=== PATIENT | male | born 1945 | race Caucasian/White ===

== ENCOUNTER → 2017-07-14 10:21 | Outpatient (CLI) | payer MEDICARE, SELFPAY | PROVIDERS: Family Provider Family Medicine; PCP Family Medicine; Visit Provider Family Medicine | DX: R19.7 Diarrhea, unspecified (principal) | CPT/HCPCS: 87493 ==

== ENCOUNTER → 2017-08-01 07:46 | Outpatient (CLI) | payer MEDICARE, SELFPAY ==
--- NOTE | 2017-08-01 10:17 | NEURO_ITS ---
NCS and/or EMG Patient Report Ordering Doctor: Tone Gonzalez DATE OF SERVICE: 08/01/17 This is a bilateral lower extremity nerve conduction study and a right lower extremity EMG performed on this 72-year-old male with a history of weakness in his legs associated with foot drop for about 9 months. He also experiences abnormal sensations described as patient's similar to his legs wrapped in an Jaya bandage. He has not had any falls. He has had both of his hips replaced and in February 2017 he had a laminectomy of his lumbar spine, he says symptoms have not improved. He does not have diabetes. Does drink alcohol, moderately but says that he has abstained for the past 5 weeks with no change in his symptoms. On examination he has absent reflexes in his bilateral lower extremities. Bilateral lower extremity sensory and motor nerve conduction study is performed , and is diffusely abnormal. The sural sensory responses are absent bilaterally. The motor responses from the bar bilateral common peroneal and tibial motor nerves demonstrate low amplitudes, prolonged latencies and very slow conduction velocities diffusely. Tibial and common peroneal F wave responses are prolonged bilaterally and the bilateral tibial H reflex responses are very low amplitude. Right lower extremity needle electromyography is performed. Muscles evaluated included the abductor hallucis, extensor digitorum brevis, anterior tibialis, medial gastrocnemius, vastus lateralis, and vastus medialis. Abnormal insertional activity and pathologic spontaneous activity was absent however all muscles demonstrated large motor units demonstrating a distal to proximal gradient with large motor units being more pronounced in distal muscles consistent with length dependent polyneuropathy. Impression: This is an abnormal electrophysiologic study of the lower extremities consistent with severe length dependent polyneuropathy. Further evaluation could include B12 testing, hepatic testing, serum protein electrophoresis, and testing of inflammatory markers. The patient should continue to abstain from alcohol.
== END ==
PROVIDERS: Family Provider Family Medicine; PCP Family Medicine; Visit Provider Orthopaedic Surgery Orthopaedic Surgery of the Spine
DX: R29.898 Other symptoms and signs involving the musculoskeletal system (principal); G62.9 Polyneuropathy, unspecified; R20.2 Paresthesia of skin
CPT/HCPCS: 95886; 95910

== ENCOUNTER → 2017-11-13 11:13 | Outpatient (CLI) | payer MEDICARE, SELFPAY ==
[2017-11-13 12:52] LABS: PSA,Total- Diagnostic < 0.01 ng/mL (0.0-4.0)
== END ==
PROVIDERS: PCP Family Medicine; Visit Provider Urology
DX: C61 Malignant neoplasm of prostate (principal)
CPT/HCPCS: 36415; 84153

== ENCOUNTER → 2018-04-16 07:23 | Outpatient (CLI) | payer MEDICARE, SELFPAY ==
[2018-04-16 10:48] LABS: Absolute Lymphocyte Count 0.96 X10^3/ul (0.83-4.51); Absolute Neutrophil Count 2.6 X10^3/uL (2.0-7.7); Basophil# 0.03 X10^3/uL; Basophil% 0.7 % (0-1); Eosinophil# 0.12 X10^3/uL; Eosinophils% 2.8 % (0-5); Hematocrit 42.7 % (40-54); Hemoglobin 14.1 g/dl (13.0-16.5); Lymphocyte # 0.96 X10^3/ul (4.0); Lymphocyte % 22.3 % (19-41); Mean Corpuscular Hgb 32.7 pg (27.0-32.0); Mean Corpuscular Volume 99.1 fL (80-94); Mean Platelet Vol. 9.2 fl (6.2-12.0); Monocyte# 0.56 X10^3/uL; Neutrophil # 2.62 X10^3/uL (2.7-7.7); Neutrophil % 60.7 % (47-70); Platelet Count 192 K/mm3 (150-450); RBC Distribution Width CV 12.8 % (11.6-14.6); RBC Distribution Width SD 46.6 fl (35.1-43.9); Red Blood Count 4.31 M/mm3 (4.6-6.2); White Blood Count 4.3 K/mm3 (4.4-11.0)
[2018-04-16 10:50] LABS: POSITIVE COUNT NO; POSITIVE DIFFERENTIAL NO; POSITIVE MORPHOLOGY NO
[2018-04-16 11:11] LABS: Anion Gap 8 (5-15); BUN 15 mg/dL (7-18); BUN/Creat Ratio 20.3 RATIO (10-20); Calcium,Total 9.1 mg/dL (8.5-10.1); Chloride 104 mmol/L (98-107); Cholesterol 192 mg/dL (200); Creatinine, Serum 0.74 mg/dL (0.70-1.30); EST Glomerular Filtration Rate 111 mL/min (>60); Est Glom Filt Rate - Afr Amer 134 mL/min (>60); Glucose 101 mg/dL (74-106); High Density Lipoprotein 71 mg/dL; Potassium 4.1 mmol/L (3.5-5.1); Sodium Level 141 mmol/L (136-145); Triglycerides 235 mg/dL; Very Low Density Lipoprotein 47 mg/dL (5-40)
== END ==
PROVIDERS: Family Provider Family Medicine; PCP Family Medicine; Referring Provider Family Medicine; Visit Provider Family Medicine
DX: I10 Essential (primary) hypertension (principal); E78.00 Pure hypercholesterolemia, unspecified
CPT/HCPCS: 36415; 80048; 80061; 85025

== ENCOUNTER → 2018-07-03 09:39 | Outpatient (CLI) | payer MEDICARE, SELFPAY ==
[2018-07-03 11:54] LABS: Absolute Lymphocyte Count 1.02 X10^3/ul (0.83-4.51); Absolute Neutrophil Count 6.5 X10^3/uL (2.0-7.7); Basophil# 0.02 X10^3/uL; Basophil% 0.2 % (0-1); Eosinophil# 0.13 X10^3/uL; Eosinophils% 1.5 % (0-5); Hematocrit 42.5 % (40-54); Hemoglobin 13.6 g/dl (13.0-16.5); Lymphocyte # 1.02 X10^3/ul (4.0); Lymphocyte % 11.6 % (19-41); Mean Corpuscular Hgb 31.3 pg (27.0-32.0); Mean Corpuscular Volume 97.7 fL (80-94); Mean Platelet Vol. 9.8 fl (6.2-12.0); Monocyte# 1.12 X10^3/uL; Monocyte% 12.7 % (0-10); Neutrophil # 6.51 X10^3/uL (2.7-7.7); Neutrophil % 73.7 % (47-70); Platelet Count 216 K/mm3 (150-450); RBC Distribution Width CV 12.8 % (11.6-14.6); RBC Distribution Width SD 45.6 fl (35.1-43.9); Red Blood Count 4.35 M/mm3 (4.6-6.2); White Blood Count 8.8 K/mm3 (4.4-11.0)
[2018-07-03 11:55] LABS: POSITIVE COUNT NO; POSITIVE DIFFERENTIAL NO; POSITIVE MORPHOLOGY NO
[2018-07-03 12:06] LABS: ALB/GLOB Ratio 1.2 RATIO (0.9-2.4); AST(SGOT) 40 U/L (15-37); Alanine Aminotransfer ALT/SGPT 88 U/L (16-61); Albumin, Serum 3.9 g/dL (3.2-5.0); Alkaline Phosphatase 111 U/L (45-117); Anion Gap 10 (5-15); BUN 13 mg/dL (7-18); BUN/Creat Ratio 17.6 RATIO (10-20); Calcium,Total 9.2 mg/dL (8.5-10.1); Chloride 105 mmol/L (98-107); Creatinine, Serum 0.74 mg/dL (0.70-1.30); EST Glomerular Filtration Rate 110 mL/min (>60); Est Glom Filt Rate - Afr Amer 134 mL/min (>60); Globulin 3.2 g/dL (2.2-4.2); Glucose 102 mg/dL (74-106); Potassium 4.5 mmol/L (3.5-5.1); Protein, Total 7.1 g/dL (6.4-8.2); Sodium Level 141 mmol/L (136-145)
== END ==
PROVIDERS: Family Provider Family Medicine; PCP Family Medicine; Visit Provider Family Medicine
DX: R19.8 Other specified symptoms and signs involving the digestive system and abdomen (principal)
CPT/HCPCS: 36415; 80053; 85025

== ENCOUNTER → 2018-07-03 10:23 | Outpatient (CLI) | payer MEDICARE, SELFPAY ==
--- NOTE | 2018-07-03 10:29 | CT_ITS ---
STUDY: CT ABDOMEN AND PELVIS WITH CONTRAST REASON FOR EXAM: Male, 73 years old. Right lower quadrant pain. History of prostate carcinoma. RADIATION DOSAGE (If Supplied By Facility): CTDIvol = ( 26.12 ) mGy, DLP = ( 1819.01 ) mGycm TECHNIQUE: Transaxial images were obtained from the dome of the diaphragm to the symphysis pubis with oral contrast. Isovue 300 100ML IV/Oral was administered. Sagittal and coronal images were reconstructed. Individualized dose optimization techniques were used for this CT. COMPARISON: Comparison is made with prior study dated December 19, 2012. FINDINGS: Calcified right hilar lymph node. Coronary artery calcification. There is decreased attenuation of the liver consistent with steatosis. There are multiple small gallstones. There are multiple benign calcified granulomata of the spleen. Normal pancreas. Normal bilateral adrenal glands. Normal right kidney. Normal left kidney. Normal visualized stomach. Normal small intestine. There are multiple colonic diverticula consistent with diverticulosis. There is a tubular, thick-walled appendix (>7mm), consistent with acute appendicitis. Increased markings are seen in the surrounding fat suggestive of inflammatory changes. There is also evidence of a small lymph node in the right lower quadrant mesentery into the mesenteric adenitis. There is scattered atherosclerotic calcification of the abdominal aorta, without a demonstrated aneurysm. Normal inferior vena cava. Normal retroperitoneum. Normal urinary bladder. Normal abdominal wall. There are diffuse degenerative changes of the visualized lumbar spine. 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 Bilateral total hip replacement. This causes beam Almaraz artifact with limitation of the pelvic anatomy. CT/Abdomen/Pelvis WITH Contrast IMPRESSION: Findings in keeping with noncomplicated acute appendicitis. Fatty infiltration of the liver. Sigmoid diverticulosis. Electronically Signed: Paul Chiang MD at 12:50 EST , Service support ,
== END ==
PROVIDERS: Family Provider Family Medicine; PCP Family Medicine; Referring Provider Family Medicine; Visit Provider Family Medicine
DX: R19.8 Other specified symptoms and signs involving the digestive system and abdomen (principal)
CPT/HCPCS: 36415; 71045; 74177; 80053; 85025; 88304; 93005; 99283; J7030; J7120; Q9967; J2405

== ENCOUNTER 2018-07-03 12:40 | Observation (INO) | payer MEDICARE, SELFPAY ==
[2018-07-03] VITALS (9 sets, daily range): BP systolic 142–169; BP diastolic 78–95; PULSE 59–85; RESP 16–18; TEMP 36.2–37.1; O2SAT 94–99; BMI 35.8; BMI 34.8; BMI 34.9
--- NOTE | 2018-07-03 | APP_PTH ---
PATIENT: CLAYTON BURGOS LOC: MS3 U#:[id number] AGE/SX: 73/M ROOM: WA312 RE07/03/[address]: Dr. Dao Sloan MD : 1945 BED: 1 DIS: 07/04/2018 SPEC #: [id number] RECD: 07/04/18 08:36 STATUS: SOFI REQ #: [id number] MILA: 07/03/18 00:[address]: Dao Sloan DEPT: SURGICAL PATHOLOGY RECD BY: Atif Tijerina ENTERED: 07/04/18 08:36 SP TYPE: APPENDIX OTHR DR: Dr. Ahmet Reed MD Tissues: Appendix, NOS Procedures: Surgery Specimen Level III HEADER OPERATION: Laparoscopic appendectomy PRE-OP DIAGNOSIS: Acute appendicitis TISSUE SUBMITTED: Appendix MICROSCOPIC DIAGNOSIS Appendix, appendectomy: Acute necrotizing appendicitis. Acute serositis. Fibrofatty obliteration of distal appendiceal lumen. AM:breann 07/05/18 MICROSCOPIC DESCRIPTION Slides are reviewed. GROSS DESCRIPTION Received is one container labeled with the patient's name and designated appendix. The specimen consists of a vermiform appendix measuring 7.5 cm in length and varying in diameter from 1 to 0.3 cm. No gross perforations are identified. Grave Cleaner sections are submitted in one cassette. / AM:breann 07/04/18 TC:2 CPT: 35774
--- NOTE | 2018-07-03 13:02 | EKG12_ITS ---
Test Reason : ABD PAIN Blood Pressure : / mmHG Vent. Rate : 056 BPM Atrial Rate : 056 BPM P-R Int : 264 ms QRS Dur : 098 ms QT Int : 436 ms P-R-T Axes : 011 -08 061 degrees QTc Int : 420 ms Sinus bradycardia with 1st degree A-V block Otherwise normal ECG Confirmed by RIGO MEI, GERARD ([id number]), city editor BISI ARGUELLO ([id number]) on 07/08/2018 5:04:13 PM Referred By: PK Confirmed By:GERARD SIERRA MD
--- NOTE | 2018-07-03 13:06 | RAD_ITS ---
STUDY: X-RAY CHEST REASON FOR EXAM: Male, 73 years old. Preoperative evaluation. TECHNIQUE: Single AP portable view of the chest. COMPARISON: Comparison is made with prior study dated July 19, 2016. FINDINGS: The lungs are clear and expanded. Scattered calcified granulomas. There is no demonstrated pleural abnormality. Normal size heart. Normal mediastinum and choco. Normal visualized pulmonary arteries. Normal visualized aortic arch and descending thoracic aorta. There are diffuse degenerative changes of the visualized thoracic spine. Normal visualized ribs, clavicles, and shoulders. There is no demonstrated abnormality of the visualized soft tissue structures of the upper abdomen. RAD/Chest 1 View (Portable) IMPRESSION: No acute abnormality is seen. Electronically Signed: Paul Chiang MD at 13:43 EST , Service support ,
--- NOTE | 2018-07-03 13:12 | ED.VISSUMM ---
- ER Visit Summary Date of Service: 07/03/18 Chief Complaint: Abdominal pain History of Present Illness: The patient is a 73 M who presents to the emergency department following an outpatient CT that showed appendicitis. Patient states that last evening around 1700 pain in the right lower quadrant. He states that he had [place] fries around 1800 hrs. and since that time has not had anything to eat due to anorexia. He had coffee at 080 0 hours. He went to see primary care physician this morning who had outpatient labs drawn white blood cell count 8.8 with a hemoglobin of 13.6 and a platelet count of 216. Creatinine 0.74. The patient's CT demonstrated uncomplicated acute appendicitis. Patient's history includes GERD history of prostate cancer the finished treatment last year hypertension high cholesterol and a smoking history having quit 20 years ago. He has had numerous orthopedic surgeries not had problems with anesthesia. Preceding the patient's abdominal pain patient noted diarrhea Sunday but has not had any diarrhea since. Physical Examination: Afebrile vital signs are stable Gen: Well-nourished well-developed Head: Normocephalic atraumatic Eyes: Perrl EOMI ENT: TMs clear no rhinorrhea moist mucous membranes Neck: Supple no lymphadenopathy no JVD nontender CVS: Regular rate rhythm no murmurs normal S1-S2 Respiratory: No distress clear to auscultation bilaterally chest nontender Abdomen: Soft tender to palpation in the right lower quadrant with guarding. There are bowel sounds. No masses. Back: Nontender Extremity: Nontender no edema Skin: Normal color no rash Neuro: alert orientated ?3 CN II-XII intact normal strength sensation reflexes gait cerebellar Psych: Normal affect normal mood Test Results: EKG was obtained. Patient's outpatient CBC CMP and CT were reviewed. Emergency Department Course and Treatment: Patient received IV fluids was started on Zosyn. I spoke with on-call surgery () who will send a physician customer marketing assistant to evaluate the patient will plan on surgical treatment. Impression: 1. Acute appendicitis This note was generated with [employer] dictation software. It may contain incorrect words, spelling, and punctuation that were not noted in review of the chart prior to signing ED Disposition - Plan for ED Patient: Referrals: Ahmet Reed MD [Primary Care Provider] -
--- NOTE | 2018-07-03 13:15 | ED.DCSUM_ITS ---
- ER Visit Summary Date of Service: 07/03/18 Chief Complaint: Abdominal pain History of Present Illness: The patient is a 73 M who presents to the emergency department following an outpatient CT that showed appendicitis. Patient states that last evening around 1700 pain in the right lower quadrant. He states that he had [place] fries around 1800 hrs. and since that time has not had anything to eat due to anorexia. He had coffee at 080 0 hours. He went to see primary care physician this morning who had outpatient labs drawn white blood cell count 8.8 with a hemoglobin of 13.6 and a platelet count of 216. Creatinine 0.74. The patient's CT demonstrated uncomplicated acute appendicitis. Patient's history includes GERD history of prostate cancer the finished treatment last year hypertension high cholesterol and a smoking history having quit 20 years ago. He has had numerous orthopedic surgeries not had problems with anesthesia. Preceding the patient's abdominal pain patient noted diarrhea Sunday but has not had any diarrhea since. Physical Examination: Afebrile vital signs are stable Gen: Well-nourished well-developed Head: Normocephalic atraumatic Eyes: Perrl EOMI ENT: TMs clear no rhinorrhea moist mucous membranes Neck: Supple no lymphadenopathy no JVD nontender CVS: Regular rate rhythm no murmurs normal S1-S2 Respiratory: No distress clear to auscultation bilaterally chest nontender Abdomen: Soft tender to palpation in the right lower quadrant with guarding. There are bowel sounds. No masses. Back: Nontender Extremity: Nontender no edema Skin: Normal color no rash Neuro: alert orientated ?3 CN II-XII intact normal strength sensation reflexes gait cerebellar Psych: Normal affect normal mood Test Results: EKG was obtained. Patient's outpatient CBC CMP and CT were reviewed. Emergency Department Course and Treatment: Patient received IV fluids was started on Zosyn. I spoke with on-call surgery () who will send a physician engineer third assistant to evaluate the patient will plan on surgical treatment. Impression: 1. Acute appendicitis This note was generated with [employer] dictation software. It may contain incorrect words, spelling, and punctuation that were not noted in review of the chart prior to signing ED Disposition - Plan for ED Patient: Referrals: Ahmet Reed MD [Primary Care Provider] -
[2018-07-03] MEDS: 0.9% Normal Saline 1,000 ML 150 ML IV (13:35)
--- NOTE | 2018-07-03 13:58 | HP.PCM_ITS ---
Problem List (1) Right lower quadrant abdominal pain Status: Acute History of Present Illness Date of Admission: 07/03/18 Chief Complaint: Right lower quadrant pain The patient is a 73 year old M who presents with 1 day history of right lower quadrant abdominal pain. Patient noted he had diarrhea on Sunday and Sunday. Patient also noted lack of appetite yesterday into today. He noted the pain did not improve. He went to see his PCP, Dr. Ewing, who ordered lab work and CT scan which demonstrated uncomplicated acute appendicitis. Patient denies nausea, vomiting, fever. He notes history of prostate cancer which he completed treatment for last year. He is maintained on Flomax. He notes multiple orthopedic procedures. He denies previous abdominal surgeries. He denies previous myocardial infarction, stroke, blood clots. He quit smoking 20 years a go. Past Medical History Allergies No Known Allergies Allergy (Verified 07/03/18 12:41) Home Medications: Ambulatory Orders Medication Instructions Recorded Aspirin [Aspirin, Baby] 81 mg PO DAILY@0800 10/13/15 Atenolol [Tenormin (Beta Ronda)] 50 mg PO DAILY 10/13/15 Gabapentin [Neurontin] 300 mg PO TID 10/13/15 Meloxicam [Mobic] 15 mg PO DAILY 10/13/15 Pantoprazole Sodium [Protonix] 40 mg PO DAILY 10/13/15 Simvastatin [Zocor] 40 mg PO QHS 10/13/15 Cholecalciferol (Vitamin D3) 4,000 unit PO DAILY 07/31/16 [Vitamin D3] Multivit-Min/FA/Lycopen/Lutein 1 each PO DAILY 07/31/16 [Centrum Silver Tablet] Pyridoxine HCl [Vitamin B-6] 100 mg PO DAILY 07/31/16 Tamsulosin HCl 0.4 mg PO DAILY 07/03/18 Surgical History: total hip arthroplasty - bilateral, total knee arthroplasty, - - carpal tunnel, spine surgery, left quad tendon repair Psychiatric History: No pertinent psych hx Lives: Spouse/ Significant Other Smoking Status: Former smoker - *Family History Maternal History Items: No pertinent history Paternal History Items: No pertinent history Review of Systems Constitutional: Reports: Anorexia. Denies: Fever, Weight Change HEENT: Denies: Head Aches, Sinus Congestion, Sinus Drainage Cardiovascular: Denies: Chest Pain, Palpitations Respiratory: Denies: Cough, Shortness of breath at rest, Sputum production Gastrointestinal: Reports: Abdominal Pain - RLQ, Diarrhea. Denies: Nausea, Vomiting Genitourinary: Reports: Dysuria Musculoskeletal: Denies: Joint Pain, Joint Tenderness Skin: Denies: Rash, Wounds Neurological: Denies: Numbness, Tingling, Focal weakness Psychiatric: Denies: Anxiety, Depression, Homicidal Ideations, Suicidal Ideations Hematologic/ Lymphatic: Denies: Easy Bruising, Easy Bleeding VTE Information - Inpt Only VTE Present on Admission: Yes VTE Mechan Device Prophylaxis: SCD's Patient Problems: Active and Suspected Problems Right lower quadrant abdominal pain (Acute) - Physical Exam General: Alert, Oriented x3, Cooperative HEENT: Atraumatic, PERRLA, EOMI, Normocephalic Neck: Supple, No JVD, Negative Carotid Bruits Lungs: Clear to auscultation, Normal air movement Cardiovascular: Regular rate, No murmurs Abdomen: Bowel Sounds Present, Soft, Obese, Tender - RLQ Extremities: No edema, Capillary Refill Less than 3 Seconds Skin: No rashes, No breakdown Musculoskeletal: No Tenderness to Palpation of Joints or Extremities Neurological: Cranial nerves II-XII grossly intact, Neuro grossly intact Psych/Mental Status: Normal Affect, Appropriate Vital Signs Temp Pulse Resp BP Pulse Ox 97.1 F L 59 L 17 142/83 H 99 07/03/18 12:41 07/03/18 13:36 07/03/18 13:36 07/03/18 12:41 07/03/18 13:36 Weight: 256 lb 13.416 oz Body Mass Index (BMI) 35.8 Finger Stick Blood Glucose 100 Assessment/Plan All Active Problems Right lower quadrant abdominal pain (Acute) I am evaluating this patient in conjunction with Dr. Sloan. Impression: Right lower quadrant pain. Acute appendicitis Plan: I have discussed this patient with Dr. Sloan. Dr. Sloan will plan to perform a laparoscopic appendectomy. Procedure details, risks and benefits have been explained to the patient and his . Patient has had the opportunity to ask and have questions answered. Patient verbally understands and agrees with the plan. Thank you for allowing us to participate in this patient's care. Code Visit Office Visits / Consults: 35155 IP Consult L3
--- NOTE | 2018-07-03 17:11 | PCM.DC.GS ---
Discharge Diet: Light diet - advance as tolerated - if you have questions about your diet instructions, please talk to you doctor. Discharge Activity: May Not Drive - for 3-5 days or while taking narcotic pain medicine. May shower in (days): 1 Lifting Restrictions: 10 pounds Call your doctor if your incision/area has: Continuous Slow Oozing, Sudden Increased Bleeding, Increased Pain/ Swelling, Increased Redness, Foul Smelling Discharge Call your doctor if you observe: Fever of 101 or Higher Suture Line Care: Avoid Pulling/Pushing, Avoid Pinching/Bending Additional Dressing/Incision Instructions:: Change or remove dressing in 4 days. Leave steri-strips in place for 1 week. Allergies/Adverse Reactions: Allergies No Known Allergies Allergy (Verified 07/03/18 12:41) Medications to take at Discharge Aspirin [Aspirin, Baby] 81 mg PO DAILY@0800 10/13/15 Atenolol [Tenormin (beta andrzej)] 50 mg PO DAILY 10/13/15 Gabapentin [Neurontin] 300 mg PO TID 10/13/15 Meloxicam [Mobic] 15 mg PO DAILY 10/13/15 Pantoprazole Sodium [Protonix] 40 mg PO DAILY 10/13/15 Simvastatin [Zocor] 40 mg PO QHS 10/13/15 Cholecalciferol (Vitamin D3) [Vitamin D3] 4,000 unit PO DAILY 07/31/16 Multivit-Min/FA/Lycopen/Lutein [Centrum Silver Tablet] 1 each PO DAILY 07/31/16 Pyridoxine HCl [Vitamin B6] 100 mg PO DAILY 07/31/16 Hydrocodone Bitart/Apap 5-325 [[place] 5MG-325MG] 1 tablet PO Q6H PRN PRN 2 Days #6 tablet 07/03/18 Tamsulosin HCl 0.4 mg PO DAILY 07/03/18 The following prescriptions were given: Hydrocodone Bitart/Apap 5-325 [[place] 5MG-325MG] 1 tablet PO Q6H PRN PRN 2 Days #6 tablet PRN Reason: Pain Primary Care Physician: Ahmet Reed MD [Primary Care Provider] - Test Results: Test results from this visit will be discussed in further detail at your follow-up appointment, if applicable. Please Follow Up With: Dao Sloan MD - [phone] When: Call to make an appointment to be seen in about 10 days.
[2018-07-03] MEDS: Bupivacaine Mpf 0.5% 30 ML VIAL (18:05)
--- NOTE | 2018-07-03 18:15 | PCM.OPRPT ---
Problem List (1) Acute appendicitis Status: Acute Qualifiers: Acute appendicitis type: with localized peritonitis Appendicitis gangrene presence: without gangrene Appendicitis perforation presence: without perforation Appendicitis abscess presence: without abscess Qualified Code(s): K35.30 - Acute appendicitis with localized peritonitis, without perforation or gangrene Report of Operation Date of Procedure: 07/03/18 Pre-Operative Diagnosis: Acute appendicitis with suspected localized peritonitis Post-Operative Diagnosis: Acute appendicitis with localized peritonitis and ileus Surgery/Procedure Performed:: Laparoscopic appendectomy Description of Surgical Findings:: Timeout and informed consent was obtained. 73-year-old gent was taken the operative placement table general the patient in anesthesia. Zosyn has been given intravenously in the emergency room. The abdomen sterilely prepped draped. 0.5% Marcaine was used as local anesthetic. Throughout the procedure total 30 cc was used. Skin sites were pre-anesthetized. A vertical infraumbilical incision was created. Holding suture of 0 Vicryl placed. This incision was made actually inferior to the umbilicus itself. At the closing there was evidence of likely a very small umbilical hernia but that tissue was not interfered with. A varies needle was inserted. The abdomen was insufflated with CO2 to a pressure of 10 mmHg pressure. To me trocar inserted. 10 lap scope inserted. No evidence of trocar injuries. There was injection of the cecum and significant appendiceal swelling and inflammation with pericecal fat wrapping. Terminal ileum was adherent to the appendix. 5-minute trochars placed suprapubically and one in the right upper quadrant. The appendix was carefully bluntly dissected free. I tediously dissected free peritoneal fat which was apparent to the cecum the appendix. Were needed hemostasis obtained with hemo-lock clips. I then had some hopes of doing a partial cystectomy. I placed a 60 mm [place] stapler but despite multiple positions I could not include the cecum which was distended with ileus and was mildly indurated. I therefore transected the appendix flush with the cecum. I placed the stapler weighted a 4-minute and then fired the device. I then used a similar process to transect the mesoappendix. Final hemostasis of the mesoappendix was achieved with several hemo-lock clips. The appendix was placed in a retrieval bag. The right lower quadrant was irrigated and aspirated free of excess fluid. There had been some light escudero cloudy fluid to a small amount at the initiation of the procedure. At the completion of the procedure all staple lines were inspected all staple lines appeared to be healthy and intact. The appendix was exited through the umbilical incision. The remaining ports were removed under visualization. The abdomen was allowed to deflate of CO2. The fascia at the umbilicus proximal interrupted 0 Vicryl [id number] suture. Skin edges approximated up to 4 Monocryl subdermal stitches. Steri-Strips and Telfa and OpSite dressings were applied. Sponge and instrument and needle counts were reported the surgeon be correct. Blood loss was minimal. He tolerated the procedure well and was taken to the recovery room in satisfactory condition without apparent complication. Specimen appendix. Drains none. Blood loss minimal. Dao Sloan M.D., F.A.C.S. Type of Anesthesia:: General Anesthesiologist: Tha Huffman
--- NOTE | 2018-07-03 18:20 | OP.PCM_ITS ---
Problem List (1) Acute appendicitis Status: Acute Qualifiers: Acute appendicitis type: with localized peritonitis Appendicitis gangrene presence: without gangrene Appendicitis perforation presence: without perforation Appendicitis abscess presence: without abscess Qualified Code(s): K35.30 - Acute appendicitis with localized peritonitis, without perforation or gangrene Report of Operation Date of Procedure: 07/03/18 Pre-Operative Diagnosis: Acute appendicitis with suspected localized peritonitis Post-Operative Diagnosis: Acute appendicitis with localized peritonitis and ileus Surgery/Procedure Performed:: Laparoscopic appendectomy Description of Surgical Findings:: Timeout and informed consent was obtained. 73-year-old gent was taken the operative placement table general the patient in anesthesia. Zosyn has been given intravenously in the emergency room. The abdomen sterilely prepped draped. 0.5% Marcaine was used as local anesthetic. Throughout the procedure total 30 cc was used. Skin sites were pre-anesthetized. A vertical in fraumbilical incision was created. Holding suture of 0 Vicryl placed. This incision was made actually inferior to the umbilicus itself. At the closing there was evidence of likely a very small umbilical hernia but that tissue was not interfered with. A varies needle was inserted. The abdomen was insufflated with CO2 to a pressure of 10 mmHg pressure. To me trocar inserted. 10 lap scope inserted. No evidence of trocar injuries. There was injection of the cecum and significant appendiceal swelling and inflammation with pericecal fat wrapping. Terminal ileum was adherent to the appendix. 5-minute trochars placed suprapubically and one in the right upper quadrant. The appendix was carefully bluntly dissected free. I tediously dissected free peritoneal fat which was apparent to the cecum the appendix. Were needed hemostasis obtained with hemo-lock clips. I then had some hopes of doing a partial cystectomy. I placed a 60 mm [place] stapler but despite multiple positions I could not include the cecum which was distended with ileus and was mildly indurated. I therefore transected the appendix flush with the cecum. I placed the stapler weighted a 4-minute and then fired the device. I then used a similar process to transect the mesoappendix. Final hemostasis of the mesoappendix was achieved with several hemo-lock clips. The appendix was placed in a retrieval bag. The right lower quadrant was irrigated and aspirated free of excess fluid. There had been some light escudero cloudy fluid to a small amount at the initiation of the procedure. At the completion of the procedure all staple lines were inspected all staple lines appeared to be healthy and intact. The appendix was exited through the umbilical incision. The remaining ports were removed under visualization. The abdomen was allowed to deflate of CO2. The fascia at the umbilicus proximal interrupted 0 Vicryl [id number] suture. Skin edges approximated up to 4 Monocryl subdermal stitches. Steri-Strips and Telfa and OpSite dressings were applied. Sponge and instrument and needle counts were reported the surgeon be correct. Blood loss was minimal. He tolerated the procedure well and was taken to the recovery room in satisfactory condition without apparent complication. Specimen appendix. Drains none. Blood loss minimal. Dao Sloan M.D., F.A.C.S. Type of Anesthesia:: General Anesthesiologist: Tha Huffman
[2018-07-03] MEDS: Atorvastatin Calcium 20 MG Tablet PO (22:18)
[2018-07-03] MEDS: Gabapentin 300 MG Capsule PO (22:18)
[2018-07-03] MEDS: Lactated Ringers 1,000 ML 70 ML IV (22:18)
[2018-07-04] VITALS: BP 137/79; PULSE 70; RESP 18; TEMP 36.6; O2SAT 95; BMI 34.9
[2018-07-04] MEDS: Gabapentin 300 MG Capsule PO (05:19)
[2018-07-04 05:25] VITALS: BP 149/79; PULSE 57; RESP 16; TEMP 36.8; O2SAT 94
[2018-07-04 05:45] LABS: Absolute Lymphocyte Count 0.72 X10^3/ul (0.83-4.51); Absolute Neutrophil Count 7.8 X10^3/uL (2.0-7.7); Basophil# 0.01 X10^3/uL; Basophil% 0.1 % (0-1); Hematocrit 40.7 % (40-54); Hemoglobin 13.2 g/dl (13.0-16.5); Lymphocyte # 0.72 X10^3/ul (4.0); Lymphocyte % 7.8 % (19-41); Mean Corp Hgb Conc 32.4 g/gl (32-36); Mean Corpuscular Hgb 31.5 pg (27.0-32.0); Mean Corpuscular Volume 97.1 fL (80-94); Mean Platelet Vol. 9.4 fl (6.2-12.0); Monocyte# 0.68 X10^3/uL; Monocyte% 7.4 % (0-10); Neutrophil # 7.79 X10^3/uL (2.7-7.7); Neutrophil % 84.5 % (47-70); Platelet Count 209 K/mm3 (150-450); RBC Distribution Width CV 12.4 % (11.6-14.6); RBC Distribution Width SD 42.7 fl (35.1-43.9); Red Blood Count 4.19 M/mm3 (4.6-6.2); White Blood Count 9.2 K/mm3 (4.4-11.0)
[2018-07-04 05:50] LABS: POSITIVE COUNT NO; POSITIVE DIFFERENTIAL NO; POSITIVE MORPHOLOGY NO
--- NOTE | 2018-07-04 06:22 | PN.SURG_ITS ---
Patient Problems: Active and Suspected Problems Right lower quadrant abdominal pain (Acute) Acute appendicitis (Acute) Subjective: Pt has minimal pain. No nausea. Feeling better Minimal flatus - Physical Exam Lungs: Clear to auscultation Abdomen: Bowel Sounds Present, Soft, Non Tender Vital Signs Temp Pulse Resp BP Pulse Ox 98.2 F 57 L 16 149/79 H 94 07/04/18 05:25 07/04/18 05:25 07/04/18 05:25 07/04/18 05:25 07/04/18 05:25 Oxygen Flow Rate (L/min) 1 Oxygen Delivery Method Room Air Weight: 250 lb Body Mass Index (BMI) 34.8 Finger Stick Blood Glucose 100 Intake and Output for Last 24 Hours 07/02/18 07/03/18 07/04/18 23:59 23:59 23:59 Intake Total 1500 / 1500 200 / 200 Output Total 650 / 650 Balance 1500 / 1500 -450 / -450 Laboratory Tests Past 24 Hrs 07/04/18 05:20 WBC 9.2 RBC 4.19 L Hgb 13.2 Hct 40.7 MCV 97.1 H MCH 31.5 MCHC 32.4 RDW 12.4 RDW Differential 42.7 Plt Count 209 MPV 9.4 Immature Gran % (Auto) 0.200 Neut % (Auto) 84.5 H Lymph % (Auto) 7.8 L [place] % (Auto) 7.4 Eos % (Auto) 0.0 Baso % (Auto) 0.1 Absolute Neuts (auto) 7.8 H Absolute Lymphs (auto) 0.72 L Total Counted Not Reportable Medical Necessity - Tobacco Use Smoking Status: Former smoker Assessment/Plan All Active Problems Right lower quadrant abdominal pain (Acute) Acute appendicitis (Acute) Will start diet Will stop IV antibiotics Plan discharge later today
[2018-07-04 07:37] VITALS: O2SAT 93
[2018-07-04] MEDS: Aspirin 81 MG TAB.CHEW PO (08:39)
[2018-07-04] MEDS: Tamsulosin HCl 0.4 MG Capsule PO (11:26)
[2018-07-04] MEDS: Pantoprazole Sodium 40 MG Tablet PO (11:26)
[2018-07-04] MEDS: Atenolol 50 MG Tablet PO (11:27)
[2018-07-04 11:31] VITALS: BP 136/75; PULSE 61; RESP 18; TEMP 36.7; O2SAT 95
== END 2018-07-04 11:51 | disposition home or self-care (01) ==
LOC: ED 13:20 → SDC 13:25 → AC 13:27 → MS3 07-04 06:01 → SDC 07-04 08:57
PROVIDERS: Admitting Provider Surgery; Emergency Provider Emergency Medicine; Family Provider Family Medicine; PCP Family Medicine; Visit Provider Surgery
PROC: 0DTJ4ZZ Resection of Appendix, Percutaneous Endoscopic Approach (ICD-10-PCS; CPT 44970; principal; 2018-07-03 15:15)
DX: K35.30 Acute appendicitis with localized peritonitis, without perforation or gangrene (principal); E78.00 Pure hypercholesterolemia, unspecified; K21.9 Gastro-esophageal reflux disease without esophagitis; I10 Essential (primary) hypertension; Z87.891 Personal history of nicotine dependence; Z79.82 Long term (current) use of aspirin; Z79.899 Other long term (current) drug therapy; Z79.1 Long term (current) use of non-steroidal anti-inflammatories (NSAID); Z85.46 Personal history of malignant neoplasm of prostate; R19.8 Other specified symptoms and signs involving the digestive system and abdomen
CPT/HCPCS: 44970; 36415; 71045; 80053; 85025; 88304; 93005; 99283; J7030; J7120; J2405

== ENCOUNTER → 2018-08-27 09:40 | Outpatient (CLI) | payer MEDICARE, SELFPAY ==
[2018-07-03 19:52] VITALS: BMI 34.8
[2018-08-27 13:07] LABS: PSA,Total- Diagnostic < 0.01 ng/mL (0.0-4.0)
== END ==
PROVIDERS: Family Provider Family Medicine; PCP Family Medicine; Referring Provider Family Medicine; Visit Provider Urology
DX: C61 Malignant neoplasm of prostate (principal)
CPT/HCPCS: 36415; 84153

== ENCOUNTER → 2019-02-25 07:16 | Outpatient (CLI) | payer MEDICARE, SELFPAY ==
[2018-07-03 19:52] VITALS: BMI 34.8
[2019-02-25 10:00] LABS: Color, Urine Yellow (Yellow); Glucose, Dipstick Normal (Normal); Ketone-Dipstick Negative (Negative); Leukocyte Esterase-Dipstick Negative /ul (Negative); Nitrite-Dipstick Negative (Negative); Occult Blood-Urine 25 /ul (Negative); Protein-Dipstick 100 mg/dl (Negative); Urine Bilirubin Dipstick Negative (Negative); Urine Clarity Sl. Cloudy (Clear); Urine Urobilinogen Normal (Normal)
[2019-02-25 10:04] LABS: Hematocrit 47.1 % (40-54); Hemoglobin 15.7 g/dL (13.0-16.5); Mean Corp Hgb Conc 33.3 g/dL (32-36); Mean Corpuscular Hgb 31.9 pg (27.0-32.0); Mean Corpuscular Volume 95.7 fL (80-94); Mean Platelet Vol. 9.6 fl (6.2-12.0); Platelet Count 207 K/mm3 (150-450); RBC Distribution Width CV 12.3 % (11.6-14.6); RBC Distribution Width SD 43.3 fl (35.1-43.9); Red Blood Count 4.92 M/mm3 (4.6-6.2); White Blood Count 5.7 K/mm3 (4.4-11.0)
[2019-02-25 10:12] LABS: Bacteria 1+ /hpf (None Seen); Mucous, Urine 1+ /hpf (<or=2+); Red Blood Cells-Urine 0-5 SEEN /hpf (0-5); Squamous Epithelial Cells - UA 0-5 SEEN /hpf (0-5); White Blood Cells 0-5 SEEN /hpf (0-5)
[2019-02-25 10:23] LABS: Vitamin D,25 Hydroxy 26.7 ng/mL (29.95-100.01)
[2019-02-25 10:34] LABS: Anion Gap 10 (5-15); BUN 16 mg/dL (7-18); BUN/Creat Ratio 21.4 RATIO (10-20); Calcium,Total 9.2 mg/dL (8.5-10.1); Chloride 106 mmol/L (98-107); Cholesterol 192 mg/dL (200); Creatinine, Serum 0.75 mg/dL (0.70-1.30); EST Glomerular Filtration Rate 109 mL/min (>60); Est Glom Filt Rate - Afr Amer 132 mL/min (>60); Glucose 116 mg/dL (74-106); High Density Lipoprotein 70 mg/dL; PSA,Total- Diagnostic 0.01 ng/mL (0.0-4.0); Potassium 4.1 mmol/L (3.5-5.1); Sodium Level 142 mmol/L (136-145); Triglycerides 306 mg/dL; Very Low Density Lipoprotein 61 mg/dL (5-40)
[2019-02-26 10:03] LABS: Hemoglobin A1c 5.5 % (4.2-6.3)
== END ==
PROVIDERS: Family Provider Family Medicine; PCP Family Medicine; Referring Provider Urology; Visit Provider Urology
DX: I10 Essential (primary) hypertension (principal); E55.9 Vitamin D deficiency, unspecified; E78.00 Pure hypercholesterolemia, unspecified; C61 Malignant neoplasm of prostate; R73.09 Other abnormal glucose
CPT/HCPCS: 36415; 80048; 80061; 81001; 82306; 83036; 84153; 85027

== ENCOUNTER → 2019-03-04 15:00 | Outpatient (CLI) | payer MEDICARE, SELFPAY ==
[2018-07-03 19:52] VITALS: BMI 34.8
[2019-03-04 15:04] VITALS: BP 146/79; PULSE 60; RESP 17; TEMP 36.2; O2SAT 98; BMI 35.7
--- NOTE | 2019-03-04 15:25 | SDCEKG_ITS ---
Test Reason : Blood Pressure : / mmHG Vent. Rate : 056 BPM Atrial Rate : 056 BPM P-R Int : 316 ms QRS Dur : 098 ms QT Int : 448 ms P-R-T Axes : 051 -07 078 degrees QTc Int : 432 ms Sinus bradycardia with 1st degree A-V block Otherwise normal ECG Confirmed by AAKASH MEI, ALEXANDRE ([id number]), slot editor АНДРЕЙ MURRY ([id number]) on 03/07/2019 1:13:23 PM Referred By: Khoa Gant Confirmed By:ISIAH FINN MD
[2019-03-04 16:17] LABS: Absolute Lymphocyte Count 1.37 X10^3/uL (0.83-4.51); Absolute Neutrophil Count 4.1 X10^3/uL (2.0-7.7); Basophil# 0.04 X10^3/uL; Basophil% 0.6 % (0-1); Eosinophil# 0.18 X10^3/uL; Eosinophils% 2.7 % (0-5); Hemoglobin 14.4 g/dL (13.0-16.5); Lymphocyte # 1.37 X10^3/ul (4.0); Lymphocyte % 20.9 % (19-41); Mean Corp Hgb Conc 32.7 g/dL (32-36); Mean Corpuscular Hgb 32.2 pg (27.0-32.0); Mean Corpuscular Volume 98.4 fL (80-94); Mean Platelet Vol. 9.6 fl (6.2-12.0); Monocyte# 0.88 X10^3/uL; Monocyte% 13.4 % (0-10); NRBC Flagged by Analyzer 0 % (0-5); Neutrophil # 4.05 X10^3/uL (2.7-7.7); Neutrophil % 61.9 % (47-70); Platelet Count 197 K/mm3 (150-450); RBC Distribution Width CV 12.4 % (11.6-14.6); RBC Distribution Width SD 44.8 fl (35.1-43.9); Red Blood Count 4.47 M/mm3 (4.6-6.2); White Blood Count 6.6 K/mm3 (4.4-11.0)
[2019-03-04 16:23] LABS: Prothrombin Time (Protime)PT. 12.7 SECONDS (11.7-14.9)
[2019-03-04 16:24] LABS: Partial Thromboplast Time 27.4 Seconds (24.1-36.2)
[2019-03-04 17:05] LABS: AST(SGOT) 36 U/L (15-37); Alanine Aminotransfer ALT/SGPT 71 U/L (16-61); Albumin, Serum 3.9 g/dL (3.2-5.0); Alkaline Phosphatase 115 U/L (45-117); Globulin 3.2 g/dL (2.2-4.2); Protein, Total 7.1 g/dL (6.4-8.2)
== END ==
PROVIDERS: Anesthesiology; Family Provider Family Medicine; PCP Family Medicine; Referring Provider Orthopaedic Surgery; Visit Provider Orthopaedic Surgery
DX: Z01.810 Encounter for preprocedural cardiovascular examination (principal); Z01.818 Encounter for other preprocedural examination; I10 Essential (primary) hypertension; F17.200 Nicotine dependence, unspecified, uncomplicated; Z79.899 Other long term (current) drug therapy
CPT/HCPCS: 36415; 80076; 85025; 85610; 85730; 87081; 93005

== ENCOUNTER → 2019-03-05 12:21 | Outpatient (CLI) | payer MEDICARE, SELFPAY ==
[2019-03-05 12:18] VITALS: BMI 34.8
[2019-03-05 15:08] LABS: T4 Free Direct 0.84 ng/dL (0.76-1.46); Thyroid Stim Hormone (TSH) 0.77 uIU/mL (0.358-3.74)
[2019-03-05 15:34] LABS: Hepatitis B Surface Antibody Non-Reactive; Hepatitis B Surface Antigen Non-Reactive (Nonreactive); Hepatitis C Antibody Non-Reactive (Nonreactive)
[2019-03-06 17:15] LABS: Anti-Thyroglobulin AB < 1.0 IU/mL (0.0-0.9); Thyroglobulin, Serum Qt. 12.2 ng/mL (1.4-29.2); Thyroid Peroxidase AB 12 IU/mL (0-34)
== END ==
PROVIDERS: Family Provider Family Medicine; PCP Family Medicine; Referring Provider Family Medicine; Visit Provider Family Medicine
DX: E01.0 Iodine-deficiency related diffuse (endemic) goiter (principal); R94.5 Abnormal results of liver function studies
CPT/HCPCS: 36415; 84432; 84439; 84443; 86376; 86706; 86800; 86803; 87340

== ENCOUNTER → 2019-03-07 12:16 | Outpatient (CLI) | payer MEDICARE, SELFPAY ==
[2019-03-05 12:18] VITALS: BMI 34.8
--- NOTE | 2019-03-07 12:17 | US_ITS ---
STUDY: THYROID ULTRASOUND REASON FOR EXAM: Male, 73 years old. Thyromegaly. TECHNIQUE: Ultrasound evaluation of the thyroid was performed with real-time and static ramsey-scale imaging. COMPARISON: None. FINDINGS: RIGHT LOBE: The right lobe of the thyroid gland measures 5.1 x 2.6 x 2.2 cm. There is a homogeneous echotexture. There are no demonstrated solid, cystic or complex lesions. LEFT LOBE: The left lobe of the thyroid gland measures 5.5 x 2.6 x 2.7 cm. There is a homogeneous echotexture. Within the left thyroid lobe, mid lower pole there is a large complex cystic nodule measuring 2.4 x 2.1 x 2.3 cm with partial hypoechoic rim and internal cystic changes. This internal and peripheral color flow. The margins are nodular. A second nodule is seen within the upper pole with diffuse decreased echogenicity a small peripheral rim measuring 0.5 x 0.3 x 0.4 cm. The margins are regular. There is internal color flow. ISTHMUS: The isthmus measures . The regional lymph nodes are normal. US/Thyroid IMPRESSION: Left-sided thyroid lobe nodules as described above, largest seen within the mid lower pole and measuring 2.4 cm in maximum dimension, morphology favoring benign process. Note to be made that benign versus malignant process cannot be adequately determined without microscopic evaluation or documentation of stability. Depending on clinical presentation and history, follow-up ultrasound in 6-12 months recommended the. Electronically Signed: Dee Hoffman MD at 3:34 EDT , Service support ,
== END ==
PROVIDERS: Family Provider Family Medicine; PCP Family Medicine; Referring Provider Family Medicine; Visit Provider Family Medicine
DX: E01.0 Iodine-deficiency related diffuse (endemic) goiter (principal)
CPT/HCPCS: 76536

== ENCOUNTER → 2019-03-14 12:46 | Outpatient (CLI) | payer MEDICARE, SELFPAY ==
[2019-03-05 12:18] VITALS: BMI 34.8
[2019-03-12 08:29] VITALS: BMI 35.9
--- NOTE | 2019-03-14 12:53 | ECHOCS_ITS ---
Reason For Study: Murmur Procedure This was a 2D Doppler, Color Flow transthoracic echocardiogram. The study was technically difficult. Contrast injection was performed. Exam performed in department. Left Ventricle Normal LV size. Moderate concentric left ventricular hypertrophy. Left ventricular systolic function is normal. The estimated ejection fraction is 60 %. Diastolic function is indeterminate. No regional wall motion abnormalities noted. Right Ventricle Normal RV size. Normal systolic function. Atria The left atrium is mildly enlarged. Normal right atrium. No doppler evidence for ASD. Bubble contrast study negative for right to left interatrial shunt. Mitral Valve There is mild mitral annular calcification. Extension of the mitral annular calcification onto the posterior mitral valve leaflet. Trivial mitral valve insufficiency. Tricuspid Valve Normal tricuspid valve. Trivial tricuspid valve insufficiency. Unable to estimate RV systolic pressure/pulmonary artery pressure due to technically difficult study. Aortic Valve Trisinus/trileaflet aortic valve. Moderate focal aortic valve calcification. Aortic sclerosis, no stenosis. Pulmonic Valve The pulmonic valve is not well visualized. Great Vessels Normal sized aortic root. Pericardium/Pleural No pericardial effusion. Medication Performed a rapid injection of agitated mix of 9 cc saline and 1cc air to assess for atrial septal defect. Diluted definity 3ml given slow IV push to enhance endocardial definition. MMode/2D Measurements & Calculations LVIDd: 4.9 cm IVSd: 1.6 cm LVOT diam: 2.2 cm LVIDs: 3.3 cm LVPWd: 1.4 cm RVDd: 4.1 cm FS: 33.0 % LVOT area: 3.8 cm2 Ao root diam: 3.5 cm LAV(MOD-bp): 75.8 ml LVAd ap4: 38.1 cm2 LAV(MOD-bp) Indexed: 33.0 ml/m2 EDV(MOD-sp4): 138.6 ml LAV(MOD-sp2): 73.9 ml EDV(sp4-el): 144.4 ml LAV(MOD-sp4): 76.5 ml LVAs ap4: 20.6 cm2 ESV(MOD-sp4): 54.1 ml ESV(sp4-el): 55.0 ml EF(MOD-sp4): 61.0 % EF(sp4-el): 61.9 % SV(MOD-sp4): 84.5 ml SV(sp4-el): 89.3 ml LA A4 area: 25.2 cm2 LA dimension(2D): 4.9 cm RA A4 area: 16.1 cm2 Doppler Measurements & Calculations MV E max markus: 57.4 cm/sec Lat Peak E' Markus: 5.0 cm/sec Med Peak E' Markus: 3.7 cm/sec MV A max markus: 80.0 cm/sec E/E' lat: 11.5 E/E' med: 15.6 MV E/A: 0.72 Ao V2 max: 180.9 cm/sec LV V1 max: 105.7 cm/sec PA V2 max: 138.0 cm/sec Ao max P.1 mmHg LV V1 max P.5 mmHg Ao V2 mean: 122.4 cm/sec Ao mean P.8 mmHg Ao V2 VTI: 37.8 cm BRAULIO(V,D): 2.2 cm2 Interpretation Summary The study was technically difficult. Contrast injection was performed. Left ventricular systolic function is normal. The estimated ejection fraction is 60 %. Moderate concentric left ventricular hypertrophy. The left atrium is mildly enlarged. There is mild mitral annular calcification. Extension of the mitral annular calcification onto the posterior mitral valve leaflet. Trivial mitral valve insufficiency. Trivial tricuspid valve insufficiency. Aortic sclerosis, no stenosis. Unable to estimate RV systolic pressure/pulmonary artery pressure due to technically difficult study. Diastolic function is indeterminate. Ordering Physician: Ahmet Ewing Referring Physician: Ahmet Ewing Performed By: Elva Krishnan RDCS, RVT
== END ==
PROVIDERS: Family Provider Family Medicine; PCP Family Medicine; Referring Provider Family Medicine; Visit Provider Family Medicine
DX: R01.1 Cardiac murmur, unspecified (principal)
CPT/HCPCS: 93306; Q9957; A4216; C8929

== ENCOUNTER → 2019-03-18 12:43 | Outpatient (CLI) | payer MEDICARE, SELFPAY ==
[2019-03-18 09:34] VITALS: BMI 35.9
--- NOTE | 2019-03-18 09:42 | ASPS_PTH ---
PATIENT: CLAYTON BURGOS LOC: [facility] U#:[id number] AGE/SX: 80/M ROOM: RE03/18/[address]: Dr. Cj Zhang MD : 1945 BED: DIS: SPEC #: [id number] RECD: 03/18/19 11:13 STATUS: SOFI SIL #: [id number] MILA: 03/18/19 09:[address]: Cj Zhang DEPT: CYTOLOGY RECD BY: Eddie David ENTERED: 03/18/19 13:03 SP TYPE: ASPIRATION OTHR DR: Dr. Ahmet Ewing MD Tissues: Thyroid gland, NOS Procedures: Special Stain Group II Cytology Other HEADER OPERATION: Ultrasound-guided fine needle aspiration left thyroid PRE-OP DIAGNOSIS: Uninodular goiter E04.1 TISSUE SUBMITTED: Fine needle aspiration left thyroid (12 slides) DIAGNOSIS CYTOLOGY Left thyroid nodule, ultrasound-guided FNA (smears): Consistent with benign follicular nodule with focal cystic changes. Adequate for evaluation. See comment. LUCERO:breann 03/19/19 COMMENT Correlation with clinical, radiologic findings and appropriate follow up are necessary. CYTOLOGY STUDY Slides are reviewed. CYTOLOGY GROSS Received are 12 smears labeled with the patient's name and designated per the requisition as left thyroid. Submitted for staining. / breann 03/18/19 TC:5 CPT: 05580
--- NOTE | 2019-03-18 09:42 | LES_PTH ---
PATIENT: CLAYTON BURGOS LOC: [facility] U#:[id number] AGE/SX: 80/M ROOM: RE03/18/[address]: Dr. Cj Zhang MD : 1945 BED: DIS: SPEC #: [id number] RECD: 03/18/19 11:13 STATUS: SOFI SIL #: [id number] MILA: 03/18/19 09:[address]: Cj Zhang DEPT: SURGICAL PATHOLOGY RECD BY: Eddie David ENTERED: 03/18/19 13:04 SP TYPE: Lesion OTHR DR: Dr. Ahmet Ewing MD Tissues: Skin of upper extremity and shoulder Procedures: Surgery Specimen Level IV HEADER OPERATION: Removal skin lesion right shoulder blade PRE-OP DIAGNOSIS: Skin lesion right shoulder blade TISSUE SUBMITTED: Skin lesion right shoulder blade MICROSCOPIC DIAGNOSIS Skin lesion right shoulder blade, excisional biopsy: Consistent with inflamed seborrheic keratosis. SJ:breann 03/19/19 MICROSCOPIC DESCRIPTION Slides are reviewed. GROSS DESCRIPTION Received in fixative is one container labeled with the patient's name and designated skin lesion right shoulder. The specimen consists of an irregular piece of escudero-pink skin measuring 1 x 1 x 0.3 cm. The specimen is inked and submitted entirely in one cassette. It will be sectioned at the time of embedding. / LUCERO:breann 03/18/19 TC:1 CPT: 78138
== END ==
PROVIDERS: Family Provider Family Medicine; PCP Family Medicine; Visit Provider Surgery
DX: L98.9 Disorder of the skin and subcutaneous tissue, unspecified (principal); E04.1 Nontoxic single thyroid nodule
CPT/HCPCS: 88161; 88305; 88313

== ENCOUNTER → 2019-04-23 14:17 | Outpatient (CLI) | payer MEDICARE, SELFPAY ==
[2019-04-23 13:10] VITALS: BMI 36.3
== END ==
PROVIDERS: Family Provider Family Medicine; PCP Family Medicine; Referring Provider Internal Medicine Cardiovascular Disease; Visit Provider Internal Medicine Cardiovascular Disease
DX: Z01.810 Encounter for preprocedural cardiovascular examination (principal); R00.2 Palpitations
CPT/HCPCS: 93225; 93226

== ENCOUNTER → 2019-05-30 14:27 | Outpatient (CLI) | payer MEDICARE, SELFPAY ==
[2019-04-23 13:10] VITALS: BMI 36.3
[2019-05-30 16:08] LABS: Erythrocyte Sedimentation Rate 8 mm/hr (0-20)
== END ==
PROVIDERS: PCP Family Medicine; Referring Provider Family Medicine; Visit Provider Family Medicine
DX: K04.7 Periapical abscess without sinus (principal)
CPT/HCPCS: 36415; 85652

== ENCOUNTER → 2019-09-02 08:01 | Outpatient (CLI) | payer MEDICARE, SELFPAY ==
[2019-07-29 14:23] VITALS: BMI 35.4
[2019-09-02 09:43] LABS: Absolute Neutrophil Count 3.2 X10^3/uL (2.0-7.7); Basophil# 0.04 X10^3/uL; Basophil% 0.8 % (0-1); Eosinophils% 3.9 % (0-5); Hematocrit 46.1 % (40-54); Hemoglobin 14.9 g/dL (13.0-16.5); Lymphocyte % 21.3 % (19-41); Mean Corp Hgb Conc 32.3 g/dL (32-36); Mean Corpuscular Hgb 29.9 pg (27.0-32.0); Mean Corpuscular Volume 92.6 fL (80-94); Mean Platelet Vol. 9.7 fl (6.2-12.0); Monocyte# 0.58 X10^3/uL; Monocyte% 11.2 % (0-10); NRBC Flagged by Analyzer 0 % (0-5); Neutrophil # 3.22 X10^3/uL (2.7-7.7); Neutrophil % 62.2 % (47-70); Platelet Count 208 K/mm3 (150-450); RBC Distribution Width CV 13.2 % (11.6-14.6); RBC Distribution Width SD 44.9 fl (35.1-43.9); Red Blood Count 4.98 M/mm3 (4.6-6.2); White Blood Count 5.2 K/mm3 (4.4-11.0)
[2019-09-02 09:59] LABS: Vitamin B12 584 pg/mL (211-911); Vitamin D,25 Hydroxy 31.7 ng/mL
[2019-09-02 10:08] LABS: ALB/GLOB Ratio 1.3 RATIO (0.9-2.4); AST(SGOT) 24 U/L (15-37); Alanine Aminotransfer ALT/SGPT 47 U/L (16-61); Albumin, Serum 4.1 g/dL (3.2-5.0); Alkaline Phosphatase 92 U/L (45-117); Anion Gap 4 (5-15); BUN 18 mg/dL (7-18); BUN/Creat Ratio 23.2 RATIO (10-20); Calcium,Total 9.1 mg/dL (8.5-10.1); Chloride 108 mmol/L (98-107); Cholesterol 189 mg/dL (200); Creatinine, Serum 0.78 mg/dL (0.70-1.30); EST Glomerular Filtration Rate 104 mL/min (>60); Est Glom Filt Rate - Afr Amer 126 mL/min (>60); Globulin 3.2 g/dL (2.2-4.2); Glucose 98 mg/dL (74-106); High Density Lipoprotein 56 mg/dL; Potassium 4.2 mmol/L (3.5-5.1); Protein, Total 7.3 g/dL (6.4-8.2); Sodium Level 141 mmol/L (136-145); Triglycerides 210 mg/dL; Very Low Density Lipoprotein 42 mg/dL (5-40)
[2019-09-02 10:10] LABS: PSA,Total- Diagnostic 0.03 ng/mL (0.0-4.0)
[2019-09-05 01:22] LABS: Vitamin B1, Thiamine 169.9 nmol/L (66.5-200.0)
== END ==
PROVIDERS: Urology; PCP Family Medicine; Referring Provider Family Medicine; Visit Provider Family Medicine
DX: C61 Malignant neoplasm of prostate (principal); G62.9 Polyneuropathy, unspecified; E55.9 Vitamin D deficiency, unspecified; E78.00 Pure hypercholesterolemia, unspecified; I10 Essential (primary) hypertension
CPT/HCPCS: 36415; 80053; 80061; 82306; 82607; 84153; 84425; 85025

== ENCOUNTER → 2019-10-20 | Outpatient (CLI) | payer MEDICARE, SELFPAY ==
[2019-07-29 14:23] VITALS: BMI 35.4
--- NOTE | 2019-10-20 08:57 | NM_ITS ---
CLINICAL: 74-year-old male presenting for evaluation of potential mandibular-maxillary osteomyelitis. LIMITED 99m Tc MDP THREE PHASE BONE SCINTIGRAPHY COMPARISON: None available FINDINGS: Following the intravenous administration of 25.4 mCi of 99m Tc MDP, three-phase bone acquisitions of the head, cervical and upper thoracic spine reveal: 1. The flow and immediate static blood pool acquisitions demonstrate relatively normal arterial and venous phase distribution of the radiopharmaceutical. 2. Delayed images depict increased tracer concentration identified in the bilateral mandible and maxilla. 3. Facilitated radiopharmaceutical distribution is defined in the left temporomandibular joint, mid cervical spine posteriorly on the left and right, the acromioclavicular and sternoclavicular compartments of both shoulders, the glenohumeral compartment of the right shoulder. 4. The remaining limited skeletal structures are scintigraphically unremarkable. NM/Bone Scan Three Phase IMPRESSION: 1. The increase in tracer distribution identified in the bilateral mandible-maxilla is most consistent with the pattern associated with periodontal disease and/or periostitis. If active infection of bone-osteomyelitis is a diagnostic consideration, correlation with labeled leukocyte imaging is recommended. 2. 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 Electronically Signed: Geraldo Barnes DO at 22:46 EDT Tel , Service support ,
== END | disposition home or self-care (01) ==
PROVIDERS: PCP Family Medicine; Visit Provider Dentist Oral and Maxillofacial Surgery
DX: M27.2 Inflammatory conditions of jaws (principal)
CPT/HCPCS: 78315

== ENCOUNTER → 2019-11-18 10:51 | Outpatient (CLI) | payer MEDICARE, SELFPAY ==
[2019-11-07 13:56] VITALS: BMI 34.5
== END ==
PROVIDERS: PCP Family Medicine; Referring Provider Physician Assistant Medical; Visit Provider Physician Assistant Medical
DX: I44.1 Atrioventricular block, second degree (principal)
CPT/HCPCS: 93225; 93226

== ENCOUNTER → 2019-11-26 06:27 | Outpatient (CLI) | payer MEDICARE, SELFPAY ==
[2019-11-07 13:56] VITALS: BMI 34.5
--- NOTE | 2019-11-26 17:37 | STRESSREP ---
Stress Test Report Exercise myocardial perfusion stress test. 74-year-old man with a history of cardiac dysrhythmias. Stress protocol: Resting EKG demonstrates a junctional rhythm with a rate of 80 bpm. Resting blood pressure is 146/98 mmHg. The patient exercised according to the regular Kojo protocol for a total duration of 6 minutes. The maximum heart rate attained was 134 bpm which was 91% of max impacted heart rate the maximum workload was 7 metabolic equivalents. The patient appeared to be in a junctional rhythm and then in a sinus rhythm at the beginning of the test. There were no ST or T wave changes noted to suggest ischemia occasional premature ventricular complexes were noted. During recovery the patient appeared to have resumed his junctional rhythm and then subsequently went into a sinus rhythm with Wenckebach periodicity. There were no ST or T wave changes noted to suggest ischemia. The resting blood pressure 146/98 with a peak blood pressure 160/100 mmHg. No clinical angina was noted the test was terminated due to the target heart rate being achieved no chest pain was noted there was mild shortness of breath present. Myocardial perfusion protocol. 14.4 mCi of technetium 99m sestamibi was injected at rest. The patient exercised according to regular Kojo protocol. At peak exercise 44.5 mCi of technetium 99m sestamibi was injected stress images were obtained stress and rest images were reconstructed and compared in the short axis vertical long horizontal long axis. Gated images were also obtained. Perfusion SPECT images. Review of the stress and resting images demonstrate normal uptake of tracer noted in all areas of the myocardium the resting images similar demonstrate normal uptake of tracer noted in all areas of the myocardium. No obvious areas of reversibility are noted suggest ischemia no previous infarct is noted. Gated SPECT analysis: The gated ejection fraction is 41%. Conclusion: Mild cardiomyopathy present. No evidence of ischemia noted. Junctional rhythm and Wenckebach periodicity noted.
== END ==
PROVIDERS: PCP Family Medicine; Referring Provider Internal Medicine Cardiovascular Disease; Visit Provider Internal Medicine Cardiovascular Disease
DX: I25.10 Atherosclerotic heart disease of native coronary artery without angina pectoris (principal); I44.1 Atrioventricular block, second degree; R53.83 Other fatigue; R00.2 Palpitations; I05.9 Rheumatic mitral valve disease, unspecified; E78.5 Hyperlipidemia, unspecified; I11.0 Hypertensive heart disease with heart failure
CPT/HCPCS: 78452; 93017; A9500; A4216

== ENCOUNTER → 2020-01-23 15:00 | Outpatient (CLI) | payer MEDICARE, SELFPAY ==
[2019-11-07 13:56] VITALS: BMI 34.5
--- NOTE | 2020-01-23 15:01 | ECHOD_ITS ---
Reason For Study: Murmur Procedure This was a 2D Doppler, Color Flow transthoracic echocardiogram. Exam performed in department. Left Ventricle Normal LV size. Mild concentric left ventricular hypertrophy. Left ventricular systolic function is normal. The estimated ejection fraction is 60 %. Stage 1 diastolic dysfunction. No regional wall motion abnormalities noted. Right Ventricle Normal RV size. Normal systolic function. Atria The left atrium is mildly enlarged. Normal right atrium. Mitral Valve Normal mitral valve. Tricuspid Valve Normal tricuspid valve. Aortic Valve Normal aortic valve. Trisinus/trileaflet aortic valve. Great Vessels Normal aortic root. The pulmonary artery is normal size. Pericardium/Pleural No pericardial effusion. MMode/2D Measurements & Calculations LVIDd: 5.0 cm IVSd: 1.5 cm LVOT diam: 2.2 cm LVIDs: 3.0 cm LVPWd: 1.2 cm LVOT area: 4.0 cm2 FS: 41.0 % Ao root diam: 3.8 cm LAV(MOD-bp): 87.2 ml LA A4 area: 24.0 cm2 LA dimension: 4.6 cm LAV(MOD-bp) Indexed: 39.0 ml/m2 LAV(MOD-sp2): 82.8 ml LAV(MOD-sp4): 81.3 ml RA A4 area: 19.1 cm2 Time Measurements MV dec time: 0.23 sec Doppler Measurements & Calculations MV E max markus: 73.4 cm/sec Lat Peak E' Markus: 6.6 cm/sec Med Peak E' Markus: 5.6 cm/sec MV A max markus: 85.7 cm/sec E/E' lat: 11.0 E/E' med: 13.1 MV E/A: 0.86 MV V2 max: 99.8 cm/sec MV P1/2t max markus: 89.5 cm/sec Ao V2 max: 114.5 cm/sec MV max P.0 mmHg MV P1/2t: 79.1 msec Ao max P.2 mmHg MV V2 mean: 56.7 cm/sec MV dec slope: 331.4 cm/sec2 Ao V2 mean: 70.1 cm/sec MV mean P.5 mmHg MVA(P1/2t): 2.8 cm2 Ao mean P.3 mmHg MV V2 VTI: 31.0 cm Ao V2 VTI: 19.9 cm MVA(VTI): 2.3 cm2 BRAULIO(I,D): 3.6 cm2 BRAULIO(V,D): 3.4 cm2 LV V1 max: 99.1 cm/sec SV(LVOT): 71.6 ml PA V2 max: 148.3 cm/sec LV V1 max P.9 mmHg LV V1 mean P.9 mmHg LV V1 mean: 61.8 cm/sec LV V1 VTI: 18.0 cm Interpretation Summary Normal LV size. Left ventricular systolic function is normal. Mild concentric left ventricular hypertrophy. The estimated ejection fraction is 60 %. Stage 1 diastolic dysfunction. Ordering Physician: Gigi Schwab Referring Physician: Ahmet Ewing Performed By: Jimenez Keita RCS
== END ==
PROVIDERS: PCP Family Medicine; Referring Provider Internal Medicine Cardiovascular Disease; Visit Provider Internal Medicine Cardiovascular Disease
DX: R00.2 Palpitations (principal)
CPT/HCPCS: 93306

== ENCOUNTER → 2020-02-05 12:53 | Outpatient (CLI) | payer MEDICARE, SELFPAY ==
[2019-11-07 13:56] VITALS: BMI 34.5
--- NOTE | 2020-02-05 13:10 | CT_ITS ---
STUDY: CT SCAN LOWER EXTREMITY LEFT REASON FOR EXAM: Male, 74 years old. LEFT KNEE ARTHRITIS. [facility] protocol RADIATION DOSAGE (If Supplied By Facility): CTDIvol = ( 18.66 ) mGy, DLP = ( 2811.52 ) mGycm. Individualized dose optimization techniques were used for this CT.? TECHNIQUE: Multiple axial tomographic images of the left hip, left knee and left ankle joints were obtained. Coronal and sagittal reconstructions obtained as well. COMPARISON: None. FINDINGS: The patient is status post left total hip replacement. There is good alignment. Vascular calcification. There is a marked degree of joint space narrowing and osteoarthritis involving the medial compartment of the knee joint. There is evidence of degenerative spur formation along the anterior medial distal femoral condyle as well as the medial tibial plateau. Calcification of the lateral meniscus in keeping with chondrocalcinosis. Moderate degree of the osteoarthritis of the femoral patellar joint with degenerative spur formation. There is a 1 cm x 0.7 cm well-corticated bony fragment along the posterior aspect of the knee joint suggestive of intraarticular loose body. Imaging of the ankle joint was obtained. No significant abnormality is seen. CT/Extremity Lower without Contra IMPRESSION: Marked degree of osteoarthritis involving the medial compartment of the knee joint with the chondrocalcinosis of the lateral compartment and osteoarthritis of the femoral patellar joint. 1 cm loose body in the posterior aspect of the knee joint. Status post left total hip replacement. Electronically Signed: Paul Chiang, at 13:49 EDT , Service support ,
== END ==
PROVIDERS: PCP Family Medicine; Referring Provider Orthopaedic Surgery; Visit Provider Orthopaedic Surgery
DX: M21.162 Varus deformity, not elsewhere classified, left knee (principal)
CPT/HCPCS: 73700

== ENCOUNTER → 2020-02-10 14:25 | Outpatient (CLI) | payer MEDICARE, SELFPAY ==
[2019-11-07 13:56] VITALS: BMI 34.5
[2020-02-10 14:29] LABS: Bacteria 0 SEEN /hpf (None Seen); White Blood Cells 0 SEEN /hpf (0-5)
[2020-02-10 18:16] LABS: Absolute Lymphocyte Count 1.06 X10^3/uL (0.83-4.51); Absolute Neutrophil Count 4.5 X10^3/uL (2.0-7.7); Basophil# 0.04 X10^3/uL; Basophil% 0.6 % (0-1); Eosinophil# 0.08 X10^3/uL; Eosinophils% 1.3 % (0-5); Hematocrit 42.4 % (40-54); Hemoglobin 13.7 g/dL (13.0-16.5); Lymphocyte # 1.06 X10^3/ul (4.0); Lymphocyte % 17.1 % (19-41); Mean Corp Hgb Conc 32.3 g/dL (32-36); Mean Corpuscular Hgb 30.5 pg (27.0-32.0); Mean Corpuscular Volume 94.4 fL (80-94); Mean Platelet Vol. 9.8 fl (6.2-12.0); Monocyte# 0.56 X10^3/uL; NRBC Flagged by Analyzer 0 % (0-5); Neutrophil # 4.46 X10^3/uL (2.7-7.7); Neutrophil % 71.8 % (47-70); Platelet Count 216 K/mm3 (150-450); RBC Distribution Width CV 13.4 % (11.6-14.6); RBC Distribution Width SD 46.7 fl (35.1-43.9); Red Blood Count 4.49 M/mm3 (4.6-6.2); White Blood Count 6.2 K/mm3 (4.4-11.0)
[2020-02-10 18:20] LABS: ALB/GLOB Ratio 1.3 RATIO (0.9-2.4); AST(SGOT) 22 U/L (15-37); Alanine Aminotransfer ALT/SGPT 34 U/L (16-61); Albumin, Serum 3.8 g/dL (3.2-5.0); Alkaline Phosphatase 75 U/L (45-117); Anion Gap 6 (5-15); BUN 20 mg/dL (7-18); BUN/Creat Ratio 22.4 RATIO (10-20); Calcium,Total 8.8 mg/dL (8.5-10.1); Chloride 107 mmol/L (98-107); Cholesterol 160 mg/dL (200); Creatinine, Serum 0.89 mg/dL (0.70-1.30); EST Glomerular Filtration Rate 89 mL/min (>60); Est Glom Filt Rate - Afr Amer 107 mL/min (>60); Glucose 99 mg/dL (74-106); High Density Lipoprotein 57 mg/dL; Potassium 3.9 mmol/L (3.5-5.1); Protein, Total 6.8 g/dL (6.4-8.2); Sodium Level 138 mmol/L (136-145); Triglycerides 301 mg/dL; Very Low Density Lipoprotein 60 mg/dL (5-40)
[2020-02-10 18:23] LABS: Vitamin D,25 Hydroxy 42.4 ng/mL
[2020-02-10 19:04] LABS: Color, Urine Yellow (Yellow); Glucose, Dipstick Normal (Normal); Ketone-Dipstick Negative (Negative); Leukocyte Esterase-Dipstick Negative /ul (Negative); Nitrite-Dipstick Negative (Negative); Occult Blood-Urine 10 /ul (Negative); Protein-Dipstick 100 mg/dl (Negative); Specific Gravity, Urine 1.025 (1.002-1.030); Urine Bilirubin Dipstick Negative (Negative); Urine Clarity Clear (Clear); Urine Urobilinogen Normal (Normal)
[2020-02-10 19:30] LABS: Mucous, Urine 1+ /hpf (<or=2+); Squamous Epithelial Cells - UA 0-5 SEEN /hpf (0-5); Transitional Epithelial - Ur 0 SEEN /hpf (0-5)
[2020-02-10 19:31] LABS: Hyaline Cast 0-5 SEEN /lpf (0-5)
[2020-02-10 19:33] LABS: Red Blood Cells-Urine 0-5 SEEN /hpf (0-5)
== END ==
PROVIDERS: PCP Family Medicine; Referring Provider Family Medicine; Visit Provider Family Medicine
DX: I10 Essential (primary) hypertension (principal); E55.9 Vitamin D deficiency, unspecified; E78.00 Pure hypercholesterolemia, unspecified
CPT/HCPCS: 36415; 80053; 80061; 81001; 82306; 85025

== ENCOUNTER 2020-02-23 12:04 | Observation (INO) | payer MEDICARE, SELFPAY ==
[2019-04-23 13:10] VITALS: BMI 36.3
[2019-11-07 13:56] VITALS: BMI 34.5
--- NOTE | 2020-02-05 13:31 | EKG12_ITS ---
Test Reason : PRE OP Blood Pressure : / mmHG Vent. Rate : 057 BPM Atrial Rate : 094 BPM P-R Int : 000 ms QRS Dur : 100 ms QT Int : 400 ms P-R-T Axes : 055 036 082 degrees QTc Int : 389 ms 2:1 AV Block Abnormal EKG Confirmed by AAKASH MEI, ALEXANDRE ([id number]), slot editor JOSE ALEJANDRO NOBLE ([id number]) on 02/12/2020 8:40:03 AM Referred By: Khoa Gant Confirmed By:ISIAH FINN MD
[2020-02-16 09:08] LABS: Absolute Lymphocyte Count 1.15 X10^3/uL (0.83-4.51); Absolute Neutrophil Count 3.5 X10^3/uL (2.0-7.7); Basophil# 0.05 X10^3/uL; Basophil% 0.9 % (0-1); Eosinophil# 0.15 X10^3/uL; Eosinophils% 2.7 % (0-5); Hematocrit 45.8 % (40-54); Lymphocyte # 1.15 X10^3/ul (4.0); Mean Corp Hgb Conc 32.8 g/dL (32-36); Mean Corpuscular Hgb 30.4 pg (27.0-32.0); Mean Corpuscular Volume 92.9 fL (80-94); Mean Platelet Vol. 9.5 fl (6.2-12.0); Monocyte# 0.59 X10^3/uL; Monocyte% 10.8 % (0-10); NRBC Flagged by Analyzer 0 % (0-5); Neutrophil % 64.1 % (47-70); Platelet Count 223 K/mm3 (150-450); RBC Distribution Width CV 13.2 % (11.6-14.6); RBC Distribution Width SD 45.2 fl (35.1-43.9); Red Blood Count 4.93 M/mm3 (4.6-6.2); White Blood Count 5.5 K/mm3 (4.4-11.0)
[2020-02-16 09:21] LABS: Partial Thromboplast Time 25.9 Seconds (24.1-36.2); Prothrombin Time (Protime)PT. 12.4 SECONDS (11.7-14.9)
[2020-02-16 09:48] LABS: Anion Gap 6 (5-15); BUN 17 mg/dL (7-18); BUN/Creat Ratio 20.1 RATIO (10-20); Chloride 105 mmol/L (98-107); Creatinine, Serum 0.85 mg/dL (0.70-1.30); EST Glomerular Filtration Rate 94 mL/min (>60); Est Glom Filt Rate - Afr Amer 114 mL/min (>60); Glucose 106 mg/dL (74-106); Potassium 4.5 mmol/L (3.5-5.1); Sodium Level 137 mmol/L (136-145)
[2020-02-16 09:54] LABS: AST(SGOT) 28 U/L (15-37); Alanine Aminotransfer ALT/SGPT 38 U/L (16-61); Albumin, Serum 4.1 g/dL (3.2-5.0); Alkaline Phosphatase 89 U/L (45-117); Bilirubin, Direct 0.16 mg/dL (0.00-0.30); Globulin 3.3 g/dL (2.2-4.2); Magnesium 2.1 mg/dL (1.6-2.6); PSA,Total- Diagnostic 0.05 ng/mL (0.0-4.0); Protein, Total 7.4 g/dL (6.4-8.2)
[2020-02-23] VITALS (11 sets, daily range): BP systolic 101–134; BP diastolic 63–89; PULSE 63–85; RESP 16–18; TEMP 36.4–36.7; O2SAT 93–100; BMI 34.6
[2020-02-23] MEDS: Lactated Ringers 1,000 ML 125 ML IV (07:00)
[2020-02-23] MEDS: Acetaminophen 500 MG Tablet 1000 MG PO ×3 (09:03→22:35)
[2020-02-23] MEDS: Gabapentin 600 MG Tablet PO ×2 (09:04→22:35)
[2020-02-23 09:20] LABS: Bedside Glucose 98 mg/dL (70-110)
[2020-02-23] MEDS: Lactated Ringers 1,000 ML 100 ML IV ×2 (09:30→18:11)
--- NOTE | 2020-02-23 10:15 | KNEE_PTH ---
PATIENT: KHOA BURGOS LOC: [facility] U#:[id number] AGE/SX: 74/M ROOM: [facility] [place] RE02/23/[address]: Dr. Khoa Gant DO : 1945 BED: 1 DIS: 02/24/2020 SPEC #: [id number] RECD: 02/23/20 13:51 STATUS: SOFI REQ #: [id number] MILA: 02/23/20 10:[address]: Khoa Gant DEPT: SURGICAL PATHOLOGY RECD BY: Christy Maldonado ENTERED: 02/24/20 08:19 SP TYPE: TOTAL KNEE OTHR DR: MD Dr. Tone Rojas MD Dr. John E Schinner, MD Tissues: Knee, NOS Procedures: Decalcification bone/plaque Surgery Specimen Level IV HEADER OPERATION: ERAS, total knee replacement robotic arm assist PRE-OP DIAGNOSIS: Left knee osteoarthritis, varus deformity TISSUE SUBMITTED: Left knee bone and soft tissue MICROSCOPIC DIAGNOSIS Bone and soft tissue, left knee, total knee replacement/resection: Pieces of bone with degenerative osteoarthritic changes. Fibroadipose tissue, fibroconnective tissue and reactive synovial tissue. LUCERO:breann 02/27/20 MICROSCOPIC DESCRIPTION Slides are reviewed. GROSS DESCRIPTION Received is one container designated bone and soft tissue left knee. The specimen consists of multiple fragments of escudero-yellow bone measuring in aggregate 16 x 12 x 2 cm. Also in the specimen container are multiple fragments of yellow-white soft tissue measuring in aggregate 8 x 5 x 2.5 cm. A number of bony fragments contain articular surfaces consistent with tibial plateau and femoral condyle and displaying prominent osteophyte formation, eburnation, and bone erosion. Solar Installation Manager sections are submitted in two cassettes as follows: 1 - soft tissue, 2 - bone after decalcification. / AM:breann 02/24/20 TC:5 CPT: 56768, 48671
--- NOTE | 2020-02-23 12:03 | RAD_ITS ---
STUDY: X-RAY - LEFT KNEE REASON FOR EXAM: Postop left total knee arthroplasty. TECHNIQUE: 2 view(s) of the knee. COMPARISON: CT images 02/05/2020. FINDINGS: There is a left total knee arthroplasty without evidence of complication. There is postoperative gas in the soft tissues and overlying skin anibal. There is vascular calcification. RAD/Knee 1 or 2 Views IMPRESSION: Uncomplicated left total knee arthroplasty. Electronically Signed: Kole Hay MD at 14:33 EDT Tel , Service support ,
[2020-02-23] MEDS: Lactated Ringers 1,000 ML 999 ML IV (12:52)
--- NOTE | 2020-02-23 13:29 | OP.PCM_ITS ---
Report of Operation Date of Procedure: 02/23/20 Pre-Operative Diagnosis: OA left knee Post-Operative Diagnosis: same Surgery/Procedure Performed:: Left TKR lining machine operator: Teddy Allen Type of Anesthesia:: Spinal Anesthesiologist: Odell Amin - Patito VTE Documentation VTE Present on Admission: No VTE Mechan Device Prophylaxis: Thigh High KEVIN Bertrand VTE Pharm Prophylaxis ordered?: Yes
[2020-02-23 13:30] LABS: Mean Corp Hgb Conc 31.8 g/dL (32-36); Mean Corpuscular Hgb 30.8 pg (27.0-32.0); Mean Corpuscular Volume 96.9 fL (80-94); Mean Platelet Vol. 9.3 fl (6.2-12.0); Platelet Count 193 K/mm3 (150-450); RBC Distribution Width CV 13.3 % (11.6-14.6); RBC Distribution Width SD 47.8 fl (35.1-43.9); Red Blood Count 4.54 M/mm3 (4.6-6.2)
[2020-02-23 13:43] LABS: Anion Gap 6 (5-15); BUN 18 mg/dL (7-18); BUN/Creat Ratio 18.8 RATIO (10-20); Calcium,Total 8.5 mg/dL (8.5-10.1); Chloride 108 mmol/L (98-107); Creatinine, Serum 0.96 mg/dL (0.70-1.30); EST Glomerular Filtration Rate 82 mL/min (>60); Est Glom Filt Rate - Afr Amer 99 mL/min (>60); Estimated Creatinine Clearance 70.76 ml/min; Glucose 116 mg/dL (74-106); Potassium 4.4 mmol/L (3.5-5.1); Sodium Level 139 mmol/L (136-145)
[2020-02-23] MEDS: oxyCODONE 5 MG Tablet PO (14:21)
[2020-02-23] MEDS: Cefazolin 1 GM/50 ML BAG IV (17:42)
[2020-02-23] MEDS: Fluticasone 0.05% 1 SPRAY NASAL.SRY 2 SPRAY NASAL (22:32)
[2020-02-23] MEDS: Senna/Docusate Sodium 1 Tablet 2 TABLET PO (22:35)
[2020-02-23] MEDS: Tamsulosin HCl 0.4 MG Capsule PO (22:35)
[2020-02-23] MEDS: Atorvastatin Calcium 20 MG Tablet PO (22:36)
[2020-02-23] MEDS: Lisinopril 2.5 MG Tablet PO (22:40)
[2020-02-24] MEDS: Cefazolin 1 GM/50 ML BAG IV (01:30)
[2020-02-24 01:32] VITALS: BP 134/82; PULSE 74; RESP 18; TEMP 36.6; O2SAT 97
[2020-02-24 06:05] VITALS: BP 148/94; PULSE 87; RESP 18; TEMP 36.8; O2SAT 100
[2020-02-24] MEDS: Acetaminophen 500 MG Tablet 1000 MG PO ×2 (06:06→13:20)
[2020-02-24] MEDS: oxyCODONE 5 MG Tablet PO (06:13)
[2020-02-24 06:19] LABS: Hematocrit 44.2 % (40-54); Hemoglobin 13.4 g/dL (13.0-16.5); Mean Corp Hgb Conc 30.3 g/dL (32-36); Mean Corpuscular Hgb 30.7 pg (27.0-32.0); Mean Corpuscular Volume 101.1 fL (80-94); Mean Platelet Vol. 9.2 fl (6.2-12.0); Platelet Count 174 K/mm3 (150-450); RBC Distribution Width CV 13.4 % (11.6-14.6); RBC Distribution Width SD 50.3 fl (35.1-43.9); Red Blood Count 4.37 M/mm3 (4.6-6.2); White Blood Count 9.2 K/mm3 (4.4-11.0)
[2020-02-24] MEDS: 0.9% NaCl Peripheral Flush Adult/Peds IV (06:29)
[2020-02-24 06:47] LABS: Anion Gap 4 (5-15); BUN 13 mg/dL (7-18); BUN/Creat Ratio 16.8 RATIO (10-20); Calcium,Total 8.3 mg/dL (8.5-10.1); Chloride 105 mmol/L (98-107); Creatinine, Serum 0.77 mg/dL (0.70-1.30); EST Glomerular Filtration Rate 105 mL/min (>60); Est Glom Filt Rate - Afr Amer 127 mL/min (>60); Estimated Creatinine Clearance 67.93 ml/min; Glucose 101 mg/dL (74-106); Potassium 4.3 mmol/L (3.5-5.1); Sodium Level 139 mmol/L (136-145)
--- NOTE | 2020-02-24 08:12 | PN.ORTHO_ITS ---
Subjective: Patient sitting at bedside eating breakfast. Patient states pain is been very well managed. Patient denies chest pain, shortness of breath, calf pain, nausea vomiting. Patient states he is ready for discharge home today. No complaints. Objective: Dressings clean dry intact. Negative signs or symptoms of DVT. Vital signs and labs were reviewed and noted. Patient is afebrile. Patient's is in no respiratory distress and speaking in full sentences. Is good plantar flexion dorsiflexion of the left foot and ankle. - Physical Exam Vitals/I&O's: Vital Signs Temp Pulse Resp BP Pulse Ox 98.3 F 87 18 148/94 H 100 02/24/20 06:05 02/24/20 06:05 02/24/20 06:05 02/24/20 06:05 02/24/20 06:05 Oxygen Flow Rate (L/min) 6 Oxygen Delivery Method Room Air Weight: 109.5 kg Body Mass Index (BMI) 34.6 Finger Stick Blood Glucose 100 Intake and Output for Last 24 Hours 02/22/20 02/23/20 02/24/20 23:59 23:59 23:59 Intake Total 5051.5 / 5051.5 1656.67 / 1656.67 Output Total 2100 / 2100 1100 / 1100 Balance 2951.5 / 2951.5 556.67 / 556.67 General: Alert, Oriented x3, Cooperative HEENT: PERRLA Oral: Moist Mucosa Neurological: Cranial nerves II-XII grossly intact Psych/Mental Status: Normal Affect, Alert and oriented to time, place, person, mood and affect Laboratory Results 02/23/20 09:01: POC Glucose 98 02/23/20 13:20: WBC 6.0, RBC 4.54 L, Hgb 14.0, Hct 44.0, MCV 96.9 H, MCH 30.8, MCHC 31.8 L, RDW Std Deviation 47.8 H, RDW Coeff of Angela 13.3, Plt Count 193, MPV 9.3 02/23/20 13:20: Sodium 139, Potassium 4.4, Chloride 108 H, Carbon Dioxide 25.0, Anion Gap 6, BUN 18, Creatinine 0.96, Estim Creat Clear Calc 70.76, Est GFR (MDRD) Af Amer 99, Est GFR (MDRD) Non-Af 82, BUN/Creatinine Ratio 18.8, Glucose 116 H, Calcium 8.5 02/24/20 05:50: WBC 9.2, RBC 4.37 L, Hgb 13.4, Hct 44.2, MCV 101.1 H, MCH 30.7, MCHC 30.3 L, RDW Std Deviation 50.3 H, RDW Coeff of Angela 13.4, Plt Count 174, MPV 9.2 02/24/20 05:50: Sodium 139, Potassium 4.3, Chloride 105, Carbon Dioxide 30.0, Anion Gap 4 L, BUN 13, Creatinine 0.77, Estim Creat Clear Calc 67.93, Est GFR (MDRD) Af Amer 127, Est GFR (MDRD) Non-Af 105, BUN/Creatinine Ratio 16.8, Glucose 101, Calcium 8.3 L Current Medications Acetaminophen (Tylenol) 1,000 mg PO Q8 [facility] Last Admin: 02/24/20 06:06 Dose: 1,000 mg Documented by: Aspirin (Aspirin, Baby) 81 mg PO DAILY@0800 [facility] Atorvastatin Calcium (Lipitor) 20 mg PO QHS [facility] Last Admin: 02/23/20 22:36 Dose: 20 mg Documented by: Cholecalciferol (Vitamin D (25mcg)) 4,000 unit PO DAILY [facility] Fluticasone Propionate (Flonase Nasal [place]) 2 spray NASAL QHS [facility] Last Admin: 02/23/20 22:32 Dose: 2 spray Documented by: Gabapentin (Neurontin) 600 mg PO BID [facility] Last Admin: 02/23/20 22:35 Dose: 600 mg Documented by: Sodium Chloride () 500 mls @ 15 mls/hr IV PRN PRN PRN Reason: Blood Transfusion Sodium Chloride () 250 mls @ 15 mls/hr IV .[id number] PRN PRN Reason: Saline Flush Sodium Chloride () 250 mls @ 15 mls/hr IV .[id number] PRN PRN Reason: Additional IVPB Infusion Insulin Human Lispro (Humalog Kwikpen (Bkc)) 1 - 6 unit SC Q4H PRN PRN; Protocol PRN Reason: BG>/= 180, SEE PROTOCOL Lisinopril (Zestril) 2.5 mg PO BID [facility] Last Admin: 02/23/20 22:40 Dose: 2.5 mg Documented by: Loratadine (Claritin) 10 mg PO DAILY [facility] Magnesium Chloride (Mag64) 128 mg PO DAILY [facility] Multivitamins/Minerals (Multivitamin With Minerals (Bkc)) 1 tablet PO DAILY@0800 [facility] Ondansetron HCl (Zofran) 4 mg IV Q8H PRN PRN PRN Reason: NAUSEA Oxycodone HCl (Oxyir) 5 - 10 mg PO Q4H PRN PRN PRN Reason: Pain Score 4-10 Last Admin: 02/24/20 06:13 Dose: 10 mg Documented by: Pantoprazole Sodium (Protonix) 40 mg PO DAILY [facility] Promethazine HCl (Phenergan) 12.5 mg IM Q6H PRN PRN; Protocol PRN Reason: NAUSEA/VOMITING Senna/Docusate Sodium (Senokot-S, Jenny-Colace) 2 tablet PO BID [facility] Last Admin: 02/23/20 22:35 Dose: 2 tablet Documented by: Sodium Chloride () 5 - 15 ml IV UD PRN PRN Reason: SALINE FLUSH Last Admin: 02/24/20 06:29 Dose: 10 ml Documented by: Sodium Chloride () 10 - 40 ml IV UD PRN PRN Reason: SALINE FLUSH Tamsulosin HCl (Flomax) 0.4 mg PO QHS [facility] Last Admin: 02/23/20 22:35 Dose: 0.4 mg Documented by: Medical Necessity - Tobacco Use Smoking Status: Former smoker Assessment/Plan All Active Problems (Last Updated 01/20/20 @ 17:29 by Monica Mejia) Preop cardiovascular exam (Resolved) Status post left total knee arthroplasty Plan 1. Continue all pain medications as prescribed 2. Continue physical therapy, weight-bear as tolerated with walker. 3. Aspirin 81 mg 1 p.o. daily for postop DVT prophylaxis 4. Encourage incentive spirometry 5. Continue outpatient physical therapy at [facility] [place] 6. Discharge home today after p.m. therapy 7. Follow-up as scheduled, see pink sheet
--- NOTE | 2020-02-24 08:24 | DCINST_ITS ---
Discharge Diet: No Restrictions Discharge Activity: May Not Drive, May Shower, Use Walker May shower in (days): 3 Ice area for (Minutes): 20 - each hour while awake. Weight Bearing Status: Weight bearing as tolerated Elevate: Operative Extremity Additional Activity Instructions:: Wear elastic stockings for 2 weeks after your surgery. Call your doctor if your incision/area has: Continuous Slow Oozing, Sudden Increased Bleeding, Increased Pain/ Swelling, Increased Redness, Foul Smelling Discharge Call your doctor if you observe: Fever of 101 or Higher, Coldness, Increased Pain - in extremity, Numbness or Tingling, Change in Color, Calf discomfort, Uncontrolled pain Change Dressing in (Days):: 0 - and daily as needed. Remove Dressing in (days):: 8 Cleanse incision/area with: Soap & Water Allergies/Adverse Reactions: Allergies No Known Allergies Allergy (Verified 02/23/20 08:51) Medications to take at Discharge Meloxicam [Mobic] 15 mg PO DAILY 10/13/15 Pantoprazole Sodium [Protonix] 40 mg PO DAILY 10/13/15 Simvastatin [Zocor] 40 mg PO QHS 10/13/15 Multivit-Min/FA/Lycopen/Lutein [Centrum Silver Tablet] 1 ea PO DAILY 07/31/16 Tamsulosin HCl 0.4 mg PO QHS 07/03/18 Triamcinolone Acetonide [Nasacort] 2 spray NS QHS 03/04/19 cholecalciferol (vitamin D3) 100 mcg (4,000 unit) capsule 4,000 unit PO DAILY 03/12/19 gabapentin 300 mg capsule 600 mg PO BID cap 03/12/19 magnesium oxide 400 mg PO DAILY 04/30/19 lisinopril 5 mg tablet 2.5 mg PO BID #30 tab 01/30/20 Fexofenadine HCl [Cyndi Allergy] 180 mg PO DAILY 02/06/20 Acetaminophen [Tylenol] 1,000 mg PO Q8 #90 tab 02/24/20 Aspirin [Aspirin, Baby] 81 mg PO DAILY@0800 #30 tab.chew 02/24/20 Oxycodone [Oxyir] 5 - 10 mg PO Q4H PRN PRN 7 Days #84 tab 02/24/20 Senna/Docusate Sodium [Senokot-S] 2 tab PO BID tab 02/24/20 The following prescriptions were given: Aspirin [Aspirin, Baby] 81 mg PO DAILY@0800 #30 tab.chew Transmission Status: Pending to [id number] Oxycodone [Oxyir] 5 - 10 mg PO Q4H PRN PRN 7 Days #84 tab PRN Reason: Pain Score 4-10 Transmission Status: Received by [id number] Acetaminophen [Tylenol] 1,000 mg PO Q8 #90 tab Transmission Status: Pending to [id number] Primary Care Physician: Ahmet Ewing MD [Primary Care Provider] - Test Results: Test results from this visit will be discussed in further detail at your follow- up appointment, if applicable. Please Follow Up With: Teddy Allen PARozinaC When: as scheduled/see pink sheet
[2020-02-24] MEDS: Aspirin 81 MG TAB.CHEW PO (09:34)
[2020-02-24] MEDS: Pantoprazole Sodium 40 MG Tablet PO (09:35)
[2020-02-24] MEDS: Gabapentin 600 MG Tablet PO (09:35)
[2020-02-24] MEDS: Loratadine 10 MG Tablet PO (09:35)
[2020-02-24] MEDS: Multivitamins,Ther W-Minerals Tablet 1 TABLET PO (09:35)
[2020-02-24 09:41] VITALS: BP 99/58; PULSE 84; RESP 18; TEMP 36.6; O2SAT 95
--- NOTE | 2020-02-24 15:09 | NURSING ---
Issue: Lt TKR, Patient for DC home today and PT/OT recommending additional therapy. Initial attempt to patient bedside and patient not in room. Upon second attempt, patient had been discharged home. Called patient listed number [phone], patient answered. Introduced self and role and apologized for not s/w him prior to departure. Patient states that he is already established with outpatient PT/OT with [facility]. Denies any other issues, concerns or questions with DC at this time. Saba Long RNCM
[2020-02-24 15:39] VITALS: BP 137/62; PULSE 79; RESP 18; TEMP 36.7; O2SAT 95
== END 2020-02-24 13:40 | disposition home or self-care (01) ==
LOC: SDC 13:21 → MS3 13:21
PROVIDERS: Anesthesiology; Admitting Provider Orthopaedic Surgery; Family Provider Family Medicine; PCP Family Medicine; Referring Provider Orthopaedic Surgery; Visit Provider Orthopaedic Surgery
PROC: 0SRD0JZ Replacement of Left Knee Joint with Synthetic Substitute, Open Approach (ICD-10-PCS; CPT 27447; principal; 2020-02-23 09:45)
DX: M17.12 Unilateral primary osteoarthritis, left knee (principal); Z11.59 Encounter for screening for other viral diseases; Z79.899 Other long term (current) drug therapy; E78.00 Pure hypercholesterolemia, unspecified; K21.9 Gastro-esophageal reflux disease without esophagitis; I10 Essential (primary) hypertension; Z87.891 Personal history of nicotine dependence; I44.1 Atrioventricular block, second degree; Z79.82 Long term (current) use of aspirin; R94.31 Abnormal electrocardiogram [ECG] [EKG]; Z85.46 Personal history of malignant neoplasm of prostate; R42 Dizziness and giddiness; R00.1 Bradycardia, unspecified; Z86.2 Personal history of diseases of the blood and blood-forming organs and certain disorders involving the immune mechanism
CPT/HCPCS: 01400; 27447; 64447; S2900; 36415; 73560; 80048; 80076; 82962; 83735; 84153; 85025; 85027; 85610; 85730; 87081; 87635; 88305; 88311; 93005; 96361; 96365; 96366; 97110; 97116; 97162; 97166; 97530; 97535; 99218; 99251; C1776; C9803; J7120; A4216; G0378; G0379; G0463; U0003

== ENCOUNTER 2020-04-21 09:03 | Observation (INO) | payer MEDICARE, SELFPAY ==
[2020-04-15 08:44] VITALS: BMI 34.7
[2020-04-21] VITALS (13 sets, daily range): BP systolic 133–168; BP diastolic 64–115; PULSE 60–107; RESP 12–20; TEMP 36.2–36.7; O2SAT 94–99; BMI 35.0; BMI 34.4
[2020-04-21 09:15] LABS: Bedside Glucose 111 mg/dL (70-110)
--- NOTE | 2020-04-21 09:18 | EKG12_ITS ---
Test Reason : STROKE TEAM Blood Pressure : / mmHG Vent. Rate : 077 BPM Atrial Rate : 075 BPM P-R Int : 000 ms QRS Dur : 098 ms QT Int : 366 ms P-R-T Axes : 000 -13 095 degrees QTc Int : 414 ms Junctional rhythm Nonspecific T wave abnormality Abnormal ECG Confirmed by RIGO MEI, GERARD ([id number]), state editor TERNA SCHMIDT ([id number]) on 04/23/2020 2:01:00 PM Referred By: NINO Confirmed By:GERARD SIERRA MD
--- NOTE | 2020-04-21 09:18 | CT_ITS ---
STUDY: CT HEAD STROKE PROTOCOL W/O CONTRAST INJECTION REASON FOR EXAM: Male, 75 years old. CVA, LEG WEAKNESS RADIATION DOSAGE (If Supplied By Facility): CTDIvol = ( 44.99 ) mGy, DLP = ( 863.60 ) mGycm TECHNIQUE: Transaxial CT imaging of the brain was performed without administration of intravenous contrast material. Individualized dose optimization techniques were used for this CT. COMPARISON: No relevant priors. FINDINGS: Normal soft tissue structures. Normal calvarium. There is mild cerebral atrophy with widening of the extra-axial spaces and ventricular dilatation. There are areas of decreased attenuation within the white matter tracts of the supratentorial brain, consistent with microvascular disease changes. There are small punctate calcifications of the basal ganglia which are seen in the aging brain as a normal variant. Normal brainstem. Normal cerebellum. There is no intracranial hemorrhage. There are no findings of an acute ischemic infarction. Atherosclerotic calcification of the cavernous portions of the internal carotid arteries bilaterally. Normal visualized paranasal sinuses. CT/STROKE Brain/Head without Cont IMPRESSION: Chronic involutional changes of the brain. N.B. : The above information has been verbally conveyed by Paul Chiang to Ruthie Felix on 04/21/2020 09:51:02 (ET). Electronically Signed: Paul Chiang, at 9:52 EST , Service support ,
--- NOTE | 2020-04-21 09:21 | ED.VISSUMM ---
- ER Visit Summary Date of Service: 04/21/20 Chief Complaint: [Numbness to the left leg] History of Present Illness: The patient is a 75 M [presents to the emergency department with numbness to the left leg that he noticed around 4:30 AM when he used the restroom. Patient went to bed around 10 PM feeling well. Patient does have history of peripheral neuropathy but this was very different. He denies any real weakness to the leg however and so he went back to bed. Patient woke up around 6:00 and once again noted that he still has a numbness to the left leg. Patient at one point noted that he had some numbness to his left face around 7 AM but that resolved pretty quickly. He denies any visual changes. He denies any speech difficulty. He denies any weakness of the upper extremities. Patient denies headache or shortness of breath. He denies any falls or head injuries. Patient has history of hypertension, high cholesterol, and peripheral neuropathy. He is not on any blood thinners.] Physical Examination: [HEENT-PERRLA, EOMI. Cranial nerves II through XII grossly intact. TMs clear. Mucous membranes moist. No adenopathy. Cardiovascular-regular rate and rhythm without murmur or ectopy Lungs-clear to auscultation, chest wall stable without crepitus or subcu emphysema Abdomen-normoactive bowel sounds, soft, nontender, no rebound or rigidity, no peritoneal signs. Neuro ygvo-ofobud-izko and heel aguilar testing within normal limits, negative Romberg, negative for drift, fundi benign. Patient's NIH stroke scale was a 1 for the paresthesias and decreased sensation to the left leg compared to the right. No other focal deficits noted. No facial droop. Extremities-intact ?4, normal range of motion, normal pulses, atraumatic] Test Results: [EKG obtained arrival shows sinus rhythm with a ventricular rate of 77 bpm with some nonspecific ST changes.] CT scan of the brain without contrast showed chronic involutional changes. CTA of the brain as well as neck showed stenosis of greater than 70% at the origin of the left internal carotid and 50 to 69% stenosis at the origin of the right internal carotid. CBC with differential was unremarkable. Chemistries unremarkable. INR was 1.0. Troponin was less than 0.015. EKG obtained arrival showed a sinus rhythm with a ventricular rate of 77 bpm with some nonspecific ST changes. Emergency Department Course and Treatment: [IV line established on arrival. Patient placed on animal care giver. A stroke team was called. Patient was evaluated by stroke neurologist from [facility] who recommended against TPA given time of onset greater than 5 hours and cannot definitively be ascertained when symptoms first started. Patient's deficits also mild with an NIH of 1.] Treatment Plan: [Admit] Disposition: [Admit] Impression: [CVA Paresthesias left leg and left face] This note was generated with [employer] dictation software. It may contain incorrect words, spelling, and punctuation that were not noted in review of the chart prior to signing ED Disposition - Plan for ED Patient: Referrals: Ahmet Ewing MD [Primary Care Provider] -
--- NOTE | 2020-04-21 09:26 | CT_ITS ---
STUDY: CTA HEAD AND NECK WITH CONTRAST REASON FOR EXAM: Male, 75 years old. CVA. LEG WEAKNESS RADIATION DOSAGE (If Supplied By Facility): CTDIvol = ( 24.13 ) mGy, DLP = ( 754.08 ) mGycm TECHNIQUE: CT angiography was performed with a multi-detector CT scanner. Data acquisition was obtained from the skull base through the vertex following intravenous administration of IV 100mL [id number]-370. MIP images were reconstructed from the axial data set. Post-processing of the angiographic images was performed, with multiplanar reformation and 3D reconstruction. Individualized dose optimization techniques were used for this CT. COMPARISON: No relevant priors. FINDINGS: Normal bilateral petrous carotid arteries. There is calcified plaque formation of the right cavernous carotid artery, without a cross-sectional luminal stenosis. There is calcified plaque formation of the left cavernous carotid artery, without a cross-sectional luminal stenosis. Normal right A1 segments of the anterior cerebral artery. Normal left A1 segments of the anterior cerebral artery. Normal intact anterior communicating artery (ACOM). Normal bilateral A2 segments of the anterior cerebral arteries. Normal right M1 and M2 segments of the middle cerebral arteries, with a normal M1 bifurcation. Normal left M1 and M2 segments of the middle cerebral arteries, with a normal M1 bifurcation. Normal right posterior communicating artery (PCOM). Normal left posterior communicating artery (PCOM). Normal bilateral vertebral arteries. Normal basilar artery with a normal basilar bifurcation. The visualized bilateral superior cerebellar (SCA) arteries are normal. Normal bilateral P1, P2 and visualized P3 segments of the posterior cerebral arteries. There is no demonstrated aneurysm of the [place]. There is no demonstrated abnormality of the visualized brain. There is a 1.7 cm x 1.8 cm complex cystic structure in the inferior aspect of the left lobe of the thyroid with focal calcification. There is a substernal extension. AORTIC ARCH: There is atherosclerotic calcific plaque formation of the aortic arch and great vessels arising from the aortic arch, without a hemodynamically significant stenosis. There is a normal origin of the brachiocephalic, left common carotid, and left subclavian arteries. RIGHT CAROTID ARTERIES: Normal right common carotid artery (CCA). Normal right common carotid bulb. There is moderate atherosclerotic plaque formation of the origin of the right internal carotid artery with an estimated stenosis of 50-69% stenosis. Normal visualized cervical portion of the right internal carotid artery. Normal origin of the right external carotid artery (ECA). LEFT CAROTID ARTERIES: Normal left common carotid artery (CCA). Normal left common carotid bulb. There is extensive atherosclerotic plaque formation of the origin of the left internal carotid artery with an estimated stenosis of greater than 70%. Normal visualized cervical portion of the left internal carotid artery. Normal origin of the left external carotid artery (ECA). VERTEBRAL ARTERIES: Normal bilateral vertebral arteries. Multilevel degenerative changes of the cervical spine. CT/CTA Head AND Neck W/ Contrast IMPRESSION: Greater than 70% stenosis at the origin of the left internal carotid artery. 50-69% narrowing at the origin of the left internal carotid artery. 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 N.B. : The above information has been verbally conveyed by Paul Chiang to Ruthie Felix on 04/21/2020 10:03:44 (ET). Electronically Signed: Paul Chiang, at 10:05 EST , Service support ,
[2020-04-21 09:30] LABS: Absolute Lymphocyte Count 0.99 X10^3/uL (0.83-4.51); Absolute Neutrophil Count 3.6 X10^3/uL (2.0-7.7); Basophil# 0.06 X10^3/uL; Basophil% 1.1 % (0-1); Eosinophil# 0.24 X10^3/uL; Eosinophils% 4.3 % (0-5); Hematocrit 43.7 % (40-54); Hemoglobin 14.7 g/dL (13.0-16.5); Lymphocyte # 0.99 X10^3/ul (4.0); Lymphocyte % 17.7 % (19-41); Mean Corp Hgb Conc 33.6 g/dL (32-36); Mean Corpuscular Volume 92.2 fL (80-94); Mean Platelet Vol. 9.2 fl (6.2-12.0); Monocyte# 0.65 X10^3/uL; Monocyte% 11.6 % (0-10); NRBC Flagged by Analyzer 0 % (0-5); Neutrophil # 3.62 X10^3/uL (2.7-7.7); Neutrophil % 64.9 % (47-70); Platelet Count 239 K/mm3 (150-450); RBC Distribution Width CV 13.1 % (11.6-14.6); RBC Distribution Width SD 44.4 fl (35.1-43.9); Red Blood Count 4.74 M/mm3 (4.6-6.2); White Blood Count 5.6 K/mm3 (4.4-11.0)
[2020-04-21 09:36] LABS: Partial Thromboplast Time 26.3 Seconds (24.1-36.2); Prothrombin Time (Protime)PT. 12.6 SECONDS (11.7-14.9)
[2020-04-21 09:43] LABS: Anion Gap 5 (5-15); BUN 17 mg/dL (7-18); BUN/Creat Ratio 21.8 RATIO (10-20); Calcium,Total 9.1 mg/dL (8.5-10.1); Chloride 107 mmol/L (98-107); Creatinine, Serum 0.78 mg/dL (0.70-1.30); EST Glomerular Filtration Rate 103 mL/min (>60); Est Glom Filt Rate - Afr Amer 125 mL/min (>60); Estimated Creatinine Clearance 66.92 ml/min; Glucose 103 mg/dL (74-106); Potassium 4.3 mmol/L (3.5-5.1); Sodium Level 140 mmol/L (136-145)
--- NOTE | 2020-04-21 09:45 | RAD_ITS ---
STUDY: X-RAY CHEST REASON FOR EXAM: Male, 75 years old. Stroke protocol TECHNIQUE: Single AP portable view of the chest. COMPARISON: Comparison is made with prior study dated 07/03/2018. FINDINGS: EKG electrodes are seen. The lungs are clear and expanded. Scattered calcified granulomas. There is no demonstrated pleural abnormality. Normal size heart. Normal mediastinum and choco. Normal visualized pulmonary arteries. Normal visualized aortic arch and descending thoracic aorta. There are degenerative changes of the visualized thoracic spine. Normal visualized ribs, clavicles, and shoulders. There is no demonstrated abnormality of the visualized soft tissue structures of the upper abdomen. RAD/Chest 1 View IMPRESSION: No acute abnormality is seen. Electronically Signed: Paul Chiang, at 10:10 EST , Service support ,
--- NOTE | 2020-04-21 10:56 | HP.PCM_ITS ---
Problem List (1) Numbness Status: Acute (2) Fatigue Status: Chronic (3) Near syncope Status: Chronic (4) AV block, Mobitz 1 Status: Chronic (5) Rapid palpitations Status: Chronic (6) Mitral valve annular calcification Status: Chronic (7) Essential (primary) hypertension Status: Chronic (8) Hyperlipidemia Status: Chronic History of Present Illness Date of Admission: 04/21/20 Chief Complaint: left leg and face numbness The patient is a 75 year old M presents with left leg weakness. Patient was in his normal state of health and woke up this morning and noticed that his left leg was numb. [place] that it got slightly better and then went back to bed. When he woke up again it was still numb. Was noted later that his left face was numb. Of note, no left arm numbness. Left facial numbness did resolve. Patient has been doing therapy for his left lower extremity as he has had a recent left knee replacement and felt that his left leg was overall stronger. Today noted that he was favoring his right leg more. Was concerned and presented to the emergency room. In the emergency room, patient underwent a CT and CTA of the head neck. CTA showed left carotid stenosis. [facility] teleneurology was involved and recommended further stroke evaluation. [] Past Medical History Past Medical History (Chronic Problems): Chronic Problems (Last Reviewed 04/21/20 @ 10:[address] Todd Dunlap DO) Fatigue (Chronic) Near syncope (Chronic 01/13/20) AV block, Mobitz 1 (Chronic) Rapid palpitations (Chronic) Mitral valve annular calcification (Chronic) Essential (primary) hypertension (Chronic) Hyperlipidemia (Chronic) Medical History: Medical History (Last Reviewed 04/21/20 @ 10:[address] Todd Dunlap DO) AV block, Mobitz 1 (Chronic) I44.1 Rapid palpitations (Chronic) R00.2 Mitral valve annular calcification (Chronic) I05.9 Essential (primary) hypertension (Chronic) I10 Hyperlipidemia (Chronic) E78.5 Arthritis M19.90 BPH (benign prostatic hyperplasia) N40.0 Back problem M53.9 GERD (gastroesophageal reflux disease) K21.9 Heart murmur R01.1 Obstructive sleep apnea G47.33 Thyroid nodule E04.1 Left thyroid nodule, ultrasound-guided FNA (smears):Consistent with benign follicular nodule with focal cystic changes. 03/2019 Acute appendicitis K35.80 Right lower quadrant abdominal pain R10.31 LVH (left ventricular hypertrophy) (Inactive) I51.7 Allergies No Known Allergies Allergy (Verified 04/21/20 09:04) Home Medications: Ambulatory Orders Medication Instructions Recorded Pantoprazole Sodium [Protonix] 40 mg PO DAILY 10/13/15 Simvastatin [Zocor] 40 mg PO QHS 10/13/15 Multivit-Min/FA/Lycopen/Lutein 1 ea PO DAILY 07/31/16 [Centrum Silver Tablet] Tamsulosin HCl 0.4 mg PO QHS 07/03/18 Triamcinolone Acetonide [Nasacort] 2 spray NS QHS 03/04/19 cholecalciferol (vitamin D3) 100 4,000 unit PO DAILY 03/12/19 mcg (4,000 unit) capsule magnesium oxide 400 mg PO DAILY 04/30/19 Fexofenadine HCl [Cyndi Allergy] 180 mg PO DAILY 02/06/20 Acetaminophen [Tylenol] 1,000 mg PO Q8 #90 tab 02/24/20 gabapentin 600 mg tablet 600 mg PO BID tab 04/15/20 lisinopril 2.5 mg tablet 2.5 mg PO BID tab 04/15/20 tramadol 50 mg tablet 50 mg PO DAILY PRN tab 04/15/20 Surgical History: Surgical History (Last Reviewed 04/21/20 @ 10:[address] Todd Dunlap, DO) History of bilateral carpal tunnel release Z98.890 2013 History of left heart catheterization Onset Date: 09/01/08 Z98.890 History of left hip replacement Z96.642 2008 History of lumbar laminectomy Z98.890 2017 History of surgical removal of pilonidal cyst Z98.890 History of tonsillectomy and adenoidectomy Z98.890 History of total right hip replacement Z96.641 2011 Hx of appendectomy Z90.49 2019 Status post biopsy of thyroid gland Onset Date: 03/2019 Z98.890 Left thyroid nodule, ultrasound-guided FNA (smears):Consistent with benign follicular nodule with focal cystic changes. 03/2019 History of total left knee replacement Onset Date: 02/23/20 Z96.652 Surgical History: total hip arthroplasty - bilateral, total knee arthroplasty, - - carpal tunnel, spine surgery, left quad tendon repair Psychiatric History: No pertinent psych hx Smoking Status: Former smoker - *Family History Maternal Family History: Family History (Last Reviewed 04/21/20 @ 10:[address] Todd Dunlap DO) Father Arthritis History Items: No pertinent history Paternal Family History: Family History (Last Reviewed 04/21/20 @ 10:[address] Todd Dunlap DO) Father Arthritis History Items: No pertinent history Review of Systems Constitutional: Denies: Anorexia, Fever, Night Sweats Eyes: Denies: Blurred vision, Double vision HEENT: Reports: - - Has a chronic mandibular infection related with a tooth extraction. Patient was to follow-up with someone today in regards to that.. Denies: Head Aches, Sinus Congestion, Sinus Drainage Cardiovascular: Denies: Chest Pain, Palpitations Respiratory: Denies: Cough, Shortness of breath at rest, Sputum production Gastrointestinal: Denies: Abdominal Pain, Nausea, Vomiting Genitourinary: Denies: Dysuria Musculoskeletal: Denies: Joint Pain, Joint Tenderness Neurological: Reports: - - Has chronic neuropathy in his lower extremities. Psychiatric: Denies: Anxiety, Depression Hematologic/ Lymphatic: Denies: Easy Bruising, Easy Bleeding, Hx of blood clot Comment: All review of systems were negative except as mentioned above in the history of present illness and the other review of systems. VTE Information - Inpt Only VTE Present on Admission: No VTE Mechan Device Prophylaxis: SCD's VTE Pharm Prophylaxis ordered?: No Patient Problems: Active and Suspected Problems (Last Reviewed 04/21/20 @ 10:[address] Todd Dunlap DO) Numbness (Acute) - Physical Exam Vitals/I&O's: Vital Signs Temp Pulse Resp BP Pulse Ox 36.2 C L 64 17 137/78 H 99 04/21/20 10:30 04/21/20 10:30 04/21/20 10:30 04/21/20 10:30 04/21/20 10:30 Oxygen Delivery Method Room Air Weight: 110.8 kg Body Mass Index (BMI) 35.0 Finger Stick Blood Glucose 111 General: Alert, Cooperative, No apparent distress HEENT: Atraumatic, PERRLA, EOMI, Normocephalic Oral: Moist Mucosa, No Gingival or Mucosal Lesions/ Ulcerations Neck: No Nodes, Thyroid Normal Size and Texture Lungs: Clear to auscultation, Normal air movement, No rhonchi, No wheeze, No rales Cardiovascular: Regular rate, Regular Rhythm, Normal S1, Normal S2, No murmurs Abdomen: Bowel Sounds Present, Soft, Non Tender, Non-Distended, No Hepato- splenomegaly Extremities: No edema, No Calf Tenderness Skin: No rashes, No breakdown Musculoskeletal: No Tenderness to Palpation of Joints or Extremities, No Muscle Wasting Neurological: Cranial nerves II-XII grossly intact, Deep Tendon Reflexes 2+/4 and Symmetrical, - - Muscle strength slightly diminished in the left lower extremities compared to the right. [id number]-ga-[id number] was limited on the left lower extremity though the patient stated that it is more related with difficulty moving his knee related with his recent left knee replacement. Psych/Mental Status: Normal Affect, Appropriate Laboratory Results 04/21/20 09:10: POC Glucose 111 H 04/21/20 09:14: WBC 5.6, RBC 4.74, Hgb 14.7, Hct 43.7, MCV 92.2, MCH 31.0, MCHC 33.6, RDW Std Deviation 44.4 H, RDW Coeff of Angela 13.1, Plt Count 239, MPV 9.2, Immature Gran % (Auto) 0.400, Neut % (Auto) 64.9, Lymph % (Auto) 17.7 L, [place] % (Auto) 11.6 H, Eos % (Auto) 4.3, Baso % (Auto) 1.1 H, Absolute Neuts (auto) 3.6, Absolute Lymphs (auto) 0.99, Nucleated RBC % 0 04/21/20 09:14: PT 12.6, INR 1.0, APTT 26.3 04/21/20 09:14: Sodium 140, Potassium 4.3, Chloride 107, Carbon Dioxide 28.0, Anion Gap 5, BUN 17, Creatinine 0.78, Estim Creat Clear Calc 66.92, Est GFR (MDRD) Af Amer 125, Est GFR (MDRD) Non-Af 103, BUN/Creatinine Ratio 21.8 H, Glucose 103, Calcium 9.1, Troponin I < 0.015 Clinical Impression(s) from Imaging Studies Brain CT 04/21/20 09:18 IMPRESSION: Chronic involutional changes of the brain. N.B. : The above information has been verbally conveyed by Paul Chiang to Ruthie Felix on 04/21/2020 09:51:02 (ET). Electronically Signed: Paulfranklin De La Rosayaquelin, at 9:52 EST , Service support , ADDENDUM: 04/21/20 0959 IMPRESSION: Chronic involutional changes of the brain. N.B. : The above information has been verbally conveyed by Paul Chiang to Ruthie Felix on 04/21/2020 09:51:02 (ET). Electronically Signed: Paul Chiang, at 9:52 EST , Service support , Head/Neck CTA 04/21/20 09:26 IMPRESSION: Greater than 70% stenosis at the origin of the left internal carotid artery. 50-69% narrowing at the origin of the left internal carotid artery. 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 N.B. : The above information has been verbally conveyed by Paul Chiang to Ruthie Felix on 04/21/2020 10:03:44 (ET). Electronically Signed: Paul Chiang, at 10:05 EST , Service support , ADDENDUM: 04/21/20 1012 IMPRESSION: Greater than 70% stenosis at the origin of the left internal carotid artery. 50-69% narrowing at the origin of the left internal carotid artery. 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 N.B. : The above information has been verbally conveyed by Paul Chiang to Ruthie Felix on 04/21/2020 10:03:44 (ET). Electronically Signed: Paul Chiang, at 10:05 EST , Service support , Chest X-Ray 04/21/20 09:45 IMPRESSION: No acute abnormality is seen. Electronically Signed: Paul Chiang, at 10:10 EST , Service support , Current Medications Labetalol HCl (Labetalol (Prefilled) 20 Mg/4 Ml) 20 mg IV X1 PRN PRN Reason: BLOOD PRESSURE Assessment/Plan All Active Problems (Last Reviewed 04/21/20 @ 10:[address] Todd Dunlap, DO) Numbness (Acute) Preop cardiovascular exam (Resolved) 1. Left leg and face numbness: * Third for this being is stroke. Patient has a history of an irregular heartbeat. No diagnosis of A. fib but patient has a known Mobitz type I heart block. * Plan is to complete stroke work-up with an MRI of the brain as well check 2D echocardiogram and check lipid panel. Based on the above, will consult [facility] teleneurology for further recommendations. * Start aspirin. Patient on simvastatin will start high intensity atorvastatin. * Could be contributed to the leg numbness is the patient's extensive history of back surgery and neuropathy. Patient stated he is unclear as to why he has neuropathy but may be related with his prior back issues. This however would not explain any of his facial numbness. 2. Peripheral arterial disease: * Patient having 50 to 70% carotid stenosis on the left. That would not be contributing to the patient's current symptoms * Increase statin 3. VTE prophylaxis: As recommended by the [facility], SCDs for now. DW patient's at bedside. OBSV E&M: [id number] Initial observation care L3
--- NOTE | 2020-04-21 11:06 | MRI_ITS ---
STUDY: MRI BRAIN WITHOUT CONTRAST REASON FOR EXAM: Male, 75 years old. cva, left leg numbness -- hx prostate ca TECHNIQUE: Standardized multiplanar fat and water weighted pulse sequences were obtained. COMPARISON: CT earlier today MRI 10/13/2015 FINDINGS: There is moderate cerebral atrophy with widening of the extra-axial spaces and ventricular dilatation. There are a limited number of small white matter hyperintensities, distributed throughout the deep white matter tracts of the cerebral hemispheres, consistent with mild chronic white matter ischemic changes. There is no evidence for recent intracranial ischemia or other cause of cytotoxic edema on diffusion weighted imaging (DWI). Normal T2* images of the brain without demonstrated susceptibility artifact. There is no demonstrated hemosiderin stain. Normal bilateral basal ganglia. Normal thalami. There is no extra-axial fluid accumulation. Normal flow voids within the major intracranial circulation suggesting patency by spin echo criteria. Normal sella turcica, pituitary gland, infundibular stalk, optic chiasm and hypothalamus. Normal tectal plate and pineal gland. Normal midbrain, tiburcio and medulla. Normal cerebellum. Normal basal cisterns. Normal bilateral temporal bones. Normal bilateral internal auditory canals. No demonstrated orbital abnormality, within the constraints of a routine brain study. Normal visualized paranasal sinuses. Normal calvarium and skull base. Normal visualized soft tissue structures. Normal visualized upper cervical spine. MRI/Brain without Contrast IMPRESSION: Involutional changes of the brain, as described above. No acute infarct. Electronically Signed: Geraldo Kirk MD at 13:37 EST Tel , Service support ,
--- NOTE | 2020-04-21 11:06 | NURSING ---
while in another pt room, medic took pt to the floor unaware that pt was having NIH's. this RN called and spoke with Omar, explained what happened and that the pt has had a NIH of 1. Omar said thank you for calling.
[2020-04-21] MEDS: Aspirin 325 MG Tablet PO (11:48)
[2020-04-21] MEDS: LORazepam 2 MG/ML Syringe 1 MG IV (11:49)
[2020-04-21] MEDS: Acetaminophen 500 MG Tablet 1000 MG PO ×2 (11:49→21:43)
--- NOTE | 2020-04-21 14:10 | TELEMED_ITS ---
[facility] has confirmed receipt of a request for visit. This document confirms receipt of the order initiating the consult. To find the results of the consultation, please view the patient's reports for the scanned Telemed Consult.
--- NOTE | 2020-04-21 16:34 | VDLE_ITS ---
Reason For Study: LEG SWELLING Procedure LEFT Exam performed portable in patient room. GSV is normal. This is a venous duplex using B-mode, color CFV is compressible, spontaneous, phasic, flow and spectral Doppler. competent, and demonstrates normal A preliminary report was called and/or faxed augmentation. to PCU. FV is compressible, spontaneous, phasic, competent and demonstrates normal augmentation. POP V is compressible, spontaneous, phasic, competent and demonstrates normal augmentation. T/P Trunk is compressible. PTV is compressible. Per V not well visualized apppears compressible. Interpretation Summary There is no evidence of left lower extremity deep vein thrombosis. Left great saphenous vein appears patent and compressible segmentally. Left peroneal vein not well visualized. Ordering Physician: Todd Dunlap Referring Physician: Ahmet Ewing Performed By: Katty Holland RVT, RDCS and Student
[2020-04-21] MEDS: Meloxicam 15 MG Tablet PO (21:42)
[2020-04-21] MEDS: Lisinopril 2.5 MG Tablet PO (21:43)
[2020-04-21] MEDS: Gabapentin 600 MG Tablet PO (21:43)
[2020-04-21] MEDS: Atorvastatin Calcium 80 MG Tablet PO (21:44)
[2020-04-21] MEDS: Tamsulosin HCl 0.4 MG Capsule PO (21:44)
[2020-04-21] MEDS: Fluticasone 0.05% 1 SPRAY NASAL.SRY 2 SPRAY NASAL (21:46)
[2020-04-22 02:25] VITALS: BMI 34.4
[2020-04-22 02:30] VITALS: BP 141/83; PULSE 83; RESP 18; TEMP 36.4; O2SAT 93
[2020-04-22 03:00] VITALS: PULSE 63
[2020-04-22 06:08] LABS: Cholesterol 157 mg/dL (200); High Density Lipoprotein 50 mg/dL; Triglycerides 247 mg/dL; Very Low Density Lipoprotein 49 mg/dL (5-40)
[2020-04-22] MEDS: Acetaminophen 500 MG Tablet 1000 MG PO ×2 (06:28→13:38)
[2020-04-22 07:00] VITALS: PULSE 79
[2020-04-22 09:22] VITALS: BP 121/81; PULSE 96; RESP 18; TEMP 36.8; O2SAT 96
[2020-04-22] MEDS: Pantoprazole Sodium 40 MG Tablet PO (09:27)
[2020-04-22] MEDS: Lisinopril 2.5 MG Tablet PO (09:27)
[2020-04-22] MEDS: Aspirin 81 MG TAB.CHEW PO (09:27)
[2020-04-22] MEDS: Multivitamins,Ther W-Minerals Tablet 1 TABLET PO (09:27)
[2020-04-22] MEDS: Gabapentin 600 MG Tablet PO (09:27)
[2020-04-22] MEDS: Magnesium Chloride 64 MG Delay Rel.Tablet 128 MG PO (09:27)
[2020-04-22] MEDS: Loratadine 10 MG Tablet PO (09:27)
--- NOTE | 2020-04-22 10:12 | CASEMGMT ---
SW completed a PHQ 9 with patient as he had a TIA. He scored a 4 which indicates minimal Depression. He said his lack of sleep and being tired is related to him trying to adjust to wearing a cpap at night. Adrienne BOUDREAUX MSW
[2020-04-22 10:54] VITALS: O2SAT 97
--- NOTE | 2020-04-22 13:44 | DCINST_ITS ---
- Discharge Diagnoses Current Active Problems: Current Active and Chronic Problems (Last Reviewed 04/21/20 @ 10:[address] Todd Dunlap, DO) Numbness (Acute) Fatigue (Chronic) Near syncope (Chronic 01/13/20) AV block, Mobitz 1 (Chronic) Rapid palpitations (Chronic) Mitral valve annular calcification (Chronic) Essential (primary) hypertension (Chronic) Hyperlipidemia (Chronic) You will use the following diet at home:: Cardiac Your food should be the consistency of: Regular Your liquids should be the consistency of: Regular/Thin Discharge Activity: Return to Normal Activity Call your doctor if you observe: Shortness of breath, Swelling in the ankles Allergies/Adverse Reactions: Allergies No Known Allergies Allergy (Verified 04/21/20 09:04) Medications to take at Discharge Pantoprazole Sodium [Protonix] 40 mg PO DAILY 10/13/15 Multivit-Min/FA/Lycopen/Lutein [Centrum Silver Tablet] 1 ea PO DAILY 07/31/16 Tamsulosin HCl 0.4 mg PO QHS 07/03/18 Triamcinolone Acetonide [Nasacort] 2 spray NS QHS 03/04/19 cholecalciferol (vitamin D3) 100 mcg (4,000 unit) capsule 4,000 unit PO DAILY 03/12/19 magnesium oxide 400 mg PO DAILY 04/30/19 Fexofenadine HCl [Cyndi Allergy] 180 mg PO DAILY 02/06/20 Acetaminophen [Tylenol] 1,000 mg PO Q8 #90 tab 02/24/20 gabapentin 600 mg tablet 600 mg PO BID tab 04/15/20 lisinopril 2.5 mg tablet 2.5 mg PO BID tab 04/15/20 tramadol 50 mg tablet 50 mg PO DAILY PRN tab 04/15/20 Meloxicam [Mobic] 15 mg PO QHS 04/21/20 Aspirin [Aspirin, Baby] 81 mg PO DAILY@0800 tab.chew 04/22/20 Atorvastatin Calcium [Lipitor] 80 mg PO QHS #30 tab 04/22/20 The following prescriptions were given: Atorvastatin Calcium [Lipitor] 80 mg PO QHS #30 tab Transmission Status: Pending to [id number] Primary Care Physician: Ahmet Ewing MD [Primary Care Provider] - Within 1 Week Test Results: Test results from this visit will be discussed in further detail at your follow- up appointment, if applicable. Please Follow Up With: Javed Borja MD - neurology When: 1-2 months Please Follow Up With: Dao Sloan MD - vascular surgery When: 1-2 weeks Proposed Discharge Date: 04/22/20
--- NOTE | 2020-04-22 13:46 | PCM.DC.SUM ---
Discharge Date and Diagnosis - Problem List Patient Problems: Active and Suspected Problems (Last Reviewed 04/21/20 @ 10:[address] Todd Dunlap DO) Numbness (Acute) Date of Admission: 04/21/20 Date of Discharge: 04/22/20 - Primary Discharge Diagnosis Acute Problems: Active Problems (Last Reviewed 04/21/20 @ 10:[address] Todd Dunlap DO) Numbness (Acute) CVA - Secondary Discharge Diagnosis Chronic Problems: Chronic Problems (Last Reviewed 04/21/20 @ 10:[address] Todd Dunlap DO) Fatigue (Chronic) Near syncope (Chronic 01/13/20) AV block, Mobitz 1 (Chronic) Rapid palpitations (Chronic) Mitral valve annular calcification (Chronic) Essential (primary) hypertension (Chronic) Hyperlipidemia (Chronic) Hospital Course and Treatment Imaging Results: Clinical Impression(s) from Imaging Studies Brain CT 04/21/20 09:18 IMPRESSION: Chronic involutional changes of the brain. N.B. : The above information has been verbally conveyed by Paul Chiang to Ruthie Felix on 04/21/2020 09:51:02 (ET). Electronically Signed: Paul Chiang, at 9:52 EST , Service support , ADDENDUM: 04/21/2059 IMPRESSION: Chronic involutional changes of the brain. N.B. : The above information has been verbally conveyed by Paul Chiang to Ruthie Felix on 04/21/2020 09:51:02 (ET). Electronically Signed: Paul Chiang, at 9:52 EST , Service support , Head/Neck CTA 04/21/20 09:26 IMPRESSION: Greater than 70% stenosis at the origin of the left internal carotid artery. 50-69% narrowing at the origin of the left internal carotid artery. 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 N.B. : The above information has been verbally conveyed by Paul Davislli to Ruthie Felix on 04/21/2020 10:03:44 (ET). Electronically Signed: Paul Daviskalebaftab, at 10:05 EST , Service support , ADDENDUM: 04/21/20 1012 IMPRESSION: Greater than 70% stenosis at the origin of the left internal carotid artery. 50-69% narrowing at the origin of the left internal carotid artery. 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 N.B. : The above information has been verbally conveyed by Paul De La Rosayaquelin to Ruthie Felix on 04/21/2020 10:03:44 (ET). Electronically Signed: Paul De La Rosayaquelin, at 10:05 EST , Service support , Chest X-Ray 04/21/20 09:45 IMPRESSION: No acute abnormality is seen. Electronically Signed: Paul De La Rosayaquelin, at 10:10 EST , Service support , Brain MRI 04/21/20 11:06 IMPRESSION: Involutional changes of the brain, as described above. No acute infarct. Electronically Signed: Geraldo Kirk MD at 13:37 EST Tel , Service support , Operations: None Procedures: None Summary of Care Provided: The patient is a 75 year old M presents with left leg weakness on the morning of the . Happened after he woke up. Went back to bed and then noted again in his left leg still weak and then was noticing a point later where he was having left facial numbness. Presented to the emergency room and had a work-up. He had a CTA where the impression noted narrowing in the left internal carotid, however in the body it actually stated that there was bilateral stenosis of 70% on the left internal carotid and 50 to 69% at the right internal carotid. Patient had an MRI that was negative. Patient was seen by [facility] teleneurology who felt this may be related with his carotid stenosis on his right hand recommended neurology follow-up as well as vascular surgery follow-up. Patient still does have numbness in his leg but overall is improved. Patient did have increased swelling in his leg as he is at earlier this year had a left knee replacement. A duplex was performed and was negative for DVT. Patient will be discharged with aspirin and increase of his statin to 80 mg atorvastatin [] Patient Problems: Active and Suspected Problems (Last Reviewed 04/21/20 @ 10:[address] Todd Dunlap, DO) Numbness (Acute) - Physical Exam Vitals/I&O's: Vital Signs Temp Pulse Resp BP Pulse Ox 36.8 C 96 18 121/81 H 96 04/22/20 09:22 04/22/20 09:22 04/22/20 09:22 04/22/20 09:22 04/22/20 09:22 Oxygen Delivery Method Room Air Weight: 108.7 kg Body Mass Index (BMI) 34.4 Finger Stick Blood Glucose 111 Intake and Output for Last 24 Hours 04/20/20 04/21/20 04/22/20 23:59 23:59 23:59 Intake Total 600 / 600 980 / 980 Balance 600 / 600 980 / 980 General: Alert, No apparent distress HEENT: Atraumatic, Normocephalic Oral: Moist Mucosa, No Gingival or Mucosal Lesions/ Ulcerations Neurological: - - decreased sensation in LLE. Laboratory Results 04/22/20 05:05: Triglycerides 247 H, Cholesterol 157, LDL Cholesterol 58, VLDL Cholesterol 49 H, HDL Cholesterol 50 Current Medications Acetaminophen (Acetaminophen 500 Mg Tablet) 1,000 mg PO Q8 [facility] Last Admin: 04/22/20 13:38 Dose: 1,000 mg Documented by: Acetaminophen (Acetaminophen 325 Mg Tablet) 650 mg PO Q6H PRN PRN PRN Reason: Pain Score 1-10/Temp > 100.7 F Aspirin (Aspirin 81 Mg Tab.Chew) 81 mg PO DAILY@0800 [facility] Last Admin: 04/22/20 09:27 Dose: 81 mg Documented by: Atorvastatin Calcium (Atorvastatin Calcium 80 Mg Tablet) 80 mg PO QHS [facility] Last Admin: 04/21/20 21:44 Dose: 80 mg Documented by: Cholecalciferol (Cholecalciferol (Vit D3) 1,000 Unit (25mcg)) 4,000 unit PO DAILY [facility] Last Admin: 04/22/20 09:28 Dose: 4,000 unit Documented by: Fluticasone Propionate (Fluticasone 0.05% 1 [place] Nasal.Sry) 2 spray NASAL HS [facility] Last Admin: 04/21/20 21:46 Dose: 2 spray Documented by: Gabapentin (Gabapentin 600 Mg Tablet) 600 mg PO BID [facility] Last Admin: 04/22/20:27 Dose: 600 mg Documented by: Hydralazine HCl (Hydralazine 20 Mg/Ml Vial) 5 mg IV Q30M PRN PRN Reason: to maintain BP goals Sodium Chloride () 250 mls @ 15 mls/hr IV .[id number] PRN PRN Reason: Saline Flush Sodium Chloride () 250 mls @ 15 mls/hr IV .[id number] PRN PRN Reason: Additional IVPB Infusion Labetalol HCl (Labetalol (Prefilled) 20 Mg/4 Ml) 10 - 20 mg IV Q10M PRN PRN PRN Reason: to Maintain BP Goals Lisinopril (Lisinopril 2.5 Mg Tablet) 2.5 mg PO BID [facility] Last Admin: 04/22/20:27 Dose: 2.5 mg Documented by: Loratadine (Loratadine 10 Mg Tablet) 10 mg PO DAILY [facility] Last Admin: 04/22/20:27 Dose: 10 mg Documented by: Magnesium Chloride (Magnesium Chloride 64 Mg Delay Rel.Tablet) 128 mg PO DAILY [facility] Last Admin: 04/22/20:27 Dose: 128 mg Documented by: Meloxicam ([facility]am 15 Mg Tablet) [facility] Last Admin: 04/21/20 21:42 Dose: 15 mg Documented by: Multivitamins/Minerals (Multivitamins,Ther W-Minerals Tablet) [facility] Last Admin: 04/22/20:27 Dose: 1 tablet Documented by: Pantoprazole Sodium (Pantoprazole Sodium 40 Mg Tablet) 40 mg PO DAILY [facility] Last Admin: 04/22/20:27 Dose: 40 mg Documented by: Sodium Chloride (0.9% Saline Lock 10 Ml Syringe) 10 - 40 ml IV UD PRN PRN Reason: SALINE FLUSH Tamsulosin HCl (Tamsulosin Hcl 0.4 Mg Capsule) 0.4 mg PO QHS [facility] Last Admin: 04/21/20 21:44 Dose: 0.4 mg Documented by: Tramadol HCl (Tramadol 50 Mg Tablet) 50 mg PO DAILY PRN PRN Reason: Pain 1-10 or Fever Discharge Diet: No Restrictions Discharge Activity: Return to Normal Activity Call your doctor if you observe: Shortness of breath, Swelling in the ankles Home Medications: Medications to take at Discharge Pantoprazole Sodium [Protonix] 40 mg PO DAILY 10/13/15 Multivit-Min/FA/Lycopen/Lutein [Centrum Silver Tablet] 1 ea PO DAILY 07/31/16 Tamsulosin HCl 0.4 mg PO QHS 07/03/18 Triamcinolone Acetonide [Nasacort] 2 spray NS QHS 03/04/19 cholecalciferol (vitamin D3) 100 mcg (4,000 unit) capsule 4,000 unit PO DAILY 03/12/19 magnesium oxide 400 mg PO DAILY 04/30/19 Fexofenadine HCl [Cyndi Allergy] 180 mg PO DAILY 02/06/20 Acetaminophen [Tylenol] 1,000 mg PO Q8 #90 tab 02/24/20 gabapentin 600 mg tablet 600 mg PO BID tab 04/15/20 lisinopril 2.5 mg tablet 2.5 mg PO BID tab 04/15/20 tramadol 50 mg tablet 50 mg PO DAILY PRN tab 04/15/20 Meloxicam [Mobic] 15 mg PO QHS 04/21/20 Aspirin [Aspirin, Baby] 81 mg PO DAILY@0800 tab.chew 04/22/20 Atorvastatin Calcium [Lipitor] 80 mg PO QHS #30 tab 04/22/20 Following Prescriptions Were Given to Patient: Atorvastatin Calcium [Lipitor] 80 mg PO QHS #30 tab Transmission Status: Pending to [facility]/pharmacy #[id number] Primary Care Physician: Ahmet Ewing MD [Primary Care Provider] - Within 1 Week Please Follow Up With: Javed Borja MD - neurology When: 1-2 months Please Follow Up With: Dao Sloan MD - vascular surgery When: 1-2 weeks Disposition: Home Minutes spent on discharge:: 30 Patient Condition:: Good Medical Necessity - Tobacco Use Smoking Status: Former smoker Tobacco Use: Cigarettes Meaningful Use Info Meaningful Use Diagnoses (Choose all that apply): Ischemic CVA - CVA Therapy Assessed for PT,OT and/or ST?: Yes - Ischemic Stroke Antithrombotic order at d/c?: Yes Dx of Atrial fib/flutter?: Yes Anticoagulant at discharge?: No Reason anticoagulant not ordered: Procedure not Indicated Statins at discharge?: Yes Primary Dx Acute Ischemic CVA?: Yes IV tPA ordered during stay?: No Reason IV t-PA not ordered: Procedure not Indicated OBSV E&M: [id number] Observation care discharge
--- NOTE | 2020-04-22 14:23 | PHA.DC.MR ---
Pharmacy Service has performed discharge medication reconciliation for this patient. The patient's discharge medication list was reviewed for discrepancies and discrepancies were resolved. Home Medications Pantoprazole Sodium [Protonix] 40 mg PO DAILY 10/13/15 Multivit-Min/FA/Lycopen/Lutein [Centrum Silver Tablet] 1 ea PO DAILY 07/31/16 Tamsulosin HCl 0.4 mg PO QHS 07/03/18 Triamcinolone Acetonide [Nasacort] 2 spray NS QHS 03/04/19 cholecalciferol (vitamin D3) 100 mcg (4,000 unit) capsule 4,000 unit PO DAILY 03/12/19 magnesium oxide 400 mg PO DAILY 04/30/19 Fexofenadine HCl [Cyndi Allergy] 180 mg PO DAILY 02/06/20 Acetaminophen [Tylenol] 1,000 mg PO Q8 #90 tab 02/24/20 gabapentin 600 mg tablet 600 mg PO BID tab 04/15/20 lisinopril 2.5 mg tablet 2.5 mg PO BID tab 04/15/20 tramadol 50 mg tablet 50 mg PO DAILY PRN tab 04/15/20 Meloxicam [Mobic] 15 mg PO QHS 04/21/20 Aspirin [Aspirin, Baby] 81 mg PO DAILY@0800 tab.chew 04/22/20 Atorvastatin Calcium [Lipitor] 80 mg PO QHS #30 tab 04/22/20
--- NOTE | 2020-04-22 14:48 | CASEMGMT ---
Addendum entered by Britney Walton 04/26/20 10:33: This RN CM received a call back from pt and he states that he already has PT set up for a knee problem and he will see them today. Pt states no need for any further order at this time. Kristina LEE CM Original Note: Pt was discharged prior to this RN CM checking with pt regarding therapies recommendations. This RN CM left a message with pt's VM to call back regarding same at this time. Kristina LEE CM
== END 2020-04-22 13:46 | disposition home or self-care (01) ==
LOC: ED 09:53 → PCU 04-22 07:50
PROVIDERS: Emergency Provider Emergency Medicine; PCP Family Medicine
DX: I63.9 Cerebral infarction, unspecified (principal); R20.0 Anesthesia of skin; I44.1 Atrioventricular block, second degree; E78.5 Hyperlipidemia, unspecified; I10 Essential (primary) hypertension; G62.9 Polyneuropathy, unspecified; R00.2 Palpitations; I65.23 Occlusion and stenosis of bilateral carotid arteries; R53.1 Weakness; I73.9 Peripheral vascular disease, unspecified; N40.0 Benign prostatic hyperplasia without lower urinary tract symptoms; M19.90 Unspecified osteoarthritis, unspecified site; K21.9 Gastro-esophageal reflux disease without esophagitis; G47.33 Obstructive sleep apnea (adult) (pediatric); Z79.899 Other long term (current) drug therapy; Z87.891 Personal history of nicotine dependence; M79.89 Other specified soft tissue disorders; R29.701 NIHSS score 1; R20.8 Other disturbances of skin sensation; M27.2 Inflammatory conditions of jaws
CPT/HCPCS: 36415; 70450; 70496; 70498; 70551; 71045; 80048; 80061; 82962; 84484; 85025; 85610; 85730; 92523; 92610; 93005; 93971; 96374; 97110; 97161; 97165; 97535; 97802; 99218; 99285; Q9967; A4216; G0378

== ENCOUNTER → 2020-05-05 13:57 | Outpatient (CLI) | payer MEDICARE, SELFPAY ==
[2020-04-22 02:25] VITALS: BMI 34.4
--- NOTE | 2020-05-05 13:59 | ART_ITS ---
Reason For Study: PAD Procedure A bilateral lower extremity continuous wave Doppler with analog waveform analysis,segmental pressures,and ankle brachial indexes without exercise. Left Segmental Pressures Left brachial= 140mmHg. Left dorsalis pedis artery = 181mmHg. Left posterior tibial artery = 182mmHg. Left digit = 134 mmHg. The left dorsalis pedis waveforms are triphasic. The left posterior tibial artery waveforms are triphasic. Right Segmental Pressures Right brachial= 144mmHg. Right posterior tibial artery = 167mmHg. Right dorsalis pedis artery = 168mmHg. Right digit = 133 mmHg. The right dorsalis pedis waveforms are triphasic. The right posterior tibial artery waveforms are triphasic. Indices The right ankle brachial index by the dorsalis pedis is 1.26. The right ankle brachial index by the posterior tibial artery is 1.26. The right digital-brachial index is .93. The left ankle brachial index by the posterior tibial artery is 1.16. The left ankle brachial index by the dorsalis pedis is 1.17. The left digital-brachial index is .92. Interpretation Summary Triphasic Doppler waveforms are noted at ankle level bilaterally. Pulse-volume recordings appear satisfactory at all levels bilaterally, including low-thigh, calf, ankle, and digital levels. Resting ankle-brachial indices are normal bilaterally. Digital-brachial indices are normal bilaterally. There is no evidence of significant arterial occlusive disease in the lower extremities bilaterally. Ordering Physician: Annabella Ewing Referring Physician: ANNABELLA EWING MD Performed By: IDANIA HAZEL RDCS
== END ==
PROVIDERS: PCP Family Medicine; Visit Provider Family Medicine
DX: I73.9 Peripheral vascular disease, unspecified (principal)
CPT/HCPCS: 93923

== ENCOUNTER → 2020-05-28 14:25 | Outpatient (CLI) | payer SELFPAY ==
--- NOTE | 2020-05-28 14:34 | CT_ITS ---
STUDY: CARDIAC CALCIUM SCORING - CT CHEST REASON FOR EXAM: Male, 75 years old. Mitral valve calcification, limited CT chest over-read ONLY. Patient unable to raise arms up. RADIATION DOSAGE (If Supplied By Facility): CTDIvol = ( 17.37 ) mGy, DLP = ( 347.40 ) mGycm TECHNIQUE: Axial non-enhanced images were acquired through the heart for the sole purpose of measuring coronary artery calcium. Individualized dose optimization techniques were used for this CT. COMPARISON: None. FINDINGS: Mild atherosclerotic plaque at the level of the aortic arch. Small mediastinal lymph nodes. Coronary artery calcification. Calcification of the mitral valve annulus. The visualized lungs are unremarkable. CT/Limited Chest CT w/CCTA IMPRESSION: Coronary artery calcification. The lungs are clear. Please go to: [email or web address] , for a description of the calculator. Electronically Signed: Paul Chiang MD at 8:28 EST , Service support ,
[2020-05-28 14:39] VITALS: BP 133/83; PULSE 61; RESP 16; O2SAT 99; BMI 33.5
--- NOTE | 2020-05-28 14:58 | NURSING ---
heart rate increased to [address] scan, unable to proceed, till heart rate decreases, pt was uncomfortable due to the postition of her arms and shoulder. brought out to [place] to medicate and start an iv
--- NOTE | 2020-05-28 15:23 | NURSING ---
heart rate 63 at resting prior to medication adm. talked with ct, if patient would be able to have arms at side due to shoulder testing, testing done
--- NOTE | 2020-05-28 16:28 | CA.SCORE ---
Calcium Scoring Date of Study:: 05/28/20 Coronary Calcium Scoring: High-resolution Computed Tomographic imaging of the chest was performed on [05/28/2020], with particular attention paid to the coronary arteries. Images from the examination were analyzed for the presence and extent of coronary artery calcification , using coronary calcium quantification software. The patient tolerated the procedure well and there were no complications. The results of the coronary calcification analysis are provided below. - Findings Left Main (LM): 1.4 Left Anterior Descending (LAD): 227 Left Circumflex (LCX): 343 Right Coronary Artery (RCA): 778 Total Agatston Score: 1,349.4 Calcium Scoring Interpretation: 0 No identifiable atherosclerotic plaque. Very low cardiovascular disease risk. <5% chance of presence coronary artery disease A Negative Examination 1-10 Minimal Plaque burden. Significant coronary artery disease very unlikely. 11-100 Mild plaque burden. Likely mild or minimal coronary atherosclerosis. 101-400 Moderate plaque burden Moderate non-obstructive coronary artery disease highly likely. Over 400 Extensive plaque burden. High likelihood of at least one significant coronary stenosis (>50% diameter) Calcium Score: >400 High likelihood of at least one significant coronary stenosis - Coronary artery disease with at least 1 coronary artery with significant stenosis more than 50% in diameter. A full evaluation of cardiac risk should include an assessment of all conventional risk factors and the scores and percentiles rankings reported herein should be evaluated within this contex
== END ==
PROVIDERS: PCP Family Medicine; Referring Provider Internal Medicine Cardiovascular Disease; Visit Provider Internal Medicine Cardiovascular Disease
DX: E78.5 Hyperlipidemia, unspecified (principal); I05.9 Rheumatic mitral valve disease, unspecified; I10 Essential (primary) hypertension; I44.1 Atrioventricular block, second degree; I65.23 Occlusion and stenosis of bilateral carotid arteries; Z86.73 Personal history of transient ischemic attack (TIA), and cerebral infarction without residual deficits
CPT/HCPCS: 75571; 76380; A4216

== ENCOUNTER → 2020-05-31 10:00 | Outpatient (CLI) | payer MEDICARE, SELFPAY ==
[2020-05-28 14:39] VITALS: BMI 33.5
--- NOTE | 2020-05-31 10:03 | US_ITS ---
STUDY: THYROID ULTRASOUND REASON FOR EXAM: Male, 75 years old. Nodules TECHNIQUE: Ultrasound evaluation of the thyroid was performed with real-time and static ramsey-scale imaging. COMPARISON: 03/07/2019. FINDINGS: RIGHT LOBE: The right lobe of the thyroid gland measures 5.4 x 3.0 x 1.9 cm. There is a homogeneous echotexture. There are no demonstrated solid, cystic or complex lesions. LEFT LOBE: The left lobe of the thyroid gland measures 5.1 x 2.9 x 2.6 cm. There is a homogeneous echotexture. There is an upper pole stable slightly hypoattenuated 5 x 4 mm nodule. A relatively stable lower heterogeneous left thyroid lesion is noted measuring 2.8 x 2.1 x 2.3 cm. ISTHMUS: The isthmus measures 3 mm . The regional lymph nodes are normal. US/Thyroid IMPRESSION: Relatively stable left thyroid nodules. Electronically Signed: Cachorro Vides DO at 23:26 EST Tel [phone], Service support ,
== END ==
PROVIDERS: PCP Family Medicine; Referring Provider Family Medicine; Visit Provider Family Medicine
DX: E04.2 Nontoxic multinodular goiter (principal)
CPT/HCPCS: 76536

== ENCOUNTER → 2020-06-01 09:38 | Outpatient (CLI) | payer MEDICARE, SELFPAY ==
[2020-05-28 14:39] VITALS: BMI 33.5
[2020-06-01 12:23] LABS: Absolute Lymphocyte Count 1.22 X10^3/uL (0.83-4.51); Absolute Neutrophil Count 3.7 X10^3/uL (2.0-7.7); Basophil# 0.05 X10^3/uL; Basophil% 0.8 % (0-1); Eosinophils% 3.3 % (0-5); Hematocrit 43.5 % (40-54); Hemoglobin 14.4 g/dL (13.0-16.5); Lymphocyte # 1.22 X10^3/ul (4.0); Lymphocyte % 20.4 % (19-41); Mean Corp Hgb Conc 33.1 g/dL (32-36); Mean Corpuscular Hgb 29.9 pg (27.0-32.0); Mean Corpuscular Volume 90.4 fL (80-94); Mean Platelet Vol. 9.5 fl (6.2-12.0); Monocyte# 0.77 X10^3/uL; Monocyte% 12.9 % (0-10); NRBC Flagged by Analyzer 0 % (0-5); Neutrophil # 3.73 X10^3/uL (2.7-7.7); Neutrophil % 62.3 % (47-70); Platelet Count 230 K/mm3 (150-450); RBC Distribution Width CV 13.3 % (11.6-14.6); RBC Distribution Width SD 45.1 fl (35.1-43.9); Red Blood Count 4.81 M/mm3 (4.6-6.2)
[2020-06-01 12:33] LABS: Anion Gap 6 (5-15); BUN 23 mg/dL (7-18); BUN/Creat Ratio 28.6 RATIO (10-20); Calcium,Total 8.7 mg/dL (8.5-10.1); Chloride 106 mmol/L (98-107); EST Glomerular Filtration Rate 100 mL/min (>60); Est Glom Filt Rate - Afr Amer 121 mL/min (>60); Glucose 97 mg/dL (74-106); Potassium 4.2 mmol/L (3.5-5.1); Sodium Level 139 mmol/L (136-145)
== END ==
PROVIDERS: PCP Family Medicine; Referring Provider Internal Medicine Cardiovascular Disease; Visit Provider Internal Medicine Cardiovascular Disease
DX: I10 Essential (primary) hypertension (principal); I25.10 Atherosclerotic heart disease of native coronary artery without angina pectoris; I25.84 Coronary atherosclerosis due to calcified coronary lesion; E78.5 Hyperlipidemia, unspecified; I05.9 Rheumatic mitral valve disease, unspecified; I44.1 Atrioventricular block, second degree; I65.23 Occlusion and stenosis of bilateral carotid arteries; R00.2 Palpitations; R53.83 Other fatigue; R55 Syncope and collapse; Z86.73 Personal history of transient ischemic attack (TIA), and cerebral infarction without residual deficits
CPT/HCPCS: 36415; 80048; 85025

== ENCOUNTER 2020-06-07 07:30 | Day surgery (SDC) | payer MEDICARE, SELFPAY ==
[2020-05-28 14:39] VITALS: BMI 33.5
[2020-06-04 08:54] VITALS: BMI 34.7
--- NOTE | 2020-06-04 16:59 | PCM.HP.BLA ---
History and Physical Date of Admission: 06/07/20 [facility] History of Present Illness Details: This is a 75year old gentleman that presents here today for a cardiovascular visit. He has a history of hypertension, hyperlipidemia, Wenckebach periodicity. He recently had a knee replacement and apparently did quite well. He also has a history of mitral annular calcification. As part of his preoperative work-up he underwent an echocardiogram which demonstrated preserved ejection fraction as well as an exercise myocardial perfusion stress test where he exercised to 7 metabolic equivalents with no evidence of ischemia. There were periods of junctional rhythm noted as well as Wenckebach rhythm. He has had no neck arm or jaw discomfort to suggest angina. He has complained of fatigue however. He is trying a new CPAP mask. His EKG from January demonstrates sinus rhythm with some junctional episodes and what appears to be intermittent 2-1 AV block rate of 57 bpm is noted. He is having his CPAP mask adjusted. His exercise capacity he says has been normal. His physical exam demonstrates clear lung aj regular rate and rhythm and no pedal edema. Patient underwent a calcium scoring test on 05/28/2019 that was noted to have a total Agatston score of 1350. Because of this, it was recommended to proceed with heart catheterization to assess further. Intake Vital Signs: See EMR Intake Visit Reasons: [facility] Allergies No Known Allergies Allergy (Verified 02/23/20 08:51) Medications See EMR Ejection fraction %: 60 to 64 [facility] Medical History AV block, Mobitz 1 (Chronic) Rapid palpitations (Chronic) Mitral valve annular calcification (Chronic) Essential (primary) hypertension (Chronic) Hyperlipidemia (Chronic) Arthritis (Chronic) BPH (benign prostatic hyperplasia) (Chronic) Back problem (Chronic) GERD (gastroesophageal reflux disease) (Chronic) Heart murmur (Chronic) Obstructive sleep apnea (Chronic) Thyroid nodule (Chronic) Acute appendicitis (Resolved) Right lower quadrant abdominal pain (Resolved) LVH (left ventricular hypertrophy) (Inactive) Surgical History History of bilateral carpal tunnel release (Resolved) History of left heart catheterization (Resolved 09/01/08) History of left hip replacement (Resolved) History of lumbar laminectomy (Resolved) History of surgical removal of pilonidal cyst (Resolved) History of tonsillectomy and adenoidectomy (Resolved) History of total right hip replacement (Resolved) Hx of appendectomy (Resolved) Status post biopsy of thyroid gland (Resolved 03/2019) History of total left knee replacement (Ruled-out 02/23/20) Family History Father Arthritis Social History (Updated 04/15/20 @ 11:[address] Gigi Schwab MD) Smoking Status: Former smoker second hand exposure: No alcohol intake: current alcohol intake frequency: a few times a week substance use type: does not use caffeine: Yes what type of physical activity do you participate in: walking, weight training frequency: 5-6 times per week ROS Const Const: Positive for fatigue; negative for weakness, headache(s), frequent falls, difficulty sleeping or excessive sweating Eyes Eyes: Negative for loss of peripheral vision, transient loss of vision, blurry vision, double vision or tunnel vision ENT ENT: Negative for headache(s), dizziness, Nosebleed/epistaxis or balance problems Cardio Chest Pain: No Palpitations: No Edema: None Muscle aches with walking: None Resp Respiratory: Negative for SOB with activity, SOB at rest, SOB orthopnea\SOB lying down, Cough or paroxysmal nocturnal dyspnea Additional Details: Started CPAP w/ mask, unfortunately is having problems with mask and will request a cannula. GI GI: Negative nausea, vomiting, heartburn or black,tarry stools : Negative for hematuria Musc Musc: Negative for muscle aches/ myalgia, muscle weakness, joint pain or balance problems Skin Skin: Negative non-healing lesions, rash or unusual bruising Neuro Neuro: Negative for dizziness, lightheadedness, near syncope, syncope, orthostatic symptoms, frequent falls, headache(s), weakness, blurry vision, double vision or lack of coordination Rafael Hematologic/Lymphatic: Negative for easy bleeding or easy bruising Endo Endo: Positive for fatigue; negative for excessive sweating or increased thirst/drinking Psych Psych: Negative for anxiety or depression Allergy Allergy/Immunology: Negative for hives, Negative for rash Cardiology Exam Const Appearance: cooperative, healthy appearing, no acute distress, well developed and well groomed Nutritional Appearance: average body habitus and well nourished Orientation: alert, awake and oriented x3 Head Head: normal to inspection, normocephalic and atraumatic Ears: hearing grossly normal bilaterally and external ears normal Nose: external nose normal, nares normal, nasal mucous membranes and turbinates normal, septum normal, no nasal discharge Face and Sinus: face symmetric Mouth: oral mucosae normal, tongue normal, oropharynx normal and moist mucous membranes Teeth and gingiva: dentition normal Throat: posterior oropharynx normal, tonsils normal and uvula midline Eyes General: appearance normal, both eyes and all related structures Eyelids: eyelids normal Conjunctivae: conjunctivae normal Pupils: PERRL, normal by confrontation and accommodation normal EOM: EOM intact bilaterally Neck Neck: normal visual inspection, trachea midline and no JVD JVD: +5 Carotids: normal carotid upstroke and bounding pulses Chest Chest inspection: normal inspection of the chest, symmetric chest movement and normal respiratory effort Auscultation: Bilateral: Clear to Auscultation Cardio Palpation: normal PMI Rate: regular rate Rhythm: regular rhythm Heart sounds: S1 normal, S2 normal and normal, physiologic split S2; negative rub, gallop or murmur GI GI: normal to inspection, soft, no hepatosplenomegaly and bowel sounds present Neuro General: alert, awake, oriented x3, gait normal, moves all extremities and no focal sensory deficit Skin Skin: no rashes or lesions noted Extremities Pulses: Normal: Right Femoral Pulse, Left Femoral Pulse, Right Dorsalis Pedis Pulse, Left Dorsalis Pedis Pulse, Right Posterior Tibial Pulse, Left Posterior Tibial Pulse, Right Radial Pulse, Left Radial Pulse Lower Extremity Edema: None: Bilateral Musculoskel Musculoskeletal: No joint tenderness Psych Psychological: normal affect Assessment & Plan 1. AV block, Mobitz 1 I44.1 Plan He appears to have some form of fine AV block. A previous Holter monitor has not definitely defined 2-1 heart block. His most recent Holter monitor demonstrated an average heart rate of 71 bpm and sinus rhythm with periods of Wenckebach periodicity with the longest pause being 2.9 seconds. Occasional ventricular and supraventricular episodes were noted no atrial fibrillation was noted. It is not clear whether some of his fatigue may be related to his sleep apnea. He is having his mask adjusted and I would like to see him again in 4 months with a repeat Holter monitor. If the above is abnormal then we may have to consider permanent pacemaker. 2. Essential (primary) hypertension I10 Plan His blood pressure is under good control at the present time and I will not suggest that we make any changes. Patient's calcium scoring test on 05/28/2019 showed; Left Main (LM): 1.4 Left Anterior Descending (LAD): 227 Left Circumflex (LCX): 343 Right Coronary Artery (RCA): 778 Total Agatston Score: 1,349.4 Due to his elevated calcium score, he will proceed with left heart catheterization. Based on results, further recommendation will be made. Procedure Criteria Procedure Type: Elective COVID Risk Discussion: The surgeon/proceduralist and patient have discussed in detail the risk of exposure to and/or potential harm posed by the COVID-19 virus with having a surgery/procedure at this time versus the risk of delaying the surgery/procedure. It is not possible to know either the risk of delaying the surgery or procedure or chance of getting an infection with perfect accuracy, but a joint decision was made between the patient and the surgeon/proceduralist to proceed at this time with the scheduled surgery/procedure as indicated on the consent form.
--- NOTE | 2020-06-07 09:37 | CL.D_ITS ---
Patient Name: CLAYTON BURGOS Study Date: 06/07/2020 Performing: Gigi Schwab MD Ht: 70.07 inches 178 cm : 1945 Wt: 242.51 lbs 110 kg Age: 75 Gender: male BSA: 2.27 PROCEDURE(S) PERFORMED [id number]-RVQ/COR/LV CLINICAL PROFILE AND INDICATIONS Indications: Suspected CAD Heart Failure: None Stress/Imaging Coronary Calcium Score: Yes Calcium Score: 1000Calcium Score: 1000Stress/Image Casey dy Performed: No CAD Presentations: No Sxs, no angina. CONCLUSIONS Minimal CAD noted. Mild coronary calcium present. Preserved ejection fraction. Intermittent juncti onal rhythm noted. RECOMMENDATIONS Medical therapy DESCRIPTION OF PROCEDURE The patient arrived to the procedure lab. The risks and benefits of the procedure as well as a full d escription of our services here and current unavailability of surgical backup were fully explained to the patient and/or their significant other prior to the catheterization. The Timeout was completed, verifying the correct patient and procedure. The patient's procedural site was prepped and draped in the usual fashion. Local anesthetic was given subcutaneously to right radial region with Lidocaine 2% . Using a modified Seldinger technique, arterial access was obtained via the right radial artery, a 6 Fr sheath was inserted. Left Coronary Artery selective angiography was performed in multiple views u sing a 5 Fr. 4.0 Saco catheter. Right Coronary Artery selective angiography was then performed in mu ltiple views using a 5 Fr. 4.0 Saco catheter. Left Ventriculography was performed in DURHAM projection using a 5 Fr. Pigtail catheter. LV to AO pullback pressures were then recorded.The arterial sheath was pulled and a TR Band was applied for hemostasis CORONARY ANGIOGRAPHY DOMINANCE: Co- Dominant LEFT HEART ASSESSMENT Left Ventricular Ejection Fraction: by LV Gram 55 % Normal LV wall motion Normal Left Ventricular systolic function LEFT MAIN: Angiographically normal LEFT ANTERIOR DESCENDING ARTERY: No significant disease noted CIRCUMFLEX ARTERY: Mild luminal irregularities RAMUS: No significant disease noted RIGHT CORONARY ARTERY: Mild luminal irregularities COMPLICATIONS No Complications PROCEDURE MEDICATIONS Versed 1 mg IV Fentanyl 50 mcg IV Versed 1 mg IV Oxygen: 2 L/min via nasal cannula Heparin diluted in 23cc Heparinized saline. Patient given 10cc IA of this solution. 06/07/2020 09:11: 07 Verapamil 2.5mg, Ntg 100mcgs, 2000 units of Heparin diluted in 23cc Heparinized saline. Patient give n 10cc IA of this solution. 06/07/2020 09:11:07 SUMMARY OF HEMODYNAMIC DATA Time AIR REST ECG 07:53:06 ECG 08:52:44 AO 117/89 (98) SA 09:13:30 AO 125/89 (106) 09:15:14 LV 126/8, 12 09:25:19 LV 119/9, 14 09:25:25 LV 119/8, 13 09:26:09 LVp 116/12, 17 09:26:14 AO 127/78 (102) 09:26:19 AOp 127/78 (102) 09:26:19 RM AIR REST 09:35:30 Signed By Gigi Schwab MD On 06/07/2020 9:36:59 AM Gigi Schwab MD
== END 2020-06-07 11:30 | disposition home or self-care (01) ==
PROVIDERS: PCP Family Medicine; Referring Provider Internal Medicine Cardiovascular Disease; Visit Provider Internal Medicine Cardiovascular Disease
DX: I25.10 Atherosclerotic heart disease of native coronary artery without angina pectoris (principal); I10 Essential (primary) hypertension; I44.1 Atrioventricular block, second degree; E78.5 Hyperlipidemia, unspecified; N40.0 Benign prostatic hyperplasia without lower urinary tract symptoms; M19.90 Unspecified osteoarthritis, unspecified site; K21.9 Gastro-esophageal reflux disease without esophagitis; G47.33 Obstructive sleep apnea (adult) (pediatric); Z87.19 Personal history of other diseases of the digestive system; Z79.82 Long term (current) use of aspirin; Z79.899 Other long term (current) drug therapy; Z87.891 Personal history of nicotine dependence
CPT/HCPCS: 93458; 99152; 99153; J7040; Q9967; C1769; C1894

== ENCOUNTER → 2020-06-15 | Outpatient (CLI) | payer MEDICARE, SELFPAY ==
--- NOTE | 2020-06-15 | ASPS_PTH ---
PATIENT: CLAYTON BURGOS LOC: [facility] U#:[id number] AGE/SX: 75/M ROOM: RE06/15/[address]: Dr. Dao Sloan MD : 1945 BED: DIS: 06/15/2020 SPEC #: [id number] RECD: 06/15/20 16:04 STATUS: SOFI SIL #: [id number] MILA: 06/15/20 00:[address]: Dao Sloan DEPT: CYTOLOGY RECD BY: Atif Tijerina ENTERED: 06/16/20 09:31 SP TYPE: ASPIRATION OTHR DR: Dr. Ahmet Ewing MD Tissues: Thyroid gland, NOS Procedures: Special Stain Group II Cytology Other HEADER OPERATION: Left thyroid fine needle aspiration PRE-OP DIAGNOSIS: Left thyroid nodule TISSUE SUBMITTED: Left thyroid slides x8 DIAGNOSIS CYTOLOGY Fine needle aspiration, left thyroid nodule (smears): Adequate for evaluation. Negative, consistent with benign follicular nodule. AM:breann 06/17/2020 CYTOLOGY STUDY Slides are reviewed. CYTOLOGY GROSS Received are eight smears labeled with the patient's name and designated per the requisition as left thyroid. Submitted for staining. / breann 06/16/2020 TC:5 CPT: 71478
[2020-06-15 14:44] VITALS: BMI 34.4
== END | disposition home or self-care (01) ==
LOC: LABSPEC 16:14
PROVIDERS: PCP Family Medicine; Referring Provider Surgery; Visit Provider Surgery
DX: E04.1 Nontoxic single thyroid nodule (principal)
CPT/HCPCS: 88161; 88313

== ENCOUNTER → 2020-06-17 17:00 | Outpatient (CLI) | payer MEDICARE, SELFPAY ==
[2020-06-15 14:44] VITALS: BMI 34.4
--- NOTE | 2020-06-17 17:02 | RAD_ITS ---
HISTORY: shoulder pain Exam: Right Shoulder 4 images COMPARISON: Once again previous chest x-rays from April 21, 2020, July 03, 2018, and two-view chest from July 19, 2016 demonstrates some of the right shoulder and the right acromioclavicular joint FINDINGS: # of images incl. paperwork: 4 XR Shoulder Min 2 Views: The humeral head is well-positioned within the glenoid fossa. No fracture or subluxation. The acromioclavicular joint is arthritic. Arthritis within the right glenohumeral joint has also progressed with greater joint space loss, increased sclerosis, and larger enthesophytes. Calcific tendinosis at the insertion of the rotator cuff.. The adjacent chest is unremarkable. RAD/Shoulder min 2 Views IMPRESSION: Progressive arthritis to the right shoulder, likely osteoarthritis of the Right shoulder. at 0629 Reported and signed by: Alvaro Mendosa MD Electronically Signed: Alvaro Mendosa MD at 6:28 EST Tel , Service support ,
--- NOTE | 2020-06-17 17:02 | RAD_ITS ---
HISTORY: knee pain Technique: Right Knee; AP, lateral, and oblique radiographs Comparison: Of the patient's 30 previous radiologic exams this institution, no previous imaging of the knee and the left kidney Findings: No acute fracture. There is narrowing greater to the medial weightbearing compartment than the lateral compartment. The lateral weightbearing compartment demonstrates chondrocalcinosis. Enthesophytes are present on the tibia. Osteophytes present about the joint. Calcification is present medial to the medial femoral condyle and the patella, likely relating to the medial patellar retinaculum having been injured with heterotopic ossification in the healing process. Osteoarthritis is also present within the patellofemoral portion of the joint with narrowing and osteophytes. A small joint effusion is present. Atherosclerosis. No focal abnormality or radiopaque foreign body is seen in the surrounding soft tissues. RAD/Knee 4 or More Views IMPRESSION: Tricompartment osteoarthritis of the right knee. Atherosclerosis. 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
--- NOTE | 2020-06-17 17:02 | RAD_ITS ---
HISTORY: shoulder pain Exam: Left Shoulder 4 images of the left shoulder COMPARISON: A chest x-ray from April 21, 2020 demonstrates some of the left shoulder A chest x-ray from July 03, 2018 also demonstrates heart above the left shoulder. 2 view chest x-ray from July 19, 2016 also demonstrates part of the left shoulder. FINDINGS: # of images incl. paperwork: 4 XR Shoulder Min 2 Views: Arthritis of the left shoulder with bony remodeling and osteophytes is greater in the previous chest x-rays. There is an ossicle in the likely inferior recess of the right shoulder joint, on the x-ray directly adjacent to to the proximal diaphysis of the left humerus. The humeral head is well-positioned within the glenoid fossa. No fracture or subluxation. The acromioclavicular joint is normal. The adjacent chest is unremarkable. RAD/Shoulder min 2 Views IMPRESSION: Progressing arthritis with osteophytes sclerosis and joint space loss to the left shoulder since the previous chest x-rays. Likely intra-articular loose ossicle within the inferior axillary recess of the left shoulder capsule. . at 0624 Reported and signed by: Alvaro Mendosa MD Electronically Signed: Alvaro Mendosa MD at 6:23 EST Tel , Service support ,
== END ==
PROVIDERS: PCP Family Medicine; Referring Provider Family Medicine; Visit Provider Family Medicine
DX: M25.511 Pain in right shoulder (principal); M25.512 Pain in left shoulder; M25.561 Pain in right knee
CPT/HCPCS: 73030; 73564

== ENCOUNTER → 2020-08-24 07:35 | Outpatient (CLI) | payer MEDICARE, SELFPAY ==
[2020-06-15 14:44] VITALS: BMI 34.4
[2020-08-24 07:41] LABS: Bacteria 0 SEEN /hpf (None Seen); Mucous, Urine 0 SEEN /hpf (<or=2+); Red Blood Cells-Urine 0 SEEN /hpf (0-5); White Blood Cells 0 SEEN /hpf (0-5)
[2020-08-24 10:02] LABS: Absolute Lymphocyte Count 1.08 X10^3/uL (0.83-4.51); Absolute Neutrophil Count 3.4 X10^3/uL (2.0-7.7); Basophil# 0.04 X10^3/uL; Basophil% 0.7 % (0-1); Eosinophil# 0.25 X10^3/uL; Eosinophils% 4.6 % (0-5); Hematocrit 45.1 % (40-54); Hemoglobin 14.2 g/dL (13.0-16.5); Lymphocyte # 1.08 X10^3/ul (4.0); Mean Corp Hgb Conc 31.5 g/dL (32-36); Mean Corpuscular Hgb 30.3 pg (27.0-32.0); Mean Corpuscular Volume 96.4 fL (80-94); Mean Platelet Vol. 9.7 fl (6.2-12.0); Monocyte# 0.64 X10^3/uL; Monocyte% 11.8 % (0-10); NRBC Flagged by Analyzer 0 % (0-5); Neutrophil # 3.39 X10^3/uL (2.7-7.7); Neutrophil % 62.7 % (47-70); Platelet Count 209 K/mm3 (150-450); RBC Distribution Width CV 15.4 % (11.6-14.6); RBC Distribution Width SD 55.3 fl (35.1-43.9); Red Blood Count 4.68 M/mm3 (4.6-6.2); White Blood Count 5.4 K/mm3 (4.4-11.0)
[2020-08-24 10:07] LABS: Color, Urine Yellow (Yellow); Glucose, Dipstick Normal (Normal); Ketone-Dipstick Negative (Negative); Leukocyte Esterase-Dipstick Negative /ul (Negative); Nitrite-Dipstick Negative (Negative); Occult Blood-Urine Negative /ul (Negative); Protein-Dipstick 100 mg/dl (Negative); Urine Bilirubin Dipstick Negative (Negative); Urine Clarity Clear (Clear); Urine Urobilinogen Normal (Normal)
[2020-08-24 10:12] LABS: Squamous Epithelial Cells - UA 0-5 SEEN /hpf (0-5)
[2020-08-24 10:20] LABS: Vitamin D,25 Hydroxy 43.9 ng/mL
[2020-08-24 10:20] LABS: PSA,Total- Diagnostic 0.07 ng/mL (0.0-4.0)
[2020-08-24 10:36] LABS: ALB/GLOB Ratio 1.3 RATIO (0.9-2.4); AST(SGOT) 47 U/L (15-37); Alanine Aminotransfer ALT/SGPT 89 U/L (16-61); Alkaline Phosphatase 95 U/L (45-117); Anion Gap 4 (5-15); BUN 13 mg/dL (7-18); BUN/Creat Ratio 18.3 RATIO (10-20); Calcium,Total 9.3 mg/dL (8.5-10.1); Chloride 103 mmol/L (98-107); Creatinine, Serum 0.71 mg/dL (0.70-1.30); EST Glomerular Filtration Rate 115 mL/min (>60); Est Glom Filt Rate - Afr Amer 140 mL/min (>60); Glucose 102 mg/dL (74-106); Potassium 4.3 mmol/L (3.5-5.1); Sodium Level 137 mmol/L (136-145); Thyroid Stim Hormone (TSH) 1.45 uIU/mL (0.358-3.74)
[2020-08-25 14:37] LABS: Hemoglobin A1c 5.4 % (3.8-5.6)
== END ==
PROVIDERS: PCP Family Medicine; Referring Provider Urology; Visit Provider Urology
DX: R73.9 Hyperglycemia, unspecified (principal); C61 Malignant neoplasm of prostate; E55.9 Vitamin D deficiency, unspecified; I10 Essential (primary) hypertension
CPT/HCPCS: 36415; 80053; 81001; 82306; 83036; 84153; 84443; 85025

== ENCOUNTER → 2020-09-20 10:05 | Outpatient (CLI) | payer MEDICARE, SELFPAY ==
[2020-06-15 14:44] VITALS: BMI 34.4
== END ==
PROVIDERS: PCP Family Medicine; Referring Provider Internal Medicine Cardiovascular Disease; Visit Provider Internal Medicine Cardiovascular Disease
DX: I44.1 Atrioventricular block, second degree (principal)
CPT/HCPCS: 93225; 93226

== ENCOUNTER → 2020-10-04 06:57 | Outpatient (CLI) | payer MEDICARE, SELFPAY ==
[2020-09-28 12:24] VITALS: BMI 29.0
--- NOTE | 2020-10-04 07:00 | CT_ITS ---
STUDY: CT RIGHT SHOULDER REASON FOR EXAM: Right glenohumeral osteoarthritis. TECHNIQUE: The patient was scanned in a multi detector CT scanner. High resolution transaxial imaging was performed without the administration of intravenous contrast material. Sagittal and coronal images were reconstructed. Individualized dose optimization techniques were used for this CT. COMPARISON: Radiographs 06/17/2020. FINDINGS: There is advanced glenohumeral osteoarthritis with marginal osteophytes of the humeral head, subchondral cystic change of the humeral head and glenoid, and joint space loss (coronal reconstructions 45-54). There is calcific tendinitis (coronal reconstructions 42-49). There is an intra-articular body in the bicipital tendon sheath (coronal reconstructions 36-39) measuring 1 cm in length. There is mild calcification in the anterior glenohumeral joint capsule (axial images 26-31). Normal coracoid process. Normal visualized lateral clavicle. There is acromioclavicular osteoarthritis with an undersurface osteophyte of the distal clavicle and calcification/ossification in the joint capsule (coronal reconstructions 39-42). There is a Type I morphology (flat undersurface), with a neutral orientation. There is scarring in the right lung apex (axial images 60-71). CT/Extremity Upper without Contra IMPRESSION: Advanced glenohumeral osteoarthritis with intra-articular body in the bicipital tendon sheath. Calcific tendinitis. Acromioclavicular osteoarthritis. Electronically Signed: Kole Hay MD at 9:11 EDT Tel , Service support ,
== END ==
PROVIDERS: PCP Family Medicine; Referring Provider Specialist; Visit Provider Specialist
DX: M19.011 Primary osteoarthritis, right shoulder (principal)
CPT/HCPCS: 73200

== ENCOUNTER → 2020-10-12 09:25 | Outpatient (CLI) | payer MEDICARE, SELFPAY ==
[2020-09-28 12:24] VITALS: BMI 29.0
--- NOTE | 2020-10-12 09:26 | NM_ITS ---
CLINICAL: 75-year-old male with suspected cardiac amyloidosis. 99m Tc PYROPHOSPHATE CARDIAC AMYLOID EXAMINATION COMPARISON: None available FINDINGS: Following the intravenous administration of approximately 15.0 mCi of 99m Tc pyrophosphate via the left forearm, anterior acquisitions of the thorax reveal: 1. There is mild radiopharmaceutical concentration identified in the left ventricular myocardium with uptake less than that defined in the sternum, proximal bilateral humerus for a visual score of 1. The left ventricular myocardial (LV) to contralateral chest (CL) ratio is calculated to be 1. 22:1 (Normal < 1.5: 1). NH/[employer] Cardiac Amylio IMPRESSION: 1. NEGATIVE EXAMINATION. There is no current scintigraphic evidence of cardiac amyloidosis (ATTR) on on both qualitative and quantitative analysis. (Adriana et al, J Nucl Cardiol 21: 175, 2014). Electronically Signed: Geraldo Barnes DO at 9:57 EDT Tel , Service support ,
== END ==
PROVIDERS: PCP Family Medicine; Referring Provider Internal Medicine Cardiovascular Disease; Visit Provider Internal Medicine Cardiovascular Disease
DX: I25.10 Atherosclerotic heart disease of native coronary artery without angina pectoris (principal); C61 Malignant neoplasm of prostate; E78.5 Hyperlipidemia, unspecified; I05.9 Rheumatic mitral valve disease, unspecified; I10 Essential (primary) hypertension; I25.84 Coronary atherosclerosis due to calcified coronary lesion; I44.1 Atrioventricular block, second degree; I65.23 Occlusion and stenosis of bilateral carotid arteries; R00.2 Palpitations; R55 Syncope and collapse; Z98.890 Other specified postprocedural states; Z86.73 Personal history of transient ischemic attack (TIA), and cerebral infarction without residual deficits
CPT/HCPCS: 78800; 78803; A9538

== ENCOUNTER → 2020-11-10 16:14 | Outpatient (CLI) | payer MEDICARE, SELFPAY ==
[2020-09-28 12:24] VITALS: BMI 29.0
== END ==
PROVIDERS: PCP Family Medicine; Referring Provider Specialist; Visit Provider Specialist
DX: Z01.812 Encounter for preprocedural laboratory examination (principal)
CPT/HCPCS: 36415; 82040

== ENCOUNTER → 2021-01-18 07:55 | Outpatient (CLI) | payer MEDICARE, SELFPAY ==
--- NOTE | 2021-01-18 07:59 | CT_ITS ---
STUDY: LOW DOSE CT LUNG CANCER SCREENING REASON FOR EXAM: Male, 75 years old. FORMER SMOKER. Patient smoked 1 pack per day for 20 years. RADIATION DOSAGE (If Supplied By Facility): CTDIvol = ( 3.02 ) mGy, DLP = ( 106.84 ) mGycm TECHNIQUE: No contrast was administered. Low dose technique was utilized (average mAS-38 and kVp 120). 1.25 mm axial source images with a slice interval of 1.25-mm were reconstructed in lung windows. 2.5 mm axial source images with a slice interval of 2.5-mm were reconstructed in lung windows. 5.0 mm axial source images with a slice interval of 5.0-mm were reconstructed in soft tissue windows. Nodule measured using lung windows on PACS and/or independent workstation with automated measurement of minimum and maximum diameter. Nodule measurement reported as average diameter rounded to the nearest whole number. Growth is defined as an increase ins size of greater than 1.5 mm. COMPARISON: None. NODULES: There is a 7.3 mm pleural-based nodule in the posterior aspect of the right upper lobe as seen on axial image #51. 2 adjacent nodular densities which are pleural based measuring 4 mm are also seen along the lateral aspect of the right upper lobe. I suspect these to be fibrotic in nature although a six-month follow-up CT scan is recommended. Emphysema: Mild degree of emphysematous changes. Findings suggestive of scarring at both lung apices worse at the right lung apex. Focal area of bronchiectasis is seen in the right apex. Endobronchial lesion: Aorta: Atherosclerotic plaque formation of the aortic arch. Coronary arteries: Coronary artery calcification. Pulmonary artery: Unremarkable Mediastinal nodes: Small lymph nodes. Other chest and abdominal findings: Degenerative changes of the thoracic spine. CT/Low Dose CT Lung Screening IMPRESSION: Lung-RADS category 3 - Continue screening with LDCT in 6 months. IMPORTANT NOTES FOR USE: ACR Lung-RADS Version 1.1 Assessment Categories Release Date: 2018 Category: Coded 0-4 bases on nodule(s) with highest degree of suspicion. Negative screen is defined as categories 1 and 2; a positive screen is defined as categories 3 and 4. Category 3 and 4A nodules that are unchanged on interval CT should be coded as category 2, and individuals returned to screening in 12 months. Category 4X: Category 3 or 4 nodules with additional imaging findings that increase the suspicion of lung cancer, such as spiculation, GGN that doubles in size in 1 year, enlarged lymph notes, etc. Category Modifiers: S (significant finding unrelated to lung cancer) Electronically Signed: Paul Chiang MD at 9:35 EDT , Service support ,
== END ==
PROVIDERS: PCP Family Medicine; Referring Provider Family Medicine; Visit Provider Family Medicine
DX: Z87.891 Personal history of nicotine dependence (principal)
CPT/HCPCS: 71271

== ENCOUNTER → 2021-01-21 07:05 | Outpatient (CLI) | payer MEDICARE, SELFPAY ==
[2021-01-21 07:15] LABS: Bacteria 0 SEEN /hpf (None Seen); Mucous, Urine 0 SEEN /hpf (<or=2+); Red Blood Cells-Urine 0 SEEN /hpf (0-5); Squamous Epithelial Cells - UA 0 SEEN /hpf (0-5); White Blood Cells 0 SEEN /hpf (0-5)
[2021-01-21 10:14] LABS: Color, Urine Yellow (Yellow); Glucose, Dipstick Normal (Normal); Ketone-Dipstick Negative (Negative); Leukocyte Esterase-Dipstick Negative /ul (Negative); Nitrite-Dipstick Negative (Negative); Occult Blood-Urine Negative /ul (Negative); Protein-Dipstick 30 mg/dl (Negative); Urine Bilirubin Dipstick Negative (Negative); Urine Clarity Clear (Clear); Urine Urobilinogen Normal (Normal)
[2021-01-21 10:21] LABS: Absolute Lymphocyte Count 1.07 X10^3/uL (0.83-4.51); Absolute Neutrophil Count 3.1 X10^3/uL (2.0-7.7); Basophil# 0.05 X10^3/uL; Eosinophil# 0.18 X10^3/uL; Eosinophils% 3.6 % (0-5); Hematocrit 46.9 % (40-54); Hemoglobin 15.6 g/dL (13.0-16.5); Lymphocyte # 1.07 X10^3/ul (0.83-4.51); Lymphocyte % 21.5 % (19-41); Mean Corp Hgb Conc 33.3 g/dL (32-36); Mean Corpuscular Hgb 33.3 pg (27.0-32.0); Mean Corpuscular Volume 100.2 fL (80-94); Mean Platelet Vol. 9.7 fl (6.2-12.0); Monocyte# 0.56 X10^3/uL; Monocyte% 11.3 % (0-10); NRBC Flagged by Analyzer 0 % (0-5); Neutrophil % 62.4 % (47-70); Platelet Count 196 K/mm3 (150-450); RBC Distribution Width CV 13.2 % (11.6-14.6); Red Blood Count 4.68 M/mm3 (4.6-6.2)
[2021-01-21 10:31] LABS: Vitamin D,25 Hydroxy 60.7 ng/mL
[2021-01-21 11:07] LABS: ALB/GLOB Ratio 1.2 RATIO (0.9-2.4); AST(SGOT) 28 U/L (15-37); Alanine Aminotransfer ALT/SGPT 40 U/L (16-61); Albumin, Serum 3.9 g/dL (3.2-5.0); Alkaline Phosphatase 86 U/L (45-117); Anion Gap 9 (5-15); BUN 18 mg/dL (7-18); BUN/Creat Ratio 24.6 RATIO (10-20); Calcium,Total 9.3 mg/dL (8.5-10.1); Chloride 102 mmol/L (98-107); Cholesterol 201 mg/dL (200); Creatinine, Serum 0.73 mg/dL (0.70-1.30); EST Glomerular Filtration Rate 111 mL/min (>60); Est Glom Filt Rate - Afr Amer 134 mL/min (>60); Globulin 3.3 g/dL (2.2-4.2); Glucose 89 mg/dL (74-106); High Density Lipoprotein 89 mg/dL; PSA,Total- Diagnostic 0.07 ng/mL (0.0-4.0); Potassium 4.1 mmol/L (3.5-5.1); Protein, Total 7.2 g/dL (6.4-8.2); Sodium Level 138 mmol/L (136-145); Thyroid Stim Hormone (TSH) 1.69 uIU/mL (0.358-3.74); Triglycerides 80 mg/dL; Very Low Density Lipoprotein 16 mg/dL (5-40)
[2021-01-21 11:57] LABS: Hemoglobin A1c 5.1 % (3.8-5.6)
== END ==
PROVIDERS: PCP Family Medicine; Referring Provider Family Medicine; Visit Provider Family Medicine
DX: C61 Malignant neoplasm of prostate (principal); R73.9 Hyperglycemia, unspecified; I10 Essential (primary) hypertension; E55.9 Vitamin D deficiency, unspecified
CPT/HCPCS: 36415; 80053; 80061; 81001; 82306; 83036; 84153; 84443; 85025

== ENCOUNTER → 2021-05-03 07:38 | Outpatient (CLI) | payer MEDICARE, SELFPAY ==
[2021-05-03 07:42] LABS: Bacteria 0 SEEN /hpf (None Seen); Mucous, Urine 0 SEEN /hpf (<or=2+); White Blood Cells 0 SEEN /hpf (0-5)
[2021-05-03 09:55] LABS: Absolute Lymphocyte Count 1.43 X10^3/uL (0.83-4.51); Basophil# 0.04 X10^3/uL; Basophil% 0.8 % (0-1); Color, Urine Yellow (Yellow); Eosinophil# 0.14 X10^3/uL; Eosinophils% 2.7 % (0-5); Glucose, Dipstick Normal (Normal); Hematocrit 44.5 % (40-54); Ketone-Dipstick Negative (Negative); Leukocyte Esterase-Dipstick Negative /ul (Negative); Lymphocyte # 1.43 X10^3/ul (0.83-4.51); Lymphocyte % 27.3 % (19-41); Mean Corp Hgb Conc 33.7 g/dL (32-36); Mean Corpuscular Hgb 32.4 pg (27.0-32.0); Mean Corpuscular Volume 96.1 fL (80-94); Mean Platelet Vol. 9.4 fl (6.2-12.0); Monocyte% 11.5 % (0-10); NRBC Flagged by Analyzer 0 % (0-5); Neutrophil # 3.01 X10^3/uL (2.7-7.7); Neutrophil % 57.3 % (47-70); Nitrite-Dipstick Negative (Negative); Occult Blood-Urine 10 /ul (Negative); Platelet Count 180 K/mm3 (150-450); Protein-Dipstick 30 mg/dl (Negative); RBC Distribution Width CV 13.6 % (11.6-14.6); RBC Distribution Width SD 48.2 fl (35.1-43.9); Red Blood Count 4.63 M/mm3 (4.6-6.2); Urine Bilirubin Dipstick Negative (Negative); Urine Clarity Clear (Clear); Urine Urobilinogen Normal (Normal); Urine pH 6.5 (5.0 - 8.0); White Blood Count 5.2 K/mm3 (4.4-11.0)
[2021-05-03 10:04] LABS: Red Blood Cells-Urine 0-5 SEEN /hpf (0-5); Squamous Epithelial Cells - UA 0-5 SEEN /hpf (0-5)
[2021-05-03 10:29] LABS: ALB/GLOB Ratio 1.2 RATIO (0.9-2.4); AST(SGOT) 29 U/L (15-37); Alanine Aminotransfer ALT/SGPT 44 U/L (16-61); Albumin, Serum 4.1 g/dL (3.2-5.0); Alkaline Phosphatase 85 U/L (45-117); Anion Gap 8 (5-15); BUN 17 mg/dL (7-18); Calcium,Total 9.2 mg/dL (8.5-10.1); Chloride 103 mmol/L (98-107); Cholesterol 152 mg/dL (200); Creatinine, Serum 0.77 mg/dL (0.70-1.30); EST Glomerular Filtration Rate 104 mL/min (>60); Est Glom Filt Rate - Afr Amer 126 mL/min (>60); Globulin 3.5 g/dL (2.2-4.2); Glucose 91 mg/dL (74-106); High Density Lipoprotein 103 mg/dL; Potassium 3.9 mmol/L (3.5-5.1); Protein, Total 7.6 g/dL (6.4-8.2); Sodium Level 138 mmol/L (136-145); Triglycerides 105 mg/dL; Very Low Density Lipoprotein 21 mg/dL (5-40)
== END ==
PROVIDERS: PCP Family Medicine; Referring Provider Family Medicine; Visit Provider Family Medicine
DX: I10 Essential (primary) hypertension (principal); E78.00 Pure hypercholesterolemia, unspecified
CPT/HCPCS: 36415; 80053; 80061; 81001; 85025

== ENCOUNTER 2021-05-18 11:28 | Outpatient (CLI) | payer MEDICARE, SELFPAY ==
--- NOTE | 2021-05-18 11:34 | US_ITS ---
STUDY: THYROID ULTRASOUND REASON FOR EXAM: Male, 76 years old. Thyroid nodule follow up TECHNIQUE: Ultrasound evaluation of the thyroid was performed with real-time and static ramsey-scale imaging. COMPARISON: 05/31/2020 FINDINGS: RIGHT LOBE: The right lobe of the thyroid gland measures 4.7 x 2.7 x 1.8 cm. There is a homogeneous echotexture. 2 new solid nodules compared to the previous study, larger measures 4 mm. LEFT LOBE: The left lobe of the thyroid gland measures 5.2 x 2.6 x 2.5 cm. There is a homogeneous echotexture. Stable solid lower pole nodules of the left lobe largest measures 3.0 x 2.2 x 2.3 cm. ISTHMUS: The isthmus measures 2 mm. The regional lymph nodes are normal. US/Thyroid IMPRESSION: Thyroid gland is again noted to be enlarged, homogeneous and show stable left lobe nodules. 2 new subcentimeter hypoechoic nonvascular nodules in the right lobe, yearly follow-up recommended to assess stability Electronically Signed: Gilbert Sr MD at 16:27 EST , Service support ,
== END 2021-05-18 23:59 | disposition short-term general hospital (02) ==
LOC: US 11:31
PROVIDERS: PCP Family Medicine; Referring Provider Surgery; Visit Provider Surgery
DX: E04.1 Nontoxic single thyroid nodule (principal)
CPT/HCPCS: 76536

== ENCOUNTER 2021-08-12 14:45 | Outpatient (CLI) | payer MEDICARE, SELFPAY ==
--- NOTE | 2021-08-12 14:50 | CT_ITS ---
STUDY: CT CHEST WITHOUT CONTRAST REASON FOR EXAM: Male, 76 years old. Lung nodule. History of prostate cancer. RADIATION DOSAGE (If Supplied By Facility): CTDIvol = ( 15.41 ) mGy, DLP = ( 582.17 ) mGycm TECHNIQUE: Transaxial imaging was performed without the administration of intravenous contrast material. Multiplanar coronal and sagittal images were reformatted. Individualized dose optimization techniques were used for this CT. COMPARISON: Comparison is made with prior study dated 01/18/2021. FINDINGS: There is a 1.8 cm cyst in the left lobe of the thyroid gland. Focal calcification is seen. Calcified granuloma in the posterior medial segment of the right lower lobe. The previously seen 7.3 mm pleural-based nodule in the right lower lobe has decreased in size. It presently measures 4 mm. The previously seen adjacent nodules are unchanged. No new nodules are seen. There is no demonstrated pleural abnormality. There are calcifications of the coronary arteries. There are multiple small lymph nodes within the mediastinum, which are normal in size and morphology most compatible with reactive lymph hyperplasia. Normal hilar regions. Normal unenhanced pulmonary arteries. There is atherosclerotic calcification of the aortic arch with tortuosity and elongation of the aortic arch and descending thoracic aorta. There are multi-level degenerative changes of the thoracic spine. Multiple small gallstones. Large amount of residual fluid particles is seen in the stomach. CT/Chest without Contrast IMPRESSION: Interval decrease in size of the previously seen 7.3 mm pleural-based nodule in the posterior aspect of the right upper lobe. The remainder of the examination is unchanged. Electronically Signed: Paul Chiang MD at 15:18 EDT ,
== END 2021-08-12 23:59 | disposition home or self-care (01) ==
LOC: CT 14:49
PROVIDERS: PCP Family Medicine; Referring Provider Family Medicine; Visit Provider Family Medicine
DX: R91.1 Solitary pulmonary nodule (principal)
CPT/HCPCS: 71250

== ENCOUNTER → 2021-09-28 | Outpatient (CLI) | payer MEDICARE, SELFPAY ==
[2021-09-28 08:42] LABS: Bacteria 0 SEEN /hpf (None Seen); Mucous, Urine 0 SEEN /hpf (<or=2+); Red Blood Cells-Urine 0 SEEN /hpf (0-5); Squamous Epithelial Cells - UA 0 SEEN /hpf (0-5); White Blood Cells 0 SEEN /hpf (0-5)
[2021-09-28 10:09] LABS: Absolute Lymphocyte Count 1.02 X10^3/uL (0.83-4.51); Basophil# 0.05 X10^3/uL; Basophil% 0.7 % (0-1); Eosinophil# 0.11 X10^3/uL; Eosinophils% 1.5 % (0-5); Hematocrit 46.1 % (40-54); Hemoglobin 15.2 g/dL (13.0-16.5); Lymphocyte # 1.02 X10^3/ul (0.83-4.51); Lymphocyte % 14.2 % (19-41); Mean Corpuscular Hgb 32.8 pg (27.0-32.0); Mean Corpuscular Volume 99.4 fL (80-94); Mean Platelet Vol. 8.8 fl (6.2-12.0); Monocyte# 0.88 X10^3/uL; Monocyte% 12.3 % (0-10); NRBC Flagged by Analyzer 0 % (0-5); Neutrophil # 5.01 X10^3/uL (2.7-7.7); Neutrophil % 69.9 % (47-70); Platelet Count 239 K/mm3 (150-450); RBC Distribution Width CV 13.2 % (11.6-14.6); RBC Distribution Width SD 48.5 fl (35.1-43.9); Red Blood Count 4.64 M/mm3 (4.6-6.2); White Blood Count 7.2 K/mm3 (4.4-11.0)
[2021-09-28 10:23] LABS: Vitamin D,25 Hydroxy 47.7 ng/mL
[2021-09-28 10:30] LABS: Color, Urine Yellow (Yellow); Glucose, Dipstick Normal (Normal); Ketone-Dipstick Negative (Negative); Leukocyte Esterase-Dipstick Negative /ul (Negative); Nitrite-Dipstick Negative (Negative); Occult Blood-Urine 25 /ul (Negative); Protein-Dipstick 30 mg/dl (Negative); Specific Gravity, Urine 1.025 (1.002-1.030); Urine Bilirubin Dipstick Negative (Negative); Urine Clarity Clear (Clear); Urine Urobilinogen Normal (Normal)
[2021-09-28 10:35] LABS: AST(SGOT) 112 U/L (15-37); Alanine Aminotransfer ALT/SGPT 173 U/L (16-61); Albumin, Serum 3.7 g/dL (3.2-5.0); Alkaline Phosphatase 84 U/L (45-117); Anion Gap 5 (5-15); BUN 32 mg/dL (7-18); BUN/Creat Ratio 43.4 RATIO (10-20); Calcium,Total 8.9 mg/dL (8.5-10.1); Chloride 102 mmol/L (98-107); Cholesterol 142 mg/dL (200); Creatinine, Serum 0.74 mg/dL (0.70-1.30); EST Glomerular Filtration Rate 110 mL/min (>60); Est Glom Filt Rate - Afr Amer 133 mL/min (>60); Globulin 3.7 g/dL (2.2-4.2); Glucose 91 mg/dL (74-106); High Density Lipoprotein 69 mg/dL; Potassium 4.4 mmol/L (3.5-5.1); Protein, Total 7.4 g/dL (6.4-8.2); Sodium Level 136 mmol/L (136-145); Thyroid Stim Hormone (TSH) 1.63 uIU/mL (0.358-3.74); Triglycerides 109 mg/dL; Very Low Density Lipoprotein 22 mg/dL (5-40)
[2021-09-30 07:54] LABS: Hepatitis B Surface Antibody Non-Reactive
[2021-10-01 10:09] LABS: HEPATITIS B SURFACE AG Negative (Negative); Hep C Antibodies <0.1 s/co ratio (0.0-0.9); Hepatitis A IgM Antibody Negative (Negative); Hepatitis B Core AB IgM Negative (Negative)
[2021-10-01 12:59] LABS: Hepatitis A AB, Total Negative (Negative)
== END | disposition home or self-care (01) ==
LOC: MTLAB 08:45
PROVIDERS: PCP Family Medicine; Referring Provider Family Medicine; Visit Provider Family Medicine
DX: E78.00 Pure hypercholesterolemia, unspecified (principal); E55.9 Vitamin D deficiency, unspecified; I10 Essential (primary) hypertension
CPT/HCPCS: 36415; 80053; 80061; 80074; 81001; 82306; 84443; 85025; 86706; 86708

== ENCOUNTER → 2021-09-30 | Outpatient (CLI) | payer MEDICARE, SELFPAY ==
--- NOTE | 2021-09-30 16:34 | MRI_ITS ---
STUDY: MAGNETIC RESONANCE IMAGING OF THE CERVICAL SPINE WITHOUT CONTRAST OF 1645 HOURS ON 09/30/2021 REASON FOR EXAM: 76-year-old with symptoms suggestive of cervical spinal stenosis. TECHNIQUE: Standardized fat and water weighted pulse sequences were obtained in the sagittal and axial planes. 7 Sequences were obtained. COMPARISON: None FINDINGS: There is vertebral body fractures. Moderate narrowing of the C3-C4, C4-5, C5-6 intervertebral disc spaces and marked narrowing at C6/7. Marked narrowing of the C6-7 intervertebral disc space. -Intervertebral disc space. There is 3 mm forward subluxation of C7 with respect to T1 and 3 mm forward subluxation of T1 with respect to T2. A moderate anterior osteophytic degenerative changes of the cervical spine from C3 through C7. There is straightening of the cervical spine may be indicative of muscle spasm. There is no evidence of cervical osseous spinal stenosis. There is a suggestion of ankylosis of the cervical spine. There is a moderate to the left of midline degenerative disc at the C4-5 level with effacement and indentation of the left anterior spinal cord. There is no evidence of effacement of the nerve roots at this level. There is a mild to moderate central and right sided degenerative disc at the C5-6 level with effacement of the spinal cord. Mild posterior dural hypertrophy is noted at this level. There is no evidence of effacement of the nerve roots. There is a mild central and right side degenerative disc at the C6-7 level without effacement of the spinal cord and with mild posterior dural hypertrophy. No evidence of effacement of the nerve roots. There is no evidence of other extradural and intradural, intramedullary lesions. MRI/Spine Cervical (Routine) IMPRESSION: 1. No evidence of vertebral body fractures. There is 3 mm forward subluxation of C7 with respect to T1 at 3 mm forward subluxation of T1 with respect to T2. 2. Moderate anterior osteophytic degenerative changes of the cervical spine from C3 through C7. 3. Moderate narrowing of the C3-4, C4-5, and C5-6 intervertebral disc spaces. Marked narrowing of the C6-7 intervertebral disc space. 4. Straightening of the cervical spine may be indicative of muscle spasm. 5. No evidence of cervical osseous spinal stenosis. There is a suggestion of ankylosis of the cervical spine. 6. Moderate to the left of midline degenerative disc at the C4-5 level with effacement and indentation of the left anterior spinal cord. There is no effacement of the nerve roots at this level. 7. Mild to moderate central and right sided tinnitus at the C5-6 level with indentation of the spinal cord. There is mild posterior dural hypertrophy at this level. There is no evidence of effacement of the nerve roots. 8. Mild central and right-sided degenerative disc at the C6-7 level without effacement of the spinal cord and with mild posterior dural hypertrophy. There is no effacement of the nerve roots. 9. No other extradural, intradural, or intramedullary lesions. Electronically Signed: Eddie Liu MD at 23:04 EDT ,
== END | disposition home or self-care (01) ==
PROVIDERS: PCP Family Medicine; Visit Provider Orthopaedic Surgery
DX: M48.02 Spinal stenosis, cervical region (principal); M47.22 Other spondylosis with radiculopathy, cervical region
CPT/HCPCS: 72141

== ENCOUNTER → 2021-10-31 | Outpatient (CLI) | payer MEDICARE, SELFPAY ==
[2021-10-31 12:48] LABS: Absolute Lymphocyte Count 0.95 X10^3/uL (0.83-4.51); Absolute Neutrophil Count 3.9 X10^3/uL (2.0-7.7); Basophil# 0.03 X10^3/uL; Basophil% 0.5 % (0-1); Eosinophil# 0.13 X10^3/uL; Eosinophils% 2.3 % (0-5); Hematocrit 44.9 % (40-54); Hemoglobin 14.9 g/dL (13.0-16.5); Lymphocyte # 0.95 X10^3/ul (0.83-4.51); Lymphocyte % 17.1 % (19-41); Mean Corp Hgb Conc 33.2 g/dL (32-36); Mean Corpuscular Hgb 32.3 pg (27.0-32.0); Mean Corpuscular Volume 97.4 fL (80-94); Mean Platelet Vol. 9.7 fl (6.2-12.0); Monocyte# 0.55 X10^3/uL; Monocyte% 9.9 % (0-10); NRBC Flagged by Analyzer 0 % (0-5); Neutrophil # 3.87 X10^3/uL (2.7-7.7); Platelet Count 153 K/mm3 (150-450); RBC Distribution Width CV 12.5 % (11.6-14.6); RBC Distribution Width SD 44.9 fl (35.1-43.9); Red Blood Count 4.61 M/mm3 (4.6-6.2); White Blood Count 5.5 K/mm3 (4.4-11.0)
[2021-10-31 13:00] LABS: ALB/GLOB Ratio 1.2 RATIO (0.9-2.4); AST(SGOT) 38 U/L (15-37); Alanine Aminotransfer ALT/SGPT 98 U/L (16-61); Alkaline Phosphatase 71 U/L (45-117); Anion Gap 6 (5-15); BUN 17 mg/dL (7-18); BUN/Creat Ratio 18.2 RATIO (10-20); Calcium,Total 9.3 mg/dL (8.5-10.1); Chloride 106 mmol/L (98-107); Creatinine, Serum 0.93 mg/dL (0.70-1.30); EST Glomerular Filtration Rate 84 mL/min (>60); Est Glom Filt Rate - Afr Amer 102 mL/min (>60); Globulin 3.2 g/dL (2.2-4.2); Glucose 99 mg/dL (74-106); Potassium 4.4 mmol/L (3.5-5.1); Protein, Total 7.2 g/dL (6.4-8.2); Sodium Level 138 mmol/L (136-145)
== END | disposition home or self-care (01) ==
LOC: MFPLAB 11:15
PROVIDERS: PCP Family Medicine; Visit Provider Family Medicine
DX: K92.1 Melena (principal); R79.89 Other specified abnormal findings of blood chemistry
CPT/HCPCS: 36415; 80053; 85025

== ENCOUNTER → 2021-11-23 | Outpatient (CLI) | payer MEDICARE, SELFPAY ==
--- NOTE | 2021-11-23 12:28 | NEURO ---
NCS and/or EMG Patient Report Ordering Doctor: Tone Gamez DATE OF SERVICE: 11/23/21 Khoa presents for electrodiagnostic testing of the upper limbs. He reports numbness and tingling in both hands. He has intermittent stiffness in the neck. He reports weakness and difficulty holding objects with each hand. Electrodiagnostic findings: Right median motor nerve demonstrates prolonged distal latency with normal amplitude and reduced conduction velocity. Left median motor nerve demonstrates prolonged distal latency with reduced amplitude and reduced conduction velocity. Ulnar motor response is normal bilaterally. Prolonged median F wave bilaterally. Absent median sensory latency at the wrist bilaterally. Absent left median palmar response. Prolonged right median palmar latency. On needle EMG, all muscles tested in the upper limbs showed no evidence of denervation with normal motor unit action potentials. No denervation noted in the cervical paraspinals. Electrodiagnostic impression: This is an abnormal study in the upper limbs 1. Electrodiagnostic findings demonstrate bilateral median mononeuropathy. This is consistent with a moderate to advanced right carpal tunnel syndrome and an advanced left carpal tunnel syndrome 2. No electrodiagnostic evidence is noted for cervical radiculopathy.
== END | disposition home or self-care (01) ==
LOC: PSN 10:21
PROVIDERS: PCP Family Medicine; Visit Provider Orthopaedic Surgery
DX: M48.02 Spinal stenosis, cervical region (principal); M47.22 Other spondylosis with radiculopathy, cervical region; R20.2 Paresthesia of skin
CPT/HCPCS: 95886; 95913

== ENCOUNTER → 2021-11-30 | Outpatient (CLI) | payer MEDICARE, SELFPAY ==
--- NOTE | 2021-11-30 12:49 | CDU_ITS ---
Reason For Study: CVA Rt. Velocities/BP Lt. Velocities/BP Prox CCA 93.0/20.0 cm/sec. Prox CCA 86.0/23.4 cm/sec. Mid CCA 78.6/22.6 cm/sec. Mid CCA 59.7/19.0 cm/sec. Dist CCA 65.6/21.3 cm/sec. Dist CCA 59.7/24.5 cm/sec. Prox ICA 73.4/14.7 cm/sec. Prox ICA 67.3/20.1 cm/sec. Mid ICA 52.6/21.3 cm/sec. Mid ICA 87.1/26.7 cm/sec. Dist ICA 66.9/23.9 cm/sec. Dist ICA 57.5/24.5 cm/sec. Rt. ICA/CCA = .9. Lt. ICA/CCA = 1.5. Prox ECA 91.7/21.3 cm/sec. Prox ECA 81.6/19.0 cm/sec. Rt. Vert. 30.5/9.7 cm/sec. Lt. Vert. 63.0/19.0 cm/sec. Right Extracranial There is intimal thickening but no significant atherosclerotic plaque noted in the right common carotid artery. There is heterogeneous, irregular atherosclerotic plaque noted in the right internal carotid artery. There is intimal thickening but no significant atherosclerotic plaque noted in the right external carotid artery. Antegrade flow is noted in the right vertebral artery. Left Extracranial There is homogeneous, smooth atherosclerotic plaque noted in the left common carotid artery. There is heterogeneous, irregular atherosclerotic plaque noted in the left internal carotid artery. There is heterogeneous, irregular atherosclerotic plaque noted in the left external carotid artery. Antegrade flow is noted in the left vertebral artery. Procedure Carotid Duplex [id number]. This is a Carotid Duplex examination using B-mode, color flow and specral Doppler. The exam was diagnostic. Exam performed in department. VL/Carotid Duplex Ultrasound Interpretation Summary Mild (<50%) stenosis right extracranial internal carotid. Mild (<50%) stenosis left extracranial internal carotid. Flow within the vertebral arteries is antegrade bilaterally. Ordering Physician: Vineet Engle Performed By: Reese Ramirez RVT
== END | disposition home or self-care (01) ==
LOC: CVS 12:48
PROVIDERS: PCP Family Medicine; Referring Provider Surgery Vascular Surgery; Visit Provider Surgery Vascular Surgery
DX: I65.23 Occlusion and stenosis of bilateral carotid arteries (principal); Z86.73 Personal history of transient ischemic attack (TIA), and cerebral infarction without residual deficits
CPT/HCPCS: 93880

== ENCOUNTER → 2022-01-26 | Outpatient (CLI) | payer MEDICARE, SELFPAY ==
[2022-01-26 07:30] LABS: Bacteria 0 SEEN /hpf (None Seen); Mucous, Urine 0 SEEN /hpf (<or=2+); Red Blood Cells-Urine 0 SEEN /hpf (0-5); Squamous Epithelial Cells - UA 0 SEEN /hpf (0-5); White Blood Cells 0 SEEN /hpf (0-5)
[2022-01-26 10:12] LABS: Absolute Lymphocyte Count 1.27 X10^3/uL (0.83-4.51); Absolute Neutrophil Count 2.9 X10^3/uL (2.0-7.7); Basophil# 0.04 X10^3/uL; Basophil% 0.8 % (0-1); Eosinophil# 0.16 X10^3/uL; Eosinophils% 3.3 % (0-5); Hematocrit 44.1 % (40-54); Hemoglobin 14.7 g/dL (13.0-16.5); Lymphocyte # 1.27 X10^3/ul (0.83-4.51); Lymphocyte % 25.8 % (19-41); Mean Corp Hgb Conc 33.3 g/dL (32-36); Mean Corpuscular Hgb 32.5 pg (27.0-32.0); Mean Corpuscular Volume 97.4 fL (80-94); Mean Platelet Vol. 9.5 fl (6.2-12.0); Monocyte# 0.53 X10^3/uL; Monocyte% 10.8 % (0-10); NRBC Flagged by Analyzer 0 % (0-5); Neutrophil % 58.9 % (47-70); Platelet Count 182 K/mm3 (150-450); RBC Distribution Width CV 13.5 % (11.6-14.6); RBC Distribution Width SD 48.4 fl (35.1-43.9); Red Blood Count 4.53 M/mm3 (4.6-6.2); White Blood Count 4.9 K/mm3 (4.4-11.0)
[2022-01-26 10:12] LABS: Color, Urine Yellow (Yellow); Glucose, Dipstick Normal (Normal); Ketone-Dipstick Negative (Negative); Leukocyte Esterase-Dipstick Negative /ul (Negative); Nitrite-Dipstick Negative (Negative); Occult Blood-Urine 10 /ul (Negative); Protein-Dipstick Negative (Negative); Specific Gravity, Urine 1.015 (1.002-1.030); Urine Bilirubin Dipstick Negative (Negative); Urine Clarity Clear (Clear); Urine Urobilinogen Normal (Normal)
[2022-01-26 10:29] LABS: Vitamin D,25 Hydroxy 43.2 ng/mL
[2022-01-26 10:48] LABS: ALB/GLOB Ratio 1.3 RATIO (0.9-2.4); AST(SGOT) 27 U/L (15-37); Alanine Aminotransfer ALT/SGPT 45 U/L (16-61); Albumin, Serum 4.1 g/dL (3.2-5.0); Alkaline Phosphatase 74 U/L (45-117); Anion Gap 7 (5-15); BUN 15 mg/dL (7-18); BUN/Creat Ratio 16.3 RATIO (10-20); Calcium,Total 9.3 mg/dL (8.5-10.1); Chloride 105 mmol/L (98-107); Cholesterol 108 mg/dL (200); Creatinine, Serum 0.92 mg/dL (0.70-1.30); EST Glomerular Filtration Rate 85 mL/min (>60); Est Glom Filt Rate - Afr Amer 103 mL/min (>60); Globulin 3.1 g/dL (2.2-4.2); Glucose 96 mg/dL (74-106); High Density Lipoprotein 68 mg/dL; Potassium 4.5 mmol/L (3.5-5.1); Protein, Total 7.2 g/dL (6.4-8.2); Sodium Level 138 mmol/L (136-145); Triglycerides 110 mg/dL; Very Low Density Lipoprotein 22 mg/dL (5-40)
== END | disposition home or self-care (01) ==
PROVIDERS: PCP Family Medicine; Referring Provider Family Medicine; Visit Provider Family Medicine
DX: I10 Essential (primary) hypertension (principal); E78.00 Pure hypercholesterolemia, unspecified; E55.9 Vitamin D deficiency, unspecified
CPT/HCPCS: 36415; 80053; 80061; 81001; 82306; 85025

== ENCOUNTER → 2022-03-09 | Outpatient (CLI) | payer MEDICARE, SELFPAY ==
[2022-03-09 18:21] LABS: PSA,Total- Diagnostic 0.08 ng/mL (0.0-4.0)
== END | disposition home or self-care (01) ==
PROVIDERS: PCP Family Medicine; Referring Provider Family Medicine; Visit Provider Urology
DX: C61 Malignant neoplasm of prostate (principal)
CPT/HCPCS: 36415; 84153

== ENCOUNTER → 2022-03-20 | Outpatient (CLI) | payer MEDICARE, SELFPAY | END | disposition home or self-care (01) | PROVIDERS: PCP Family Medicine; Referring Provider Internal Medicine Cardiovascular Disease; Visit Provider Internal Medicine Cardiovascular Disease | DX: R00.1 Bradycardia, unspecified (principal); I44.1 Atrioventricular block, second degree | CPT/HCPCS: 93225; 93226 ==

== ENCOUNTER → 2022-05-26 | Outpatient (CLI) | payer MEDICARE, SELFPAY ==
--- NOTE | 2022-05-26 12:03 | US_ITS ---
STUDY: THYROID ULTRASOUND REASON FOR EXAM: Male, 77 years old. Thyroid nodules TECHNIQUE: Ultrasound evaluation of the thyroid was performed with real-time and static ramsey-scale imaging. COMPARISON: Comparison is made with prior study 11/15/2021. FINDINGS: RIGHT LOBE: The right lobe of the thyroid gland is enlarged and measures 5.3 cm x 2.5 cm x 1.7 cm. There is a homogeneous echotexture. There is a 4 mm x 4 mm x 3 mm cyst in the midportion of the right lobe. Stable 5 mm x 4 mm x 3 mm hypoechoic solid nodule in the midpole of the right lobe. LEFT LOBE: The left lobe of the thyroid gland is enlarged and measures 5.1 cm x 2.5 cm x 2.1 cm. There is a homogeneous echotexture. The adjacent solid/cystic nodule in the lower pole of the left lobe of the thyroid measuring 2.8 cm x 2.2 cm x 2.3 cm. This is essentially unchanged. Stable appearance of a 6 mm x 5 mm x 3 mm solid/cystic nodule in the mid to lower pole as well. ISTHMUS: The isthmus measures 1 mm. The regional lymph nodes are normal. US/Thyroid IMPRESSION: Stable examination. Electronically Signed: Paul Chaing MD at 13:52 EST ,
== END | disposition home or self-care (01) ==
PROVIDERS: PCP Family Medicine; Referring Provider Surgery; Visit Provider Surgery
DX: E04.2 Nontoxic multinodular goiter (principal)
CPT/HCPCS: 76536

== ENCOUNTER → 2022-05-31 | Outpatient (CLI) | payer MEDICARE, SELFPAY ==
[2022-05-31 10:41] LABS: ALB/GLOB Ratio 1.6 RATIO (0.9-2.4); AST(SGOT) 30 U/L (15-37); Alanine Aminotransfer ALT/SGPT 35 U/L (16-61); Albumin, Serum 4.2 g/dL (3.2-5.0); Alkaline Phosphatase 60 U/L (45-117); Anion Gap 4 (5-15); BUN 17 mg/dL (7-18); BUN/Creat Ratio 21.5 RATIO (10-20); Calcium,Total 9.3 mg/dL (8.5-10.1); Chloride 105 mmol/L (98-107); Cholesterol 113 mg/dL (200); Creatinine, Serum 0.79 mg/dL (0.70-1.30); EST Glomerular Filtration Rate 101 mL/min (>60); Est Glom Filt Rate - Afr Amer 122 mL/min (>60); Globulin 2.7 g/dL (2.2-4.2); Glucose 88 mg/dL (74-106); High Density Lipoprotein 75 mg/dL; Potassium 4.9 mmol/L (3.5-5.1); Protein, Total 6.9 g/dL (6.4-8.2); Sodium Level 139 mmol/L (136-145); Triglycerides 67 mg/dL; Very Low Density Lipoprotein 13 mg/dL (5-40)
== END | disposition home or self-care (01) ==
PROVIDERS: PCP Family Medicine; Referring Provider Family Medicine; Visit Provider Family Medicine
DX: E78.00 Pure hypercholesterolemia, unspecified (principal)
CPT/HCPCS: 36415; 80053; 80061

== ENCOUNTER → 2022-07-24 | Outpatient (CLI) | payer MEDICARE, SELFPAY ==
--- NOTE | 2022-07-24 13:26 | CT_ITS ---
INDICATION: Known nodule EXAMINATION: CT CHEST WITHOUT CONTRAST - CT Chest W/O Contrast Injection TECHNIQUE: Helically acquired images were obtained of the chest. A radiation dose optimization technique was used for this scan. IV Contrast dosage and agent: None. COMPARISON: 01/18/2021 FINDINGS: LUNGS, PLEURA AND LARGE AIRWAYS: Lung windows show stable nonspecific pleural thickening in both apices. There are stable subpleural nodules measuring up to 5 mm in the right upper lobe on axial images 25, 29, and 32. There is no organized infiltrate or new suspicious noncalcified mass or nodule. No pleural effusion. No pneumothorax. THYROID: There is a stable low-density lesion within the left lobe of the thyroid. HEART AND PERICARDIUM: Heart size is normal. No pericardial effusion. CORONARY ARTERIES: Coronary artery calcification is seen. VESSELS: There is aneurysmal dilatation of the ascending thoracic aorta 4.6 cm. MEDIASTINUM AND SAULO: No suspicious mediastinal or hilar adenopathy. Esophagus is unremarkable. No hiatal hernia. UPPER ABDOMEN: Limited cuts through the upper abdomen show multiple gallstones. BONES: Bony structures show degenerative change CT/Chest without Contrast IMPRESSION: Stable subpleural subcentimeter nodules in the right upper lobe as described above . No interval change since 01/18/2021. Another six-month follow-up is recommended to assure stability No new suspicious noncalcified mass or nodule. No organized infiltrate or effusion Calcified coronary vessels Aneurysmal dilatation of the ascending thoracic aorta at 4.6 cm Cholelithiasis Electronically Signed: Gilbert Sr MD at 13:52 EDT ,
== END | disposition home or self-care (01) ==
LOC: CT 13:24
PROVIDERS: PCP Family Medicine; Visit Provider Family Medicine
DX: R91.1 Solitary pulmonary nodule (principal)
CPT/HCPCS: 71250

== ENCOUNTER → 2022-10-27 | Outpatient (CLI) | payer MEDICARE, SELFPAY ==
[2022-10-27 10:10] LABS: Absolute Lymphocyte Count 1.03 X10^3/uL (0.83-4.51); Absolute Neutrophil Count 3.2 X10^3/uL (2.0-7.7); Basophil# 0.03 X10^3/uL; Basophil% 0.6 % (0-1); Eosinophil# 0.13 X10^3/uL; Eosinophils% 2.6 % (0-5); Hematocrit 45.1 % (40-54); Hemoglobin 14.7 g/dL (13.0-16.5); Lymphocyte # 1.03 X10^3/ul (0.83-4.51); Lymphocyte % 20.5 % (19-41); Mean Corp Hgb Conc 32.6 g/dL (32-36); Mean Corpuscular Hgb 32.5 pg (27.0-32.0); Mean Corpuscular Volume 99.6 fL (80-94); Mean Platelet Vol. 9.6 fl (6.2-12.0); Monocyte# 0.64 X10^3/uL; Monocyte% 12.7 % (0-10); NRBC Flagged by Analyzer 0 % (0-5); Neutrophil # 3.17 X10^3/uL (2.7-7.7); Neutrophil % 63.2 % (47-70); Platelet Count 176 K/mm3 (150-450); RBC Distribution Width CV 13.5 % (11.6-14.6); RBC Distribution Width SD 49.1 fl (35.1-43.9); Red Blood Count 4.53 M/mm3 (4.6-6.2)
[2022-10-27 10:47] LABS: ALB/GLOB Ratio 1.3 RATIO (0.9-2.4); AST(SGOT) 32 U/L (15-37); Alanine Aminotransfer ALT/SGPT 46 U/L (16-61); Albumin, Serum 3.9 g/dL (3.2-5.0); Alkaline Phosphatase 55 U/L (45-117); Anion Gap 8 (5-15); BUN 21 mg/dL (7-18); BUN/Creat Ratio 30.4 RATIO (10-20); Chloride 108 mmol/L (98-107); Cholesterol 123 mg/dL (200); Creatinine, Serum 0.69 mg/dL (0.70-1.30); EST Glomerular Filtration Rate 118 mL/min (>60); Est Glom Filt Rate - Afr Amer 143 mL/min (>60); Globulin 3.1 g/dL (2.2-4.2); Glucose 95 mg/dL (74-106); High Density Lipoprotein 84 mg/dL; Potassium 4.4 mmol/L (3.5-5.1); Sodium Level 142 mmol/L (136-145); Thyroid Stim Hormone (TSH) 1.37 uIU/mL (0.358-3.74); Triglycerides 72 mg/dL; Very Low Density Lipoprotein 14 mg/dL (5-40)
[2022-10-27 10:56] LABS: Vitamin D,25 Hydroxy 52.4 ng/mL
== END | disposition home or self-care (01) ==
LOC: MTLAB 07:06
PROVIDERS: PCP Family Medicine; Referring Provider Family Medicine; Visit Provider Family Medicine
DX: I10 Essential (primary) hypertension (principal); E55.9 Vitamin D deficiency, unspecified
CPT/HCPCS: 36415; 80053; 80061; 82306; 84443; 85025

== ENCOUNTER → 2022-11-15 | Outpatient (CLI) | payer MEDICARE, SELFPAY ==
--- NOTE | 2022-11-15 07:59 | CDU_ITS ---
Reason For Study: Carotid Stenosis Rt. Velocities/BP Lt. Velocities/BP Prox CCA 51/14 cm/sec. Prox CCA 67/20 cm/sec. Mid CCA 51/17 cm/sec. Mid CCA 49/20 cm/sec. Dist CCA 38/13 cm/sec. Dist CCA 52/20 cm/sec. Prox ICA 61/20 cm/sec. Prox ICA 59/19 cm/sec. Mid ICA 49/18 cm/sec. Mid ICA 65/21 cm/sec. Dist ICA 53/23 cm/sec. Dist ICA 45/18 cm/sec. Rt. ICA/CCA = 1.2. Lt. ICA/CCA = 1.3. Prox ECA 82/15 cm/sec. Prox ECA 56/16 cm/sec. Rt. Vert. 36/15 cm/sec. Lt. Vert. 44/13 cm/sec. Right Extracranial There is heterogeneous, irregular atherosclerotic plaque noted in the right common carotid artery. There is heterogeneous, irregular atherosclerotic plaque noted in the right internal carotid artery. There is no significant atherosclerotic plaque noted in the right external carotid artery. Antegrade flow is noted in the right vertebral artery. Left Extracranial There is heterogeneous, irregular atherosclerotic plaque noted in the left common carotid artery. There is heterogeneous, irregular atherosclerotic plaque noted in the left internal carotid artery. There is no significant atherosclerotic plaque noted in the left external carotid artery. Antegrade flow is noted in the left vertebral artery. Procedure Carotid Duplex [id number]. This is a Carotid Duplex examination using B-mode, color flow and specral Doppler. Exam performed in department. VL/Carotid Duplex Ultrasound Interpretation Summary Mild (<50%) stenosis right extracranial internal carotid. Mild (<50%) stenosis left extracranial internal carotid. Patent and antegrade vertebrals bilaterally. Ordering Physician: Ahmet Ewing Referring Physician: Ahmet Ewing Performed By: Elva Krishnan, NILSON, RVT
== END | disposition home or self-care (01) ==
LOC: CVS 07:58
PROVIDERS: PCP Family Medicine; Referring Provider Family Medicine; Visit Provider Family Medicine
DX: I65.23 Occlusion and stenosis of bilateral carotid arteries (principal)
CPT/HCPCS: 93880

== ENCOUNTER → 2023-02-15 | Outpatient (CLI) | payer MEDICARE, SELFPAY ==
[2023-02-15 15:11] LABS: Uric Acid 5.4 mg/dL (3.5-7.2)
== END | disposition home or self-care (01) ==
LOC: MFPLAB 11:57
PROVIDERS: PCP Family Medicine; Visit Provider Family Medicine
DX: M10.9 Gout, unspecified (principal)
CPT/HCPCS: 36415; 84550

== ENCOUNTER → 2023-03-02 | Outpatient (CLI) | payer MEDICARE, SELFPAY ==
[2023-03-02 10:16] LABS: Absolute Lymphocyte Count 0.91 X10^3/uL (0.83-4.51); Absolute Neutrophil Count 3.6 X10^3/uL (2.0-7.7); Basophil# 0.06 X10^3/uL; Basophil% 1.1 % (0-1); Eosinophil# 0.13 X10^3/uL; Eosinophils% 2.4 % (0-5); Hematocrit 46.2 % (40-54); Hemoglobin 14.9 g/dL (13.0-16.5); Lymphocyte # 0.91 X10^3/ul (0.83-4.51); Lymphocyte % 16.9 % (19-41); Mean Corp Hgb Conc 32.3 g/dL (32-36); Mean Corpuscular Hgb 32.5 pg (27.0-32.0); Mean Corpuscular Volume 100.9 fL (80-94); Mean Platelet Vol. 9.8 fl (6.2-12.0); Monocyte# 0.66 X10^3/uL; Monocyte% 12.2 % (0-10); NRBC Flagged by Analyzer 0 % (0-5); Neutrophil # 3.56 X10^3/uL (2.7-7.7); Neutrophil % 66.1 % (47-70); Platelet Count 174 K/mm3 (150-450); RBC Distribution Width CV 13.6 % (11.6-14.6); RBC Distribution Width SD 50.7 fl (35.1-43.9); Red Blood Count 4.58 M/mm3 (4.6-6.2); White Blood Count 5.4 K/mm3 (4.4-11.0)
[2023-03-02 10:55] LABS: ALB/GLOB Ratio 1.2 RATIO (0.9-2.4); AST(SGOT) 21 U/L (15-37); Alanine Aminotransfer ALT/SGPT 47 U/L (16-61); Albumin, Serum 3.7 g/dL (3.2-5.0); Alkaline Phosphatase 58 U/L (45-117); Anion Gap 5 (5-15); BUN 17 mg/dL (7-18); BUN/Creat Ratio 22.1 RATIO (10-20); Calcium,Total 9.1 mg/dL (8.5-10.1); Chloride 105 mmol/L (98-107); Cholesterol 146 mg/dL (200); Creatinine, Serum 0.77 mg/dL (0.70-1.30); EST Glomerular Filtration Rate 104 mL/min (>60); Est Glom Filt Rate - Afr Amer 126 mL/min (>60); Globulin 3.2 g/dL (2.2-4.2); Glucose 107 mg/dL (74-106); High Density Lipoprotein 86 mg/dL; Magnesium 2.2 mg/dL (1.6-2.6); Potassium 4.1 mmol/L (3.5-5.1); Protein, Total 6.9 g/dL (6.4-8.2); Sodium Level 139 mmol/L (136-145); Triglycerides 105 mg/dL; Very Low Density Lipoprotein 21 mg/dL (5-40)
[2023-03-02 17:54] LABS: Hemoglobin A1c 5.4 % (3.8-5.6)
== END | disposition home or self-care (01) ==
LOC: MTLAB 07:12
PROVIDERS: PCP Family Medicine; Referring Provider Family Medicine; Visit Provider Family Medicine
DX: R73.09 Other abnormal glucose (principal); I10 Essential (primary) hypertension; E78.00 Pure hypercholesterolemia, unspecified; E55.9 Vitamin D deficiency, unspecified
CPT/HCPCS: 36415; 80053; 80061; 82306; 83036; 83735; 85025

== ENCOUNTER → 2023-03-05 | Outpatient (CLI) | payer MEDICARE, SELFPAY ==
[2023-03-05 16:12] LABS: PSA,Total- Diagnostic 0.09 ng/mL (0.0-4.0)
== END | disposition home or self-care (01) ==
LOC: MTLAB 13:25
PROVIDERS: PCP Family Medicine; Referring Provider Registered Nurse; Visit Provider Registered Nurse
DX: C61 Malignant neoplasm of prostate (principal)
CPT/HCPCS: 36415; 84153

== ENCOUNTER → 2023-03-29 | Outpatient (CLI) | payer MEDICARE, SELFPAY ==
--- NOTE | 2023-03-29 14:23 | CT_ITS ---
INDICATION: nodule, former smoker EXAMINATION: CT CHEST WITHOUT CONTRAST - CT Chest W/O Contrast Injection TECHNIQUE: Helically acquired images were obtained of the chest. A radiation dose optimization technique was used for this scan. IV Contrast dosage and agent: None. COMPARISON: 07/24/2022 FINDINGS: LUNGS, PLEURA AND LARGE AIRWAYS: Stable multifocal pleural thickening in the apices with stable pleural-based nodular densities measuring up to 5 mm on axial images 23, 29 with mild regression on image 25. No pleural effusions. No consolidations or mass lesions. THYROID: Stable low density nodule left lobe. HEART AND PERICARDIUM: Heart size is normal. No pericardial effusion. Coronary artery calcifications. VESSELS: Stable 4.2 cm aneurysmal dilatation ascending thoracic aorta. MEDIASTINUM AND SAULO: No mediastinal or hilar adenopathy. Esophagus is unremarkable. No hiatal hernia. UPPER ABDOMEN: No acute pathology. Cholelithiasis. BONES: No acute or aggressive osseous abnormality. Right shoulder prosthesis. CT/Chest without Contrast IMPRESSION: Stable areas of focal nodular pleural thickening in the apices with slight progression of the lesion on axial image 29. Recommend further six-month follow-up for stability. No acute pulmonary findings. Electronically Signed: Leandro Del Castillo MD at 19:43 EST ,
== END | disposition home or self-care (01) ==
LOC: CT 14:21
PROVIDERS: PCP Family Medicine; Referring Provider Family Medicine; Visit Provider Family Medicine
DX: R91.1 Solitary pulmonary nodule (principal)
CPT/HCPCS: 71250

== ENCOUNTER → 2023-08-31 | Outpatient (CLI) | payer MEDICARE, SELFPAY ==
[2023-08-31 07:09] LABS: Bacteria 0 SEEN /hpf (None Seen); Mucous, Urine 0 SEEN /hpf (<or=2+); Red Blood Cells-Urine 0 SEEN /hpf (0-5); Squamous Epithelial Cells - UA 0 SEEN /hpf (0-5); White Blood Cells 0 SEEN /hpf (0-5)
[2023-08-31 11:21] LABS: Color, Urine Yellow (Yellow); Glucose, Dipstick Normal (Normal); Ketone-Dipstick Negative (Negative); Leukocyte Esterase-Dipstick Negative /ul (Negative); Nitrite-Dipstick Negative (Negative); Occult Blood-Urine Negative /ul (Negative); Protein-Dipstick 30 mg/dl (Negative); Urine Bilirubin Dipstick Negative (Negative); Urine Clarity Clear (Clear); Urine Urobilinogen Normal (Normal)
[2023-08-31 11:27] LABS: Absolute Lymphocyte Count 1.25 X10^3/uL (0.83-4.51); Absolute Neutrophil Count 3.1 X10^3/uL (2.0-7.7); Basophil# 0.05 X10^3/uL; Eosinophil# 0.18 X10^3/uL; Eosinophils% 3.4 % (0-5); Hematocrit 45.6 % (40-54); Hemoglobin 14.7 g/dL (13.0-16.5); Lymphocyte # 1.25 X10^3/ul (0.83-4.51); Lymphocyte % 23.9 % (19-41); Mean Corp Hgb Conc 32.2 g/dL (32-36); Mean Corpuscular Hgb 31.3 pg (27.0-32.0); Mean Platelet Vol. 10.2 fl (6.2-12.0); Monocyte# 0.65 X10^3/uL; Monocyte% 12.4 % (0-10); NRBC Flagged by Analyzer 0 % (0-5); Neutrophil # 3.09 X10^3/uL (2.7-7.7); Neutrophil % 58.9 % (47-70); Platelet Count 190 K/mm3 (150-450); RBC Distribution Width CV 13.6 % (11.6-14.6); RBC Distribution Width SD 48.7 fl (35.1-43.9); White Blood Count 5.2 K/mm3 (4.4-11.0)
[2023-08-31 11:46] LABS: Vitamin D,25 Hydroxy 54.1 ng/mL
[2023-08-31 11:51] LABS: ALB/GLOB Ratio 1.2 RATIO (0.9-2.4); AST(SGOT) 32 U/L (15-37); Alanine Aminotransfer ALT/SGPT 34 U/L (16-61); Alkaline Phosphatase 54 U/L (45-117); Anion Gap 5 (5-15); BUN 16 mg/dL (7-18); BUN/Creat Ratio 19.1 RATIO (10-20); Calcium,Total 9.5 mg/dL (8.5-10.1); Chloride 105 mmol/L (98-107); Cholesterol 136 mg/dL (200); Creatinine, Serum 0.84 mg/dL (0.70-1.30); EST Glomerular Filtration Rate 94 mL/min (>60); Est Glom Filt Rate - Afr Amer 114 mL/min (>60); Globulin 3.3 g/dL (2.2-4.2); Glucose 101 mg/dL (74-106); High Density Lipoprotein 75 mg/dL; Potassium 4.2 mmol/L (3.5-5.1); Protein, Total 7.3 g/dL (6.4-8.2); Sodium Level 139 mmol/L (136-145); Thyroid Stim Hormone (TSH) 1.43 uIU/mL (0.358-3.74); Triglycerides 96 mg/dL; Very Low Density Lipoprotein 19 mg/dL (5-40)
== END | disposition home or self-care (01) ==
LOC: MTLAB 07:02
PROVIDERS: PCP Family Medicine; Referring Provider Family Medicine; Visit Provider Family Medicine
DX: E55.9 Vitamin D deficiency, unspecified (principal); I10 Essential (primary) hypertension
CPT/HCPCS: 36415; 80053; 80061; 81001; 82306; 83735; 84443; 85025

== ENCOUNTER → 2023-09-26 | Outpatient (CLI) | payer MEDICARE, SELFPAY ==
[2023-09-26 10:33] LABS: Erythrocyte Sedimentation Rate 2 mm/hr (0-20)
[2023-09-26 10:35] LABS: Hematocrit 45.9 % (40-54); Mean Corp Hgb Conc 32.7 g/dL (32-36); Mean Corpuscular Hgb 31.5 pg (27.0-32.0); Mean Corpuscular Volume 96.4 fL (80-94); Mean Platelet Vol. 9.9 fl (6.2-12.0); Platelet Count 189 K/mm3 (150-450); RBC Distribution Width CV 14.1 % (11.6-14.6); Red Blood Count 4.76 M/mm3 (4.6-6.2); White Blood Count 5.2 K/mm3 (4.4-11.0)
[2023-09-26 10:42] LABS: Anion Gap 4 (5-15); BUN 19 mg/dL (7-18); BUN/Creat Ratio 22.1 RATIO (10-20); Calcium,Total 9.3 mg/dL (8.5-10.1); Chloride 104 mmol/L (98-107); Creatinine, Serum 0.86 mg/dL (0.70-1.30); EST Glomerular Filtration Rate 92 mL/min (>60); Est Glom Filt Rate - Afr Amer 111 mL/min (>60); Glucose 134 mg/dL (74-106); Potassium 4.5 mmol/L (3.5-5.1); Sodium Level 137 mmol/L (136-145)
== END | disposition home or self-care (01) ==
PROVIDERS: PCP Family Medicine; Referring Provider Internal Medicine Infectious Disease; Visit Provider Internal Medicine Infectious Disease
DX: A42.9 Actinomycosis, unspecified (principal)
CPT/HCPCS: 36415; 80048; 85027; 85652

== ENCOUNTER → 2023-10-04 | Outpatient (CLI) | payer MEDICARE, SELFPAY ==
--- NOTE | 2023-10-04 13:47 | CT_ITS ---
EXAM: CT ANGIOGRAPHY CHEST, ABDOMEN AND PELVIS WITH INTRAVENOUS CONTRAST CLINICAL INDICATION: aortic root dilation TECHNIQUE: Helically acquired angiography images were obtained of the chest, abdomen and pelvis with intravenous contrast. This CT exam was performed using one or more of the following dose reduction techniques: automated exposure control, adjustment of the mA and/or kV according to patient size, and/or use of iterative reconstruction technique. MIP reconstructed images were created and reviewed. CONTRAST: IV 100mL [id number] COMPARISON: No relevant prior studies available. FINDINGS: VASCULATURE: AORTA: The ascending aorta measures 4 cm in AP diameter. The descending thoracic aorta measures 2.7 cm in AP diameter. Normal in caliber. No dissection. PULMONARY ARTERIES: Unremarkable. Normal in caliber. No obvious central pulmonary embolism although this study was not performed with the pulmonary embolism protocol. GREAT VESSELS OF AORTIC ARCH: Unremarkable. Normal in caliber. No dissection. CELIAC TRUNK AND MESENTERIC ARTERIES: No acute findings. No occlusion or significant stenosis. No dissection. RENAL ARTERIES: No acute findings. No occlusion or significant stenosis. No dissection. ILIAC ARTERIES: No acute findings. No occlusion or significant stenosis. No dissection. CHEST: LUNGS AND PLEURAL SPACES: There is minimal scarring lung apices. No mass. No pleural effusion or thickening. No pneumothorax. HEART: There are [id number] coronary artery calcifications present. Heart size is normal. No pericardial effusion. MEDIASTINUM: Unremarkable. No mediastinal or hilar adenopathy. Esophagus is unremarkable. No hiatal hernia. THYROID: Unremarkable. No thyroid lesions. ABDOMEN: LIVER: Unremarkable. Homogeneous. No focal mass. GALLBLADDER AND BILE DUCTS: There are multiple gallstones present with no evidence of inflammation. No gallbladder distention or wall edema. No intra- or extrahepatic biliary ductal dilation. PANCREAS: Unremarkable. No focal cystic or solid mass. SPLEEN: Unremarkable. Normal size without focal cystic or solid mass. ADRENALS: Unremarkable. No nodules. KIDNEYS AND URETERS: Unremarkable. Normal renal size and position. No hydronephrosis. STOMACH AND BOWEL: Unremarkable. No stomach or bowel distention. No focal inflammatory change. PELVIS: APPENDIX: No evidence of acute appendicitis. BLADDER: Unremarkable. REPRODUCTIVE: Unremarkable as visualized. No mass. CHEST, ABDOMEN and PELVIS: INTRAPERITONEAL SPACE: Unremarkable. No ascites or other fluid collection. No free air. BONES/JOINTS: Important artifact bilateral hip replacements. 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 No suspicious lytic or blastic abnormality. SOFT TISSUES: Unremarkable. No discrete abdominal or pelvic wall hernia. LYMPH NODES: Unremarkable. No enlarged lymph nodes. IMPression: 1. Normal caliber aorta with no evidence of aneurysm, stenosis or dissection. 2. Cholelithiasis with no evidence. Electronically Signed: Osvaldo Canales MD at 16:13 EDT , CT/CTA Chst, Abd, Pel W and/or WO IMPRESSION: undefined
== END | disposition home or self-care (01) ==
LOC: CT 13:45
PROVIDERS: PCP Family Medicine; Referring Provider Family Medicine; Visit Provider Family Medicine
DX: I77.810 Thoracic aortic ectasia (principal)
CPT/HCPCS: 71275; 74174; Q9967

== ENCOUNTER 2023-10-22 14:56 | Emergency (ER) | payer MEDICARE, SELFPAY ==
[2023-10-22 14:56] VITALS: BP 156/101; PULSE 88; RESP 16; TEMP 36.4; O2SAT 97; BMI 31.5
[2023-10-22] MEDS: Diphth,Pertuss(Acell),Tet Vac 0.5 ML Vial IM (15:34)
--- NOTE | 2023-10-22 16:04 | EX.ED.UPPERE ---
HPI History of Present Illness Chief Complaint: Laceration Narrative Narrative: Patient presenting today with a laceration to his right fourth finger [facility] Medical History Acute appendicitis Arthritis AV block, Mobitz 1 Back problem Bilateral carotid artery stenosis BPH (benign prostatic hyperplasia) Coronary artery calcification Essential (primary) hypertension GERD (gastroesophageal reflux disease) Heart murmur Hyperlipidemia LVH (left ventricular hypertrophy) Mitral valve annular calcification Multiple thyroid nodules Near syncope (01/13/20) Obstructive sleep apnea Prostate cancer (2017) Rapid palpitations Right lower quadrant abdominal pain Thyroid nodule Thyroid nodule TIA (transient ischemic attack) (04/21/20) Home Medications ?Medication ?Instructions ?Recorded ?Last Taken ?Type tamsulosin 0.4 mg capsule 0.4 mg PO QHS prostate 07/03/18 Unknown History cholecalciferol (vitamin D3) 100 4,000 unit PO DAILY supplement 03/12/19 Unknown History mcg (4,000 unit) capsule acetaminophen 500 mg tablet 1,000 mg (2 x 500 mg) PO Q8 #90 02/24/20 Unknown Rx tabs aspirin 81 mg chewable tablet 81 mg PO DAILY@0800 04/22/20 06/07/20 Rx magnesium oxide 400 mg PO .QOD supplement 06/15/20 Unknown History lisinopril 5 mg tablet 5 mg PO BID 10/04/21 Unknown History gabapentin 600 mg tablet 600 mg PO BID nerve pain 03/28/22 Unknown History ibuprofen 200 mg tablet 200 mg PO QHS 10/31/22 Unknown History ibuprofen 200 mg tablet 400 mg PO QAM 10/31/22 Unknown History cpttmncu-pds-bgvob acid 0.4 1 tab PO DAILY supplement 10/31/22 Unknown History mg-lycopene 300 mcg-lutein 250 mcg tablet rosuvastatin 20 mg tablet 10 mg PO DAILY 07/03/23 Unknown History Allergy/AdvReac Type Severity Reaction Status Date / Time No Known Allergies Allergy Verified 10/22/23 14:58 Family History Father Arthritis Surgical History History of bilateral carpal tunnel release (02/28/22) History of left heart catheterization (06/07/20) History of left hip replacement History of lumbar laminectomy History of surgical removal of pilonidal cyst History of tonsillectomy and adenoidectomy History of total left knee replacement (02/23/20) History of total right hip replacement Hx of appendectomy Status post biopsy of thyroid gland (03/2019) Social History Smoking Status: Former smoker second hand exposure: No alcohol intake: current alcohol intake frequency: a few times a week substance use type: does not use caffeine: Yes what type of physical activity do you participate in: walking and weight training frequency: 5-6 times per week EXAM Physical Exam Const Vital Signs: 10/22/23 14:56 Temperature 97.6 F L Temperature Source Temporal Pulse Rate 88 Respiratory Rate 16 Blood Pressure 156/101 H Blood Pressure Mean 119 Pulse Ox 97 Oxygen Delivery Method Room Air Discharge Plan Triage Chief Complaint: Laceration ED Midlevel Provider: Maryjane Salgado ED Provider: Cj Irvin Dx/Rx/DC Orders Clinical Impression: Avulsion of finger tip Instructions: ED Skin Tear (Skin Avulsion) Prescriptions: No Action cholecalciferol (vitamin D3) 4,000 unit capsule 4,000 unit PO DAILY gabapentin 600 mg tablet 600 mg PO BID lisinopril 5 mg tablet 5 mg PO BID ibuprofen 200 mg tablet 400 mg PO QAM ibuprofen 200 mg tablet 200 mg PO QHS rosuvastatin 20 mg tablet 10 mg PO DAILY grztekvu-dek-MZ-lycopen-lutein 0.4 mg-300 mcg- 250 mcg tablet 1 tab PO DAILY Patient Comments: supplement tamsulosin 0.4 MG capsule 0.4 mg PO QHS Patient Comments: TAKE ONE CAPSULE AT BEDTIME acetaminophen 500 MG tablet 1,000 mg PO Q8 Qty: 90 0RF aspirin 81 MG tablet,chewable 81 mg PO DAILY@0800 0RF magnesium oxide 400 mg magnesium capsule 400 mg PO .QOD Primary Care Provider: Ahmet Ewing Referrals: Ahmet Ewing MD [Primary Care Provider] - 5-7 Days Activity Restrictions/Additional Instructions: Keep dressing on for the next 72 hours, then clean your finger and apply a new bandage. Follow-up with PCP or return for any signs of infection. Print Language: Urdu Disposition Disposition: Home, Self Care
[2023-10-22 16:13] VITALS: BP 146/99; PULSE 82; RESP 16; TEMP 36.5; O2SAT 98
--- NOTE | 2023-10-22 16:21 | EX.ED.UPPERE ---
HPI <AGNES Richardson - Last Filed: 10/22/23 17:32> History of Present Illness Chief Complaint: Laceration Narrative Narrative: Patient presenting today due to cutting the tip of his right fourth finger while using a slicer to cut cucumbers this afternoon. Tetanus is not up-to-date, he is not on any blood thinners. He is left-handed. PFSH <AGNES Richardson - Last Filed: 10/22/23 17:32> [facility] Medical History Thyroid nodule Prostate cancer (2017) Multiple thyroid nodules Coronary artery calcification Bilateral carotid artery stenosis TIA (transient ischemic attack) (04/21/20) Obstructive sleep apnea Near syncope (01/13/20) AV block, Mobitz 1 GERD (gastroesophageal reflux disease) BPH (benign prostatic hyperplasia) Hyperlipidemia Mitral valve annular calcification LVH (left ventricular hypertrophy) Thyroid nodule Rapid palpitations Essential (primary) hypertension Heart murmur Arthritis Back problem Acute appendicitis Right lower quadrant abdominal pain Home Medications ?Medication ?Instructions ?Recorded ?Last Taken ?Type tamsulosin 0.4 mg capsule 0.4 mg PO QHS prostate 07/03/18 Unknown History cholecalciferol (vitamin D3) 100 4,000 unit PO DAILY supplement 03/12/19 Unknown History mcg (4,000 unit) capsule acetaminophen 500 mg tablet 1,000 mg (2 x 500 mg) PO Q8 #90 02/24/20 Unknown Rx tabs aspirin 81 mg chewable tablet 81 mg PO DAILY@0800 04/22/20 06/07/20 Rx magnesium oxide 400 mg PO .QOD supplement 06/15/20 Unknown History lisinopril 5 mg tablet 5 mg PO BID 10/04/21 Unknown History gabapentin 600 mg tablet 600 mg PO BID nerve pain 03/28/22 Unknown History ibuprofen 200 mg tablet 200 mg PO QHS 10/31/22 Unknown History ibuprofen 200 mg tablet 400 mg PO QAM 10/31/22 Unknown History oepzdtbn-oyn-etdon acid 0.4 1 tab PO DAILY supplement 10/31/22 Unknown History mg-lycopene 300 mcg-lutein 250 mcg tablet rosuvastatin 20 mg tablet 10 mg PO DAILY 07/03/23 Unknown History Allergy/AdvReac Type Severity Reaction Status Date / Time No Known Allergies Allergy Verified 10/22/23 14:58 Family History Father Arthritis Surgical History History of total left knee replacement (02/23/20) History of left heart catheterization (06/07/20) Status post biopsy of thyroid gland (03/2019) History of lumbar laminectomy History of bilateral carpal tunnel release (02/28/22) History of total right hip replacement History of left hip replacement History of surgical removal of pilonidal cyst History of tonsillectomy and adenoidectomy Hx of appendectomy Social History Smoking Status: Former smoker second hand exposure: No alcohol intake: current alcohol intake frequency: a few times a week substance use type: does not use caffeine: Yes what type of physical activity do you participate in: walking and weight training frequency: 5-6 times per week ROS <AGNES Richardson - Last Filed: 10/22/23 17:32> ROS ED Constitutional Constitutional ED: Denies chills or fever(s) Musculoskeletal Musculoskeletal: Denies arthralgias Integumentary Reports laceration Neurologic Neurologic: Denies paresthesias EXAM <AGNES Richardson - Last Filed: 10/22/23 17:32> Physical Exam Const Vital Signs: 10/22/23 14:56 10/22/23 16:13 Temperature 97.6 F L 97.7 F L Temperature Source Temporal Pulse Rate 88 82 Respiratory Rate 16 16 Blood Pressure 156/101 H 146/99 H Blood Pressure Mean 119 114 Pulse Ox 97 98 Oxygen Delivery Method Room Air Positive well nourished, well developed and no apparent distress General Appearance ED: well developed HEENT Reports normocephalic and head/scalp atraumatic Mouth ED: Yes moist mucous membranes normal Eyes PERRL and EOMs intact bilaterally Neck full ROM and supple Chest Wall inspection of chest normal Resp normal respiratory effort and clear to auscultation bilaterally Cardio regular rate and regular rhythm Back/Spine normal ROM and normal to inspection Extremity full ROM Extremity Narrative: 0.5 centimeter avulsion to the distal aspect of the right fourth finger. Minimal active bleeding, right radial pulse 2+, good capillary refill, sensation intact. Neuro oriented x3, CN's II-XII intact bilaterally, moves all extremities, no focal motor deficits and no sensory deficits noted Sensorium / Orientation: awake and alert Psych mental status grossly normal and thought process normal [facility] <AGNES Richardson - Last Filed: 10/22/23 17:32> [facility] Narrative Medical decision making narrative: Patient presenting today with a skin avulsion to the right fourth finger after using a slicer to cut cucumbers this afternoon. Tetanus has been updated. Finger was copiously irrigated with normal saline, Gelfoam and a pressure bandage were applied to the finger. Hemostasis has been achieved, wound care instructions discussed and patient discharged home in stable condition. <Dr. Cj Irvin DO - Last Filed: 10/22/23 16:38> [facility] Narrative Medical decision making narrative: Patient presenting today with a skin avulsion to the right fourth finger after using a slicer to cut cucumbers this afternoon. Tetanus has been updated. Finger was copiously irrigated with normal saline, Gelfoam and a pressure bandage were applied to the finger. Hemostasis has been achieved, wound care instructions discussed and patient discharged home in stable condition. I have personally performed a face to face assessment of the patient and have reviewed the ALL Note. I performed a substantive portion of the visit including all aspects of the following. My gonzalez findings include: History is 78-year-old male presenting to the emergency room after having a skin avulsion of his right ring finger while cutting cucumbers. Is not on blood thinners. Patient needs a tetanus update. Exam is there is complete avulsion of the distal skin of the right ring finger. Does not involve the nail. There is mild venous bleeding. Bone appears covered. Medical Decison Making there is nothing to sew here. This will need to be healed by secondary intention. Gelfoam will be applied and pressure bandage. Patient to change the dressing at home in 1 to 2 days. Monitor for infection return if worsening or concerns Discharge Plan Triage Chief Complaint: Laceration ED Midlevel Provider: Maryjane Salgado ED Provider: Cj Irvin Dx/Rx/DC Orders Clinical Impression: Avulsion of finger tip Instructions: ED Skin Tear (Skin Avulsion) Prescriptions: No Action cholecalciferol (vitamin D3) 4,000 unit capsule 4,000 unit PO DAILY gabapentin 600 mg tablet 600 mg PO BID lisinopril 5 mg tablet 5 mg PO BID ibuprofen 200 mg tablet 400 mg PO QAM ibuprofen 200 mg tablet 200 mg PO QHS rosuvastatin 20 mg tablet 10 mg PO DAILY wafeqglx-vqb-UA-lycopen-lutein 0.4 mg-300 mcg- 250 mcg tablet 1 tab PO DAILY Patient Comments: supplement tamsulosin 0.4 MG capsule 0.4 mg PO QHS Patient Comments: TAKE ONE CAPSULE AT BEDTIME acetaminophen 500 MG tablet 1,000 mg PO Q8 Qty: 90 0RF aspirin 81 MG tablet,chewable 81 mg PO DAILY@0800 0RF magnesium oxide 400 mg magnesium capsule 400 mg PO .QOD Primary Care Provider: Ahmet Ewing Referrals: Ahmet Ewing MD [Primary Care Provider] - 5-7 Days Activity Restrictions/Additional Instructions: Keep dressing on for the next 72 hours, then clean your finger and apply a new bandage. Follow-up with PCP or return for any signs of infection. Print Language: Hungarian Disposition Disposition: Home, Self Care Discharge Date/Time: 10/22/23 16:19
== END 2023-10-22 16:19 | disposition home or self-care (01) ==
PROVIDERS: Emergency Provider Emergency Medicine; PCP Family Medicine; Visit Provider Emergency Medicine
DX: S61.214A Laceration without foreign body of right ring finger without damage to nail, initial encounter (principal); Z87.891 Personal history of nicotine dependence; W27.4XXA Contact with kitchen utensil, initial encounter; Y93.G1 Activity, food preparation and clean up; Z85.46 Personal history of malignant neoplasm of prostate; Z86.73 Personal history of transient ischemic attack (TIA), and cerebral infarction without residual deficits; E78.5 Hyperlipidemia, unspecified; I10 Essential (primary) hypertension; N40.0 Benign prostatic hyperplasia without lower urinary tract symptoms; Z79.899 Other long term (current) drug therapy; Z79.82 Long term (current) use of aspirin; Z96.652 Presence of left artificial knee joint; Z96.643 Presence of artificial hip joint, bilateral; Z90.49 Acquired absence of other specified parts of digestive tract; Z23 Encounter for immunization
CPT/HCPCS: 12001; 90715; 99282

== ENCOUNTER → 2023-12-07 | Outpatient (CLI) | payer MEDICARE, SELFPAY ==
--- NOTE | 2023-12-07 12:54 | CDU_ITS ---
Reason For Study: CAROTID STENOSIS Rt. Velocities/BP Lt. Velocities/BP Prox CCA 61.0/13.8 cm/sec. Prox CCA 80.9/28.1 cm/sec. Mid CCA 74.3/23.2 cm/sec. Mid CCA 68.8/24.8 cm/sec. Dist CCA 51.1/16.2 cm/sec. Dist CCA 54.5/17.1 cm/sec. Prox ICA 46.1/15.3 cm/sec. Prox ICA 77.6/23.7 cm/sec. Mid ICA 85.6/25.2 cm/sec. Mid ICA 86.4/27.0 cm/sec. Dist ICA 46.1/14.2 cm/sec. Dist ICA 71.0/21.5 cm/sec. Rt. ICA/CCA = 85.6/74.3=1.2. Lt. ICA/CCA = 86.4/68.8=1.3. Prox ECA 95.7/25.8 cm/sec. Prox ECA 83.1/22.6 cm/sec. Rt. Vert. 44.1/15.6 cm/sec. Lt. Vert. 42.7/16.5 cm/sec. Right Extracranial There is heterogeneous, irregular atherosclerotic plaque noted in the right common carotid artery. There is heterogeneous, irregular atherosclerotic plaque noted in the right internal carotid artery. There is intimal thickening but no significant atherosclerotic plaque noted in the right external carotid artery. Antegrade flow is noted in the right vertebral artery. Left Extracranial There is heterogeneous, irregular atherosclerotic plaque noted in the left common carotid artery. There is heterogeneous, irregular atherosclerotic plaque noted in the left internal carotid artery. There is intimal thickening but no significant atherosclerotic plaque noted in the left external carotid artery. Antegrade flow is noted in the left vertebral artery. Procedure Carotid Duplex 70495. This is a Carotid Duplex examination using B-mode, color flow and specral Doppler. Exam performed in department. VL/Carotid Duplex Ultrasound Interpretation Summary Mild (<50%) stenosis right extracranial internal carotid. Mild (<50%) stenosis left extracranial internal carotid. Flow within the vertebral arteries is antegrade bilaterally. Ordering Physician: Vineet Engle Referring Physician: Ahmet Ewing Performed By: Katty Holland, NILSON, RVT
== END | disposition home or self-care (01) ==
LOC: CVS 12:50
PROVIDERS: PCP Family Medicine; Referring Provider Surgery Vascular Surgery; Visit Provider Surgery Vascular Surgery
DX: I63.9 Cerebral infarction, unspecified (principal); I65.23 Occlusion and stenosis of bilateral carotid arteries
CPT/HCPCS: 93880

== ENCOUNTER → 2023-12-14 | Outpatient (CLI) | payer MEDICARE, SELFPAY | END | disposition home or self-care (01) | LOC: LABSPEC 08:18 | PROVIDERS: PCP Family Medicine; Visit Provider Family Medicine | DX: R33.9 Retention of urine, unspecified (principal) | CPT/HCPCS: 87086 ==

== ENCOUNTER → 2023-12-19 | Outpatient (CLI) | payer MEDICARE, SELFPAY ==
--- NOTE | 2023-12-19 10:50 | US_ITS ---
HISTORY: incomplete bladder emptying. TECHNIQUE: Almanzar scale and color doppler imaging was performed of the urinary bladder. 23 images. COMPARISON: CT 10/04/2023. FINDINGS: PREVOID BLADDER: 182 cc volume. 6 mm wall thickness. Bilateral ureteral jets visualized. POSTVOID BLADDER: 131 cc volume. US/Post Void Residual Bladder IMPRESSION: Significant post void residual in the urinary bladder. Borderline diffuse bladder wall thickening. Electronically Signed: Helga Wang MD at 8:50 EDT ,
== END | disposition home or self-care (01) ==
LOC: US 10:49
PROVIDERS: PCP Family Medicine; Referring Provider Family Medicine; Visit Provider Family Medicine
DX: R33.9 Retention of urine, unspecified (principal)
CPT/HCPCS: 51798

== ENCOUNTER → 2023-12-26 | Outpatient (CLI) | payer MEDICARE, SELFPAY ==
[2023-12-26 10:04] LABS: Color, Urine Yellow (Yellow); Glucose, Dipstick Normal (Normal); Ketone-Dipstick Negative (Negative); Leukocyte Esterase-Dipstick Negative /ul (Negative); Nitrite-Dipstick Negative (Negative); Occult Blood-Urine Negative /ul (Negative); Protein-Dipstick Negative (Negative); Specific Gravity, Urine 1.015 (1.002-1.030); Urine Bilirubin Dipstick Negative (Negative); Urine Clarity Clear (Clear); Urine Urobilinogen Normal (Normal); Urine pH 6.5 (5.0 - 8.0)
[2023-12-26 10:09] LABS: Absolute Lymphocyte Count 1.33 X10^3/uL (0.83-4.51); Absolute Neutrophil Count 3.2 X10^3/uL (2.0-7.7); Basophil# 0.04 X10^3/uL; Basophil% 0.8 % (0-1); Eosinophil# 0.13 X10^3/uL; Eosinophils% 2.5 % (0-5); Hematocrit 42.2 % (40-54); Hemoglobin 14.1 g/dL (13.0-16.5); Lymphocyte # 1.33 X10^3/ul (0.83-4.51); Lymphocyte % 25.2 % (19-41); Mean Corp Hgb Conc 33.4 g/dL (32-36); Mean Corpuscular Hgb 32.2 pg (27.0-32.0); Mean Corpuscular Volume 96.3 fL (80-94); Mean Platelet Vol. 9.6 fl (6.2-12.0); Monocyte# 0.56 X10^3/uL; Monocyte% 10.6 % (0-10); NRBC Flagged by Analyzer 0 % (0-5); Neutrophil # 3.19 X10^3/uL (2.7-7.7); Neutrophil % 60.5 % (47-70); Platelet Count 208 K/mm3 (150-450); RBC Distribution Width CV 12.8 % (11.6-14.6); Red Blood Count 4.38 M/mm3 (4.6-6.2); White Blood Count 5.3 K/mm3 (4.4-11.0)
[2023-12-26 10:28] LABS: ALB/GLOB Ratio 1.1 RATIO (0.9-2.4); AST(SGOT) 22 U/L (15-37); Alanine Aminotransfer ALT/SGPT 25 U/L (16-61); Albumin, Serum 3.6 g/dL (3.2-5.0); Alkaline Phosphatase 61 U/L (45-117); Anion Gap 5 (5-15); BUN 21 mg/dL (7-18); BUN/Creat Ratio 23.6 RATIO (10-20); Calcium,Total 9.3 mg/dL (8.5-10.1); Chloride 107 mmol/L (98-107); Cholesterol 145 mg/dL (200); Creatinine, Serum 0.89 mg/dL (0.70-1.30); EST Glomerular Filtration Rate 88 mL/min (>60); Est Glom Filt Rate - Afr Amer 107 mL/min (>60); Globulin 3.2 g/dL (2.2-4.2); Glucose 99 mg/dL (74-106); High Density Lipoprotein 62 mg/dL; Magnesium 2.2 mg/dL (1.6-2.6); Potassium 4.4 mmol/L (3.5-5.1); Protein, Total 6.8 g/dL (6.4-8.2); Sodium Level 139 mmol/L (136-145); Triglycerides 156 mg/dL; Very Low Density Lipoprotein 31 mg/dL (5-40)
[2023-12-26 10:29] LABS: Vitamin D,25 Hydroxy 62.4 ng/mL
== END | disposition home or self-care (01) ==
LOC: MTLAB 07:05
PROVIDERS: PCP Family Medicine; Referring Provider Family Medicine; Visit Provider Family Medicine
DX: I10 Essential (primary) hypertension (principal); E55.9 Vitamin D deficiency, unspecified
CPT/HCPCS: 36415; 80053; 80061; 81002; 82306; 83735; 85025

== ENCOUNTER → 2024-02-07 | Outpatient (CLI) | payer MEDICARE, SELFPAY ==
[2024-02-07 10:34] LABS: Absolute Lymphocyte Count 1.92 X10^3/uL (0.83-4.51); Absolute Neutrophil Count 3.1 X10^3/uL (2.0-7.7); Basophil# 0.08 X10^3/uL; Basophil% 1.3 % (0-1); Eosinophil# 0.18 X10^3/uL; Eosinophils% 2.9 % (0-5); Hematocrit 44.5 % (40-54); Hemoglobin 14.2 g/dL (13.0-16.5); Lymphocyte # 1.92 X10^3/ul (0.83-4.51); Lymphocyte % 31.2 % (19-41); Mean Corp Hgb Conc 31.9 g/dL (32-36); Mean Corpuscular Hgb 32.5 pg (27.0-32.0); Mean Corpuscular Volume 101.8 fL (80-94); Mean Platelet Vol. 10.2 fl (6.2-12.0); Monocyte# 0.76 X10^3/uL; Monocyte% 12.3 % (0-10); NRBC Flagged by Analyzer 0 % (0-5); Neutrophil # 3.14 X10^3/uL (2.7-7.7); Platelet Count 177 K/mm3 (150-450); RBC Distribution Width CV 13.4 % (11.6-14.6); Red Blood Count 4.37 M/mm3 (4.6-6.2); White Blood Count 6.2 K/mm3 (4.4-11.0)
[2024-02-07 16:14] LABS: ALB/GLOB Ratio 1.3 RATIO (0.9-2.4); AST(SGOT) 26 U/L (15-37); Alanine Aminotransfer ALT/SGPT 36 U/L (16-61); Albumin, Serum 4.3 g/dL (3.2-5.0); Alkaline Phosphatase 66 U/L (45-117); Anion Gap 4 (5-15); BUN 13 mg/dL (7-18); BUN/Creat Ratio 11.4 RATIO (10-20); Calcium,Total 9.7 mg/dL (8.5-10.1); Chloride 108 mmol/L (98-107); Creatinine, Serum 1.14 mg/dL (0.70-1.30); EST Glomerular Filtration Rate 66 mL/min (>60); Est Glom Filt Rate - Afr Amer 80 mL/min (>60); Globulin 3.3 g/dL (2.2-4.2); Glucose 109 mg/dL (74-106); Magnesium 2.3 mg/dL (1.6-2.6); Potassium 4.3 mmol/L (3.5-5.1); Protein, Total 7.6 g/dL (6.4-8.2); Sodium Level 139 mmol/L (136-145); T4 Free Direct 0.77 ng/dL (0.76-1.46)
[2024-02-08 16:10] LABS: Anti-Thyroglobulin AB < 1.0 IU/mL (0.0-0.9); Thyroglobulin, Serum Qt. 15.9 ng/mL (1.4-29.2); Thyroid Peroxidase AB < 9 IU/mL (0-34)
== END | disposition home or self-care (01) ==
PROVIDERS: PCP Family Medicine; Referring Provider Family Medicine; Visit Provider Family Medicine
DX: R79.89 Other specified abnormal findings of blood chemistry (principal); R53.83 Other fatigue; Z95.0 Presence of cardiac pacemaker
CPT/HCPCS: 36415; 80053; 83735; 84432; 84439; 84443; 85025; 86376; 86800

== ENCOUNTER → 2024-02-29 | Outpatient (CLI) | payer MEDICARE, SELFPAY ==
--- OUTSIDE RECORDS SUMMARY | 2024-02-29 11:11 | XMS RPT_ITS | CCD ---
Author Organization [facility] [employer] [facility] Care Team Providers Care Equity Director Name Role Phone BHARATI TUCKER MD Attending Unavailable ANNABELLA WILLARD MD Primary Care Unavailable BHARATI TUCKER MD Attending Unavailable SUDHEER MEI, ANNABELLA Primary Care Unavailable Encounters Encounter Date Encounter Type Care Provider Facility Start: 02-20-2022 ambulatory BHARATI TUCKER MD Faci lity:B Payers Date Payer Category Payer Private Health Insurance [id number] 1945 Unknown [id number] 1945 Unknown [id number] Summary Purpose Family History No Family History Records Found Advance Directives No Advanced Directives Records Found Additional Source Comments (unrecognized sect ion and content) No Status Records Found INFORMATION SOURCE (unrecogn ized section and content) DATE CREATED AUTHOR 02/20/2022 [facility] ([place]) FOR RECORDS PERTAINING TO PATIENTS WHO ARE OR HAVE BEEN ENROLLED IN A CHEMICAL DEPENDENCY/SUBSTANCEABUSE PROGRAM, SOME INFORMATION MAY BE OMITTED. This clinical summary was aggregated from multiple sources. Caution should be exercised in using it in the provision of clinical care. This summary normalizes information from multiple sources, and as a consequence, information in this document may materially change the coding, format and clinical context of patient data. In addition, data may be omitted in some cases. CLINICAL DECISIONS SHOULD BE BASED ON THE PRIMARY CLINICAL RECORDS. [employer] provides no warranty or guarantee of the accuracy or completeness of information in this document.
[2024-02-29 12:33] LABS: PSA,Total - Annual Screen 0.07 ng/mL (0.00-4.00)
== END | disposition home or self-care (01) ==
LOC: MTLAB 10:55
PROVIDERS: PCP Family Medicine; Referring Provider Urology; Visit Provider Urology
DX: N40.1 Benign prostatic hyperplasia with lower urinary tract symptoms (principal)
CPT/HCPCS: 36415; 84153; G0103

== ENCOUNTER → 2024-05-29 | Outpatient (CLI) | payer MEDICARE, SELFPAY ==
--- NOTE | 2024-05-29 11:54 | RAD_ITS ---
INDICATION: Shortness of breath EXAMINATION/TECHNIQUE: X-RAY - XR Chest 2 Views COMPARISON: FINDINGS: LINES/DEVICES: There is a left-sided pacemaker.. LUNGS: No consolidation, edema or effusion. No pneumothorax. MEDIASTINUM AND CARDIOVASCULAR STRUCTURES: Cardiac silhouette not enlarged. Central airways and mediastinal contour are unremarkable. BONES AND SOFT TISSUES: Degenerative vertebral changes. Right humeral prosthesis. RAD/Chest PA and Lateral IMPRESSION: No radiographic evidence of acute cardiopulmonary disease. Electronically Signed: Cachorro Vides DO at 16:22 EST ,
[2024-05-29 13:04] LABS: Absolute Lymphocyte Count 1.39 X10^3/uL (0.83-4.51); Absolute Neutrophil Count 5.1 X10^3/uL (2.0-7.7); Basophil# 0.06 X10^3/uL; Basophil% 0.8 % (0-1); Eosinophil# 0.13 X10^3/uL; Eosinophils% 1.7 % (0-5); Hematocrit 43.7 % (40-54); Hemoglobin 14.5 g/dL (13.0-16.5); Lymphocyte # 1.39 X10^3/ul (0.83-4.51); Lymphocyte % 18.3 % (19-41); Mean Corp Hgb Conc 33.2 g/dL (32-36); Mean Corpuscular Hgb 32.2 pg (27.0-32.0); Mean Corpuscular Volume 97.1 fL (80-94); Mean Platelet Vol. 9.6 fl (6.2-12.0); Monocyte# 0.87 X10^3/uL; Monocyte% 11.5 % (0-10); NRBC Flagged by Analyzer 0 % (0-5); Neutrophil % 67.3 % (47-70); Platelet Count 213 K/mm3 (150-450); RBC Distribution Width CV 12.4 % (11.6-14.6); White Blood Count 7.6 K/mm3 (4.4-11.0)
[2024-05-29 13:27] LABS: BNP,B-Type NATRIURETIC PEPTIDE 29.8 pg/mL (0-100)
[2024-05-29 13:33] LABS: ALB/GLOB Ratio 1.3 RATIO (0.9-2.4); AST(SGOT) 27 U/L (15-37); Alanine Aminotransfer ALT/SGPT 36 U/L (16-61); Albumin, Serum 4.2 g/dL (3.2-5.0); Alkaline Phosphatase 66 U/L (45-117); Anion Gap 4 (5-15); BUN 19 mg/dL (7-18); Calcium,Total 9.4 mg/dL (8.5-10.1); Chloride 107 mmol/L (98-107); Creatinine, Serum 0.95 mg/dL (0.70-1.30); EST Glomerular Filtration Rate 81 mL/min (>60); Est Glom Filt Rate - Afr Amer 99 mL/min (>60); Globulin 3.3 g/dL (2.2-4.2); Glucose 94 mg/dL (74-106); Potassium 4.8 mmol/L (3.5-5.1); Protein, Total 7.5 g/dL (6.4-8.2); Sodium Level 139 mmol/L (136-145)
== END | disposition home or self-care (01) ==
LOC: RAD 11:53
PROVIDERS: PCP Family Medicine; Referring Provider Nurse Practitioner Family; Visit Provider Nurse Practitioner Family
DX: I10 Essential (primary) hypertension (principal); R06.09 Other forms of dyspnea; E78.2 Mixed hyperlipidemia

== ENCOUNTER → 2024-06-11 | Outpatient (CLI) | payer MEDICARE, SELFPAY ==
[2024-06-11 15:50] LABS: Bacteria 0 SEEN /hpf (None Seen); Mucous, Urine 0 SEEN /hpf (<or=2+); Red Blood Cells-Urine 0 SEEN /hpf (0-5); Squamous Epithelial Cells - UA 0 SEEN /hpf (0-5); White Blood Cells 0 SEEN /hpf (0-5)
[2024-06-11 18:16] LABS: Absolute Lymphocyte Count 1.42 X10^3/uL (0.83-4.51); Absolute Neutrophil Count 4.2 X10^3/uL (2.0-7.7); Basophil# 0.04 X10^3/uL; Basophil% 0.6 % (0-1); Eosinophil# 0.18 X10^3/uL; Eosinophils% 2.7 % (0-5); Hematocrit 43.3 % (40-54); Hemoglobin 14.2 g/dL (13.0-16.5); Lymphocyte # 1.42 X10^3/ul (0.83-4.51); Lymphocyte % 21.2 % (19-41); Mean Corp Hgb Conc 32.8 g/dL (32-36); Mean Corpuscular Hgb 31.8 pg (27.0-32.0); Mean Corpuscular Volume 96.9 fL (80-94); Monocyte# 0.83 X10^3/uL; Monocyte% 12.4 % (0-10); NRBC Flagged by Analyzer 0 % (0-5); Neutrophil # 4.21 X10^3/uL (2.7-7.7); Neutrophil % 62.8 % (47-70); Platelet Count 228 K/mm3 (150-450); RBC Distribution Width CV 12.2 % (11.6-14.6); RBC Distribution Width SD 43.7 fl (35.1-43.9); Red Blood Count 4.47 M/mm3 (4.6-6.2); White Blood Count 6.7 K/mm3 (4.4-11.0)
[2024-06-11 18:49] LABS: Color, Urine Yellow (Yellow); Glucose, Dipstick Normal (Normal); Ketone-Dipstick Negative (Negative); Leukocyte Esterase-Dipstick Negative /ul (Negative); Nitrite-Dipstick Negative (Negative); Occult Blood-Urine Negative /ul (Negative); Protein-Dipstick 15 mg/dl (Negative); Urine Bilirubin Dipstick Negative (Negative); Urine Clarity Clear (Clear); Urine Urobilinogen Normal (Normal)
[2024-06-11 18:56] LABS: Vitamin D,25 Hydroxy 47.2 ng/mL
[2024-06-11 19:05] LABS: ALB/GLOB Ratio 1.3 RATIO (0.9-2.4); AST(SGOT) 31 U/L (15-37); Alanine Aminotransfer ALT/SGPT 46 U/L (16-61); Albumin, Serum 4.2 g/dL (3.2-5.0); Alkaline Phosphatase 69 U/L (45-117); Anion Gap 5 (5-15); BUN 22 mg/dL (7-18); BUN/Creat Ratio 25.5 RATIO (10-20); Calcium,Total 9.4 mg/dL (8.5-10.1); Chloride 106 mmol/L (98-107); Cholesterol 136 mg/dL (200); Creatinine, Serum 0.86 mg/dL (0.70-1.30); EST Glomerular Filtration Rate 91 mL/min (>60); Est Glom Filt Rate - Afr Amer 110 mL/min (>60); Globulin 3.2 g/dL (2.2-4.2); Glucose 93 mg/dL (74-106); High Density Lipoprotein 61 mg/dL; Potassium 4.2 mmol/L (3.5-5.1); Protein, Total 7.4 g/dL (6.4-8.2); Sodium Level 139 mmol/L (136-145); Triglycerides 306 mg/dL; Very Low Density Lipoprotein 61 mg/dL (5-40)
== END | disposition home or self-care (01) ==
LOC: MFPLAB 15:43
PROVIDERS: PCP Family Medicine; Referring Provider Family Medicine; Visit Provider Family Medicine
DX: E78.00 Pure hypercholesterolemia, unspecified (principal); E55.9 Vitamin D deficiency, unspecified
CPT/HCPCS: 36415; 80053; 80061; 81001; 82306; 85025

== ENCOUNTER → 2024-06-16 | Outpatient (CLI) | payer MEDICARE, SELFPAY ==
--- NOTE | 2024-06-16 15:40 | US_ITS ---
PROCEDURE: THYROID REASON FOR EXAM: Nodule. TECHNIQUE: Real-time grayscale and color-flow imaging of the thyroid gland with routine image documentation. COMPARISON: No relevant prior FINDINGS: Right thyroid lobe measures 5.1 x 2.2 x 1.6 cm.. Left thyroid lobe measures 4.8 x 4.5 x 2.4 cm.. Isthmus thickness is 0.2 cm. Thyroid Size: Normal Background Echotexture: Normal. Homogeneous parenchyma. Thyroid Nodules: Left lobe. Superior pole, mixed cystic and solid, 0.5 x 0.4 x 0.4 cm, wider than tall, well-circumscribed, hypoechoic, no calcifications, TR 3. Inferior pole, mixed cystic and solid, 3.2 x 2.1 x 2.3 cm, wider than tall, well-circumscribed, primarily hypoechoic, with echogenic foci, TR 4. US/Thyroid IMPRESSION: 1. A TR 3 micronodule in the left superior pole. No FNA warranted. 2. A TR 4 heterogeneous nodule in the left inferior pole. FNA tissue sampling recommended for further evaluation. Reading Location: [facility]
== END | disposition home or self-care (01) ==
PROVIDERS: PCP Family Medicine; Referring Provider Family Medicine; Visit Provider Family Medicine
DX: E04.2 Nontoxic multinodular goiter (principal); R06.02 Shortness of breath; R91.1 Solitary pulmonary nodule
CPT/HCPCS: 76536

== ENCOUNTER → 2024-06-28 | Outpatient (CLI) | payer MEDICARE, SELFPAY ==
--- NOTE | 2024-06-28 08:42 | CT_ITS ---
PROCEDURE: CHEST WITHOUT CONTRAST REASON FOR EXAM: Lung nodule history of tobacco use TECHNIQUE: Chest CT without contrast. Multiplanar reconstructions were performed. COMPARISON: 03/29/2023 10/04/2023 FINDINGS: Lungs/Pleura:Mild biapical scarring is present. There are very mild areas of multifocal peripheral parenchymal scarring. A calcified pulmonary nodule is present in the left lower lobe, likely due to remote granulomatous disease. No significant pulmonary nodule is identified.No pleural effusion or pneumothorax. Cardiovascular:The heart is normal in size.ICD leads are present in the right atrium and ventricle. Moderate coronary artery calcifications are present.The aorta and pulmonary arteries are unremarkable. Pericardium:No effusion. Mediastinum:Unremarkable. Lymph nodes:No lymph node enlargement identified on this noncontrast CT. Bones:No acute osseous abnormality.A right shoulder arthroplasty is present. Mild multilevel degenerative changes are present in the visualized spine. Soft tissues:Unremarkable. Upper abdomen:Multiple small gallstones are present in the gallbladder lumen. CT/Chest without Contrast IMPRESSION: 1. No acute abnormality of the chest. 2. Mild multifocal areas of pulmonary scarring. 3. No significant pulmonary nodules. Reading Location: [id number]
== END | disposition home or self-care (01) ==
LOC: CT 08:40
PROVIDERS: PCP Family Medicine; Referring Provider Family Medicine; Visit Provider Family Medicine
DX: R91.1 Solitary pulmonary nodule (principal); R06.02 Shortness of breath; E04.2 Nontoxic multinodular goiter
CPT/HCPCS: 71250

== ENCOUNTER → 2024-07-01 | Outpatient (CLI) | payer MEDICARE, SELFPAY | END | disposition home or self-care (01) | LOC: PSN 10:30 | PROVIDERS: PCP Family Medicine; Referring Provider Family Medicine; Visit Provider Family Medicine | DX: R06.02 Shortness of breath (principal); R91.1 Solitary pulmonary nodule; Z87.891 Personal history of nicotine dependence; E04.2 Nontoxic multinodular goiter | CPT/HCPCS: 94060 ==

== ENCOUNTER → 2024-07-23 | Outpatient (CLI) | payer MEDICARE, SELFPAY ==
[2024-07-23 18:41] LABS: ALB/GLOB Ratio 1.8 RATIO (0.9-2.4); AST(SGOT) 36 U/L (<=37); Alanine Aminotransfer ALT/SGPT 30 U/L (<=46); Albumin, Serum 4.5 g/dL (3.4-4.8); Alkaline Phosphatase 71 U/L (40-129); Anion Gap 12 (5-15); BUN 20 mg/dL (4-19); BUN/Creat Ratio 24.7 RATIO (10-20); Calcium,Total 9.5 mg/dL (7.6-11.0); Carbon Dioxide 22.9 mmol/L (21.0-32.0); Chloride 104 mmol/L (98-108); Creatinine, Serum 0.81 mg/dL (0.70-1.20); EST Glomerular Filtration Rate 90 (>60); Globulin 2.6 g/dL (2.2-4.2); Glucose 100 mg/dL (70-99); Potassium 4.5 mmol/L (3.3-5.1); Protein, Total 7.1 g/dL (5.9-8.4); Sodium Level 139 mmol/L (133-145); Total Bilirubin 0.22 mg/dL (0.00-1.30)
== END | disposition home or self-care (01) ==
LOC: MFPLAB 14:35
PROVIDERS: PCP Family Medicine; Referring Provider Family Medicine; Visit Provider Family Medicine
DX: R06.02 Shortness of breath (principal)
CPT/HCPCS: 36415; 80053

== ENCOUNTER → 2024-09-24 | Outpatient (CLI) | payer MEDICARE, SELFPAY | END | disposition home or self-care (01) | LOC: PSN 06:39 | PROVIDERS: PCP Family Medicine; Referring Provider Nurse Practitioner Acute Care; Visit Provider Nurse Practitioner Acute Care | DX: R06.09 Other forms of dyspnea (principal) | CPT/HCPCS: 94010; 94726; 94729 ==

== ENCOUNTER → 2024-09-25 | Outpatient (CLI) | payer MEDICARE, SELFPAY ==
[2024-09-25 12:31] LABS: Absolute Lymphocyte Count 1.16 X10^3/uL (0.83-4.51); Absolute Neutrophil Count 3.8 X10^3/uL (2.0-7.7); Basophil# 0.05 X10^3/uL; Basophil% 0.9 % (0-1); Eosinophil# 0.08 X10^3/uL; Eosinophils% 1.4 % (0-5); Hemoglobin 14.2 g/dL (13.0-16.5); Lymphocyte # 1.16 X10^3/ul (0.83-4.51); Mean Corp Hgb Conc 33.8 g/dL (32-36); Mean Corpuscular Hgb 31.9 pg (27.0-32.0); Mean Corpuscular Volume 94.4 fL (80-94); Mean Platelet Vol. 9.4 fl (6.2-12.0); Monocyte# 0.67 X10^3/uL; Monocyte% 11.6 % (0-10); NRBC Flagged by Analyzer 0 % (0-5); Neutrophil # 3.79 X10^3/uL (2.7-7.7); Neutrophil % 65.4 % (47-70); Platelet Count 212 K/mm3 (150-450); RBC Distribution Width CV 13.6 % (11.6-14.6); RBC Distribution Width SD 47.8 fl (35.1-43.9); Red Blood Count 4.45 M/mm3 (4.6-6.2); White Blood Count 5.8 K/mm3 (4.4-11.0)
[2024-09-25 13:25] LABS: ALB/GLOB Ratio 1.7 RATIO (0.9-2.4); AST(SGOT) 32 U/L (<=37); Alanine Aminotransfer ALT/SGPT 23 U/L (<=46); Albumin, Serum 4.4 g/dL (3.4-4.8); Alkaline Phosphatase 72 U/L (40-129); Anion Gap 12 (5-15); BUN 19 mg/dL (4-19); BUN/Creat Ratio 25.3 RATIO (10-20); Calcium,Total 9.3 mg/dL (7.6-11.0); Carbon Dioxide 21.4 mmol/L (21.0-32.0); Chloride 105 mmol/L (98-108); Cholesterol 150 mg/dL (<=200); Creatinine, Serum 0.73 mg/dL (0.70-1.20); EST Glomerular Filtration Rate 93 (>60); Globulin 2.6 g/dL (2.2-4.2); Glucose 94 mg/dL (70-99); High Density Lipoprotein 75 mg/dL; Low Density Lipoprotein Calc. 52 mg/dL; Magnesium 2.1 mg/dL (1.5-2.2); Potassium 4.4 mmol/L (3.3-5.1); Sodium Level 139 mmol/L (133-145); Total Bilirubin 0.47 mg/dL (0.00-1.30); Triglycerides 117 mg/dL; Very Low Density Lipoprotein 23 mg/dL (5-40); Vitamin D,25 Hydroxy 42.5 ng/mL (30-100); cholesterol:hdl ratio screen 2.01
== END | disposition home or self-care (01) ==
LOC: MFPLAB 11:33
PROVIDERS: PCP Family Medicine; Referring Provider Family Medicine; Visit Provider Family Medicine
DX: I10 Essential (primary) hypertension (principal); E55.9 Vitamin D deficiency, unspecified
CPT/HCPCS: 36415; 80053; 80061; 82306; 83735; 85025

== ENCOUNTER → 2024-10-03 | Outpatient (CLI) | payer MEDICARE, SELFPAY ==
--- NOTE | 2024-10-03 10:47 | ECHOD_ITS ---
Reason For Study Reason For Study: DYSPNEA/SOB Procedure This was a 2D Doppler, Color Flow transthoracic echocardiogram. Exam performed in department. Left Ventricle Normal LV size. The estimated ejection fraction is 55 %. Diastolic function is indeterminate. No regional wall motion abnormalities noted. Right Ventricle Normal RV size. Normal systolic function. Atria The left atrium is mildly enlarged. Normal right atrium. No doppler evidence for ASD. Mitral Valve There is no mitral valve stenosis. No mitral valve insufficiency. Tricuspid Valve There is no tricuspid stenosis. Unable to estimate RV systolic pressure due to inadequate jet, pulmonary artery pressure probably normal. Aortic Valve Trisinus/trileaflet aortic valve. Moderate diffuse aortic valve thickening. Mild aortic stenosis. No aortic valve insufficiency. Pulmonic Valve There is no pulmonic valvular stenosis. No pulmonic valve insufficiency. Great Vessels Normal sized aortic root. Pericardium/Pleural No pericardial effusion. MMode/2D Measurements & Calculations LVIDd: 5.4 cm IVSd: 1.3 cm Ao root diam: 3.8 cm LVIDs: 4.3 cm LVPWd: 1.3 cm RVDd: 3.3 cm FS: 20.7 % LAV(MOD-bp): 102.6 ml LVAd ap4: 39.3 cm2 LVAd ap2: 30.0 cm2 LAV(MOD-bp) Indexed: 46.6 ml/m2 LVLd ap4: 8.3 cm LVLd ap2: 8.5 cm LAV(MOD-sp2): 99.0 ml EDV(MOD-sp4): 157.0 ml EDV(MOD-sp2): 90.6 ml LAV(MOD-sp4): 109.7 ml EDV(sp4-el): 158.2 ml EDV(sp2-el): 89.6 ml LVAs ap4: 23.8 cm2 LVAs ap2: 18.6 cm2 LVLs ap4: 6.7 cm LVLs ap2: 7.3 cm ESV(MOD-sp4): 73.1 ml ESV(MOD-sp2): 41.7 ml ESV(sp4-el): 71.3 ml ESV(sp2-el): 40.4 ml EF(MOD-sp4): 53.4 % EF(MOD-sp2): 53.9 % EF(sp4-el): 54.9 % SV(MOD-sp4): 83.9 ml SV(MOD-sp2): 48.9 ml SV(sp4-el): 86.9 ml SI(MOD-sp4): 38.1 ml/m2 SI(MOD-sp2): 22.2 ml/m2 LA A4 area: 29.2 cm2 LA dimension(2D): 4.7 cm RA A4 area: 19.6 cm2 TAPSE: 2.0 cm Time Measurements MV dec time: 0.19 sec Doppler Measurements & Calculations MV E max markus: 55.9 cm/sec Lat Peak E' Markus: 7.5 cm/sec Med Peak E' Markus: 5.8 cm/sec MV A max markus: 77.8 cm/sec E/E' lat: 7.4 E/E' med: 9.6 MV E/A: 0.72 MV V2 max: 94.1 cm/sec MV P1/2t max markus: 64.1 cm/sec Ao V2 max: 161.6 cm/sec MV max P.5 mmHg MV P1/2t: 42.3 msec Ao max P.5 mmHg MV V2 mean: 50.9 cm/sec Ao V2 mean: 116.3 cm/sec MV mean P.2 mmHg MV dec slope: 443.2 cm/sec2 Ao mean P.2 mmHg MV V2 VTI: 16.4 cm MVA(P1/2t): 5.2 cm2 Ao V2 VTI: 33.7 cm AV (velocity ratio): 0.56 LV V1 max: 100.3 cm/sec PA V2 max: 128.2 cm/sec TR max markus: 211.9 cm/sec LV V1 max P.0 mmHg PA V2 mean: 84.3 cm/sec TR max P.0 mmHg LV V1 mean P.2 mmHg LV V1 mean: 70.3 cm/sec LV V1 VTI: 18.9 cm ECHO/Echo Complete Interpretation Summary The estimated ejection fraction is 55 %. The left atrium is mildly enlarged. Mild aortic stenosis. Ordering Physician: Jenny Clancy Referring Physician: Ahmet Ewing Performed By: Katty Holland RDCS, RVT
== END | disposition home or self-care (01) ==
LOC: CVS 10:46
PROVIDERS: PCP Family Medicine; Referring Provider Nurse Practitioner Acute Care; Visit Provider Nurse Practitioner Acute Care
DX: R06.09 Other forms of dyspnea (principal)
CPT/HCPCS: 93306

== ENCOUNTER → 2025-03-03 | Outpatient (CLI) | payer MEDICARE, SELFPAY ==
--- NOTE | 2025-03-03 07:03 | RAD_ITS ---
PROCEDURE: ACUTE ABDOMEN INC CHEST 03/03/2025 REASON FOR EXAM: EVALUATE COLONIC STOOL BURDEN Abdominal pain and distention TECHNIQUE: Procedure Code: RADABDCA Modality: DX Procedure: ACUTE ABDOMEN INC CHEST COMPARISON: No recent studies FINDINGS: Hardware: Satisfactory appearance of the left subclavian pacemaker. No plain film evidence of complication involving replaced right glenohumeral joint or replaced hip joints Heart: The heart size is normal. Lungs: The lungs are clear. Bowel gas: Bowel-gas pattern is unremarkable, moderate retained stool Free air: No free air Calcifications: No suspicious calcifications Bones: Degenerative bony changes particularly noted in the lumbar spine and pelvis Other: RAD/Acute Abdomen Inc Chest IMPRESSION: Moderate retained stool No acute pulmonary process No free air or acute abdominal process Degenerative bony changes with scoliotic curvature in the lumbar spine Reading Location: [id number]
[2025-03-03 07:07] LABS: Mucous, Urine 0 SEEN /hpf (<or=2+); Squamous Epithelial Cells - UA 0 SEEN /hpf (0-5)
--- OUTSIDE RECORDS SUMMARY | 2025-03-03 07:07 | XMS RPT_ITS | CCD ---
Author Organization [facility] CliniSyfl Care Team Providers Care Belt Glass Sander Name Role Phone Dr. Annabella Willard Primary Care Provider Dr. Dao Sloan Attending Provider Dr. Dao Sloan Referring Provider Dr. Annabella Willard Primary Care Provider [phone] Dr. Annabella Willard Referring Provider Dr. Gigi Schwab Attending Provider [phone] GARRETT MEI, BHARATI Gaviria Attending Unavailable KAYLIN MEI, ANNABELLA Primary Care Unavailable BHARATI TUCKER MD Attending Ruben WILLARD MD, ANNABELLA Primary Care Unavailable Dr. Annabella Willard Primary Care Provider [phone] Dr. Annabella Willard Referring Provider Dr. Gigi Schwab Attending Provider [phone] Annabella Willard Primary Care Provider Dr. Annabella Willard Referring Provider Dr. Gigi Schwab Attending Provider [phone] Todd Wade Attending Provider [phone] Annabella Willard Primary Care Provider Dr. Annabella Willard Referring Provider Dr. Annabella Willard Primary Care Provider Dr. Annabella Willard Referring Provider Dr. Gigi Schwab Attending Provider [phone] Kaylin MEI, Annabella Dash Primary Care Provider ENE BARBER Referring Unavailable ANNABELLA WILLARD Primary Care UnavailENE Almeida Referring Unavailable ANNABELLA WILLARD Primary Care UnavailENE Almeida Referring Unavailable ANNABELLA WILLARD Primary Care Unavailmadeleine Willard MD, Dr. Annabella David Primary Care Provider [phone] Zaheer MEI, Dr. Yu Attending Provider Kaylin MEI, Dr. Annabella David Referring Provider [phone] Roof CONTINUITY WRITER-C, Annabella Lane Attending Provider [facility] CONTINUITY WRITER-C, Annabella H Referring Provider Kaylin MEI, Dr. Annabella David Attending Provider [phone] Kaylin MEI, Dr. Annabella David Primary Care Provider Kaylin MEI, Dr. Annabella David Referring Provider [phone] Zaheer MEI, Dr. Yu Attending Provider [phone] Clancy CONTINUITY WRITER-C, Jenny Attending Provider Aston CONTINUITY WRITER-C, Jenny Referring Provider Aylin MEI, Dr. Talbot Attending Provider Kaylin MEI, Dr. Annabella David Primary Care Provider [phone] Dr. Annabella Willard MD Attending Provider Dr. Annabella Willard MD Referring Provider Dr. Annabella Willard MD Primary Care Provider Dr. Annabella Willard MD Attending Provider Kaylin MEI, Dr. Annabella David Referring Provider [phone] Dr. Daniel Rivero DO Attending Provider Kaylin MEI, Dr. Annabella David Primary Care Provider Dr. Annabella Willard MD Referring Provider Kaylin MEI, Dr. Annabella David Attending Provider [phone] Zaheer MEI, Dr. Yu Attending Provider [phone] Kaylin MEI, Dr. Annabella David Primary Care Provider [phone] Aston CONTINUITY WRITER-C, Jenny Attending Provider Kaylin MEI, Dr. Annabella David Referring Provider Kaylin MEI, Dr. Annabella David Primary Care Physician Aston CONTINUITY WRITER-C, Jenny Attending Physician Aston CONTINUITY WRITER-C, Jenny Referring Provider Aylin MEI, Dr. Talbot Attending Physician Kaylin MEI, Dr. Annabella David Referring Provider [phone] Zaheer MEI, Dr. Yu Attending Physician Annabella Willard E Referring Unavailable Schinner, Annabella E Attending Unavailable Schinner, Annabella E Primary Care Unavailable Schinner, Annabella E Attending Unavailable Schinner, Annabella E Referring Unavailable Schinner, Annabella E Primary Care Unavailable Ariella CONTINUITY WRITER, Annabella Lane Attending Unavailable Annabella Krishnan NP Referring Unavailable Schinner, Annabella E Primary Care Unavailable Schinner, Annabella E Referring Unavailable SchinnerAnnabella E Attending Unavailable Schinner, Annabella E Primary Care Unavailable Aston CONTINUITY WRITER, Jenny Attending Unavailable Aston CONTINUITY WRITER, Jenny Referring Unavailable Schinner, Annabella E Primary Care Unavailable Tone Stout Attending Unavailable GirishTone Referring Unavailable Schinner, Annabella E Primary Care Unavailable Schinner, Annabella E Referring Unavailable Schinner, Annabella E Primary Care Unavailable SchinnerAnnabella E Attending Unavailable SchinnerAnnabella E Attending Unavailable Schinner, Annabella E Referring Unavailable Schinner, Annabella E Primary Care Unavailable Schinner, Annabella E Primary Care Unavailable Zaheer, [place] Attending Unavailable Aston CONTINUITY WRITER, Jenny Attending Unavailable SchinnerAnnabella E Referring Unavailable Schinner, Annabella E Primary Care Unavailable Zaheer, [place] Attending Unavailable Schinner, Annabella E Primary Care Unavailable Schinner, Annabella E Referring Unavailable Zaheer, Gigi Attending Unavailable Schinner, Annabella E Primary Care Unavailable Schinner, Annabella E Referring Unavailable Clancy CONTINUITY WRITER, Jenny Attending Unavailable Schinner, Annabella E Primary Care Unavailable Schinner, Annabella E Primary Care Unavailable Zaheer [place] Attending Unavailable Schinner, Annabella E Primary Care Unavailable Zaheer, [place] Attending Unavailable Schinner, Annabella E Referring Unavailable Zaheer, [place] Attending Unavailable Schinner, Annabella E Primary Care Unavailable Jenny Clancy NP Attending Unavailable eJnny Clancy NP Referring Unavailable Schinner, Annabella E Primary Care Unavailable Dahiana Viera Attending Unavailabl e Schinner, Annabella E Primary Care Unavailable Daniel Rivero Attending Unavailable Jenny Clancy NP Referring Unavailable Schinner, Annabella Frankie Primary Care Unavailable Zaheer, [place] Attending Unavailable Schinner, Annabella E Primary Care Unavailable Schinner, Annabella E Referring Unavailable Schinner, Annabella E Primary Care Unavailable Zaheer, [place] Attending Unavailable Schinner, Annabella E Attending Unavailable Schinner, Annabella E Referring Unavailable Schinner, Annabella E Primary Care Unavailable Annabella Krishnan NP Attending Unavailable Schinner, Annabella E Referring Unavailable Schinner, Annabella E Primary Care Unavailable Schinner, Annabella E Attending Unavailable Schinner, Annabella E Referring Unavailable Schinner, Annabella E Primary Care Unavailable Melissa Mirza Attending Unavailable Schinner, Annabella E Referring Unavailable Schinner, Annabella E Primary Care Unavailable Melissa Mirza Attending Unavailable Schinner, Annabella E Referring Unavailable Schinner, Annabella E Primary Care Unavailable Schinner, Annabella E Referring Unavailable Ciara Cook Attending Unavail able Schinner, Annabella E Primary Care Unavailable Schinner, Annabella E Referring Unavailable Zaheer, [place] Attending Unavailable Schinner, Annabella E Primary Care Unavailable Zaheer, Gigi Attending Unavailable Schinner, Annabella E Primary Care Unavailable Zaheer, Gigi Attending Unavailable Schinner, Annabella E Primary Care Unavailable Jenny Clancy NP Attending Unavailable Schinner, Annabella E Referring Unavailable Schinner, Annabella E Primary Care Unavailable Daniel Rivero Attending Unavailable Allergies Allergy Classification Reported Allergen(s) Allergy Type Date of Onset Reaction(s) Facility (1 source) ALLERGIES NOT ON FILE; Translations: [ALLERGIES NOT ON FILE] Propensity to adverse reactions (disorder) [facility] 2 Repository Medications Current Medications Medication Drug Class(es) Dates Sig (Normalized) Sig (Original) acetaminophen 500 mg oral tablet (20 sources) Start: 02-24-2020 End: 05-29-2024 take 2 tablets by mouth at bedtime Start: 02-24-2020 take 1000 mg by mout h every eight hours Acetaminophen Active 1000 MG PO EVERY 8 HOURS 90 February 24, 2020 12:00am [id number] 200 actuat albuterol 0.09 mg/actuat metered dose inhaler (5 sources) beta2-Adrenergic Agonist Start: 10-10-2024 aspirin 81 mg chewable tablet (20 sources) Platelet Aggregation Inhibitor, Nonsteroidal Anti-inflammatory Drug Start: 04-22-2020 take 1 tablet by mouth once daily Start: 02-24-2020 End: 04-15-2020 take 1 tablet by mouth once daily Aspirin 81 MG tablet,chewable Discontinued 81 mg PO DAILY@0800 30 0 February 24, 2020 12:00am April 15, 2020 12:01pm CBD Gummy (9 sources) Start: 03-11-2024 Start: 03-11-2024 CBD Gummy Acti ve PO EVERY MORNING March 11, 2024 12:00am cholecalciferol 0.05 mg oral tablet (18 sources) Vitamin D Start: 05-29-2024 take 1 tablet by [facility] once daily Start: 03-12-2019 take 1 capsule by [facility] once daily cholecalciferol (vitamin D3) 4,000 unit capsule Active 4000 UNIT PO DAILY March 11, 2019 11:00pm cholecalciferol (vitamin D3) 4,000 unit capsule (6 sources) Start: 03-12-2019 take 1 capsule by mouth once daily cholecalciferol (vitamin D3) 4,000 unit capsule Active 4000 UNIT PO DAILY March 11, 2019 11:00pm Start: 03-12-2019 take 1 capsule by [facility] once daily cholecalciferol (vitamin D3) 4,000 unit capsule Active 4000 UNIT PO DAILY March 12, 2019 12:00am 24 hr dilTIAZem hydrochloride 120 mg extended release oral capsule (12 sources) Calcium Channel Ronda Start: 07-29-2024 End: 11-10-2024 take 1 capsule by mouth once daily in the morning gabapentin 600 mg oral tablet (20 sources) Anti-epileptic Agent Start: 03-28-2022 take 1 tablet by mouth twice daily Start: 10-04-2021 End: 03-28-2022 take 1 tablet by mouth three times daily Gabapentin 600 mg tablet Discontinued 600 mg PO THREE TIMES A DAY October 04, 2021 1:06pm March 28, 2022 3:56pm nerve pain Start: 04-15-2020 End: 10-04-2021 take 1 tablet by mouth twice daily Gabapentin 600 mg tablet Discontinued 600 mg PO TWICE A DAY April 15, 2020 1:00am October 04, 2021 1:07pm nerve pain Start: 03-12-2019 End: 04-15-2020 take 2 capsules by mouth twice daily Gabapentin 300 mg capsule Discontinued 600 mg PO TWICE A DAY March 12, 2019 8:30am April 15, 2020 12:01pm neuropathy Start: 03-12-2019 End: 04-15-2020 take 600 mg by mouth twice daily Gabapentin Discontinu ed 600 MG PO TWICE A DAY March 12, 2019 8:30am April 15, 2020 12:01pm Start: 10-13-2015 End: 03-12-2019 take 2 capsules by mouth three times daily Gabapentin 300 MG capsule Discontinued 600 mg PO THREE TIMES A DAY October 13, 2015 12:00am March 12, 2019 8:31am neuropathy Start: 10-13-2015 End: 03-12-2019 take 600 mg by mouth three times daily Gabapentin Discontinued 600 MG PO THREE TIMES A DAY October 13, 2015 12:00am March 12, 2019 8:31am ibuprofen 200 mg oral tablet (20 sources) Nonsteroidal Anti-inflammatory Drug Start: 10-31-2022 take 2 tablets by mouth once daily in the morning Start: 10-31-2022 End: 03-11-2024 take 1 tablet by mouth at bedtime Ibuprofen 200 mg tablet Discontinued 200 mg PO AT BEDTIME October 31, 2022 12:00am March 11, 2024 3:24pm Start: 10-31-2022 take 400 mg by mouth once daily in the morning Ibuprofen Active 400 MG PO EVERY MORNING October 31, 2022 12:00am lisinopril 5 mg oral tablet (20 sources) Angiotensin Converting Enzyme Inhibitor Start: 12-02-2024 take 1 tablet by mouth once daily Start: 09-10-2024 End: 12-02-2024 take 1 tablet by mouth twice daily Lisinopril 5 mg tablet Discontinued 5 mg PO TWICE A DAY September 10, 2024 9:49am December 02, 2024 10:25am Start: 05-29-2024 End: 09-10-2024 take 1 tablet by mouth once daily Lisinopril 5 mg tablet Discontinued 5 mg PO daily May 29, 2024 12:37pm September 10, 2024 9:50am Start: 10-04-2021 End: 05-29-2024 take 1 tablet by mouth twice daily Lisinopril 5 mg tablet Discontinued 5 mg PO TWICE A DAY October 04, 2021 12:00am May 29, 2024 12:37pm Start: 05-26-2021 End: 10-04-2021 take 2 tablets by mouth twice daily Lisinopril 2.5 mg tablet Discontinued 5 mg PO TWICE A DAY May 26, 2021 4:12pm October 04, 2021 1:06pm blood pressure Start: 05-26-2021 End: 10-04-2021 take 5 mg by mouth twice daily Lisinopril Discontinued 5 MG PO TWICE A DAY May 26, 2021 4:12pm October 04, 2021 1:06pm Start: 04-15-2020 End: 05-26-2021 take 1 tablet by mouth twice daily Lisinopril 2.5 mg tablet Discontinued 2.5 mg PO TWICE A DAY April 15, 2020 1:00am May 26, 2021 4:13pm blood pressure Start: 01-30-2020 End: 04-15-2020 take 2.5 mg by mouth twice daily Lisinopril 5 mg tablet Discontinued 2.5 mg PO TWICE A DAY 30 January 30, 2020 11:29am April 15, 2020 11:52am htn Start: 01-30-2020 End: 04-15-2020 take 2.5 mg by mouth twice daily Lisinopril Discontinued 2.5 MG PO TWICE A DAY January 30, 2020 11:29am April 15, 2020 11:52am Start: 01-21-2020 End: 01-30-2020 take 2.5 mg by mouth once daily Lisinopril 5 mg tablet Discontinued 2.5 mg PO DAILY 30 January 21, 2020 5:10pm January 30, 2020 11:29am Start: 01-21-2020 End: 01-30-2020 take 2.5 mg by mouth once daily Lisinopril Discontinue d 2.5 MG PO DAILY January 21, 2020 5:10pm January 30, 2020 11:29am Start: 04-23-2019 End: 01-21-2020 take 1 tablet by mouth once daily Lisinopril 5 mg tablet Discontinued 5 mg PO DAILY 30 April 23, 2019 1:00am January 21, 2020 5:10pm magnesium oxide 400 mg oral capsule (20 sources) Start: 06-15-2020 End: 05-29-2024 take 1 capsule by mouth every other day Start: 04-30-2019 End: 06-15-2020 take 1 capsule by mouth once daily Magnesium Oxide 400 mg magnesium capsule Discontinued 400 mg PO DAILY April 30, 2019 1:00am June 15, 2020 3:47pm supplement Nzkoijvr-Zed-Hd-Lycopen-Lute in (20 sources) Start: 10-31-2022 take 1 tablet by mouth once daily Safmnzwk-Exu-Xs-Lycopen-Lutein Active 1 TABLET PO DAILY October 31, 2022 12:10pm Start: 10-31-2022 take 1 tablet by eh th once daily Irkallhg-Kle-Tr-Lycopen-Lutein Active 1 TABLET PO DAILY October 31, 2022 1:10pm Start: 07-31-2016 Oehsttgv-Age-F p-Lrqsvcm-Ljyeam Active 1 EACH PO DAILY July 31, 2016 3:21pm Start: 07-31-2016 End: 10-31-2022 Decwqijl-Wfq-Kh-Lycopen-Lute in Discontinued 1 EACH PO DAILY July 30, 2016 11:00pm October 31, 2022 12:12pm Start: 07-31-2016 End: 10-31-2022 Mkhzquku-Gwf-Az-Lycopen-Lute in Discontinued 1 EACH PO DAILY July 31, 2016 12:00am October 31, 2022 1:12pm Start: 07-31-2016 Mdbbowgw-Pbv-D r-Liafayu-Ahuqcn Active 1 EACH PO DAILY July 30, 2016 11:00pm Start: 07-31-2016 Ndwhdshi-Xct-A m-Ooykkfa-Zoreqg Active 1 EACH PO DAILY July 31, 2016 12:00am Rulyqgch-Csl-Gd-Lycopen-Lute in 0.4 mg-300 mcg- 250 mcg tablet (9 sources) Start: 10-31-2022 Start: 10-31-2022 Feigfcqz-Uqt-E m-Odrxkwa-Fgzaaa 0.4 mg-300 mcg- 250 mcg tablet Active 1 {tbl} PO DAILY October 31, 2022 1:10pm supplement Start: 10-31-2022 Kzbpyfzv-Znl-A a-Vkfcfbj-Dimxzf 0.4 mg-300 mcg- 250 mcg tablet Active 1 {tbl} PO DAILY October 31, 2022 1:10pm rosuvastatin calcium 20 mg oral tablet (20 sources) HMG-CoA Reductase Inhibitor Start: 02-08-2024 take 1 tablet by mouth once daily Start: 07-03-2023 End: 02-08-2024 take 10 mg by mouth once daily Rosuvastatin 20 mg tabl et Discontinued 10 mg PO DAILY July 03, 2023 3:23pm February 08, 2024 1:30pm Start: 07-03-2023 take 10 mg by mouth once daily Rosuvastatin Active 10 MG PO DAILY July 03, 2023 3:23pm Start: 10-31-2022 End: 07-03-2023 take 1 tablet by mouth once daily Rosuvastatin 20 mg tablet Discontinued 20 mg PO DAILY October 31, 2022 12:00am July 03, 2023 3:23pm Start: 03-28-2022 End: 10-31-2022 Rosuvastatin 40 mg tablet Discontinued 20 mg PO DAILY March 28, 2022 3:54pm October 31, 2022 1:10pm Start: 03-28-2022 End: 10-31-2022 take 20 mg by mouth once daily Rosuvastatin Discontinu ed 20 MG PO DAILY March 28, 2022 3:54pm October 31, 2022 1:10pm Start: 05-26-2021 End: 03-28-2022 take 1 tablet by mouth once daily Rosuvastatin 40 mg tablet Discontinued 40 mg PO DAILY May 26, 2021 1:00am March 28, 2022 3:56pm tamsulosin hydrochloride 0.4 mg oral capsule (20 sources) alpha-Adrenergic Ronda Start: 02-08-2024 End: 03-11-2024 take 2 tablets by mouth once daily at bedtime Start: 07-03-2018 End: 02-08-2024 take 1 capsule by mouth at bedtime Tamsulosin 0.4 MG capsule Discontinued 0.4 mg PO AT BEDTIME July 03, 2018 1:00am February 08, 2024 1:30pm prostate Completed/Discontinued Medications Medication Drug Class(es) Dates Sig (Normalized) Sig (Original) acetaminophen 325 mg / HYDROcodone bitartrate 5 mg oral tablet (20 sources) Opioid Agonist Start: 07-03-2018 End: 07-05-2018 Hydrocodone-Acetamino phen 1 TABLET tablet Discontinued 1 {tbl} PO EVERY 6 HOURS NEEDED as needed for Pain 6 2 0 July 03, 2018 1:00am July 04, 2018 1:00am July 05, 2018 1:10am Postoperative pain Other acute postprocedural pain Start: 07-03-2018 End: 07-05-2018 take 1 tablet by mouth every six hours as needed Hydrocodone-Acetaminophen Discontinued 1 TABLET PO EVERY 6 HOURS NEEDED 6 2 July 03, 2018 1:00am July 05, 2018 1:10am amoxicillin 500 mg oral capsule (9 sources) Penicillin-class Antibacterial Start: 05-29-2024 End: 09-10-2024 take 4 capsules by mouth every hour as needed Amoxicillin 500 mg capsule Discontinued 2000 mg PO ONCE as needed May 29, 2024 1:00am September 10, 2024 9:50am Take 2000 mg 1 hour prior to dental visits amoxicillin 875 mg / clavulanate 125 mg oral tablet (9 sources) Penicillin-class Antibacterial Start: 05-29-2024 End: 07-29-2024 Amoxicillin-Pot Clavulanate 875-125 mg tablet Discontinued 1 {tbl} PO TWICE A DAY May 29, 2024 1:00am July 29, 2024 9:50am atenolol 50 mg oral tablet (20 sources) beta-Adrenergic Ronda Start: 10-13-2015 End: 04-23-2019 take 1 tablet by mouth once daily Atenolol 50 MG tablet Discontinued 50 mg PO DAILY October 13, 2015 12:00am April 23, 2019 2:28pm htn atorvastatin 80 mg oral tablet (20 sources) HMG-CoA Reductase Inhibitor Start: 04-22-2020 End: 05-26-2021 take 1 tablet by mouth at bedtime Atorvastatin 80 MG tablet Discontinued 80 mg PO AT BEDTIME 30 0 April 22, 2020 1:00am May 26, 2021 4:12pm Cholecalciferol (Vitamin D3) 4,000 unit capsule (9 sources) Start: 03-12-2019 End: 05-29-2024 take 1 capsule by mouth once daily Cholecalciferol (Vitamin D3) 4,000 unit capsule Discontinued 4000 U PO DAILY March 12, 2019 12:00am May 29, 2024 12:07pm supplement Start: 03-12-2019 End: 05-29-2024 take 1 capsule by mouth once daily Cholecalciferol (Vitamin D3) 4,000 unit capsule Discontinued 4000 U PO DAILY March 12, 2019 12:00am May 29, 2024 12:07pm clopidogrel 75 mg oral tablet (20 sources) [id number] Platelet Inhibitor Start: 05-31-2020 End: 06-07-2020 take 1 tablet by mouth once daily Clopidogrel (Plavix) 75 mg tablet Discontinued 75 mg PO DAILY 12 06May 31, 2020 2:55pm June 07, 2020 7:51pm cyclobenzaprine hydrochloride 5 mg oral tablet (16 sources) Muscle Relaxant Start: 03-28-2022 End: 07-03-2023 take 1 mg by mouth once daily as needed Cyclobenzaprine 5 mg tablet Discontinued mg PO DAILY as needed March 28, 2022 1:00am July 03, 2023 3:22pm Start: 03-28-2022 End: 07-03-2023 take 1 mg by mouth once daily Cyclobenzaprine Disconti nued MG PO DAILY March 28, 2022 1:00am July 03, 2023 3:22pm docusate sodium 50 mg / sennosides, longterm 8.6 mg oral tablet (20 sources) Start: 02-24-2020 End: 04-15-2020 Sennosides-Docusate Sodium 1 TABLET tablet Discontinued 2 {tbl} PO TWICE A DAY 0 February 24, 2020 12:00am April 15, 2020 12:03pm Start: 02-24-2020 End: 04-15-2020 take 2 tablets by mouth twice daily Sennosides-Docusate Sodium Discontinued 2 TABLET PO TWICE A DAY February 24, 2020 12:00am April 15, 2020 12:03pm fexofenadine hydrochloride 180 mg oral tablet (20 sources) Histamine-1 Receptor Antagonist Start: 02-06-2020 End: 09-28-2020 take 1 tablet by mouth once daily Fexofenadine 180 MG tablet Discontinued 180 mg PO DAILY February 06, 2020 12:00am September 28, 2020 1:37pm allergies loratadine 10 mg oral tablet (20 sources) Start: 09-28-2020 End: 07-03-2023 take 1 tablet by mouth once daily as needed Loratadine (Claritin) 10 mg tablet Discontinued 10 mg PO DAILY as needed March 28, 2022 3:55pm July 03, 2023 3:22pm meloxicam 15 mg oral tablet (20 sources) Nonsteroidal Anti-inflammatory Drug Start: 04-21-2020 End: 09-28-2020 take 1 tablet by mouth once at bedtime Meloxicam 15 MG tablet Discontinued 15 mg PO AT BEDTIME April 21, 2020 1:00am September 28, 2020 1:36pm pain On Hold: has h/o heart disease 24 hr metoprolol succinate 25 mg extended release oral tablet (18 sources) beta-Adrenergic Ronda Start: 02-20-2024 End: 07-29-2024 take 1 tablet by mouth every twenty-four hours at bedtime Metoprolol Succinate 25 mg tablet extended release 24 hr Discontinued 25 mg PO AT BEDTIME June 16, 2024 12:26pm July 29, 2024 10:05am Qcnveilo-Ios-Kp-Lyco pen-Lutein 1 EACH tablet (9 sources) Start: 07-31-2016 End: 10-31-2022 Qrtsyaak-Llm-Pw-Ly copen-Lutein 1 EACH tablet Discontinued 1 NMA PO DAILY July 31, 2016 12:00am October 31, 2022 1:12pm supplement Start: 07-31-2016 End: 10-31-2022 Jbrtzsvl-Cif-Rq-Lycopen-Lute in 1 EACH tablet Discontinued 1 NMA PO DAILY July 31, 2016 12:00am October 31, 2022 1:12pm nystatin 100 unt/mg topical powder (20 sources) Polyene Antifungal Start: 03-12-2019 End: 04-23-2019 Nystatin 100,000 unit/gram powder Discontinued TOPICAL 15 0 March 12, 2019 12:00am April 23, 2019 2:32pm Start: 03-12-2019 End: 04-23-2019 Nystatin Discontinued TOPICA L 15 March 12, 2019 12:00am April 23, 2019 2:32pm oxyCODONE hydrochloride 5 mg oral tablet (20 sources) Opioid Agonist Start: 02-24-2020 End: 03-02-2020 take 5-10 mg by mouth every four hours as needed for pain Oxycodone 5 MG tablet Discontinued 5 - 10 mg PO EVERY 4 HOURS NEEDED as needed for Pain Score 4-10 [phone] 0 February 24, 2020 March 01, 2020 12:00am March 02, 2020 12:03am Acute postoperative pain of left knee Other acute postprocedural pain pantoprazole 40 mg delayed release oral tablet (20 sources) Proton Pump Inhibitor Start: 10-13-2015 End: 10-04-2021 take 1 tablet by mouth once daily Pantoprazole 40 MG tablet Discontinued 40 mg PO DAILY October 13, 2015 12:00am October 04, 2021 1:06pm reflux simvastatin 40 mg oral tablet (20 sources) HMG-CoA Reductase Inhibitor Start: 10-13-2015 End: 04-22-2020 take 1 tablet by mouth at bedtime Simvastatin 40 MG tablet Discontinued 40 mg PO AT BEDTIME October 13, 2015 12:00am April 22, 2020 2:43pm cholesterol [id number] sodium (Draximage) injection 24 millicurie (1 source) Start: 07-31-2024 End: 07-31-2024 24 millicurie, intravenous, Once in imaging, Starting on Shirin 07/31/24 at 1145, For 1 dose, Administer 2 to 4 hours prior to imaging unless otherwise indicated. traMADol hydrochloride 50 mg oral tablet (20 sources) Opioid Agonist Start: 04-15-2020 End: 06-15-2020 take 1-10 tablets by mouth once daily as needed for pain Tramadol 50 mg tablet Discontinued 50 mg PO DAILY as needed for Pain 1-10 Or Fever April 15, 2020 1:00am June 15, 2020 3:48pm triamcinolone acetonide 0.055 mg/actuat metered dose nasal spray (20 sources) Corticosteroid Start: 03-04-2019 End: 05-26-2021 Triamcinolone Acetonide 1 SPRAY aerosol,spray Discontinued 2 NMA NS AT BEDTIME March 04, 2019 12:00am May 26, 2021 4:13pm allergies Start: 03-04-2019 End: 05-26-2021 Triamcinolone Acetonide Disc ontinued 2 SPRAY NS AT BEDTIME March 04, 2019 12:00am May 26, 2021 4:13pm Problems Active Problems Problem Classification Problem Date Documented Date Episodic/Chronic Cancer of prostate (20 sources) Malignant tumor of prostate; Translations: [Malignant neoplasm of prostate] Onset: 05-14-2016 09-28-2020 Chronic Comment on above: radiation and hormon e therapy 2017 Conduction disorders (20 sources) Mobitz type I incomplete atrioventricular block; Translations: [Atrioventricular block, second degree] Onset: 01-27-2024 Chronic Coronary atherosclerosis and other heart disease (20 sources) Calcification of coronary artery; Translations: [Atherosclerotic heart disease of [place] coronary artery without angina pectoris] 10-03-2021 Chronic Disorders of lipid metabolism (20 sources) Hyperlipidemia; Translations: [Hyperlipidemia, unspecified] Onset: 05-29-2024 Chronic Essential hypertension (20 sources) Essential hypertension; Translations: [Essential (primary) hypertension] Onset: 10-01-2024 Chronic Heart valve disorders (20 sources) Mitral valve annular calcification; Translations: [Rheumatic mitral valve disease, unspecified] 10-03-2021 Chronic Hyperplasia of prostate (1 source) Benign prostatic hyperplasia with lower urinary tract symptoms; Translations: [Benign prostatic hyperplasia with lower urinary tract symptoms] Onset: 03-26-2024 Chronic Occlusion or stenosis of precerebral arteries (20 sources) Bilateral stenosis of carotid arteries; Translations: [Occlusion and stenosis of bilateral carotid arteries] Chronic Open wounds of extremities (9 sources) Open wound of finger; Translations: [Unspecified open wound of unspecified finger without damage to nail, initial encounter] 10-30-2023 Episodic Other and ill-defined heart disease (20 sources) Left ventricular hypertrophy; Translations: [Cardiomegaly] 04-14-2020 Chronic Other lower respiratory disease (18 sources) Dyspnea on exertion; Translations: [Other forms of dyspnea] 05-29-2024 Episodic Other lower respiratory disease (15 sources) Dyspnea; Translations: [Shortness of breath] 09-10-2024 Episodic Other nervous system disorders (20 sources) Numbness; Translations: [Anesthesia of skin] 06-04-2020 Episodic Other nutritional; endocrine; and metabolic disorders (19 sources) Obesity; Translations: [Obesity, unspecified] 09-10-2024 Chronic Residual codes; unclassified (20 sources) Obstructive sleep apnea syndrome; Translations: [Obstructive sleep apnea (adult) (pediatric)] 09-10-2024 Chronic Comment on above: CPAP 7 cmH2O Skin and subcutaneous tissue infections (6 sources) Infected face; Translations: [Local infection of the skin and subcutaneous tissue, unspecified] Onset: 07-25-2024 07-25-2024 Episodic Thyroid disorders (20 sources) Thyroid nodule; Translations: [Nontoxic single thyroid nodule] Onset: 07-01-2024 Chronic Transient cerebral ischemia (20 sources) Transient cerebral ischemia; Translations: [Transient cerebral ischemic attack, unspecified] Onset: 04-21-2020 04-24-2020 Chronic Past or Other Problems Problem Classification Problem Date Documented Da te Episodic/Chronic Cardiac dysrhythmias (20 sources) Palpitations - rapid; Translations: [Palpitations] Onset: 03-12-2024 03-17-2022 Episodic Other lower respiratory disease (1 source) Other forms of dyspnea; Translations: [Other forms of dyspnea] Onset: 10-30-2024 Episodic Other lower respiratory disease (1 source) Shortness of breath; Translations: [Shortness of breath] Onset: 07-30-2024 Episodic Other lower respiratory disease (1 source) Solitary pulmonary nodule; Translations: [Solitary pulmonary nodule] Onset: 07-10-2024 Episodic Other screening for suspected conditions (not mental disorders or infectious disease) (1 source) Other specified abnormal findings of blood chemistry; Translations: [Other specified abnormal findings of blood chemistry] Onset: 03-07-2024 Episodic Syncope (20 sources) Near syncope; Translations: [Syncope and collapse] Onset: 01-13-2020 10-03-2021 Episodic Results Test Name Value Interpretation Reference Range Facility Pulmonary Visit Reporton Pulmonary Visit Report [facility] Pulmonary Medicine of [address] [place] [address] OFFICE VISIT Date of Service: 01/22/25 MR#: [id number] Acct: [id number] Name: CLAYTON BURGOS Rep #: [id number] : 1945 Provider: JESSICA Clancy Age/Sex: 79/M Location: [facility] [place] Status: Signed Assessment and Plan Assessment and Plan (1) Shortness of breath: Status: Chronic Plan: Stable. This has not progressed. The patient has decided not to pursue any additional testing. He reports that it is really not bothersome and does not affect his activities of daily living. It does not impact his ability to exercise. He is willing to contact the office if symptoms progress. (2) Obstructive sleep apnea on CPAP: Status: Chronic Comment: CPAP 7 cmH2O Plan: Stable, he is using and benefiting from Pap therapy. No indication for titration study at this time. Contact the office for any new or worsening symptoms in the meantime. Follow-up in 1 year. (3) Obesity: Status: Chronic Qualifiers: Obesity type: due to excess calories Obesity classification: adult class 1 (BMI 30 - 34.9) Serious obesity comorbidity presence: with serious comorbidity Body mass index: BMI 32.0-32.9 Qualified Code(s): E66.811 - Obesity, class 1; E66.09 - Other obesity due to excess calories; Z68.32 - Body mass index [BMI] 32.0-32.9, adult Plan: Complicates exam, plan, care and prognosis. Continue to encourage healthy weight loss. Plan Details Additional Comments: This note was generated with Odojo dictation software. It may contain incorrect words, spelling, and punctuation that were not noted in checking the note before signing. Follow Up: 1 Year HPI 3 M FU Chief Complaint: Shortness of breath HPI Comments Details: This patient presents to the office today for initial consultation regarding concern for shortness of breath. He is ambulatory with a cane, and on room air. He has not recently been seen in the ED or urgent care for any respiratory illness. He has not required any antibiotics or prednisone for any breathing problems. He now reports mild shortness of breath on exertion. He denies any difficulty with cough, sputum production or hemoptysis. He denies any wheezing, chest tightness, chest pain or palpitations. He denies any fever, chills or body aches. He states that even on ambulation saturation is never less than 94% on room air. If you recall, he is a very active person and exercises 40 minutes daily. He wakes feeling rested and refreshed. He is not having difficulty with dry mouth or mask leaks. He is not requiring naps. He is not nodding off to sleep unintentionally. Compliance report for the past 30 days shows 100% compliance with an average use of 7 hours and 9 minutes per night. Current setting is CPAP 7 cmH2O with residual AHI 2.1 events per hour. Leaks do not appear to be problematic. Intake Vital Signs 10/10/24 08:30 12/02/24 10:21 01/22/25 07:48 Height 5 ft 10 in 5 ft 10 in 5 ft 10 in Weight: 226 lb BMI 32.4 BP 145/91 H Blood Pressure Location Lt brachial Position Sitting Respiration 18 Pulse 78 Pulse Source Monitor Temp 97.4 F L Temperature Source Temporal Artery Pulse Oximetry (%) 98 Oxygen Delivery Method room air Intake Visit Reasons: 3 M FU Chief Complaint: Thyroid Nodule Traffic Court Referee Required: No DME Vendor: [employer] Accompanied by: Self Allergies No Known Allergies Allergy (Verified 01/22/25 09:46) Medications ???Medication ???Instructions ???Recorded ???Confirmed ???Type aspirin 81 mg chewable tablet 81 mg PO DAILY@0800 04/22/2001/22 Rx gabapentin 600 mg tablet 600 mg PO BID nerve pain 03/28/22 01/22/25 History ibuprofen 200 mg tablet 400 mg PO QAM 10/31/22 01/22/25 Hi story fjdvxpxh-bqi-cttbh acid 0.4 1 tab PO DAILY supplement 10/31/22 01/22/25 History mg-lycopene 300 mcg-lutein 250 mcg tablet rosuvastatin 20 mg tablet 20 mg PO DAILY 02/08/24 01/22/25 H istory CBD Gummy PO QAM 03/11/24 01/22/25 History tamsulosin 0.4 mg capsule 0.8 mg PO QHS prostate 03/11/24 History acetaminophen 500 mg tablet 1,000 mg PO QHS 05/29/24 01/22/25 History cholecalciferol (vitamin D3) 50 50 mcg PO QDAY 05/29/24 01/22/25 H istory mcg (2,000 unit) tablet magnesium oxide 400 mg PO Q OTHER DAY supplement 0 05/29/24 01/22/25 History albuterol sulfate 90 mcg/actuation 2 inh inhalation Q4H PRN shortne ss 10/10/24 01/22/25 Rx aerosol inhaler (Ventolin HFA) of breath or wheezing #18 grams diltiazem HCl 120 mg 120 mg PO QAM #60 caps 11/10/24 Rx capsule,extended release 24 hr lisinopril 5 mg tablet 5 mg PO QDAY 12/02/24 01/22/25 His tory Have you fallen in the past year?: Yes PFSH Medical History (Reviewed 01/22/25 @ 09:4 (more content not included)... Normal [facility] Cardiology Visit Reporton Cardiology Visit Report [facility] [address] [place] [address] OFFICE VISIT Date of Service: 12/02/24 MR#: [id number] Acct: [id number] Name: CLAYTON BURGOS Rep #: [id number] : 1945 Provider: Dr. Gigi Schwab MD Age/Sex: 79/M Location: [facility] [place] Status: Signed HPI HPI History of Present Illness Details: Clayton Burgos is a 79 year old gentleman that presents here today for a cardiovascular visit. He has a history of hypertension, hyperlipidemia, Wenckebach periodicity.??? 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 He also has a history of mitral annular calcification.??? As part of his preoperative work-up he underwent an echocardiogram which demonstrated preserved ejection fraction as well as an exercise myocardial perfusion stress test where he exercised to 7 metabolic equivalents with no evidence of ischemia.??? There were periods of junctional rhythm noted as well as Wenckebach rhythm.???Able to get his heart rate up appropriately. He has had no neck arm or jaw discomfort to suggest angina.??? As part of his work-up he underwent a calcium score which demonstrated a total score of 1349 and subsequently underwent a left heart catheterization in May 2020 which demonstrated luminal irregularities only. He tells me that he was noted to have an irregular heartbeat and underwent a 24-hour Holter monitor and a total of 96,970 beats were noted over the 24 hours was predominantly in sinus rhythm with a first-degree AV block and some periods of Mobitz type I Wenckebach rhythm were noted. There were occasional junctional rhythm also noted. I discussed this with the oil distributor and it was felt that it was benign. No pacemaker indication was noted. He had also had carpal tunnel surgery as well as history of cervical spondylosis and so he underwent a technetium PYP scan for amyloid which was negative. Patient was out of town up in [place]. He presented to a hospital with being unresponsive for several minute that were witnessed. EMS noted the patient to be hypotensive. He was playing golf, went to a restaurant afterwards, was sitting at a barstool and suddenly lost consciousness. He was admitted for further evaluation. He was noted to have concern over high-grade AV block. 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 Patient contacted our office expressing concerns regarding shortness of breath with exertion. He has had this evaluated with a natruretic peptide level which has been normal, an echocardiogram [facility] was normal, pulmonary function test which have been normal, and pacemaker checks which have demonstrated no significant arrhythmias. He also had a chest x-ray which was normal and a CT scan in June which demonstrated only mild scarring. He denies chest, arm, jaw, or neck discomfort. He denies palpitations. He denies bilateral lower extremity edema. He denies claudication. He states shortness of breath with activity within a short distance. This has been ongoing since January 2024 when his device was placed, but more noticeable over the last 2 weeks. He denies shortness of breath at rest, orthopnea, or PND. He denies chronic cough. He denies significant, sudden weight gain. He denies lightheadedness, dizziness, near-syncope, or syncope. He denies blood in urine, blood in stool, or epistaxis. He denies fever with chills. He denies myalgia. He denies fatigue. His exercise level has remained stable. Intake Vital Signs 07/29/24 09:48 10/10/24 08:30 12/02/24 10:21 Height 5 ft 10 in 5 ft 10 in 5 ft 10 in Weight: 230 lb BMI 33.0 BP 134/84 H Blood Pressure Location Lt brachial Position Sitting Respiration 16 Pulse 90 Pulse Source Monitor Intake Visit Reasons: [address] Referee Required: No Accompanied by: Self Is patient in pain?: No Allergies No Known Allergies Allergy (Verified 12/02/24 10:24) Medications ???Medication ???Instructions ???Recorded ???Confirmed ???Type aspirin 81 mg chewable tablet 81 mg PO DAILY@0800 04/22/2012/02 Rx gabapentin 600 mg tablet 600 mg PO BID nerve pain 03/28/22 12/02/24 History ibuprofen 200 mg tablet 400 mg PO QAM 10/31/22 12/02/24 Hi story uvdouirb-qlo-cgxcb acid 0.4 1 tab PO DAILY supplement 10/31/22 12/02/24 History mg-lycopene 300 mcg-lutein 250 mcg tablet rosuvastatin 20 mg tablet 20 mg PO DAILY 02/08/24 12/02/24 H istory CBD Gummy PO QAM 03/11/24 12/02/24 History tamsulosin 0.4 mg capsule 0.8 mg PO QHS prostate 03/11/24 History acetaminophen 500 mg tablet 1,000 mg PO QHS 05/29/24 12/02/24 History cholecalciferol (vitamin D3) 50 50 mcg PO QDAY 05/29/24 12/02/24 H istory mcg (2,000 unit) tablet magnesium oxide 400 mg PO Q OTHER (more content not included)... Normal [facility] Pulmonary Visit Reporton Pulmonary Visit Report [facility] Pulmonary Medicine of [place] [address] [place] [address] OFFICE VISIT Date of Service: 10/10/24 MR#: [id number] Acct: [id number] Name: CLAYTON BURGOS Rep #: [id number] : 1945 Provider: JESSICA Clancy Age/Sex: 79/M Location: [facility] [place] Status: Signed Assessment and Plan Assessment and Plan (1) Shortness of breath: Status: Acute Plan: Still of unclear etiology. I did discuss with the patient that we could proceed with a bronchoprovocation given his normal pulmonary function studies. I also explained to them that CTA of the chest or additional imaging for pulmonary embolism is not indicated given his normal pulmonary function test, no reduction in diffusing capacity. The patient also has been performing walking oximetry at home and states that his saturation is never less than 94% on room air. Therefore, embolism is not likely. The patient opted to try an albuterol rescue inhaler. Return to the office in 3 months. He was encouraged to try the albuterol rescue inhaler for these episodes of shortness of breath to evaluate for improvement. Ultimately, if the albuterol does not seem to be helpful he can stop using it. No additional testing at this time. (2) Obstructive sleep apnea on CPAP: Status: Chronic Comment: CPAP 7 cmH2O Plan: Stable, he is using and benefiting from Pap therapy. No indication for titration study at this time. Contact the office for any new or worsening symptoms in the meantime. Follow-up in 3 months. (3) Obesity: Status: Chronic Qualifiers: Obesity type: due to excess calories Obesity classification: adult class 1 (BMI 30 - 34.9) Serious obesity comorbidity presence: with serious comorbidity Body mass index: BMI 32.0-32.9 Qualified Code(s): E66.811 - Obesity, class 1; E66.09 - Other obesity due to excess calories; Z68.32 - Body mass index [BMI] 32.0-32.9, adult Plan: Complicates exam, plan, care and prognosis. Continue to encourage healthy weight loss. Medications: New albuterol sulfate 90 mcg/actuation (Ventolin HFA) 2 inhalations inhalation Q4H PRN 18 grams 11RF shortness of breath or wheezing Plan Details Additional Comments: This note was generated with Odojo dictation software. It may contain incorrect words, spelling, and punctuation that were not noted in checking the note before signing. Follow Up: 3 Months HPI 1 m fu Chief Complaint: Test results HPI Comments Details: This patient presents to the office today for initial consultation regarding concern for shortness of breath. He is ambulatory, currently on room air and accompanied today by his . He has not recently been seen in the ED or urgent care for any respiratory illness. He has not required any antibiotics or prednisone for any breathing problems. The shortness of breath is not related to exercise. If you recall, this shortness of breath is random. It can occur when sitting completely still. There is nothing that aggravates it or alleviates it. He denies any difficulty with cough, sputum production or hemoptysis. He denies any wheezing, chest tightness, chest pain or palpitations. He states that the heart rate is just fast, he is not noting any palpitations specifically. He denies any fever, chills or body aches. He did purchase a pulse oximeter and has been checking his saturation at home. He states that even on ambulation saturation is never less than 94%. This occurs on room air. If you recall, he is a very active person and exercises daily. He wakes feeling rested and refreshed. He is not having difficulty with dry mouth or mask leaks. He is not requiring naps. He is not nodding off to sleep unintentionally. Test results personally reviewed with the patient: Pulmonary function test completed on September 24, 2024. Impression is grossly normal. Echocardiogram completed on October 03, 2024. EF of 55%. Diastolic function is indeterminate. Unable to estimate RVSP due to inadequate jet. Compliance report for the past 30 days shows 100% compliance with an average use of 8 hours and 5 minutes per night. Current setting is CPAP 7 cmH2O with residual AHI 2.0 events per hour. Leaks do not appear to be problematic. Intake Vital Signs 09/10/24 07:54 10/10/24 08:30 Height 5 ft 10 in 5 ft 10 in Weight: 227 lb BMI 32.5 BP 122/75 H Blood Pressure Location Lt brachial Position Sitting Respiration 18 Pulse 67 Pulse Source NIBP Temp 97.4 F L Temperature Source Temporal Artery Pulse Oximetry (%) 96 Oxygen Delivery Method room air Intake Visit Reasons: 1 m fu Chief Complaint: Thyroid Nodule Traffic Court Referee Required: No DME Vendor: [employer] Accompanied by: Is patient in pain?: No Allergies No Known Allergies Allergy (Verified 10/10/24 11:10) Medications (more content not included)... Normal [facility] Echo Completeon 10-03-2024 Echo Complete [facility] Services [address] [place] [address] Echo Complete 10/03/24 1101 MR#: [id number] Acct: [id number] Name: CLAYTON BURGOS Rep #: [id number] : 1945 79 From: Dahiana Viera MD Attending Dr: Jenny Clancy NP-C Status: RE G CLI Ordering Dr: Jenny Clancy NP CONTINUITY WRITER-C Date: Location: [facility] Sex: M C Admitted: Reason For Study Reason For Study: DYSPNEA/SOB Procedure This was a 2D Doppler, Color Flow transthoracic echocardiogram. Exam performed in department. Left Ventricle Normal LV size. The estimated ejection fraction is 55 %. Diastolic function is indeterminate. No regional wall motion abnormalities noted. Right Ventricle Normal RV size. Normal systolic function. Atria The left atrium is mildly enlarged. Normal right atrium. No doppler evidence for ASD. Mitral Valve There is no mitral valve stenosis. No mitral valve insufficiency. Tricuspid Valve There is no tricuspid stenosis. Unable to estimate RV systolic pressure due to inadequate jet, pulmonary artery pressure probably normal. Aortic Valve Trisinus/trileaflet aortic valve. Moderate diffuse aortic valve thickening. Mild aortic stenosis. No aortic valve insufficiency. Pulmonic Valve There is no pulmonic valvular stenosis. No pulmonic valve insufficiency. Great Vessels Normal sized aortic root. Pericardium/Pleural No pericardial effusion. MMode/2D Measurements Calculations LVIDd: 5.4 cm IVSd: 1.3 cm Ao root diam: 3.8 cm LVIDs: 4.3 cm LVPWd: 1.3 cm RVDd: 3.3 cm FS: 20.7 % LAV(MOD-bp): 102.6 ml LVAd ap4: 39.3 cm2 LVAd ap2: 30.0 cm2 LAV(MOD-bp) Indexed: 46.6 ml/m2 LVLd ap4: 8.3 cm LVLd ap2: 8.5 cm LAV(MOD-sp2): 99.0 ml EDV(MOD-sp4): 157.0 ml EDV(MOD-sp2): 90.6 ml LAV(MOD-sp4): 109.7 ml EDV(sp4-el): 158.2 ml EDV(sp2-el): 89.6 ml LVAs ap4: 23.8 cm2 LVAs ap2: 18.6 cm2 LVLs ap4: 6.7 cm LVLs ap2: 7.3 cm ESV(MOD-sp4): 73.1 ml ESV(MOD-sp2): 41.7 ml ESV(sp4-el): 71.3 ml ESV(sp2-el): 40.4 ml EF(MOD-sp4): 53.4 % EF(MOD-sp2): 53.9 % EF(sp4-el): 54.9 % SV(MOD-sp4): 83.9 ml SV(MOD-sp2): 48.9 ml SV(sp4-el): 86.9 ml SI(MOD-sp4): 38.1 ml/m2 SI(MOD-sp2): 22.2 ml/m2 LA A4 area: 29.2 cm2 LA dimension(2D): 4.7 cm RA A4 area: 19.6 cm2 TAPSE: 2.0 cm Time Measurements MV dec time: 0.19 sec Doppler Measurements Calculations MV E max mague: 55.9 cm/sec Lat Peak E' Mague: 7.5 cm/sec Med Peak E' Mague: 5.8 cm/sec MV A max mague: 77.8 cm/sec E/E' lat: 7.4 E/E' med: 9.6 MV E/A: 0.72 MV V2 max: 94.1 cm/sec MV P1/2t max mague: 64.1 cm/sec Ao V2 max: 161.6 cm/sec MV max P.5 mmHg MV P1/2t: 42.3 msec Ao max P.5 mmHg MV V2 mean: 50.9 cm/sec Ao V2 mean: 116.3 cm/sec MV mean P.2 mmHg MV dec slope: 443.2 cm/sec2 Ao mean P.2 mmHg MV V2 VTI: 16.4 cm MVA(P1/2t): 5.2 cm2 Ao V2 VTI: 33.7 cm AV (velocity ratio): 0.56 LV V1 max: 100.3 cm/sec PA V2 max: 128.2 cm/sec TR max mague: 211.9 cm/sec LV V1 max P.0 mmHg PA V2 mean: 84.3 cm/sec TR max P.0 mmHg LV V1 mean P.2 mmHg LV V1 mean: 70.3 cm/sec LV V1 VTI: 18.9 cm ECHO/Echo Complete Interpretation Summary The estimated ejection fraction is 55 %. The left atrium is mildly enlarged. Mild aortic stenosis. Ordering Physician: Jenny Clancy Referring Physician: Annabella Willard Performed By: Katty Holland, NILSON, RVT 10/03/24 1540 Date Dahiana Viera MD CC: CONTINUITY WRITER-C Jenny Clancy; Dr. Annabella Willard MD Date Dictated: 10/03/24 1101 Date Transcribed: 10/03/24 154 Machine Puller: Signed Normal [facility] Echocardiogram study reportO rdered By: Dahiana Viera on 10-03-2024 Study report [facility] [address] [place] [address] Echo Complete 10/03/24 1101 MR#: [id number] Acct: [id number] Name: CLAYTON BURGOS Rep #:[id number] : 1945 79 From: Dahiana robb MD Attending Dr: Jenny Clancy NP-C Status: REG CLI Ordering Dr: Jenny Clancy NP CONTINUITY WRITER-C Date: 10/03/24 Location: [facility] Sex: M C Admitted: Reason For Study Reason For Study: DYSPNEA/SOB Procedure This was a 2D Doppler, Color Flow transthoracic echocardiogram. Exam performed in department. Left Ventricle Normal LV size. The estimated ejection fraction is 55 %. Diastolic function is indeterminate. No regional wall motion abnormalities noted. Right Ventricle Normal RV size. Normal systolic function. Atria The left atrium is mildly enlarged. Normal right atrium. No doppler evidence forASD. Mitral Valve There is no mitral valve stenosis. No mitral valve insufficiency. Tricuspid Valve There is no tricuspid stenosis. Unable to estimate RV systolic pressure due to inadequate jet, pulmonary artery pressure probably normal. Aortic Valve Trisinus/trileaflet aortic valve. Moderate diffuse aortic valve thickening. Mildaortic stenosis. No aortic valve insufficiency. Pulmonic Valve There is no pulmonic valvular stenosis. No pulmonic valve insufficiency. Great Vessels Normal sized aortic root. Pericardium/Pleural No pericardial effusion. MMode/2D Measurements & Calculations LVIDd: 5.4 cm IVSd: 1.3 cm Ao root diam: 3.8 cm LVIDs: 4.3 cm LVPWd: 1.3 cm RVDd: 3.3 cm FS: 20.7 % LAV(MOD-bp): 102.6 ml LVAd ap4: 39.3 cm2 LVAd ap2: 30.0 cm2 LAV(MOD-bp) Indexed: 46.6 ml/m2 LVLd ap4: 8.3 cm LVLd ap2: 8.5 cm LAV(MOD-sp2): 99.0 ml EDV(MOD-sp4): 157.0 ml EDV(MOD-sp2): 90.6 ml LAV(MOD-sp4): 109.7 ml EDV(sp4-el): 158.2 ml EDV(sp2-el): 89.6 ml LVAs ap4: 23.8 cm2 LVAs ap2: 18.6 cm2 LVLs ap4: 6.7 cm LVLs ap2: 7.3 cm ESV(MOD-sp4): 73.1 ml ESV(MOD-sp2): 41.7 ml ESV(sp4-el): 71.3 ml ESV(sp2-el): 40.4 ml EF(MOD-sp4): 53.4 % EF(MOD-sp2): 53.9 % EF(sp4-el): 54.9 % SV(MOD-sp4): 83.9 ml SV(MOD-sp2): 48.9 ml SV(sp4-el): 86.9 ml SI(MOD-sp4): 38.1 ml/m2 SI(MOD-sp2): 22.2 ml/m2 LA A4 area: 29.2 cm2 LA dimension(2D): 4.7 cm RA A4 area: 19.6 cm2 TAPSE: 2.0 cm Time Measurements MV dec time: 0.19 sec Doppler Measurements & Calculations MV E max mague: 55.9 cm/sec Lat Peak E' Mague: 7.5 cm/sec Med Peak E' Mague: 5.8 cm/sec MV A max mague: 77.8 cm/sec E/E' lat: 7.4 E/E' med: 9.6 MV E/A: 0.72 MV V2 max: 94.1 cm/sec MV P1/2t max mague: 64.1 cm/sec Ao V2 max: 161.6 cm/sec MV max P.5 mmHg MV P1/2t: 42.3 msec Ao max P.5 mmHg MV V2 mean: 50.9 cm/sec Ao V2 mean: 116.3 cm/sec MV mean P.2 mmHg MV dec slope: 443.2 cm/sec2 Ao mean P.2 mmHg MV V2 VTI: 16.4 cm MVA(P1/2t): 5.2 cm2 Ao V2 VTI: 33.7 cm AV (velocity ratio): 0.56 LV V1 max: 100.3 cm/sec PA V2 max: 128.2 cm/sec TR max mague: 211.9 cm/sec LV V1 max P.0 mmHg PA V2 mean: 84.3 cm/sec TR max P.0 mmHg LV V1 mean P.2 mmHg LV V1 mean: 70.3 cm/sec LV V1 VTI: 18.9 cm ECHO/Echo Complete Interpretation Summary The estimated ejection fraction is 55 %. The left atrium is mildly enlarged. Mild aortic stenosis. Ordering Physician: Jenny Clancy Referring Physician: Annabella Willard Performed By: Katty Holland, NILSON, RVT 10/03/24 1540 Date _ Dahiana Viera MD CC: JESSICA Clancy; Dr. Annabella Willard MD ~ Date Dictated: 10/03/24 1101 Date Transcribed: 10/03/241539 Machine Puller: Signed [facility] Work Phone: Absolute lymphocyte countOrd ered By: Annabella Willard on 09-25-2024 Lymphocytes Auto (Unsp spec) [#/Vol] 1.16 10*3/uL 0.83-4.51 [facility] Absolute neutrophil countOrd ered By: Annabella Willard on 09-25-2024 Neutrophils (Bld) [#/Vol] 3.8 10*3/uL 2.0-7.7 [facility] Anion gap in Serum or Plasma Ordered By: Annabella Willard on 09-25-2024 Anion gap [Moles/Vol] 12 mmol/L 09-25 [facility] Automated lymphocyte count a s percentage of total leukocytesOrdered By: Annabella Willard on 09-25-2024 Lymphocytes/100 WBC Auto (Unsp spec) 20.0 % - [facility] BUN/creatinine ratioOrdered By: Annabella Willard on 09-25-2024 Urea nitrogen/Creatinine [Mass ratio] 25.3 mg/mg High - [facility] Basophil percentageOrdered B y: Annabella Willard on 09-25-2024 Basophils/100 WBC (Bld) 0.9 % 0-1 [facility] Bilirubin, totalOrdered By: Annabella Willard on 09-25-2024 Bilirubin [Mass/Vol] 0.47 mg/dL 0.00-1.30 [facility] CBC W/Diff, Automatedon 09-11 Absolute Lymph 1.16 X10 3/uL Normal 0.83-4.51 [facility] Comment on above: Performed By: #### L 100.0100, L506.1001, L501.5200, L500.4100, L500.4050 ####[facility] [address] [place], [address] Absolute Neut 3.8 X10 3/uL Normal 2.0-7.7 [facility] Comment on above: Performed By: #### L 100.0100, L506.1001, L501.5200, L500.4100, L500.4050 ####[facility] [address] [place], [address] Basophils/100 WBC (Bld) 0.9 % Normal 0-1 [facility] Comment on above: Performed By: #### L 100.0100, L506.1001, L501.5200, L500.4100, L500.4050 ####[facility] [address] [place], [address] Eosinophils/100 WBC (Bld) 1.4 % Normal 0-5 [facility] Comment on above: Performed By: #### L 100.0100, L506.1001, L501.5200, L500.4100, L500.4050 ####[facility] [address] [place], [address] Erythrocyte distribution width (RBC) [Ratio] 13.6 % Normal 11.6-14.6 [facility] Comment on above: Performed By: #### L 100.0100, L506.1001, L501.5200, L500.4100, L500.4050 ####[facility] [address] [place], [address] Hematocrit (Bld) [Volume fraction] 42.0 % Normal 40-54 [facility] Comment on above: Performed By: #### L 100.0100, L506.1001, L501.5200, L500.4100, L500.4050 ####[facility] [address] [place], [address] Hemoglobin (Bld) [Mass/Vol] 14.2 g/dL Normal 13.0-16.5 [facility] Comment on above: Performed By: #### L 100.0100, L506.1001, L501.5200, L500.4100, L500.4050 ####[facility] [address] [place], [address] IG% 0.700 Normal 0.0-0.9 [facility] Comment on above: Result Comment: IG% - Immature Granulocytes (promyelocytes, myelocytes and metamyelocytes) > 1% indicates that a LEFT SHIFT is Present. Performed By: #### L 100.0100, L506.1001, L501.5200, L500.4100, L500.4050 ####[facility] [address] [place], [address] Lymphocytes/100 WBC (Bld) 20.0 % Normal 19-41 [facility] Comment on above: Performed By: #### L 100.0100, L506.1001, L501.5200, L500.4100, L500.4050 ####[facility] [address] [place], [address] MCH (RBC) [Entitic mass] 31.9 pg Normal 27.0-32.0 [facility] Comment on above: Performed By: #### L 100.0100, L506.1001, L501.5200, L500.4100, L500.4050 ####[facility] [address] [place], [address] MCHC (RBC) [Mass/Vol] 33.8 g/dL Normal 32-36 [facility] Comment on above: Performed By: #### L 100.0100, L506.1001, L501.5200, L500.4100, L500.4050 ####[facility] [address] [place], [address] MCV (RBC) [Entitic vol] 94.4 fL High 80-94 [facility] Comment on above: Performed By: #### L 100.0100, L506.1001, L501.5200, L500.4100, L500.4050 ####[facility] [address] [place], [address] Monocytes/100 WBC (Bld) 11.6 % High 0-10 [facility] Comment on above: Performed By: #### L 100.0100, L506.1001, L501.5200, L500.4100, L500.4050 ####[facility] [address] [place], [address] Neutrophils/100 WBC (Bld) 65.4 % Normal 47-70 [facility] Comment on above: Performed By: #### L 100.0100, L506.1001, L501.5200, L500.4100, L500.4050 ####[facility] [address] [place], [address] Nucleated RBC (Bld) [#/Vol] 0 10*3/uL Normal 0-5 [facility] Comment on above: Performed By: #### L 100.0100, L506.1001, L501.5200, L500.4100, L500.4050 ####[facility] [address] [place], [address] Platelet mean volume (Bld) [Entitic vol] 9.4 fL Normal 6.2-12.0 [facility] Comment on above: Performed By: #### L 100.0100, L506.1001, L501.5200, L500.4100, L500.4050 ####[facility] [address] [place], [address] Platelets (Bld) [#/Vol] 212 10*3/uL Normal 150-450 [facility] Comment on above: Performed By: #### L 100.0100, L506.1001, L501.5200, L500.4100, L500.4050 ####[facility] [address] [place], [address] RBC (Bld) [#/Vol] 4.45 10*6/uL Low 4.6-6.2 [facility] Comment on above: Performed By: #### L 100.0100, L506.1001, L501.5200, L500.4100, L500.4050 ####[facility] [address] [place], [address] RDW SD 47.8 fl High 35.1-43.9 [facility] Comment on above: Performed By: #### L 100.0100, L506.1001, L501.5200, L500.4100, L500.4050 ####[facility] [address] [place], [address] WBC (Bld) [#/Vol] 5.8 10*3/uL Normal 4.4-11.0 [facility] Comment on above: Performed By: #### L 100.0100, L506.1001, L501.5200, L500.4100, L500.4050 ####[facility] [address] [place], [address] Calculated very low density lipoprotein (VLDL) cholesterol measurementOrdered By: Annabella Willard on 09-25-2024 Calculated very low density lipoprotein (VLDL) cholesterol measurement 23 mg/dL 5-40 [facility] Carbon dioxide, total [Moles /volume] in Central venous bloodOrdered By: Annabella Willard on 09-25-2024 CO2 [Moles/Vol] 21.4 mmol/L 21.0-32.0 [facility] Chloride assayOrdered By: Mayra Willard on 09-25-2024 Chloride [Moles/Vol] 105 mmol/L 98-108 [facility] Comprehensive Metabolic Prof ilon 09-25-2024 Albumin [Mass/Vol] 4.4 g/dL Normal 3.4-4.8 [facility] Comment on above: Performed By: #### L 100.0100, L506.1001, L501.5200, L500.4100, L500.4050 ####[facility] [address] [place], [address] Albumin/Globulin [Mass ratio] 1.7 {ratio} Normal 0.9-2.4 [facility] Comment on above: Performed By: #### L 100.0100, L506.1001, L501.5200, L500.4100, L500.4050 ####[facility] [address] [place], [address] ALK PHOS 72 U/L Normal 40-129 [facility] Comment on above: Performed By: #### L 100.0100, L506.1001, L501.5200, L500.4100, L500.4050 ####[facility] [address] [place], [address] ALT [Catalytic activity/Vol] 23 U/L Normal <=46 [facility] Comment on above: Performed By: #### L 100.0100, L506.1001, L501.5200, L500.4100, L500.4050 ####[facility] [address] [place], [address] AST [Catalytic activity/Vol] 32 U/L Normal <=37 [facility] Comment on above: Performed By: #### L 100.0100, L506.1001, L501.5200, L500.4100, L500.4050 ####[facility] [address] [place], [address] Bilirubin [Mass/Vol] 0.47 mg/dL Normal 0.00-1.30 [facility] Comment on above: Performed By: #### L 100.0100, L506.1001, L501.5200, L500.4100, L500.4050 ####[facility] [address] [place], [address] BUN/CRE 25.3 RATIO High 10-20 [facility] Comment on above: Performed By: #### L 100.0100, L506.1001, L501.5200, L500.4100, L500.4050 ####[facility] [address] [place], [address] Calcium [Mass/Vol] 9.3 mg/dL Normal 7.6-11.0 [facility] Comment on above: Performed By: #### L 100.0100, L506.1001, L501.5200, L500.4100, L500.4050 ####[facility] [address] [place], [address] Chloride [Moles/Vol] 105 mmol/L Normal 98-108 [facility] Comment on above: Performed By: #### L 100.0100, L506.1001, L501.5200, L500.4100, L500.4050 ####[facility] [address] [place], [address] CO2 [Moles/Vol] 21.4 mmol/L Normal 21.0-32.0 [facility] Comment on above: Performed By: #### L 100.0100, L506.1001, L501.5200, L500.4100, L500.4050 ####[facility] [address] [place], [address] Creatinine [Mass/Vol] 0.73 mg/dL Normal 0.70-1.20 [facility] Comment on above: Performed By: #### L 100.0100, L506.1001, L501.5200, L500.4100, L500.4050 ####[facility] [address] [place], [address] GAP 12 Normal 5-15 [facility] Comment on above: Performed By: #### L 100.0100, L506.1001, L501.5200, L500.4100, L500.4050 ####[facility] [address] [place], [address] GFR/1.73 sq M.predicted among non-blacks MDRD (S/P/Bld) [Vol rate/Area] 93 mL/min/{1.73_m2} Normal >60 [facility] Comment on above: Result Comment: mL/m in/1.73m2 CKD-EPI Creatinine Equation (2020) Performed By: #### L 100.0100, L506.1001, L501.5200, L500.4100, L500.4050 ####[facility] [address] [place], [address] Globulin (S) [Mass/Vol] 2.6 g/dL Normal 2.2-4.2 [facility] Comment on above: Performed By: #### L 100.0100, L506.1001, L501.5200, L500.4100, L500.4050 ####[facility] [address] [place], [address] Glucose [Mass/Vol] 94 mg/dL Normal 70-99 [facility] Comment on above: Performed By: #### L 100.0100, L506.1001, L501.5200, L500.4100, L500.4050 ####[facility] [address] [place], [address] Potassium [Moles/Vol] 4.4 mmol/L Normal 3.3-5.1 [facility] Comment on above: Performed By: #### L 100.0100, L506.1001, L501.5200, L500.4100, L500.4050 ####[facility] [address] [place], [address] Sodium [Moles/Vol] 139 mmol/L Normal 133-145 [facility] Comment on above: Performed By: #### L 100.0100, L506.1001, L501.5200, L500.4100, L500.4050 ####[facility] [address] [place], [address] T PROT 7.0 g/dL Normal 5.9-8.4 [facility] Comment on above: Performed By: #### L 100.0100, L506.1001, L501.5200, L500.4100, L500.4050 ####[facility] [address] [place], [address] Urea nitrogen [Mass/Vol] 19 mg/dL Normal 4-19 [facility] Comment on above: Performed By: #### L 100.0100, L506.1001, L501.5200, L500.4100, L500.4050 ####[facility] [address] [place], [address] Eosinophil percentageOrdered By: Annabella Willard on 09-25-2024 Eosinophils/100 WBC (Bld) 1.4 % 0-5 [facility] Erythrocyte distribution wid th ratioOrdered By: Annabella Willard on 09-25-2024 Erythrocyte distribution width (RBC) [Ratio] 13.6 % 11.6-14.6 [facility] Erythrocyte distribution wid th standard deviationOrdered By: Annabella Willard on 09-25-2024 Erythrocyte distribution width (RBC) [Ratio] 47.8 fl High 35.1-43.9 [facility] Glomerular filtration rate ( GFR) estimation/1.73 sq m using serum, plasma, or whole bOrdered By: Annabella Willard on 09-25-2024 GFR/1.73 sq M.predicted among non-blacks MDRD (S/P/Bld) [Vol rate/Area] 93 mL/min/{1.73_m2} >60 [facility] Comment on above: mL/min/1.73m2 CKD-EP I Creatinine Equation (2020) Hematocrit Auto (Bld) [Volum e fraction]Ordered By: Annabella Willard on 09-25-2024 Hematocrit (Bld) [Volume fraction] 42.0 % 40-54 [facility] Hemoglobin measurementOrdere d By: Annabella Willard on 09-25-2024 Hemoglobin (Bld) [Mass/Vol] 14.2 g/dL 13.0-16.5 [facility] Immature granulocytes/100 WB C Auto (Bld)Ordered By: Annabella Willard on 09-25-2024 Immature granulocytes/100 WBC (Bld) 0.700 % 0.0-0.9 [facility] Comment on above: IG% - Immature Granu locytes (promyelocytes, myelocytes and metamyelocytes) > 1% indicates that a LEFT SHIFT is Present. LDL calc ser/plasOrdered By: Annabella Willard on 09-25-2024 Cholesterol in LDL [Mass/Vol] 52 mg/dL [facility] Comment on above: Casrropvnl=421-989 m g/dL & Higher Jdug=565 mg/dL or greater Laboratory - Chemistry and C hemistry - challengeOrdered By: Annabella Willard on 09-25-2024 AST [Catalytic activity/Vol] 32 U/L <38 [facility] Lipid Profileon 09-25-2024 CHOL:HDL 2.01 Normal [facility] Comment on above: Performed By: #### L 100.0100, L506.1001, L501.5200, L500.4100, L500.4050 ####[facility] [address] [place], [place], [id number] Cholesterol [Mass/Vol] 150 mg/dL Normal <=200 [facility] Comment on above: Result Comment: Chol esterol level, Desirable <200 mg/dL Borderline high cholesterol 200-239 mg/dL High cholesterol >=240 mg/dL Recommendations of the NCEP Adult Treatment Panel for the following risk-cutoff thresholds for the [place] population. Performed By: #### L 100.0100, L506.1001, L501.5200, L500.4100, L500.4050 ####[facility] [address] [place], [address] Cholesterol in HDL [Mass/Vol] 75 mg/dL Normal [facility] Comment on above: Result Comment: Ashlee onal Cholesterol Education Program (NCEP) guidelines: <40 mg/dL: Low HDL-cholesterol (major risk factor for CHD) >= 60 mg/dL: High HDL-cholesterol (negative risk factor for CHD) HDL-cholesterol is affected by a number of factors, e.g. smoking, exercise, hormones, sex and age. Performed By: #### L 100.0100, L506.1001, L501.5200, L500.4100, L500.4050 ####[facility] [address] [place], [address] Cholesterol in LDL [Mass/Vol] 52 mg/dL Normal [facility] Comment on above: Result Comment: Bord vbvvez=172-473 mg/dL Higher Pskf=400 mg/dL or greater Performed By: #### L 100.0100, L506.1001, L501.5200, L500.4100, L500.4050 ####[facility] [address] [place], [address] Cholesterol in VLDL [Mass/Vol] 23 mg/dL Normal 5-40 [facility] Comment on above: Performed By: #### L 100.0100, L506.1001, L501.5200, L500.4100, L500.4050 ####[facility] [address] [place], [address] Triglyceride [Mass/Vol] 117 mg/dL Normal [facility] Comment on above: Result Comment: The drugs N-Acetylcysteine and Metamizole may falsely depress this assay. Normal range: <150 mg/dL Borderline High: 150-199 mg/dL High: 200-499 mg/dL Very High: >500 mg/dL Performed By: #### L 100.0100, L506.1001, L501.5200, L500.4100, L500.4050 ####[facility] [address] [place], [place], [address] MCV (mean corpuscular volume ) determinationOrdered By: Annabella Willard on 09-25-2024 MCV (RBC) [Entitic vol] 94.4 fL High 80-94 [facility] Magnesiumon 09-25-2024 Magnesium [Mass/Vol] 2.1 mg/dL Normal 1.5-2.2 [facility] Comment on above: Performed By: #### L 100.0100, L506.1001, L501.5200, L500.4100, L500.4050 ####[facility] [address] [facility] [place], [place], [id number] Magnesium measurement (mass/ volume)Ordered By: Annabella Willard on 09-25-2024 Magnesium (Unsp spec) [Mass/Vol] 2.1 mg/dL 1.5-2.2 [facility] Mean corpuscular hemoglobin (MCH) determinationOrdered By: Annabella Willard on 09-25-2024 MCH (RBC) [Entitic mass] 31.9 pg 27.0-32.0 [facility] Mean corpuscular hemoglobin concentration (MCHC) determinationOrdered By: Annabella Willard on 09-25-2024 MCHC (RBC) [Mass/Vol] 33.8 g/dL 32-36 [facility] Mean platelet volume determi nationOrdered By: Annabella Willard on 09-25-2024 Platelet mean volume (Bld) [Entitic vol] 9.4 fL 6.2-12.0 [facility] Monocyte percentageOrdered B y: Annabella Willard on 09-25-2024 Monocytes/100 WBC (Bld) 11.6 % High 0-10 [facility] Neutrophil percentageOrdered By: Annabella Willard on 09-25-2024 Neutrophils/100 WBC (Bld) 65.4 % 47-70 [facility] Nucleated red blood cell per centageOrdered By: Annabella Willard on 09-25-2024 Nucleated RBC/100 WBC (Bld) [Ratio] 0 % 0-5 [facility] Platelet countOrdered By: Mayra Willard on 09-25-2024 Platelets (Bld) [#/Vol] 212 10*3/uL 150-450 [facility] Potassium measurement (mass/ volume)Ordered By: Annabella Willard on 09-25-2024 Potassium (Unsp spec) [Mass/Vol] 4.4 mmol/L 3.3-5.1 [facility] RBC Auto (Bld) [#/Vol]Ordere d By: Annabella Willard on 09-25-2024 RBC (Bld) [#/Vol] 4.45 10*6/uL Low 4.6-6.2 [facility] Screening total cholesterol/ high density lipoprotein (HDL) cholesterol ratioOrdered By: Annabella Willard on 09-25-2024 Cholesterol.total/Nirmala sterol in HDL [Mass ratio] 2.01 {ratio} [facility] Serum creatinine measurement (mass/volume)Ordered By: Annabella Willard on 09-25-2024 Creatinine [Mass/Vol] 0.73 mg/dL 0.70-1.20 [facility] Serum globulin measurementOr dered By: Annabella Willard on 09-25-2024 Globulin (S) [Mass/Vol] 2.6 g/dL 2.2-4.2 [facility] Serum glucose measurement (m ass/volume)Ordered By: Annabella Willard on 09-25-2024 Glucose [Mass/Vol] 94 mg/dL 70-99 [facility] Serum or plasma alanine sun otransferase (ALT) measurementOrdered By: Annabella Willard on 09-25-2024 ALT [Catalytic activity/Vol] 23 U/L <47 [facility] Serum or plasma albumin amberly urement (mass/volume)Ordered By: Annabella Willard on 09-25-2024 Albumin [Mass/Vol] 4.4 g/dL 3.4-4.8 [facility] Serum or plasma albumin/glob ulin mass ratioOrdered By: Annabella Willard on 09-25-2024 Albumin/Globulin [Mass ratio] 1.7 {ratio} 0.9-2.4 [facility] Serum or plasma alkaline awilda sphatase measurementOrdered By: Annabella Willard on 09-25-2024 ALP [Catalytic activity/Vol] 72 U/L 40-129 [facility] Serum or plasma calcium amberly urement (mass/volume)Ordered By: Annabella Willard on 09-25-2024 Calcium [Mass/Vol] 9.3 mg/dL 7.6-11.0 [facility] Serum or plasma cholesterol in HDL measurement (mass/volume)Ordered By: Annabella Willard on 09-25-2024 Cholesterol in HDL [Mass/Vol] 75 mg/dL >40 [facility] Comment on above: National Cholesterol Education Program (NCEP) guidelines:<40 mg/dL: Low HDL-cholesterol (major risk factor for CHD)>= 60 mg/dL: High HDL-cholesterol (negative risk factor for CHD)HDL-cholesterol is affected by a number of factors, e.g. smoking, exercise, hormones, sex and age. Serum or plasma cholesterol measurement (mass/volume)Ordered By: Annabella Willard on 09-25-2024 Cholesterol [Mass/Vol] 150 mg/dL <201 [facility] Comment on above: Cholesterol level, D esirable <200 mg/dLBorderline high cholesterol 200-239 mg/dLHigh cholesterol >=240 mg/dLRecommendations of the NCEP Adult Treatment Panel for the following risk-cutoff thresholds for the [place] population. Serum or plasma urea nitroge n measurement (mass/volume)Ordered By: Annabella Willard on 09-25-2024 Urea nitrogen [Mass/Vol] 19 mg/dL 4-19 [facility] Sodium levelOrdered By: Annabella Willard on 09-25-2024 Sodium [Moles/Vol] 139 mmol/L 133-145 [facility] Total proteinOrdered By: Vadim Willard on 09-25-2024 Protein [Mass/Vol] 7.0 g/dL 5.9-8.4 [facility] Triglycerides measurementOrd ered By: Annabella Willard on 09-25-2024 Triglyceride [Mass/Vol] 117 mg/dL <199 [facility] Comment on above: The drugs N-Acetylcy steine and Metamizole may falsely depress this assay. Normal range: <150 mg/dLBorderline High: 150-199 mg/dLHigh: 200-499 mg/dLVery High: >500 mg/dL Vitamin D,25 Hydroxyon 09-25 Vitamin D 25-OH 42.5 ng/mL Normal 30-100 [facility] Comment on above: Result Comment: Negar min D Status Deficiency: <20 ng/mL (50nmol/L) Insufficiency: 20-30 ng/mL (50-75 nmol/L) Sufficiency: 30-100 ng/mL (75-250 nmol/L) Toxicity: >100 ng/mL (>250 nmol/L) Performed By: #### L 100.0100, L506.1001, L501.5200, L500.4100, L500.4050 ####[facility] [address] [place], [address] White blood cell (WBC) count Ordered By: Annabella Willard on 09-25-2024 WBC (Bld) [#/Vol] 5.8 10*3/uL 4.4-11.0 [facility] Pulmonary Visit Reporton Pulmonary Visit Report [facility] [place] [address] [place] [address] OFFICE VISIT Date of Service: 09/10/24 MR#: [id number] Acct: [id number] Name: CLAYTON BURGOS Rep #: [id number] : 1945 Provider: JESSICA Clancy Age/Sex: 79/M Location: [facility] Status: Signed Assessment and Plan Assessment and Plan (1) Shortness of breath: Plan: Of unclear etiology. The patient is very adamant that he is shortness of breath occurred acutely coinciding with the implantation of the pacemaker. That occurred over 6 months ago. The patient is not currently on anticoagulation, I think we should consider that this could be a pulmonary embolism which would be chronic at this point. D-dimer is not likely reliable given the patient's advanced age. I will consider obtaining a CTA of the chest, however I am going to look at some cardiac workup first. The patient's most recent echocardiogram occurred before the implantation of the pacemaker. Therefore, it may not be an accurate representation of cardiac function status post implanted defibrillator. Therefore, repeating echocardiogram. The patient recently had spirometry with before and after bronchodilator measurements, but he did not have lung volumes or diffusing capacity. I am going to order a complete PFT, which may or may not include the spirometry since his spirometry was recently noted to be normal. Return to the office in 1 month to discuss the echo and PFT results. If these results indicate any cardiovascular or cardiopulmonary disorder, we will proceed with additional testing, such as CTA of the chest. Would also consider VQ scan. The patient is going to pick pack worker a pulse oximeter today and monitor his saturations. He states he had a walking oximetry in his PCPs office, I do not have those results but he was not placed on supplemental oxygen. Therefore I must assume that he did not desaturate. However I did explain that if he normally has a saturation of 97 to 99% on room air and desaturations to 90% on ambulation, this could indicate a pulmonary vascular disorder. He is to notify the office if he notices any saturation of 80% or less. He is aware that he will then be ordered a formal 6-minute walk test to be performed in the pulmonary department of the hospital. He also reports recently having an overnight oximetry with the use of his CPAP. I do not have these results either. However, since his supplemental oxygen was not ordered, nor a titration study, I must assume that this also did not show hypoxemia. I did discuss with the patient that ultimately if these test results come back normal it is quite possible that this is an expected outcome following correction of a significant chronic cardiac arrhythmia, as it was previously documented that the patient had been longstanding in [place] [address]. This case was discussed with Dr. Daniel Rivero. (2) Rapid palpitations: Status: Chronic Plan: Complicates exam, plan, care and prognosis. It seems as though every time the patient is experiencing this shortness of breath, it coincides with the rapid heart rate. It is possible that he is experiencing the shortness of breath secondary to cardiac etiology. Workup is pending. (3) Obesity: Status: Chronic Qualifiers: Obesity type: due to excess calories Obesity classification: adult class 1 (BMI 30 - 34.9) Serious obesity comorbidity presence: with serious comorbidity Body mass index: BMI 32.0-32.9 Qualified Code(s): E66.811 - Obesity, class 1; E66.09 - Other obesity due to excess calories; Z68.32 - Body mass index [BMI] 32.0-32.9, adult Plan: Complicates exam, plan, care and prognosis. Continue to encourage weight loss. (4) Obstructive sleep apnea on CPAP: Status: Chronic Comment: CPAP 7 cmH2O Plan: He is using and benefiting from Pap therapy. No indication for titration study at this time. His sleep apnea control is optimized. Contact the office for any new or worsening symptoms in the meantime. Orders: Orders Echo Complete W/ Contrast Today R06.09 - Other forms of dyspnea PFT Complete - DLCO, Spirometry b/a bronchodilators, lung volumes 09/24/24 R06.09 - Other forms of dyspnea Plan Details Additional Comments: This note was generated with [employer]dojo dictation software. It may contain incorrect words, spelling, and punctuation that were not noted in checking the note before signing. Follow Up: 3 Weeks (CSM) HPI Shortness of breath Chief Complaint: Shortness of breath HPI Comments Details: This patient presents to the office today for initial consultation regarding concern for shortness of breath. He is ambulatory, currently on room air and accompanied today by his . The patient reports that in January 2024 he was on vacation and experienced a syncopal episode. He was then taken to a local hospital where it was identi (more content not included)... Normal [facility] NM BONE 3 PHASEon 07-31-2024 NM BONE 3 PHASE Interpreted By: Jani Flores, STUDY: NM BONE 3 PHASE; 07/31/2024 3:24 pm INDICATION: Signs/Symptoms:Chronic maxillofacial infection. COMPARISON: None. ACCESSION NUMBER(S): [id number] ORDERING CLINICIAN: ENE BARBER TECHNIQUE: DIVISION OF NUCLEAR MEDICINE BONE SCAN, TRIPHASIC with WHOLE BODY The patient received an intravenous dose of 24 millicuries of Tc-99m MDP. Perfusion, early blood pool, and multiple delayed images of the head were then acquired. Anterior and posterior images of the skeleton from skull vertex to feet were also obtained. FINDINGS: Blood flow phase demonstrates normal perfusion in the head. Blood pool phase demonstrates intense radiotracer activity in the midface Delayed phase demonstrates grossly normal profusion in the head. Whole-body bone scan demonstrates multiple foci of increased radiotracer uptake commonly seen in degenerative joint disease including shoulder, sternoclavicular joints, SI joints, right knee and feet. 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 Physiologic radiotracer activity excretion from kidneys into bladder. IMPRESSION: 1. The blood pool phase demonstrates intense radiotracer activity in the midface on the three-phase bone scan, likely correlating with the patient's running nose. 2. Otherwise, no scintigraphic evidence of maxillofacial infection I personally reviewed the images/study.. This study was interpreted at [facility], [place], [place]. MACRO: None Signed by: Jani Flores 08/01/2024 7:49 AM Dictation workstation: [id number] [facility] Cardiology Visit Reporton Cardiology Visit Report [facility] [address] [place] [address] OFFICE VISIT Date of Service: 07/29/24 MR#: [id number] Acct: [id number] Name: CLAYTON BURGOS Rep #: [id number] : 1945 Provider: Dr. Gigi Schwab MD Age/Sex: 79/M Location: [facility] [place] Status: Signed HPI HPI History of Present Illness Details: Clayton Burgos is a 79 year old gentleman that presents here today for a cardiovascular visit with recent pacemaker placement. He has a history of hypertension, hyperlipidemia, Wenckebach periodicity.??? 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 He also has a history of mitral annular calcification.??? As part of his preoperative work-up he underwent an echocardiogram which demonstrated preserved ejection fraction as well as an exercise myocardial perfusion stress test where he exercised to 7 metabolic equivalents with no evidence of ischemia.??? There were periods of junctional rhythm noted as well as Wenckebach rhythm.???Able to get his heart rate up appropriately. He has had no neck arm or jaw discomfort to suggest angina.??? As part of his work-up he underwent a calcium score which demonstrated a total score of 1349 and subsequently underwent a left heart catheterization in May 2020 which demonstrated luminal irregularities only. He tells me that he was noted to have an irregular heartbeat and underwent a 24-hour Holter monitor and a total of 96,970 beats were noted over the 24 hours was predominantly in sinus rhythm with a first-degree AV block and some periods of Mobitz type I Wenckebach rhythm were noted. There were occasional junctional rhythm also noted. I discussed this with the oil distributor and it was felt that it was benign at this time. No pacemaker indication was noted. He had also had carpal tunnel surgery as well as history of cervical spondylosis and so he underwent a technetium PYP scan for amyloid which was negative. Patient was out of town up in [place]. He presented to a hospital with being unresponsive for several minute that were witnessed. EMS noted the patient to be hypotensive. He was playing golf, went to a restaurant afterwards, was sitting at a barstool and suddenly lost consciousness. He was admitted for further evaluation. He was noted to have concern over high-grade AV block. 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 Patient contacted our office expressing concerns regarding shortness of breath with exertion. He has had this evaluated with a natruretic peptide level which has been normal, an echocardiogram which was normal, pulmonary function test which have been normal, and pacemaker checks which have demonstrated no significant arrhythmias. He denies chest, arm, jaw, or neck discomfort. He denies palpitations. He denies bilateral lower extremity edema. He denies claudication. He states shortness of breath with activity within a short distance. This has been ongoing since January 2024 when his device was placed, but more noticeable over the last 2 weeks. He denies shortness of breath at rest, orthopnea, or PND. He denies chronic cough. He denies significant, sudden weight gain. He denies lightheadedness, dizziness, near-syncope, or syncope. He denies blood in urine, blood in stool, or epistaxis. He denies fever with chills. He denies myalgia. He denies fatigue. His exercise level has remained stable. Intake Vital Signs 07/03/23 14:20 05/29/24 10:58 07/29/24 09:48 Height 5 ft 10 in 5 ft 10 in 5 ft 10 in Weight: 227 lb BMI 32.5 BP 117/74 Blood Pressure Location Lt brachial Position Sitting Respiration 16 Pulse 73 Pulse Source Monitor Intake Visit Reasons: 1 y fu w [employer] per [employer] Referee Required: No Accompanied by: Self Is patient in pain?: No Allergies No Known Allergies Allergy (Verified 07/29/24 09:50) Medications ???Medication ???Instructions ???Recorded ???Confirmed ???Type aspirin 81 mg chewable tablet 81 mg PO DAILY@0800 04/22/2007/29 Rx gabapentin 600 mg tablet 600 mg PO BID nerve pain 03/28/22 07/29/24 History ibuprofen 200 mg tablet 400 mg PO QAM 10/31/22 07/29/24 Hi story tfosjdlt-dpp-mkdlw acid 0.4 1 tab PO DAILY supplement 10/31/22 07/29/24 History mg-lycopene 300 mcg-lutein 250 mcg tablet rosuvastatin 20 mg tablet 20 mg PO DAILY 02/08/24 07/29/24 H istory CBD Gummy PO QAM 03/11/24 07/29/24 History tamsulosin 0.4 mg capsule 0.8 mg PO QHS prostate 03/11/24 History acetaminophen 500 mg tablet 1,000 mg PO QHS 05/29/24 07/29/24 History amoxicillin 500 mg capsule 2,000 mg PO ONCE PRN 05/29/2407/12 History cholecalciferol (vitamin D3) 50 50 mcg PO QDAY 05/29/24 07/29/24 H istory mcg (2,000 unit) tablet melissa (more content not included)... Normal [facility] C-REACTIVE PROTEINon 025 CRP [Mass/Vol] mg/L Normal <8.0 [facility] Comment on above: Performed By: #### 4 290, 100, 1035 #### [facility] [address] [address] Yard Load[employer] Operator: Kian Jim MD CBC (H/H, RBC, INDICES, WBC, PLT)on 07-28-2024 Erythrocyte distribution width (RBC) [Ratio] 12.5 % Normal 11.0-15.0 [facility] Comment on above: Performed By: #### 4 420, 475, 5395 #### [facility] [address] [place] [address] Yard Loader Operator: Kian Jim MD Hematocrit (Bld) [Volume fraction] 45.6 % Normal 38.5-50.0 [facility] Comment on above: Performed By: #### 4 420, 809, 1759 #### [facility] [address], [address] [place] [address] Yard Loader Operator: Kian Jim MD Hemoglobin (Bld) [Mass/Vol] 15.4 g/dL Normal 13.2-17.1 [facility] Comment on above: Performed By: #### 4 420, 809, 1759 #### [facility] [place] [address] Yard Load[employer] Operator: Kian Jim MD MCH (RBC) [Entitic mass] 32.6 pg Normal 27.0-33.0 [facility] Comment on above: Performed By: #### 4 420, 809, 1759 #### [facility] [place] [address] Yard Loader Operator: Kian Jim MD MCHC (RBC) [Mass/Vol] 33.8 g/dL Normal 32.0-36.[address] [facility] Comment on above: Result Comment: For adults, a slight decrease in the calculated MCHC value (in the range of 30 to 32 g/dL) is most likely not clinically significant; however, it should be interpreted with caution in correlation with other red cell parameters and the patient's clinical condition. Performed By: #### 4 420, 809, 1759 #### [facility] [place] [address] Yard Load[employer] Operator: Kian Jim MD MCV (RBC) [Entitic vol] 96.6 fL Normal 80.0-100.0 [facility] Comment on above: Performed By: #### 4 420, 809, 1759 #### [facility] [place] [address] Yard Loader Operator: Kian Jim MD Platelet mean volume (Bld) [Entitic vol] 9.9 fL Normal 7.5-12.5 [facility] Comment on above: Performed By: #### 4 420, 809, 1759 #### [facility] [place] [address] Yard Loader Operator: Kian Jim MD Platelets (Bld) [#/Vol] 186 10*3/uL Normal 140-400 [facility] Comment on above: Performed By: #### 4 420, 809, 1759 #### [facility] [place] [address] Yard Loader Operator: Kian Jim MD RBC (Bld) [#/Vol] 4.72 10*6/uL Normal 4.20-5.80 [facility] Comment on above: Performed By: #### 4 420, 809, 1759 #### [facility] [place] [address] Yard Loader Operator: Kian Jim MD WBC (Bld) [#/Vol] 5.8 10*3/uL Normal 3.8-10.8 [facility] Comment on above: Performed By: #### 4 420, 809, 1759 #### [facility] [place] [address] Yard Loader Operator: Kian Jim MD SED RATE BY MODIFIED WESTERG RENon 07-28-2024 SED RATE BY MODIFIED WESTERGREN 2 mm/h Normal < OR = 20 [facility] Comment on above: Order Comment: FASTI NG:NO FASTING: NO Performed By: #### 4 420, 809, 1759 #### [facility] [place] [address] Yard Load[employer] Operator: Kian Jim MD CT FACIAL BONES WO IV CONTRA STon 07-25-2024 CT FACIAL BONES WO IV CONTRAST Interpreted By: Jayshree Young, and Lily Taylor STUDY: CT FACIAL BONES WO IV CONTRAST 07/25/2024 8:00 am INDICATION: Signs/Symptoms:maxillo facial infection ,L08.9 Local infection of the skin and subcutaneous tissue, unspecified COMPARISON: None. ACCESSION NUMBER(S): [id number] ORDERING CLINICIAN: ENE BARBER TECHNIQUE: Thin cut axial CT images through the facial bones were obtained and reconstructed in the coronal and sagittal plane. FINDINGS: Facial Bones: Significant streak artifact from dental amalgam limits evaluation of the oral cavity. No large periapical lucency. There is no displaced facial bone fracture. Mandible/Temporomandib ular Joints: Visualized portions of mandible and bilateral temporomandibular joints are intact. Advanced degenerative changes of the left temporomandibular joint. Orbits: The bony orbits are intact. The orbital contents are unremarkable. Paranasal Sinuses/Mastoids: Mild mucosal thickening of the right maxillary sinus and the anterior ethmoid air cells. Mastoid air cells are clear. Soft tissues: No focal fluid collection. No significant inflammatory changes in the subcutaneous tissues. Spine: Severe degenerative changes of the cervical spine with posterior disc osteophyte complex and ligament calcification resulting in lnngalgx-cs-qokzmy spinal canal stenosis at C4-5. Multilevel hngrbmnh-ge-rrisfy neural foraminal narrowing. IMPRESSION: 1. No focal fluid collection or inflammatory findings to suggest active infectious process, within limitations of this noncontrast exam. 2. Mild mucosal thickening of the right maxillary sinus and anterior ethmoid air cells. No air-fluid levels. 3. Advanced degenerative changes of the left temporomandibular joint. 4. Severe degenerative changes of the cervical spine resulting in ayzqnden-wn-svhpec spinal canal narrowing at C4-5 and multilevel neural foraminal narrowing. I personally reviewed the image(s)/study and resident interpretation. I agree with the findings as stated by resident Brandon Bautista. Data analyzed and images interpreted at [facility], [place], [place]. MACRO: None Signed by: Jayshree Young 07/25/2024 1:48 PM Dictation workstation: [id number] [facility] CT Maxillofacial region WO c [facility] 07-25-2024 1. No focal fluid collection or inflammatory findings to suggest active infectious process, within limitations of this noncontrast exam. 2. Mild mucosal thickening of the right maxillary sinus and anterior ethmoid air cells. No air-fluid levels. 3. Advanced degenerative changes of the left temporomandibular joint. 4. Severe degenerative changes of the cervical spine resulting in fmnnqagf-ks-bvdsic spinal canal narrowing at C4-5 and multilevel neural foraminal narrowing. I personally reviewed the image(s)/study and resident interpretation. I agree with the findings as stated by resident Brandon Bautista. Data analyzed and images interpreted at [place], [place]. MACRO: None Signed by: Jayshree Young 07/25/2024 1:48 PM Dictation workstation: [id number] Interpreted By: Jayshree Terry and Beyersdorf Conner STUDY: CT FACIAL BONES WO IV CONTRAST 07/25/2024 8:00 am INDICATION: Signs/Symptoms:maxillo facial infection ,L08.9 Local infection of the skin and subcutaneous tissue, unspecified COMPARISON: None. ACCESSION NUMBER(S): [id number] ORDERING CLINICIAN: ENE BARBER TECHNIQUE: Thin cut axial CT images through the facial bones were obtained and reconstructed in the coronal and sagittal plane. FINDINGS: Facial Bones: Significant streak artifact from dental amalgam limits evaluation of the oral cavity. No large periapical lucency. There is no displaced facial bone fracture. Mandible/Temporomandib ular Joints: Visualized portions of mandible and bilateral temporomandibular joints are intact. Advanced degenerative changes of the left temporomandibular joint. Orbits: The bony orbits are intact. The orbital contents are unremarkable. Paranasal Sinuses/Mastoids: Mild mucosal thickening of the right maxillary sinus and the anterior ethmoid air cells. Mastoid air cells are clear. Soft tissues: No focal fluid collection. No significant inflammatory changes in the subcutaneous tissues. Spine: Severe degenerative changes of the cervical spine with posterior disc osteophyte complex and ligament calcification resulting in nlwygdfk-qg-tmijzu spinal canal stenosis at C4-5. Multilevel izrrrhdu-wu-ucbiqs neural foraminal narrowing. MMODAL Jayshree Young MD - 07/25/2024 Interpreted By: Jayshree Young and Beyersdorf Conner STUDY: CT FACIAL BONES WO IV CONTRAST 07/25/2024 8:00 am INDICATION: Signs/Symptoms:maxillo facial infection ,L08.9 Local infection of the skin and subcutaneous tissue, unspecified COMPARISON: None. ACCESSION NUMBER(S): [id number] ORDERING CLINICIAN: ENE BARBER TECHNIQUE: Thin cut axial CT images through the facial bones were obtained and reconstructed in the coronal and sagittal plane. FINDINGS: Facial Bones: Significant streak artifact from dental amalgam limits evaluation of the oral cavity. No large periapical lucency. There is no displaced facial bone fracture. Mandible/Temporomandib ular Joints: Visualized portions of mandible and bilateral temporomandibular joints are intact. Advanced degenerative changes of the left temporomandibular joint. Orbits: The bony orbits are intact. The orbital contents are unremarkable. Paranasal Sinuses/Mastoids: Mild mucosal thickening of the right maxillary sinus and the anterior ethmoid air cells. Mastoid air cells are clear. Soft tissues: No focal fluid collection. No significant inflammatory changes in the subcutaneous tissues. Spine: Severe degenerative changes of the cervical spine with posterior disc osteophyte complex and ligament calcification resulting in nhmeezlg-sd-firebw spinal canal stenosis at C4-5. Multilevel tysuxbjs-sk-icnuqn neural foraminal narrowing. IMPRESSION: 1. No focal fluid collection or inflammatory findings to suggest active infectious process, within limitations of this noncontrast exam. 2. Mild mucosal thickening of the right maxillary sinus and anterior ethmoid air cells. No air-fluid levels. 3. Advanced degenerative changes of the left temporomandibular joint. 4. Severe degenerative changes of the cervical spine resulting in eoprspww-am-cciigo spinal canal narrowing at C4-5 and multilevel neural foraminal narrowing. I personally reviewed the image(s)/study and resident interpretation. I agree with the findings as stated by resident Brandon Bautista. Data analyzed and images interpreted at [facility], [place], [place]. MACRO: None Signed by: Jayshree Young 07/25/2024 1:48 PM Dictation workstation: [id number] [facility] Work Phone: Radiology Study observation (narrative) [facility] Work Phone: CT Maxillofacial region WO c ontrastOrdered By: Jayshree Young on 07-25-2024 [facility] Work Phone: Anion gap in Serum or Plasma Ordered By: Annabella Willard on 07-23-2024 Anion gap [Moles/Vol] 12 mmol/L 5-15 [facility] BUN/creatinine ratioOrdered By: Annabella Willard on 07-23-2024 Urea nitrogen/Creatinine [Mass ratio] 24.7 mg/mg High 10-20 [facility] Bilirubin, totalOrdered By: Annabella Willard on 07-23-2024 Bilirubin [Mass/Vol] 0.22 mg/dL 0.00-1.30 [facility] Carbon dioxide, total [Moles /volume] in Central venous bloodOrdered By: Annabella Willard on 07-23-2024 CO2 [Moles/Vol] 22.9 mmol/L 21.0-32.0 [facility] Chloride assayOrdered By: Mayra Willard on 07-23-2024 Chloride [Moles/Vol] 104 mmol/L 98-108 [facility] Comprehensive Metabolic Prof ilon 07-23-2024 Albumin [Mass/Vol] 4.5 g/dL Normal 3.4-4.8 [facility] Comment on above: Performed By: #### L 500.4050 ####[facility] [address] [place], [address] Albumin/Globulin [Mass ratio] 1.8 {ratio} Normal 0.9-2.4 [facility] Comment on above: Performed By: #### L 500.4050 ####[facility] [address] [place], [address] ALK PHOS 71 U/L Normal 40-129 [facility] Comment on above: Performed By: #### L 500.4050 ####[facility] [address] [place], [address] ALT [Catalytic activity/Vol] 30 U/L Normal <=46 [facility] Comment on above: Performed By: #### L 500.4050 ####[facility] [address] [place], [address] AST [Catalytic activity/Vol] 36 U/L Normal <=37 [facility] Comment on above: Performed By: #### L 500.4050 ####[facility] [address] [place], [address] Bilirubin [Mass/Vol] 0.22 mg/dL Normal 0.00-1.30 [facility] Comment on above: Performed By: #### L 500.4050 ####[facility] [address] [place], [address] BUN/CRE 24.7 RATIO High 10-20 [facility] Comment on above: Performed By: #### L 500.4050 ####[facility] [address] [place], [address] Calcium [Mass/Vol] 9.5 mg/dL Normal 7.6-11.0 [facility] Comment on above: Performed By: #### L 500.4050 ####[facility] [address] [place], [address] Chloride [Moles/Vol] 104 mmol/L Normal 98-108 [facility] Comment on above: Performed By: #### L 500.4050 ####[facility] [address] [place], [address] CO2 [Moles/Vol] 22.9 mmol/L Normal 21.0-32.0 [facility] Comment on above: Performed By: #### L 500.4050 ####[facility] [address] [place], [address] Creatinine [Mass/Vol] 0.81 mg/dL Normal 0.70-1.20 [facility] Comment on above: Performed By: #### L 500.4050 ####[facility] [address] [place], [address] GAP 12 Normal 5-15 [facility] Comment on above: Performed By: #### L 500.4050 ####[facility] [address] [place], [address] GFR/1.73 sq M.predicted among non-blacks MDRD (S/P/Bld) [Vol rate/Area] 90 mL/min/{1.73_m2} Normal >60 [facility] Comment on above: Result Comment: mL/m in/1.73m2 CKD-EPI Creatinine Equation (2020) Performed By: #### L 500.4050 ####[facility] [address] [place], [address] Globulin (S) [Mass/Vol] 2.6 g/dL Normal 2.2-4.2 [facility] Comment on above: Performed By: #### L 500.4050 ####[facility] [address] [place], [address] Glucose [Mass/Vol] 100 mg/dL High 70-99 [facility] Comment on above: Performed By: #### L 500.4050 ####[facility] [address] [place], [address] Potassium [Moles/Vol] 4.5 mmol/L Normal 3.3-5.1 [facility] Comment on above: Performed By: #### L 500.4050 ####[facility] [address] [place], [address] Sodium [Moles/Vol] 139 mmol/L Normal 133-145 [facility] Comment on above: Performed By: #### L 500.4050 ####[facility] [address] [place], [address] T PROT 7.1 g/dL Normal 5.9-8.4 [facility] Comment on above: Performed By: #### L 500.4050 ####[facility] [address] [place], [address] Urea nitrogen [Mass/Vol] 20 mg/dL High 4-19 [facility] Comment on above: Performed By: #### L 500.4050 ####[facility] [address] [place], [address] GFR/1.73 sq M.predicted juanjose g non-blacks MDRD (S/P/Bld) [Vol rate/Area]Ordered By: Annabella Willard on 07-23-2024 Estimated GFR (MDRD) Non-Af Amer 90 >60 [facility] Comment on above: mL/min/1.73m2 CKD-EP I Creatinine Equation (2020) Glomerular filtration rate ( GFR) estimation/1.73 sq m using serum, plasma, or whole bOrdered By: Annabella Willard on 07-23-2024 GFR/1.73 sq M.predicted among non-blacks MDRD (S/P/Bld) [Vol rate/Area] 90 mL/min/{1.73_m2} >60 [facility] Comment on above: mL/min/1.73m2 CKD-EP I Creatinine Equation (2020) Laboratory - Chemistry and C hemistry - challengeOrdered By: Annabella Willard on 07-23-2024 AST [Catalytic activity/Vol] 36 U/L <38 [facility] Potassium (Unsp spec) [Mass/ Vol]Ordered By: Annabella Willard on 07-23-2024 Potassium [Moles/Vol] 4.5 mmol/L 3.3-5.1 [facility] Potassium measurement (mass/ volume)Ordered By: Annabella Willard on 07-23-2024 Potassium (Unsp spec) [Mass/Vol] 4.5 mmol/L 3.3-5.1 [facility] Serum creatinine measurement (mass/volume)Ordered By: Annabella Willard on 07-23-2024 Creatinine [Mass/Vol] 0.81 mg/dL 0.70-1.20 [facility] Serum globulin measurementOr dered By: Annabella Willard on 07-23-2024 Globulin (S) [Mass/Vol] 2.6 g/dL 2.2-4.2 [facility] Serum glucose measurement (m ass/volume)Ordered By: Annabella Willard on 03-12-2025 Glucose [Mass/Vol] 100 mg/dL High 70-99 [facility] Serum or plasma alanine sun otransferase (ALT) measurementOrdered By: Annabella Willard on 07-23-2024 ALT [Catalytic activity/Vol] 30 U/L <47 [facility] Serum or plasma albumin amberly urement (mass/volume)Ordered By: Annabella Willard on 07-23-2024 Albumin [Mass/Vol] 4.5 g/dL 3.4-4.8 [facility] Serum or plasma albumin/glob ulin mass ratioOrdered By: Annabella Willard on 07-23-2024 Albumin/Globulin [Mass ratio] 1.8 {ratio} 0.9-2.4 [facility] Serum or plasma alkaline awilda sphatase measurementOrdered By: Annabella Willard on 07-23-2024 ALP [Catalytic activity/Vol] 71 U/L 40-129 [facility] Serum or plasma calcium amberly urement (mass/volume)Ordered By: Annabella Willard on 07-23-2024 Calcium [Mass/Vol] 9.5 mg/dL 7.6-11.0 [facility] Serum or plasma urea nitroge n measurement (mass/volume)Ordered By: Annabella Willard on 07-23-2024 Urea nitrogen [Mass/Vol] 20 mg/dL High 4-19 [facility] Sodium levelOrdered By: Annabella Willard on 07-23-2024 Sodium [Moles/Vol] 139 mmol/L 133-145 [facility] Total proteinOrdered By: Vadim Willard on 07-23-2024 Protein [Mass/Vol] 7.1 g/dL 5.9-8.4 [facility] Chest without Contraston Chest without Contrast [facility] Imaging Services [address] [place] [address] Chest without Contrast MR#: [id number] Acct: [id number] Name: CLAYTON BURGOS Rep #: [id number] : 1945 M [id number] From: Ninfa Hoover MD PCP: Dr. Annabella Willard MD Status: DEP CLI Study: Chest without Contrast Date of Exam: 06/28/24 Exam# [id number] Ordering Dr: Annabella Willard MD ADDENDUM by Dr. Ninfa Hoover MD on 07/31/24 at 1106 The ascending thoracic aorta is dilated measuring 4.3 cm and previously measured 4.2 cm. Reading Location: [facility] 07/31/24 1106 Date cc: Dr. Annabella Willard MD * Signed PROCEDURE: CHEST WITHOUT CONTRAST REASON FOR EXAM: Lung nodule history of tobacco use TECHNIQUE: Chest CT without contrast. Multiplanar reconstructions were performed. COMPARISON: 03/29/2023 10/04/2023 FINDINGS: Lungs/Pleura:Mild biapical scarring is present. There are very mild areas of multifocal peripheral parenchymal scarring. A calcified pulmonary nodule is present in the left lower lobe, likely due to remote granulomatous disease. No significant pulmonary nodule is identified.No pleural effusion or pneumothorax. Cardiovascular:The heart is normal in size.ICD leads are present in the right atrium and ventricle. Moderate coronary artery calcifications are present.The aorta and pulmonary arteries are unremarkable. Pericardium:No effusion. Mediastinum:Unremarkab le. Lymph nodes:No lymph node enlargement identified on this noncontrast CT. Bones:No acute osseous abnormality.A right shoulder arthroplasty is present. Mild multilevel degenerative changes are present in the visualized spine. Soft tissues:Unremarkable. Upper abdomen:Multiple small gallstones are present in the gallbladder lumen. CT/Chest without Contrast IMPRESSION: 1. No acute abnormality of the chest. 2. Mild multifocal areas of pulmonary scarring. 3. No significant pulmonary nodules. Reading Location: [facility] CC: Dr. Annabella Willard MD Machine Puller: Signed Normal [facility] Thyroidon 06-16-2024 Thyroid [facility] Imaging Services [address] [place] [address] Thyroid MR#: [id number] Acct: [id number] Name: CLAYTON BURGOS Rep #: [id number] : 1945 M [id number] From: Todd Booth MD PCP: Dr. Annabella Willard MD Status: REG CLI Study: Thyroid Date of Exam: 06/16/24 Exam# [id number] Ordering Dr: Annabella Willard MD PROCEDURE: THYROID REASON FOR EXAM: Nodule. TECHNIQUE: Real-time grayscale and color-flow imaging of the thyroid gland with routine image documentation. COMPARISON: No relevant prior FINDINGS: Right thyroid lobe measures 5.1 x 2.2 x 1.6 cm.. Left thyroid lobe measures 4.8 x 4.5 x 2.4 cm.. Isthmus thickness is 0.2 cm. Thyroid Size: Normal Background Echotexture: Normal. Homogeneous parenchyma. Thyroid Nodules: Left lobe. Superior pole, mixed cystic and solid, 0.5 x 0.4 x 0.4 cm, wider than tall, well-circumscribed, hypoechoic, no calcifications, TR 3. Inferior pole, mixed cystic and solid, 3.2 x 2.1 x 2.3 cm, wider than tall, well-circumscribed, primarily hypoechoic, with echogenic foci, TR 4. US/Thyroid IMPRESSION: 1. A TR 3 micronodule in the left superior pole. No FNA warranted. 2. A TR 4 heterogeneous nodule in the left inferior pole. FNA tissue sampling recommended for further evaluation. Reading Location: [facility] CC: Dr. Annabella Willard MD Machine Puller: Signed Normal [facility] 27-CS-Ymbvtiy DOrdered By: Keysha Willard on 06-11-2024 Vitamin D 25-Hydroxy 47.2 ng/mL [facility] Comment on above: Vitamin D 25(OH) Sta tus Range Deficiency <20 ng/mL (50nmol/L) Insufficiency 20 - 30 ng/mL (50 - 75 nmol/L) Sufficiency 30 - 100 ng/mL (75 - 250 nmol/L) Toxicity >100 ng/mL (>250 nmol/L) Absolute lymphocyte countOrd ered By: Annabella Willard on 06-11-2024 Lymphocytes Auto (Unsp spec) [#/Vol] 1.42 10*3/uL 0.83-4.51 [facility] Absolute neutrophil countOrd ered By: Annabella Willard on 06-11-2024 Neutrophils (Bld) [#/Vol] 4.2 10*3/uL 2.0-7.7 [facility] Albumin to globulin ratioOrd ered By: Annabella Willard on 06-11-2024 Albumin/Globulin [Mass ratio] 1.3 {ratio} 0.9-2.4 [facility] Automated lymphocyte count a s percentage of total leukocytesOrdered By: Annabella Willard on 06-11-2024 Lymphocytes/100 WBC Auto (Unsp spec) 21.2 % 19-41 [facility] Basophil percentageOrdered B y: Annabella Willard on 06-11-2024 Basophils/100 WBC (Bld) 0.6 % 0-1 [facility] Bilirubin Test strip Ql (U)O rdered By: Annabella Willard on 06-11-2024 Bilirubin Ql (U) Negative Negative [facility] Bilirubin, totalOrdered By: Annabella Willard on 06-11-2024 Bilirubin [Mass/Vol] 0.40 mg/dL 0.20-1.00 [facility] Comment on above: For patients on eltr ombopag therapy, use of Dimension [place] TBIL is not recommended. Blood urea nitrogen (BUN)/cr eatinine ratioOrdered By: Annabella Willard on 06-11-2024 Urea nitrogen/Creatinine [Mass ratio] 25.5 mg/mg High 10-20 [facility] CBC W/Diff, Automatedon 05-15 Absolute Lymph 1.42 X10 3/uL Normal 0.83-4.51 [facility] Comment on above: Order Comment: Order Date: 06/11/24 Order Info: 0184-1 - CBCD Performed By: #### L 500.4050, L506.1000, L100.0100, L500.4100 #### [facility] [address] [place], [place], [id number] Absolute Neut 4.2 X10 3/uL Normal 2.0-7.7 [facility] Comment on above: Order Comment: Order Date: 06/11/24 Order Info: 0184-1 - CBCD Performed By: #### L 500.4050, L506.1000, L100.0100, L500.4100 #### [facility] [address] [place], [address] Basophils/100 WBC (Bld) 0.6 % Normal 0-1 [facility] Comment on above: Order Comment: Order Date: 06/11/24 Order Info: 0184-1 - CBCD Performed By: #### L 500.4050, L506.1000, L100.0100, L500.4100 #### [facility] [address] [place], [address] Eosinophils/100 WBC (Bld) 2.7 % Normal 0-5 [facility] Comment on above: Order Comment: Order Date: 06/11/24 Order Info: 0184-1 - CBCD Performed By: #### L 500.4050, L506.1000, L100.0100, L500.4100 #### [facility] [address] [place], [address] Erythrocyte distribution width (RBC) [Ratio] 12.2 % Normal 11.6-14.6 [facility] Comment on above: Order Comment: Order Date: 06/11/24 Order Info: 0184-1 - CBCD Performed By: #### L 500.4050, L506.1000, L100.0100, L500.4100 #### [facility] [address] [place], [address] Hematocrit (Bld) [Volume fraction] 43.3 % Normal 40-54 [facility] Comment on above: Order Comment: Order Date: 06/11/24 Order Info: 0184-1 - CBCD Performed By: #### L 500.4050, L506.1000, L100.0100, L500.4100 #### [facility] [address] [place], [address] Hemoglobin (Bld) [Mass/Vol] 14.2 g/dL Normal 13.0-16.5 [facility] Comment on above: Order Comment: Order Date: 06/11/24 Order Info: 0184-1 - CBCD Performed By: #### L 500.4050, L506.1000, L100.0100, L500.4100 #### [facility] [address] [place], [address] IG% 0.300 Normal 0.0-0.9 [facility] Comment on above: Order Comment: Order Date: 06/11/24 Order Info: [id number]- - CBCD Result Comment: IG% - Immature Granulocytes (promyelocytes, myelocytes and metamyelocytes) > 1% indicates that a LEFT SHIFT is Present. Performed By: #### L 500.4050, L506.1000, L100.0100, L500.4100 #### [facility] [address] [place], [address] Lymphocytes/100 WBC (Bld) 21.2 % Normal 19-41 [facility] Comment on above: Order Comment: Order Date: 06/11/24 Order Info: 0184- - CBCD Performed By: #### L 500.4050, L506.1000, L100.0100, L500.4100 #### [facility] [address] [place], [address] MCH (RBC) [Entitic mass] 31.8 pg Normal 27.0-32.0 [facility] Comment on above: Order Comment: Order Date: 06/11/24 Order Info: 0184-1 - CBCD Performed By: #### L 500.4050, L506.1000, L100.0100, L500.4100 #### [facility] [address] [place], [address] MCHC (RBC) [Mass/Vol] 32.8 g/dL Normal 32-36 [facility] Comment on above: Order Comment: Order Date: 06/11/24 Order Info: 0184-1 - CBCD Performed By: #### L 500.4050, L506.1000, L100.0100, L500.4100 #### [facility] [address] [place], [address] MCV (RBC) [Entitic vol] 96.9 fL High 80-94 [facility] Comment on above: Order Comment: Order Date: 06/11/24 Order Info: 0184-1 - CBCD Performed By: #### L 500.4050, L506.1000, L100.0100, L500.4100 #### [facility] [address] [place], [address] Monocytes/100 WBC (Bld) 12.4 % High 0-10 [facility] Comment on above: Order Comment: Order Date: 06/11/24 Order Info: 0184-1 - CBCD Performed By: #### L 500.4050, L506.1000, L100.0100, L500.4100 #### [facility] [address] [place], [address] Neutrophils/100 WBC (Bld) 62.8 % Normal 47-70 [facility] Comment on above: Order Comment: Order Date: 06/11/24 Order Info: 0184-1 - CBCD Performed By: #### L 500.4050, L506.1000, L100.0100, L500.4100 #### [facility] [address] [place], [address] Nucleated RBC (Bld) [#/Vol] 0 10*3/uL Normal 0-5 [facility] Comment on above: Order Comment: Order Date: 06/11/24 Order Info: 0184-1 - CBCD Performed By: #### L 500.4050, L506.1000, L100.0100, L500.4100 #### [facility] [address] [place], [address] Platelet mean volume (Bld) [Entitic vol] 10.0 fL Normal 6.2-12.0 [facility] Comment on above: Order Comment: Order Date: 06/11/24 Order Info: 0184-1 - CBCD Performed By: #### L 500.4050, L506.1000, L100.0100, L500.4100 #### [facility] [address] [place], [address] Platelets (Bld) [#/Vol] 228 10*3/uL Normal 150-450 [facility] Comment on above: Order Comment: Order Date: 06/11/24 Order Info: 0184-1 - CBCD Performed By: #### L 500.4050, L506.1000, L100.0100, L500.4100 #### [facility] [address] [place], [address] RBC (Bld) [#/Vol] 4.47 10*6/uL Low 4.6-6.2 [facility] Comment on above: Order Comment: Order Date: 06/11/24 Order Info: 0184- - CBCD Performed By: #### L 500.4050, L506.1000, L100.0100, L500.4100 #### [facility] [address] [place], [address] RDW SD 43.7 fl Normal 35.1-43.9 [facility] Comment on above: Order Comment: Order Date: 06/11/24 Order Info: 0184-1 - CBCD Performed By: #### L 500.4050, L506.1000, L100.0100, L500.4100 #### [facility] [address] [place], [address] WBC (Bld) [#/Vol] 6.7 10*3/uL Normal 4.4-11.0 [facility] Comment on above: Order Comment: Order Date: 06/11/24 Order Info: 0184-1 - CBCD Performed By: #### L 500.4050, L506.1000, L100.0100, L500.4100 #### [facility] [address] [place], [address] Carbon dioxide measurementOr dered By: Annabella Willard on 06-11-2024 CO2 [Moles/Vol] 28.0 mmol/L 21.0-32.0 [facility] Chloride measurementOrdered By: Annabella Willard on 06-11-2024 Chloride [Moles/Vol] 106 mmol/L 98-107 [facility] Comprehensive Metabolic Prof ilon 06-11-2024 Albumin [Mass/Vol] 4.2 g/dL Normal 3.2-5.0 [facility] Comment on above: Order Comment: Order Date: 06/11/24Order Info: [id number] - CMPOrder Info: [id number] - LIPID Performed By: #### L 500.4050, L506.1000, L100.0100, L500.4100 ####[facility] [address] [place], [address] Albumin/Globulin [Mass ratio] 1.3 {ratio} Normal 0.9-2.4 [facility] Comment on above: Order Comment: Order Date: 06/11/24Order Info: [id number] - CMPOrder Info: [id number] - LIPID Performed By: #### L 500.4050, L506.1000, L100.0100, L500.4100 ####[facility] [address] [place], [address] ALK P 69 U/L Normal 45-117 [facility] Comment on above: Order Comment: Order Date: 06/11/24Order Info: [id number] - CMPOrder Info: [id number] - LIPID Performed By: #### L 500.4050, L506.1000, L100.0100, L500.4100 ####[facility] [address] [place], [address] ALT [Catalytic activity/Vol] 46 U/L Normal 16-61 [facility] Comment on above: Order Comment: Order Date: 06/11/24Order Info: [id number] - CMPOrder Info: [id number] - LIPID Performed By: #### L 500.4050, L506.1000, L100.0100, L500.4100 ####[facility] [address] [place], [address] AST [Catalytic activity/Vol] 31 U/L Normal 15-37 [facility] Comment on above: Order Comment: Order Date: 06/11/24Order Info: [id number] - CMPOrder Info: [id number] - LIPID Performed By: #### L 500.4050, L506.1000, L100.0100, L500.4100 ####[facility] [address] [place], [address] Bilirubin [Mass/Vol] 0.40 mg/dL Normal 0.20-1.00 [facility] Comment on above: Order Comment: Order Date: 06/11/24Order Info: [id number] - CMPOrder Info: [id number] - LIPID Result Comment: For patients on eltrombopag therapy, use of Dimension [place] TBIL is not recommended. Performed By: #### L 500.4050, L506.1000, L100.0100, L500.4100 ####[facility] [address] [place], [address] BUN/CRE 25.5 RATIO High 10-20 [facility] Comment on above: Order Comment: Order Date: 06/11/24Order Info: [id number] - CMPOrder Info: [id number] - LIPID Performed By: #### L 500.4050, L506.1000, L100.0100, L500.4100 ####[facility] [address] [place], [address] CA,Total 9.4 mg/dL Normal 8.5-10.1 [facility] Comment on above: Order Comment: Order Date: 06/11/24Order Info: [id number] - CMPOrder Info: [id number] - LIPID Performed By: #### L 500.4050, L506.1000, L100.0100, L500.4100 ####[facility] [address] [place], [address] Chloride [Moles/Vol] 106 mmol/L Normal 98-107 [facility] Comment on above: Order Comment: Order Date: 06/11/24Order Info: [id number] - CMPOrder Info: [id number] - LIPID Performed By: #### L 500.4050, L506.1000, L100.0100, L500.4100 ####[facility] [address] [place], [address] CO2 [Moles/Vol] 28.0 mmol/L Normal 21.0-32.0 [facility] Comment on above: Order Comment: Order Date: 06/11/24Order Info: [id number] - CMPOrder Info: [id number] - LIPID Performed By: #### L 500.4050, L506.1000, L100.0100, L500.4100 ####[facility] [address] [place], [address] Creatinine [Mass/Vol] 0.86 mg/dL Normal 0.70-1.30 [facility] Comment on above: Order Comment: Order Date: 06/11/24Order Info: [id number] - CMPOrder Info: [id number] - LIPID Result Comment: The validity of the calculated GFR GFRAA in patients over 70 years has not been determined. Clinical correlation is essential. Performed By: #### L 500.4050, L506.1000, L100.0100, L500.4100 ####[facility] [address] [place], [address] EST GFR - AA 110 mL/min Normal >60 [facility] Comment on above: Order Comment: Order Date: 06/11/24Order Info: [id number] - CMPOrder Info: [id number] - LIPID Result Comment: Afri can Cam[place]onian GFR Calc Performed By: #### L 500.4050, L506.1000, L100.0100, L500.4100 ####[facility] [address] [place], [address] GAP 5 Normal 5-15 [facility] Comment on above: Order Comment: Order Date: 06/11/24Order Info: [id number] - CMPOrder Info: [id number] - LIPID Performed By: #### L 500.4050, L506.1000, L100.0100, L500.4100 ####[facility] [address] [place], [address] GFR/1.73 sq M.predicted among non-blacks MDRD (S/P/Bld) [Vol rate/Area] 91 mL/min/{1.73_m2} Normal >60 [facility] Comment on above: Order Comment: Order Date: 06/11/24Order Info: [id number]- - CMPOrder Info: [id number] - LIPID Result Comment: Non- GFR Calc Performed By: #### L 500.4050, L506.1000, L100.0100, L500.4100 ####[facility] [address] [place], [address] Globulin (S) [Mass/Vol] 3.2 g/dL Normal 2.2-4.2 [facility] Comment on above: Order Comment: Order Date: 06/11/24Order Info: [id number] - CMPOrder Info: [id number] - LIPID Performed By: #### L 500.4050, L506.1000, L100.0100, L500.4100 ####[facility] [address] [place], [address] Glucose [Mass/Vol] 93 mg/dL Normal 74-106 [facility] Comment on above: Order Comment: Order Date: 06/11/24Order Info: [id number] - CMPOrder Info: [id number] - LIPID Performed By: #### L 500.4050, L506.1000, L100.0100, L500.4100 ####[facility] [address] [place], [address] Potassium [Moles/Vol] 4.2 mmol/L Normal 3.5-5.1 [facility] Comment on above: Order Comment: Order Date: 06/11/24Order Info: [id number] - CMPOrder Info: [id number] - LIPID Performed By: #### L 500.4050, L506.1000, L100.0100, L500.4100 ####[facility] [address] [place], [address] Sodium [Moles/Vol] 139 mmol/L Normal 136-145 [facility] Comment on above: Order Comment: Order Date: 06/11/24Order Info: 0786- - CMPOrder Info: [id number] - LIPID Performed By: #### L 500.4050, L506.1000, L100.0100, L500.4100 ####[facility] [address] [place], [address] T PROT 7.4 g/dL Normal 6.4-8.2 [facility] Comment on above: Order Comment: Order Date: 06/11/24Order Info: [id number]- - CMPOrder Info: [id number] - LIPID Performed By: #### L 500.4050, L506.1000, L100.0100, L500.4100 ####[facility] [address] [place], [address] Urea nitrogen [Mass/Vol] 22 mg/dL High 7-18 [facility] Comment on above: Order Comment: Order Date: 06/11/24Order Info: [id number] - CMPOrder Info: [id number] - LIPID Performed By: #### L 500.4050, L506.1000, L100.0100, L500.4100 ####[facility] [address] [place], [address] Eosinophil percentageOrdered By: Annabella Willard on 06-11-2024 Eosinophils/100 WBC (Bld) 2.7 % 0-5 [facility] Epithelial cells.squamous LM Ql (Urine sed)Ordered By: Annabella Willard on 06-11-2024 Epithelial cells.squamous LM.HPF (Urine sed) [#/Area] 0 /[HPF] 0-5 [facility] Erythrocyte distribution wid th ratioOrdered By: Annabella Willard on 06-11-2024 Erythrocyte distribution width (RBC) [Ratio] 12.2 % 11.6-14.6 [facility] Erythrocyte distribution wid th standard deviationOrdered By: Annabella Willard on 06-11-2024 Erythrocyte distribution width (RBC) [Entitic vol] 43.7 fL 35.1-43.9 [facility] Erythrocyte distribution width (RBC) [Ratio] 43.7 fl 35.1-43.9 [facility] Estimated glomerular filtrat ion rate (GFR) AmericanOrdered By: Annabella Willard on 06-11-2024 Estimated GFR (MDRD) Amer 110 mL/min >60 [facility] Comment on above: GFR Calc Glomerular filtration rate ( GFR) estimationOrdered By: Annabella Willard on 06-11-2024 Estimated GFR (MDRD) Non-Af Amer 91 mL/min >60 [facility] Comment on above: Non- GFR Calc GFR/1.73 sq M.predicted among non-blacks MDRD (S/P/Bld) [Vol rate/Area] 91 mL/min/{1.73_m2} >60 [facility] Comment on above: Non- GFR Calc Glucose Ql (U)Ordered By: Mayra Willard on 06-11-2024 Urine Glucose (UA) Normal mg/dl Normal [facility] Glucose measurementOrdered B y: Annabella Willard on 06-11-2024 Glucose [Mass/Vol] 93 mg/dL 74-106 [facility] Hematocrit Auto (Bld) [Volum e fraction]Ordered By: Annabella Willard on 06-11-2024 Hematocrit (Bld) [Volume fraction] 43.3 % 40-54 [facility] Hemoglobin measurementOrdere d By: Annabella Willard on 06-11-2024 Hemoglobin (Bld) [Mass/Vol] 14.2 g/dL 13.0-16.5 [facility] High density lipoprotein (HD L) measurementOrdered By: Annabella Willard on 06-11-2024 Cholesterol in HDL [Mass/Vol] 61 mg/dL >40 [facility] Comment on above: The drugs N-Acetylcy steine and Metamizole may falsely depress this assay. Reference Range HDL <40 mg/dL Low HDL Cholesterol HDL >or= 60 mg/dL High HDL Cholesterol Immature granulocytes/100 WB C Auto (Bld)Ordered By: Annabella Willard on 06-11-2024 Immature granulocytes/100 WBC (Bld) 0.300 % 0.0-0.9 [facility] Comment on above: IG% - Immature Granu locytes (promyelocytes, myelocytes and metamyelocytes) > 1% indicates that a LEFT SHIFT is Present. Ketones Test strip Ql (U)Ord ered By: Annabella Willard on 06-11-2024 Ketones Ql (U) Negative Negative [facility] - Chemistry and C hemistry - challengeOrdered By: Annabella Willard on 06-11-2024 AST [Catalytic activity/Vol] 31 U/L 15-37 [facility] Lipid Profileon 06-11-2024 Cholesterol [Mass/Vol] 136 mg/dL Normal 200 [facility] Comment on above: Order Comment: Order Date: 06/11/24Order Info: [id number] - CMPOrder Info: [id number] - LIPID Result Comment: <200 mg/dL Desirable 200-240 mg/dL Borderline >240 mg/dL High Risk Performed By: #### L 500.4050, L506.1000, L100.0100, L500.4100 ####[facility] [address] [place], [address] Cholesterol in HDL [Mass/Vol] 61 mg/dL Normal [facility] Comment on above: Order Comment: Order Date: 06/11/24Order Info: [id number] - CMPOrder Info: [id number] - LIPID Result Comment: The drugs N-Acetylcysteine and Metamizole may falsely depress this assay. Reference Range HDL <40 mg/dL Low HDL Cholesterol HDL >or= 60 mg/dL High HDL Cholesterol Performed By: #### L 500.4050, L506.1000, L100.0100, L500.4100 ####[facility] [address] [place], [address] Cholesterol in LDL [Mass/Vol] 14 mg/dL Normal 0-130 [facility] Comment on above: Order Comment: Order Date: 06/11/24Order Info: [id number] - CMPOrder Info: [id number] - LIPID Performed By: #### L 500.4050, L506.1000, L100.0100, L500.4100 ####[facility] [address] [place], [address] Cholesterol in VLDL [Mass/Vol] 61 mg/dL High 5-40 [facility] Comment on above: Order Comment: Order Date: 06/11/24Order Info: [id number] - CMPOrder Info: [id number] - LIPID Performed By: #### L 500.4050, L506.1000, L100.0100, L500.4100 ####[facility] [address] [place], [address] Triglyceride [Mass/Vol] 306 mg/dL High [facility] Comment on above: Order Comment: Order Date: 06/11/24Order Info: [id number] - CMPOrder Info: [id number] - LIPID Result Comment: The drugs N-Acetylcysteine and Metamizole may falsely depress this assay. Serum Triglycerides Reference Interval Normal <150 mg/dL Borderline high 150 - 199 mg/dL High 200 - 499 mg/dL Very High > or = 500 mg/dL Performed By: #### L 500.4050, L506.1000, L100.0100, L500.4100 ####[facility] [address] [place], [address] Low density lipoprotein (LDL ) cholesterol measurementOrdered By: Annabella Willard on 06-11-2024 Cholesterol in LDL [Mass/Vol] 14 mg/dL 0-130 [facility] Lymphocytes Auto (Unsp spec) [#/Vol]Ordered By: Annabella Willard on 06-11-2024 Lymphocytes (Bld) [#/Vol] 1.42 10*3/uL 0.83-4.51 [facility] Lymphocytes/100 WBC Auto (Un sp spec)Ordered By: Annabella Willard on 06-11-2024 Lymphocytes/100 WBC (Bld) 21.2 % 19-41 [facility] MCV (mean corpuscular volume ) determinationOrdered By: Annabella Willard on 06-11-2024 MCV (RBC) [Entitic vol] 96.9 fL High 80-94 [facility] Mean corpuscular hemoglobin (MCH) determinationOrdered By: Annabella Willard on 06-11-2024 MCH (RBC) [Entitic mass] 31.8 pg 27.0-32.0 [facility] Mean corpuscular hemoglobin concentration (MCHC) determinationOrdered By: Annabella Willard on 06-11-2024 MCHC (RBC) [Mass/Vol] 32.8 g/dL 32-36 [facility] Mean platelet volume determi nationOrdered By: Annabella Willard on 06-11-2024 Platelet mean volume (Bld) [Entitic vol] 10.0 fL 6.2-12.0 [facility] Microscopic analysis of urin e for red blood cells (RBC)Ordered By: Annabella Willard on 06-11-2024 Microscopic analysis of urine for red blood cells (RBC) 0 SEEN /hpf 0-5 [facility] Urine RBC 0 SEEN /hpf 0-5 [facility] Monocyte percentageOrdered B y: Annabella Willard on 06-11-2024 Monocytes/100 WBC (Bld) 12.4 % High 0-10 [facility] Mucus LM Ql (Urine sed)Order ed By: Annabella Willard on 06-11-2024 Mucus Ql (Urine sed) 0 SEEN /hpf [facility] Neutrophil percentageOrdered By: Annabella Willard on 06-11-2024 Neutrophils/100 WBC (Bld) 62.8 % 47-70 [facility] Nitrite Test strip Ql (U)Ord ered By: Annabella Willard on 06-11-2024 Nitrite Ql (U) Negative Negative [facility] Nucleated red blood cell per centageOrdered By: Annabella Willard on 06-11-2024 Nucleated RBC/100 WBC (Bld) [Ratio] 0 % 0-5 [facility] Platelet countOrdered By: Mayra Willard on 06-11-2024 Platelets (Bld) [#/Vol] 228 10*3/uL 150-450 [facility] Potassium measurementOrdered By: Annabella Willard on 06-11-2024 Potassium [Moles/Vol] 4.2 mmol/L 3.5-5.1 [facility] Protein Test strip Ql (U)Ord ered By: Annabelal Willard on 06-11-2024 Protein Ql (U) 15 mg/dl High Negative [facility] RBC Auto (Bld) [#/Vol]Ordere d By: Annabella Willard on 06-11-2024 RBC (Bld) [#/Vol] 4.47 10*6/uL Low 4.6-6.2 [facility] Serum anion gap measurementO rdered By: Annabella Willard on 06-11-2024 Anion gap [Moles/Vol] 5 mmol/L 5-15 [facility] Serum globulin measurementOr dered By: Annabella Willard on 06-11-2024 Globulin (S) [Mass/Vol] 3.2 g/dL 2.2-4.2 [facility] Serum or plasma alanine sun otransferase (ALT) measurementOrdered By: Annabella Willard on 06-11-2024 ALT [Catalytic activity/Vol] 46 U/L 16-61 [facility] Serum or plasma albumin amberly urement (mass/volume)Ordered By: Annabella Willard on 06-11-2024 Albumin [Mass/Vol] 4.2 g/dL 3.2-5.0 [facility] Serum or plasma alkaline awilda sphatase measurementOrdered By: Annabella Willard on 06-11-2024 ALP [Catalytic activity/Vol] 69 U/L 45-117 [facility] Serum or plasma calcium amberly urement (mass/volume)Ordered By: Annabella Willard on 06-11-2024 Calcium [Mass/Vol] 9.4 mg/dL 8.5-10.1 [facility] Serum or plasma cholesterol measurement (mass/volume)Ordered By: Annabella Willard on 06-11-2024 Cholesterol [Mass/Vol] 136 mg/dL <200 [facility] Comment on above: <200 mg/dL Desirable 200-240 mg/dL Borderline >240 mg/dL High Risk Serum or plasma creatinine m easurement (mass/volume)Ordered By: Annabella Willard on 06-11-2024 Creatinine [Mass/Vol] 0.86 mg/dL 0.70-1.30 [facility] Comment on above: The validity of the calculated GFR & GFRAA in patients over 70 years has not been determined. Clinical correlation is essential. Serum or plasma urea nitroge n measurement (mass/volume)Ordered By: Annabella Willard on 06-11-2024 Urea nitrogen [Mass/Vol] 22 mg/dL High 7-18 [facility] Sodium levelOrdered By: Annabella Willard on 06-11-2024 Sodium [Moles/Vol] 139 mmol/L 136-145 [facility] Squamous epithelial cells de tection in urine sediment by light microscopyOrdered By: Annabella Willard on 06-11-2024 Epithelial cells.squamous LM Ql (Urine sed) 0 SEEN /hpf 0-5 [facility] Total proteinOrdered By: Vadim Willard on 06-11-2024 Protein [Mass/Vol] 7.4 g/dL 6.4-8.2 [facility] Triglycerides measurementOrd ered By: Annabella Willard on 06-11-2024 Triglyceride [Mass/Vol] 306 mg/dL High <199 [facility] Comment on above: The drugs N-Acetylcy steine and Metamizole may falsely depress this assay.Serum Triglycerides Reference Interval Normal <150 mg/dL Borderline high 150 - 199 mg/dL High 200 - 499 mg/dL Very High > or = 500 mg/dL Urinalysis, Completeon 06-11 BACTERIA 0 SEEN Normal None Seen [facility] Comment on above: Order Comment: CLEAN CATCH Performed By: #### L 400.0001 ####[facility] [address] [place], [address] EPI,SQUAMOUS 0 SEEN Normal 0-5 [facility] Comment on above: Order Comment: CLEAN CATCH Performed By: #### L 400.0001 ####[facility] [address] [place], [address] Mucus Ql (Urine sed) 0 SEEN Normal [facility] Comment on above: Order Comment: CLEAN CATCH Performed By: #### L 400.0001 ####[facility] [address] [place], [address] RBC 0 SEEN Normal 0-5 [facility] Comment on above: Order Comment: CLEAN CATCH Performed By: #### L 400.0001 ####[facility] [address] [place], [address] WBC 0 SEEN Normal 0-5 [facility] Comment on above: Order Comment: CLEAN CATCH Performed By: #### L 400.0001 ####[facility] [address] [place], [place], [id number] Urine blood detectionOrdered By: Annabella Willard on 06-11-2024 Urine Occult Blood Negative Negative [facility] Urine clarityOrdered By: Vadim Willard on 06-11-2024 Clarity (U) Clear Clear [facility] Urine color determinationOrd ered By: Annabella Willard on 06-11-2024 Color (U) Yellow Yellow [facility] Urine glucose detectionOrder ed By: Annabella Willard on 06-11-2024 Glucose Ql (U) Normal mg/dl Normal [facility] Urine leukocyte esterase det ection by dipstickOrdered By: Annabella Willard on 06-11-2024 Leukocyte esterase Test strip Ql (U) Negative Negative [facility] Urine pHOrdered By: Annabella house on 06-11-2024 pH (U) 7.0 [pH] 5.0 - 8.0 [facility] Urine sediment bacteria coun t by microscopy (number/high power field)Ordered By: Annabella Willard on 06-11-2024 Bacteria LM.HPF (Urine sed) [#/Area] 0 /[HPF] None Seen [facility] Urine specific gravity measu rementOrdered By: Annabella Willard on 06-11-2024 Specific gravity (U) [Rel density] 1.010 1.002-1.030 [facility] Urine urobilinogen measureme ntOrdered By: Annabella Willard on 06-11-2024 Urobilinogen Ql (U) Normal mg/dl Normal [facility] Urobilinogen Ql (U)Ordered B y: Annabella Willard on 06-11-2024 Urine Urobilinogen Normal mg/dl Normal [facility] Very low density lipoprotein (VLDL) cholesterol measurementOrdered By: Annabella Willard on 06-11-2024 Very low density lipoprotein (VLDL) cholesterol measurement 61 mg/dL High 5-40 [facility] VLDL Cholesterol 61 mg/dL High 5-40 [facility] Vitamin D,25 Hydroxyon 06-11 Vitamin D 25-OH 47.2 ng/mL Normal [facility] Comment on above: Order Comment: Order Date: 06/11/24Order Info: [id number] - [id number] Result Comment: Negar min D 25(OH) Status Range Deficiency <20 ng/mL (50nmol/L) Insufficiency 20 - 30 ng/mL (50 - 75 nmol/L) Sufficiency 30 - 100 ng/mL (75 - 250 nmol/L) Toxicity >100 ng/mL (>250 nmol/L) Performed By: #### L 500.4050, L506.1000, L100.0100, L500.4100 ####[facility] [address] [place], [address] White blood cell (WBC) count Ordered By: Annabella Willard on 06-11-2024 WBC (Bld) [#/Vol] 6.7 10*3/uL 4.4-11.0 [facility] White blood cell countOrdere d By: Annabella Willard on 06-11-2024 Urine WBC 0 SEEN /hpf 0-5 [facility] White blood cell count 0 SEEN /hpf 0-5 [facility] Absolute neutrophil countOrd ered By: Annabella Krishnan on 05-29-2024 Neutrophils (Bld) [#/Vol] 5.1 10*3/uL 2.0-7.7 [facility] Albumin to globulin ratioOrd ered By: Annabella Krishnan on 05-29-2024 Albumin/Globulin [Mass ratio] 1.3 {ratio} 0.9-2.4 [facility] BNP (brain natriuretic pepti de measurement)Ordered By: Annabella Krishnan on 05-29-2024 Natriuretic peptide B (Bld) [Mass/Vol] 29.8 pg/mL 0-100 [facility] BNP,B-Type NATRIURETIC PEPTI Juan 05-29-2024 Natriuretic peptide B (Bld) [Mass/Vol] 29.8 pg/mL Normal 0-100 [facility] Comment on above: Performed By: #### L 100.0100, L503.6620, L500.4050 ####[facility] [address] [place], [address] Basophil percentageOrdered B y: Annabella Krishnan on 05-29-2024 Basophils/100 WBC (Bld) 0.8 % 0-1 [facility] Bilirubin, totalOrdered By: Annabella Krishnan on 05-29-2024 Bilirubin [Mass/Vol] 0.50 mg/dL 0.20-1.00 [facility] Comment on above: For patients on eltr ombopag therapy, use of Dimension [place] TBIL is not recommended. Blood urea nitrogen (BUN)/cr eatinine ratioOrdered By: Annabella Krishnan on 05-29-2024 Urea nitrogen/Creatinine [Mass ratio] 20.0 mg/mg 10-20 [facility] CBC W/Diff, Automatedon 05-14 Absolute Lymph 1.39 X10 3/uL Normal 0.83-4.51 [facility] Comment on above: Performed By: #### L 100.0100, L503.6620, L500.4050 ####[facility] [address] [place], [address] Absolute Neut 5.1 X10 3/uL Normal 2.0-7.7 [facility] Comment on above: Performed By: #### L 100.0100, L503.6620, L500.4050 ####[facility] [address] [place], [address] Basophils/100 WBC (Bld) 0.8 % Normal 0-1 [facility] Comment on above: Performed By: #### L 100.0100, L503.6620, L500.4050 ####[facility] [address] [place], [address] Eosinophils/100 WBC (Bld) 1.7 % Normal 0-5 [facility] Comment on above: Performed By: #### L 100.0100, L503.6620, L500.4050 ####[facility] [address] [place], [address] Erythrocyte distribution width (RBC) [Ratio] 12.4 % Normal 11.6-14.6 [facility] Comment on above: Performed By: #### L 100.0100, L503.6620, L500.4050 ####[facility] [address] [place], [address] Hematocrit (Bld) [Volume fraction] 43.7 % Normal 40-54 [facility] Comment on above: Performed By: #### L 100.0100, L503.6620, L500.4050 ####[facility] [address] [place], [address] Hemoglobin (Bld) [Mass/Vol] 14.5 g/dL Normal 13.0-16.5 [facility] Comment on above: Performed By: #### L 100.0100, L503.6620, L500.4050 ####[facility] [address] [place], [address] IG% 0.400 Normal 0.0-0.9 [facility] Comment on above: Result Comment: IG% - Immature Granulocytes (promyelocytes, myelocytes and metamyelocytes) > 1% indicates that a LEFT SHIFT is Present. Performed By: #### L 100.0100, L503.6620, L500.4050 ####[facility] [address] [place], [address] Lymphocytes/100 WBC (Bld) 18.3 % Low 19-41 [facility] Comment on above: Performed By: #### L 100.0100, L503.6620, L500.4050 ####[facility] [address] [place], [address] MCH (RBC) [Entitic mass] 32.2 pg High 27.0-32.0 [facility] Comment on above: Performed By: #### L 100.0100, L503.6620, L500.4050 ####[facility] [address] [place], [address] MCHC (RBC) [Mass/Vol] 33.2 g/dL Normal 32-36 [facility] Comment on above: Performed By: #### L 100.0100, L503.6620, L500.4050 ####[facility] [address] [place], [address] MCV (RBC) [Entitic vol] 97.1 fL High 80-94 [facility] Comment on above: Performed By: #### L 100.0100, L503.6620, L500.4050 ####[facility] [address] [place], [address] Monocytes/100 WBC (Bld) 11.5 % High 0-10 [facility] Comment on above: Performed By: #### L 100.0100, L503.6620, L500.4050 ####[facility] [address] [place], [address] Neutrophils/100 WBC (Bld) 67.3 % Normal 47-70 [facility] Comment on above: Performed By: #### L 100.0100, L503.6620, L500.4050 ####[facility] [address] [place], [address] Nucleated RBC (Bld) [#/Vol] 0 10*3/uL Normal 0-5 [facility] Comment on above: Performed By: #### L 100.0100, L503.6620, L500.4050 ####[facility] [address] [place], [address] Platelet mean volume (Bld) [Entitic vol] 9.6 fL Normal 6.2-12.0 [facility] Comment on above: Performed By: #### L 100.0100, L503.6620, L500.4050 ####[facility] [address] [place], [address] Platelets (Bld) [#/Vol] 213 10*3/uL Normal 150-450 [facility] Comment on above: Performed By: #### L 100.0100, L503.6620, L500.4050 ####[facility] [address] [place], [address] RBC (Bld) [#/Vol] 4.50 10*6/uL Low 4.6-6.2 [facility] Comment on above: Performed By: #### L 100.0100, L503.6620, L500.4050 ####[facility] [address] [place], [address] RDW SD 45.0 fl High 35.1-43.9 [facility] Comment on above: Performed By: #### L 100.0100, L503.6620, L500.4050 ####[facility] [address] [place], [address] WBC (Bld) [#/Vol] 7.6 10*3/uL Normal 4.4-11.0 [facility] Comment on above: Performed By: #### L 100.0100, L503.6620, L500.4050 ####[facility] [address] [place], [address] Carbon dioxide measurementOr dered By: Annabella Krishnan on 05-29-2024 CO2 [Moles/Vol] 28.0 mmol/L 21.0-32.0 [facility] Cardiology Visit Reporton Cardiology Visit Report [facility] [address] [place] [address] OFFICE VISIT Date of Service: 05/29/24 MR#: [id number] Acct: [id number] Name: CLAYTON BURGOS Rep #: [id number] : 1945 Provider: JESSICA de oliveira Age/Sex: 79/M Location: [facility] Status: Signed HPI HPI History of Present Illness Details: Clayton Burgos is a 79 year old gentleman that presents here today for a cardiovascular visit with recent pacemaker placement. He has a history of hypertension, hyperlipidemia, Wenckebach periodicity.??? 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 He also has a history of mitral annular calcification.??? As part of his preoperative work-up he underwent an echocardiogram which demonstrated preserved ejection fraction as well as an exercise myocardial perfusion stress test where he exercised to 7 metabolic equivalents with no evidence of ischemia.??? There were periods of junctional rhythm noted as well as Wenckebach rhythm.???Able to get his heart rate up appropriately. He has had no neck arm or jaw discomfort to suggest angina.??? As part of his work-up he underwent a calcium score which demonstrated a total score of 1349 and subsequently underwent a left heart catheterization in May 2020 which demonstrated luminal irregularities only. He tells me that he was noted to have an irregular heartbeat and underwent a 24-hour Holter monitor and a total of 96,970 beats were noted over the 24 hours was predominantly in sinus rhythm with a first-degree AV block and some periods of Mobitz type I Wenckebach rhythm were noted. There were occasional junctional rhythm also noted. I discussed this with the oil distributor and it was felt that it was benign at this time. No pacemaker indication was noted. He had also had carpal tunnel surgery as well as history of cervical spondylosis and so he underwent a technetium PYP scan for amyloid which was negative. Patient was out of town up in [place]. He presented to a hospital with being unresponsive for several minute notes that were witnessed. EMS noted the patient to be hypotensive. He was playing golf, went to a restaurant afterwards, was sitting at a barstool and suddenly lost consciousness. He was admitted for further evaluation. He was noted to have concern over high-grade AV block. 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 Patient contacted our office 2 days ago expressing concerns regarding shortness of breath with exertion. He also noted intermittent low blood pressure. He denies chest, arm, jaw, or neck discomfort. He denies palpitations. He denies bilateral lower extremity edema. He denies claudication. He states shortness of breath with activity within a short distance. This has been ongoing since January 2024 when his device was placed, but more noticeable over the last 2 weeks. He denies shortness of breath at rest, orthopnea, or PND. He denies chronic cough. He denies significant, sudden weight gain. He denies lightheadedness, dizziness, near-syncope, or syncope. He denies blood in urine, blood in stool, or epistaxis. He denies fever with chills. He denies myalgia. He denies fatigue. His exercise level has remained stable. Intake Vital Signs 03/11/24 15:08 05/29/24 10:58 05/29/24 11:23 Height 5 ft 10 in 5 ft 10 in Weight: 229 lb BMI 32.8 BP 107/69 125/75 H Blood Pressure Location Lt brachial Lt brachial Position Sitting Standing Respiration 16 Pulse 65 86 Pulse Source NIBP NIBP Intake Visit Reasons: ANTONIO, low bp, dizziness, Pacer L.L. Traffic Court Referee Required: No Accompanied by: Is patient in pain?: No Allergies No Known Allergies Allergy (Verified 05/29/24 11:05) Medications ???Medication ???Instructions ???Recorded ???Confirmed ???Type aspirin 81 mg chewable tablet 81 mg PO DAILY@0800 04/22/20 05/29/24 Rx gabapentin 600 mg tablet 600 mg PO BID nerve pain 03/28/22 05/29/24 History ibuprofen 200 mg tablet 400 mg PO QAM 10/31/22 05/29/24 History ncbblitq-bnl-cggqu acid 0.4 1 tab PO DAILY supplement 10/31/22 05/29/24 History mg-lycopene 300 mcg-lutein 250 mcg tablet rosuvastatin 20 mg tablet 20 mg PO DAILY 02/08/24 05/29/24 History metoprolol succinate 25 mg 25 mg PO QHS #30 tabs 02/20/24 05/29/24 Rx tablet,extended release 24 hr CBD Gummy PO QAM 03/11/24 05/29/24 History tamsulosin 0.4 mg capsule 0.8 mg PO QHS prostate 03/11/24 05/29/24 History acetaminophen 500 mg tablet 1,000 mg PO QHS 05/29/24 History amoxicillin 500 mg capsule 2,000 mg PO ONCE PRN 05/29/24 05/29/24 History amoxicillin 875 mg-potassium 1 tab PO BID 05/29/24 05/29/24 History clavulanate 125 mg tablet cholecalciferol (vitamin D3) 50 50 mcg PO QDAY 05/29/24 05/29/24 History (more content not included)... Normal [facility] Chest PA and Lateralon 05-29 Chest PA and Lateral [facility] Imaging Services [address] [place], [place] [id number] Chest PA and Lateral MR#: [id number] Acct: [id number] Name: CLAYTON BURGOS Rep #: [id number] : 1945 M 79 From: Cachorro Vides DO PCP: Dr. Annabella Willard MD Status: [facility] Study: Chest PA and Lateral Date of Exam: 05/29/24 Exam# [id number] Ordering Dr: Annabella Krishnan CONTINUITY WRITER CONTINUITY WRITER-C [id number] INDICATION: Shortness of breath EXAMINATION/TECHNIQUE: X-RAY - XR Chest 2 Views COMPARISON: FINDINGS: LINES/DEVICES: There is a left-sided pacemaker.. LUNGS: No consolidation, edema or effusion. No pneumothorax. MEDIASTINUM AND CARDIOVASCULAR STRUCTURES: Cardiac silhouette not enlarged. Central airways and mediastinal contour are unremarkable. BONES AND SOFT TISSUES: Degenerative vertebral changes. Right humeral prosthesis. RAD/Chest PA and Lateral IMPRESSION: No radiographic evidence of acute cardiopulmonary disease. Electronically Signed: Cachorro DO Peewee at 16:22 EST , CC: JESSICA Krishnan; Dr. Annabella Willard MD Machine Puller: Signed Normal [facility] Chloride measurementOrdered By: Annabella Krishnan on 05-29-2024 Chloride [Moles/Vol] 107 mmol/L 98-107 [facility] Comprehensive Metabolic Prof ilon 05-29-2024 Albumin [Mass/Vol] 4.2 g/dL Normal 3.2-5.0 [facility] Comment on above: Performed By: #### L 100.0100, L503.6620, L500.4050 ####[facility] [address] [place], [address] Albumin/Globulin [Mass ratio] 1.3 {ratio} Normal 0.9-2.4 [facility] Comment on above: Performed By: #### L 100.0100, L503.6620, L500.4050 ####[facility] [address] [place], [address] ALK P 66 U/L Normal 45-117 [facility] Comment on above: Performed By: #### L 100.0100, L503.6620, L500.4050 ####[facility] [address] [place], [address] ALT [Catalytic activity/Vol] 36 U/L Normal 16-61 [facility] Comment on above: Performed By: #### L 100.0100, L503.6620, L500.4050 ####[facility] [address] [place], [address] AST [Catalytic activity/Vol] 27 U/L Normal 15-37 [facility] Comment on above: Performed By: #### L 100.0100, L503.6620, L500.4050 ####[facility] [address] [place], [address] Bilirubin [Mass/Vol] 0.50 mg/dL Normal 0.20-1.00 [facility] Comment on above: Result Comment: For patients on eltrombopag therapy, use of Dimension [place] TBIL is not recommended. Performed By: #### L 100.0100, L503.6620, L500.4050 ####[facility] [address] [place], [address] BUN/CRE 20.0 RATIO Normal 10-20 [facility] Comment on above: Performed By: #### L 100.0100, L503.6620, L500.4050 ####[facility] [address] [place], [address] CA,Total 9.4 mg/dL Normal 8.5-10.1 [facility] Comment on above: Performed By: #### L 100.0100, L503.6620, L500.4050 ####[facility] [address] [place], [address] Chloride [Moles/Vol] 107 mmol/L Normal 98-107 [facility] Comment on above: Performed By: #### L 100.0100, L503.6620, L500.4050 ####[facility] [address] [place], [address] CO2 [Moles/Vol] 28.0 mmol/L Normal 21.0-32.0 [facility] Comment on above: Performed By: #### L 100.0100, L503.6620, L500.4050 ####[facility] [address] [place], [address] Creatinine [Mass/Vol] 0.95 mg/dL Normal 0.70-1.30 [facility] Comment on above: Result Comment: The validity of the calculated GFR GFRAA in patients over 70 years has not been determined. Clinical correlation is essential. Performed By: #### L 100.0100, L503.6620, L500.4050 ####[facility] [address] [place], [address] EST GFR - AA 99 mL/min Normal >60 [facility] Comment on above: Result Comment: Afri can Cameroonian GFR Calc Performed By: #### L 100.0100, L503.6620, L500.4050 ####[facility] [address] [place], [address] GAP 4 Low 5-15 [facility] Comment on above: Performed By: #### L 100.0100, L503.6620, L500.4050 ####[facility] [address] [place], [address] GFR/1.73 sq M.predicted among non-blacks MDRD (S/P/Bld) [Vol rate/Area] 81 mL/min/{1.73_m2} Normal >60 [facility] Comment on above: Result Comment: Non- GFR Calc Performed By: #### L 100.0100, L503.6620, L500.4050 ####[facility] [address] [place], [address] Globulin (S) [Mass/Vol] 3.3 g/dL Normal 2.2-4.2 [facility] Comment on above: Performed By: #### L 100.0100, L503.6620, L500.4050 ####[facility] [address] [place], [address] Glucose [Mass/Vol] 94 mg/dL Normal 74-106 [facility] Comment on above: Performed By: #### L 100.0100, L503.6620, L500.4050 ####[facility] [address] [place], [address] Potassium [Moles/Vol] 4.8 mmol/L Normal 3.5-5.1 [facility] Comment on above: Performed By: #### L 100.0100, L503.6620, L500.4050 ####[facility] [address] [place], [address] Sodium [Moles/Vol] 139 mmol/L Normal 136-145 [facility] Comment on above: Performed By: #### L 100.0100, L503.6620, L500.4050 ####[facility] [address] [place], [address] T PROT 7.5 g/dL Normal 6.4-8.2 [facility] Comment on above: Performed By: #### L 100.0100, L503.6620, L500.4050 ####[facility] [address] [place], [address] Urea nitrogen [Mass/Vol] 19 mg/dL High 7-18 [facility] Comment on above: Performed By: #### L 100.0100, L503.6620, L500.4050 ####[facility] [address] [place], [address] Eosinophil percentageOrdered By: Annabella Krishnan on 05-29-2024 Eosinophils/100 WBC (Bld) 1.7 % 0-5 [facility] Erythrocyte distribution wid th ratioOrdered By: Annabella Krishnan on 05-29-2024 Erythrocyte distribution width (RBC) [Ratio] 12.4 % 11.6-14.6 [facility] Erythrocyte distribution wid th standard deviationOrdered By: Annabella Krishnan on 05-29-2024 Erythrocyte distribution width (RBC) [Entitic vol] 45.0 fL High 35.1-43.9 [facility] Estimated glomerular filtrat ion rate (GFR) AmericanOrdered By: Annabella Krishnan on 05-29-2024 Estimated GFR (MDRD) Amer 99 mL/min >60 [facility] Comment on above: GFR Calc Glomerular filtration rate ( GFR) estimationOrdered By: Annabella Krishnan on 05-29-2024 Estimated GFR (MDRD) Non-Af Amer 81 mL/min >60 [facility] Comment on above: Non- GFR Calc Glucose measurementOrdered B y: Annabella Krishnan on 05-29-2024 Glucose [Mass/Vol] 94 mg/dL 74-106 [facility] Hematocrit Auto (Bld) [Volum e fraction]Ordered By: Annabella Krishnan on 05-29-2024 Hematocrit (Bld) [Volume fraction] 43.7 % 40-54 [facility] Hemoglobin measurementOrdere d By: Annabella Krishnan on 05-29-2024 Hemoglobin (Bld) [Mass/Vol] 14.5 g/dL 13.0-16.5 [facility] Immature granulocytes/100 WB C Auto (Bld)Ordered By: Annabella Krishnan on 05-29-2024 Immature granulocytes/100 WBC (Bld) 0.400 % 0.0-0.9 [facility] Comment on above: IG% - Immature Granu locytes (promyelocytes, myelocytes and metamyelocytes) > 1% indicates that a LEFT SHIFT is Present. Laboratory - Chemistry and C hemistry - challengeOrdered By: Annabella Krishnan on 05-29-2024 AST [Catalytic activity/Vol] 27 U/L 15-37 [facility] Lymphocytes Auto (Unsp spec) [#/Vol]Ordered By: Annabella Krishnan on 05-29-2024 Lymphocytes (Bld) [#/Vol] 1.39 10*3/uL 0.83-4.51 [facility] Lymphocytes/100 WBC Auto (Un sp spec)Ordered By: Annabella Krishnan on 05-29-2024 Lymphocytes/100 WBC (Bld) 18.3 % Low 19-41 [facility] MCV (mean corpuscular volume ) determinationOrdered By: Annabella Krishnan on 05-29-2024 MCV (RBC) [Entitic vol] 97.1 fL High 80-94 [facility] Mean corpuscular hemoglobin (MCH) determinationOrdered By: Annabella Krishnan on 05-29-2024 MCH (RBC) [Entitic mass] 32.2 pg High 27.0-32.0 [facility] Mean corpuscular hemoglobin concentration (MCHC) determinationOrdered By: Annabella Krishnan on 05-29-2024 MCHC (RBC) [Mass/Vol] 33.2 g/dL 32-36 [facility] Mean platelet volume determi nationOrdered By: Annabella Krishnan on 05-29-2024 Platelet mean volume (Bld) [Entitic vol] 9.6 fL 6.2-12.0 [facility] Monocyte percentageOrdered B y: Annabella Krishnan on 05-29-2024 Monocytes/100 WBC (Bld) 11.5 % High 0-10 [facility] Neutrophil percentageOrdered By: Annabella Krishnan on 05-29-2024 Neutrophils/100 WBC (Bld) 67.3 % 47-70 [facility] Nucleated red blood cell per centageOrdered By: Annabella Krishnan on 05-29-2024 Nucleated RBC/100 WBC (Bld) [Ratio] 0 % 0-5 [facility] Platelet countOrdered By: Mayra Krishnan on 05-29-2024 Platelets (Bld) [#/Vol] 213 10*3/uL 150-450 [facility] Potassium measurementOrdered By: Annabella Krishnan on 05-29-2024 Potassium [Moles/Vol] 4.8 mmol/L 3.5-5.1 [facility] RBC Auto (Bld) [#/Vol]Ordere d By: Annabella Krishnan on 05-29-2024 RBC (Bld) [#/Vol] 4.50 10*6/uL Low 4.6-6.2 [facility] Serum anion gap measurementO rdered By: Annabella Krishnan on 05-29-2024 Anion gap [Moles/Vol] 4 mmol/L Low 5-15 [facility] Serum globulin measurementOr dered By: Annabella Krishnan on 05-29-2024 Globulin (S) [Mass/Vol] 3.3 g/dL 2.2-4.2 [facility] Serum or plasma alanine sun otransferase (ALT) measurementOrdered By: Annabella Krishnan on 05-29-2024 ALT [Catalytic activity/Vol] 36 U/L 16-61 [facility] Serum or plasma albumin amberly urement (mass/volume)Ordered By: Annabella Krishnan on 05-29-2024 Albumin [Mass/Vol] 4.2 g/dL 3.2-5.0 [facility] Serum or plasma alkaline awilda sphatase measurementOrdered By: Annabella Krishnan on 05-29-2024 ALP [Catalytic activity/Vol] 66 U/L 45-117 [facility] Serum or plasma calcium amberly urement (mass/volume)Ordered By: Annabella Krishnan on 05-29-2024 Calcium [Mass/Vol] 9.4 mg/dL 8.5-10.1 [facility] Serum or plasma creatinine m easurement (mass/volume)Ordered By: Annabella Krishnan on 05-29-2024 Creatinine [Mass/Vol] 0.95 mg/dL 0.70-1.30 [facility] Comment on above: The validity of the calculated GFR & GFRAA in patients over 70 years has not been determined. Clinical correlation is essential. Serum or plasma urea nitroge n measurement (mass/volume)Ordered By: Annabella Krishnan on 05-29-2024 Urea nitrogen [Mass/Vol] 19 mg/dL High 7-18 [facility] Sodium levelOrdered By: Annabella Krishnan on 05-29-2024 Sodium [Moles/Vol] 139 mmol/L 136-145 [facility] Total proteinOrdered By: Vadim Krishnan on 05-29-2024 Protein [Mass/Vol] 7.5 g/dL 6.4-8.2 [facility] White blood cell (WBC) count Ordered By: Annabella Krishnan on 05-29-2024 WBC (Bld) [#/Vol] 7.6 10*3/uL 4.4-11.0 [facility] Cardiology Visit Reporton Cardiology Visit Report [facility] [address] [place], [place] [address] OFFICE VISIT Date of Service: 03/11/24 MR#: [id number] Acct: [id number] Name: CLAYTON BURGOS Rep #: [id number] : 1945 Provider: Dr. Gigi Schwab MD Age/Sex: 78/M Location: [facility] [place] Status: Signed [facility] History of Present Illness Details: Clayton Burgos is a 78 year old gentleman that presents here today for a cardiovascular visit with recent pacemaker placement. He has a history of hypertension, hyperlipidemia, Wenckebach periodicity.??? 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 ??? He also has a history of mitral annular calcification.??? As part of his preoperative work-up he underwent an echocardiogram which demonstrated preserved ejection fraction as well as an exercise myocardial perfusion stress test where he exercised to 7 metabolic equivalents with no evidence of ischemia.??? There were periods of junctional rhythm noted as well as Wenckebach rhythm.??? Able to get his heart rate up appropriately. He has had no neck arm or jaw discomfort to suggest angina.??? As part of his work-up he underwent a calcium score which demonstrated a total score of 1349 and subsequently underwent a left heart catheterization in May 2020 which demonstrated luminal irregularities only. He tells me that he was noted to have an irregular heartbeat and underwent a 24-hour Holter monitor and a total of 96,970 beats were noted over the 24 hours was predominantly in sinus rhythm with a first-degree AV block and some periods of Mobitz type I Wenckebach rhythm were noted. There were occasional junctional rhythm also noted. I discussed this with the oil distributor and it was felt that it was benign at this time. No pacemaker indication was noted. He had also had carpal tunnel surgery as well as history of cervical spondylosis and so he underwent a technetium PYP scan for amyloid which was negative. Patient was out of town up in [place]. He presented to a hospital with being unresponsive for several minute notes that were witnessed. EMS noted the patient to be hypotensive. He was playing golf, went to a restaurant afterwards, was sitting at a barstool and suddenly lost consciousness. He was admitted for further evaluation. He was noted to have concern over high-grade AV block. He had a dual-chamber pacemaker placed on 01/27/2024 Patient has continued to sometimes feel that his heart is racing. Since he has had his pacemaker placed he does have a mild headache it daily. He does feel his activity level has been altered and he does feel short of breath. He is also fatigued. Intake Vital Signs 10/22/23 14:56 02/08/24 13:31 03/11/24 15:08 Height 5 ft 10 in 5 ft 10 in 5 ft 10 in Weight: 231 lb BMI 33.1 BP 137/85 H Blood Pressure Location Lt brachial Position Sitting Respiration 16 Pulse 76 Pulse Source Monitor Intake Visit Reasons: S/P NEW PPM 01/26 6 WK FU / RASHAD @ [address] Referee Required: No Accompanied by: Self Is patient in pain?: No Allergies No Known Allergies Allergy (Verified 03/11/24 15:23) Medications ???Medication ???Instructions ???Recorded ???Confirmed ???Type cholecalciferol (vitamin D3) 100 4,000 unit PO DAILY supplement 03/12/19 03/11/24 History mcg (4,000 unit) capsule acetaminophen 500 mg tablet 1,000 mg (2 x 500 mg) PO Q8 #90 02/24/20 03/11/24 Rx tabs aspirin 81 mg chewable tablet 81 mg PO DAILY@0800 04/22/20 03/11/24 Rx magnesium oxide 400 mg PO .QOD supplement 06/15/20 03/11/24 History lisinopril 5 mg tablet 5 mg PO BID 10/04/21 03/11/24 History gabapentin 600 mg tablet 600 mg PO BID nerve pain 03/28/22 03/11/24 History ibuprofen 200 mg tablet 400 mg PO QAM 10/31/22 03/11/24 History dnpjbkeu-sbo-mixaz acid 0.4 1 tab PO DAILY supplement 10/31/22 03/11/24 History mg-lycopene 300 mcg-lutein 250 mcg tablet rosuvastatin 20 mg tablet 20 mg PO DAILY 02/08/24 03/11/24 History metoprolol succinate 25 mg 25 mg PO QHS #30 tabs 02/20/24 03/11/24 Rx tablet,extended release 24 hr CBD Gummy PO QAM 03/11/24 03/11/24 History tamsulosin 0.4 mg capsule 0.8 mg PO QHS prostate 03/11/24 03/11/24 History Have you fallen in the past year?: No PFSH Medical History Presence of permanent cardiac pacemaker (01/27/24) Thyroid nodule Prostate cancer (2017) Multiple thyroid nodules Coronary artery calcification Bilateral carotid artery stenosis TIA (transient ischemic attack) (04/21/20) Obstructive sleep apnea Near syncope (01/13/20) AV block, Mobitz 1 GERD (gastroesophageal reflux disease) BPH (benign prostatic hyperplasia) Hyperlipidemia Mitral valve annular calcification LVH (left ve (more content not included)... Normal [facility] Pacemaker Checkon 03-11-2024 Pacemaker Check [facility] [address] [place] [address] Pacemaker Check Date of Service: 03/11/24 1542 MR#: [id number] Acct: [id number] Name: CLAYTON BURGOS Rep #: [id number] : 1945 From: Melissa Mirza Age/Sex: 78/M Location: [facility] [place] Status: Signed Billing Codes PM Device Codes: 87791 PM Dev Prog Eval, Dual Assessment and Plan Assessment and Plan (1) Presence of permanent cardiac pacemaker: Status: Acute (2) AV block, Mobitz 1: Status: Chronic (3) Bradycardia: Status: Acute (4) Rapid palpitations: Status: Chronic 03/11/24 1542 Date Melissa Guerraigner Signature: Date (if applicable) CC: Normal [facility] PSA,Total - Annual Screenon 02-29-2024 PSA,TOT SCREEN 0.07 ng/mL Normal 0.00-4.00 [facility] Comment on above: Result Comment: This test was performed using the TPSA assay method for the [employer] chemistry system. Values obtained with different assay methods cannot be used interchangably. When changing PSA assays in the course of monitoring a patient, additional sequential testing should be carried out to confirm baseline values. Performed By: #### L 501.9910 ####[facility] [address], [address] Pacemaker Checkon 02-28-2024 Pacemaker Check [facility] [address] [place] [address] Pacemaker Check Date of Service: 02/28/24 1606 MR#: [id number] Acct: [id number] Name: CLAYTON BURGOS Rep #: [id number] : 1945 From: Melissa Mirza Age/Sex: 78/M Location: [facility] Status: Signed Billing Codes PM Device Codes: 78956 PM Dev Interrogate (Remote) Assessment and Plan Assessment and Plan (1) Presence of permanent cardiac pacemaker: Status: Acute (2) AV block, Mobitz 1: Status: Chronic 02/28/246 Date Melissa Hermesstephan Fuentes Signature: Date (if applicable) CC: Normal [facility] Cardiology Visit Reporton Cardiology Visit Report [facility] [address] [place] [address] OFFICE VISIT Date of Service: 02/08/24 MR#: [id number] Acct: [id number] Name: CLAYTON BURGOS Rep #: [id number] : 1945 Provider: AGNES Ahn Age/Sex: 78/M Location: [facility] [place] Status: Signed HPI HPI History of Present Illness Details: Clayton Burgos is a 78 year old gentleman that presents here today for a cardiovascular visit with recent pacemaker placement. he has a history of hypertension, hyperlipidemia, Wenckebach periodicity.??? 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 ??? He also has a history of mitral annular calcification.??? As part of his preoperative work-up he underwent an echocardiogram which demonstrated preserved ejection fraction as well as an exercise myocardial perfusion stress test where he exercised to 7 metabolic equivalents with no evidence of ischemia.??? There were periods of junctional rhythm noted as well as Wenckebach rhythm.??? Able to get his heart rate up appropriately. He has had no neck arm or jaw discomfort to suggest angina.??? As part of his work-up he underwent a calcium score which demonstrated a total score of 1349 and subsequently underwent a left heart catheterization in May 2020 which demonstrated luminal irregularities only. He tells me that he was noted to have an irregular heartbeat and underwent a 24-hour Holter monitor and a total of 96,970 beats were noted over the 24 hours was predominantly in sinus rhythm with a first-degree AV block and some periods of Mobitz type I Wenckebach rhythm were noted. There were occasional junctional rhythm also noted. I discussed this with the oil distributor and it was felt that it was benign at this time. No pacemaker indication was noted. He had also had carpal tunnel surgery as well as history of cervical spondylosis and so he underwent a technetium PYP scan for amyloid which was negative. Patient was out of town up in [place]. He presented to a hospital with being unresponsive for several minute notes that were witnessed. EMS noted the patient to be hypotensive. He was playing golf, went to a restaurant afterwards, was sitting at a barstool and suddenly lost consciousness. He was admitted for further evaluation. He was noted to have concern over high-grade AV block. He had a dual-chamber pacemaker placed on 01/27/2024 Patient has continued to sometimes feel that his heart is racing. Since he has had his pacemaker placed he does have a mild headache it daily. He does feel his activity level has been altered and he does feel short of breath. He is also fatigued. Intake Vital Signs 10/22/23 14:56 02/08/24 13:26 02/08/24 13:31 Height 5 ft 10 in 5 ft 10 in 5 ft 10 in Weight: 230 lb BMI 33.0 BP 136/72 H Blood Pressure Location Lt brachial Position Sitting Respiration 18 Pulse 94 Pulse Source Monitor Intake Visit Reasons: See Clinical Note Traffic Court Referee Required: No Is patient in pain?: No Allergies No Known Allergies Allergy (Verified 02/08/24 13:26) Medications ???Medication ???Instructions ???Recorded ???Confirmed ???Type cholecalciferol (vitamin D3) 100 4,000 unit PO DAILY supplement 03/12/19 02/08/24 History mcg (4,000 unit) capsule acetaminophen 500 mg tablet 1,000 mg (2 x 500 mg) PO Q8 #90 02/24/20 02/08/24 Rx tabs aspirin 81 mg chewable tablet 81 mg PO DAILY@0800 04/22/20 02/08/24 Rx magnesium oxide 400 mg PO .QOD supplement 06/15/20 02/08/24 History lisinopril 5 mg tablet 5 mg PO BID 10/04/21 02/08/24 History gabapentin 600 mg tablet 600 mg PO BID nerve pain 03/28/22 02/08/24 History ibuprofen 200 mg tablet 200 mg PO QHS 10/31/22 02/08/24 History ibuprofen 200 mg tablet 400 mg PO QAM 10/31/22 02/08/24 History ktafcpzr-php-bbmfb acid 0.4 1 tab PO DAILY supplement 10/31/22 02/08/24 History mg-lycopene 300 mcg-lutein 250 mcg tablet rosuvastatin 20 mg tablet 20 mg PO DAILY 02/08/24 02/08/24 History tamsulosin 0.4 mg capsule 0.4 mg PO QHS prostate 02/08/24 02/08/24 History Have you fallen in the past year?: No PFSH Medical History Presence of permanent cardiac pacemaker Thyroid nodule Prostate cancer (2017) Multiple thyroid nodules Coronary artery calcification Bilateral carotid artery stenosis TIA (transient ischemic attack) (04/21/20) Obstructive sleep apnea Near syncope (01/13/20) AV block, Mobitz 1 GERD (gastroesophageal reflux disease) BPH (benign prostatic hyperplasia) Hyperlipidemia Mitral valve annular calcification LVH (left ventricular hypertrophy) Thyroid nodule Rapid palpitations Essential (primary) hypertension Heart murmur Arthritis (more content not included)... Normal [facility] Thyroglobulin w/Anti-TG ABon 02-08-2024 Anti-TG AB < 1.0 Normal 0.0-0.9 [facility] Comment on above: Order Comment: BRONSON David ADD TPO ATAB TO BLOOD DRAWN THIS AM PER Result Comment: Thyr oglobulin Antibody measured by [facility] [employer] It should be noted that the presence of thyroglobulin antibodies may not be pathogenic nor diagnostic, especially at very low levels. The assay implementation specialist payroll has found that four percent of individuals without evidence of thyroid disease or autoimmunity will have positive TgAb levels up to 4 IU/mL. Performed By: #### L 1670.6329, L3300.3950 ####[facility] [id number] [place], [place], [id number] THYROGLOB QUANT 15.9 ng/mL Normal 1.4-29.2 [facility] Comment on above: Order Comment: BRONSON David ADD TPO ATAB TO BLOOD DRAWN THIS AM PER Result Comment: Acco rding to the National Academy of Clinical Biochemistry, the reference interval for Thyroglobulin (TG) should be related to euthyroid patients and not for patients who underwent thyroidectomy. TG reference intervals for these patients depend on the residual mass of the thyroid tissue left after surgery. Establishing a post-operative baseline is recommended. The assay limit of quantitation is 0.1 ng/mL Thyroglobulin measured by [facility] [employer] Performed By: #### L 0397.5575, L3571.9597 ####[facility] [id number] [facility] [place], [place], [id number] Thyroid Peroxidase ABon 01-13 THYR PEROX AB < 9 Normal 0-34 [facility] Comment on above: Order Comment: BRONSON David ADD TPO ATAB TO BLOOD DRAWN THIS AM PER Result Comment: Perf ormed at: - [facility] [address] [id number] Assistant Professor Of German: Beny Ny PhD, Phone: [phone] Performed By: #### L 3307.3409, L3704.5516 ####[facility] [address] [facility] [place], [address] CBC W/Diff, Automatedon - Absolute Lymph 1.92 X10 3/uL Normal 0.83-4.51 [facility] Comment on above: Order Comment: Order Date: 02/06/24 Order Info: 0184-1 - CBCD Performed By: #### L 501.9520, L506.0400, L501.5200, L100.0100, L500.4050 #### [facility] [address] [place], [address] Absolute Neut 3.1 X10 3/uL Normal 2.0-7.7 [facility] Comment on above: Order Comment: Order Date: 02/06/24 Order Info: 0184-1 - CBCD Performed By: #### L 501.9520, L506.0400, L501.5200, L100.0100, L500.4050 #### [facility] [address] [place], [address] Basophils/100 WBC (Bld) 1.3 % High 0-1 [facility] Comment on above: Order Comment: Order Date: 02/06/24 Order Info: 0184-1 - CBCD Performed By: #### L 501.9520, L506.0400, L501.5200, L100.0100, L500.4050 #### [facility] [address] [place], [address] Eosinophils/100 WBC (Bld) 2.9 % Normal 0-5 [facility] Comment on above: Order Comment: Order Date: 02/06/24 Order Info: 0184-1 - CBCD Performed By: #### L 501.9520, L506.0400, L501.5200, L100.0100, L500.4050 #### [facility] [address] [place], [address] Erythrocyte distribution width (RBC) [Ratio] 13.4 % Normal 11.6-14.6 [facility] Comment on above: Order Comment: Order Date: 02/06/24 Order Info: 0184-1 - CBCD Performed By: #### L 501.9520, L506.0400, L501.5200, L100.0100, L500.4050 #### [facility] [address] [place], [address] Hematocrit (Bld) [Volume fraction] 44.5 % Normal 40-54 [facility] Comment on above: Order Comment: Order Date: 02/06/24 Order Info: 0184-1 - CBCD Performed By: #### L 501.9520, L506.0400, L501.5200, L100.0100, L500.4050 #### [facility] [address] [place], [address] Hemoglobin (Bld) [Mass/Vol] 14.2 g/dL Normal 13.0-16.5 [facility] Comment on above: Order Comment: Order Date: 02/06/24 Order Info: 0184-1 - CBCD Performed By: #### L 501.9520, L506.0400, L501.5200, L100.0100, L500.4050 #### [facility] [address] [place], [address] IG% 1.300 High 0.0-0.9 [facility] Comment on above: Order Comment: Order Date: 02/06/24 Order Info: 0184-1 - CBCD Result Comment: IG% - Immature Granulocytes (promyelocytes, myelocytes and metamyelocytes) > 1% indicates that a LEFT SHIFT is Present. Performed By: #### L 501.9520, L506.0400, L501.5200, L100.0100, L500.4050 #### [facility] [address] [place], [address] Lymphocytes/100 WBC (Bld) 31.2 % Normal 19-41 [facility] Comment on above: Order Comment: Order Date: 02/06/24 Order Info: 0184-1 - CBCD Performed By: #### L 501.9520, L506.0400, L501.5200, L100.0100, L500.4050 #### [facility] [address] [place], [address] MCH (RBC) [Entitic mass] 32.5 pg High 27.0-32.0 [facility] Comment on above: Order Comment: Order Date: 02/06/24 Order Info: 018- - CBCD Performed By: #### L 501.9520, L506.0400, L501.5200, L100.0100, L500.4050 #### [facility] [address] [place], [address] MCHC (RBC) [Mass/Vol] 31.9 g/dL Low 32-36 [facility] Comment on above: Order Comment: Order Date: 02/06/24 Order Info: 018- - CBCD Performed By: #### L 501.9520, L506.0400, L501.5200, L100.0100, L500.4050 #### [facility] [address] [place], [address] MCV (RBC) [Entitic vol] 101.8 fL High 80-94 [facility] Comment on above: Order Comment: Order Date: 02/06/24 Order Info: [id number] - CBCD Performed By: #### L 501.9520, L506.0400, L501.5200, L100.0100, L500.4050 #### [facility] [address] [place], [address] Monocytes/100 WBC (Bld) 12.3 % High 0-10 [facility] Comment on above: Order Comment: Order Date: 02/06/24 Order Info: 018- - CBCD Performed By: #### L 501.9520, L506.0400, L501.5200, L100.0100, L500.4050 #### [facility] [address] [place], [address] Neutrophils/100 WBC (Bld) 51.0 % Normal 47-70 [facility] Comment on above: Order Comment: Order Date: 02/06/24 Order Info: 0184-1 - CBCD Performed By: #### L 501.9520, L506.0400, L501.5200, L100.0100, L500.4050 #### [facility] [address] [place], [address] Nucleated RBC (Bld) [#/Vol] 0 10*3/uL Normal 0-5 [facility] Comment on above: Order Comment: Order Date: 02/06/24 Order Info: 0184- - CBCD Performed By: #### L 501.9520, L506.0400, L501.5200, L100.0100, L500.4050 #### [facility] [address] [place], [address] Platelet mean volume (Bld) [Entitic vol] 10.2 fL Normal 6.2-12.0 [facility] Comment on above: Order Comment: Order Date: 02/06/24 Order Info: 0184- - CBCD Performed By: #### L 501.9520, L506.0400, L501.5200, L100.0100, L500.4050 #### [facility] [address] [place], [address] Platelets (Bld) [#/Vol] 177 10*3/uL Normal 150-450 [facility] Comment on above: Order Comment: Order Date: 02/06/24 Order Info: 0184- - CBCD Performed By: #### L 501.9520, L506.0400, L501.5200, L100.0100, L500.4050 #### [facility] [address] [place], [address] RBC (Bld) [#/Vol] 4.37 10*6/uL Low 4.6-6.2 [facility] Comment on above: Order Comment: Order Date: 02/06/24 Order Info: 0184-1 - CBCD Performed By: #### L 501.9520, L506.0400, L501.5200, L100.0100, L500.4050 #### [facility] [address] [place], [address] RDW SD 50.0 fl High 35.1-43.9 [facility] Comment on above: Order Comment: Order Date: 02/06/24 Order Info: 0184-1 - CBCD Performed By: #### L 501.9520, L506.0400, L501.5200, L100.0100, L500.4050 #### [facility] [address] [place], [address] WBC (Bld) [#/Vol] 6.2 10*3/uL Normal 4.4-11.0 [facility] Comment on above: Order Comment: Order Date: 02/06/24 Order Info: 0184-1 - CBCD Performed By: #### L 501.9520, L506.0400, L501.5200, L100.0100, L500.4050 #### [facility] [address] [place], [address] Comprehensive Metabolic Prof akon 02-07-2024 Albumin [Mass/Vol] 4.3 g/dL Normal 3.2-5.0 [facility] Comment on above: Order Comment: Order Date: 02/06/24 Order Info: 0786-1 - CMP Order Info: [id number] - MG Order Info: 3016-3 - TSH Order Info: 3024-7 - T4F Result Comment: AMENDED REPORT 02/07/24 1614 ALB previously reported as: 3.9 g/dL Performed By: #### L 501.9520, L506.0400, L501.5200, L100.0100, L500.4050 #### [facility] [address] [place], [address] Albumin/Globulin [Mass ratio] 1.3 {ratio} Normal 0.9-2.4 [facility] Comment on above: Order Comment: Order Date: 02/06/24 Order Info: 0786-1 - CMP Order Info: [id number] - MG Order Info: 3016-3 - TSH Order Info: 3024-7 - T4F Result Comment: AMENDED REPORT 02/07/241613 A/G previously reported as: 1.2 RATIO Performed By: #### L 501.9520, L506.0400, L501.5200, L100.0100, L500.4050 #### [facility] [address] [place], [address] ALK P 66 U/L Normal 45-117 [facility] Comment on above: Order Comment: Order Date: 02/06/24 Order Info: 785-1 - CMP Order Info: [id number] - MG Order Info: 3016-3 - TSH Order Info: 3024-7 - T4F Result Comment: AMENDED REPORT 02/07/241613 ALK P previously reported as: 64 U/L Performed By: #### L [id number], L506.0400, L501.5200, L100.0100, L500.4050 #### [facility] [address] [place], [address] ALT [Catalytic activity/Vol] 36 U/L Normal 16-61 [facility] Comment on above: Order Comment: Order Date: 02/06/24 Order Info: 0786-1 - CMP Order Info: 13852-3 - MG Order Info: 3016-3 - TSH Order Info: 3024-7 - T4F Result Comment: AMENDED REPORT 02/07/241613 ALT previously reported as: 26 U/L Performed By: #### L 501.9520, L506.0400, L501.5200, L100.0100, L500.4050 #### [facility] [address] [place], [place], [id number] AST [Catalytic activity/Vol] 26 U/L Normal 15-37 [facility] Comment on above: Order Comment: Order Date: 02/06/24 Order Info: 0786-1 - CMP Order Info: 52719-8 - MG Order Info: 3016-3 - TSH Order Info: 302-7 - T4F Result Comment: AMENDED REPORT 02/07/241613 AST previously reported as: 23 U/L Performed By: #### L 501.9520, L506.0400, L501.5200, L100.0100, L500.4050 #### [facility] [address] [place], [place], [address] Bilirubin [Mass/Vol] 0.80 mg/dL Normal 0.20-1.00 [facility] Comment on above: Order Comment: Order Date: 02/06/24 Order Info: 0786-1 - CMP Order Info: [id number] - MG Order Info: 3015-3 - TSH Order Info: 7 - T4F Result Comment: For patients on eltrombopag therapy, use of Dimension [place] TBIL is not recommended. For patients on eltrombopag therapy, use of Dimension [place] TBIL is not recommended. AMENDED REPORT 02/07/241613 T BILI previously reported as: 0.30 mg/dL For patients on eltrombopag therapy, use of Dimension [place] TBIL is not recommended. Performed By: #### L 501.9520, L506.0400, L501.5200, L100.0100, L500.4050 #### [facility] [address] [place], [place], [id number] BUN/CRE 11.4 RATIO Normal 10-20 [facility] Comment on above: Order Comment: Order Date: 02/06/24 Order Info: 0786-1 - CMP Order Info: 56452-0 - MG Order Info: 3016-3 - TSH Order Info: 3027 - T4F Result Comment: AMENDED REPORT 02/07/241613 BUN/CRE previously reported as: 26.6 H RATIO Performed By: #### L 501.9520, L506.0400, L501.5200, L100.0100, L500.4050 #### [facility] [address] [place], [address] CA,Total 9.7 mg/dL Normal 8.5-10.1 [facility] Comment on above: Order Comment: Order Date: 02/06/24 Order Info: 0786-1 - CMP Order Info: 47927-2 - MG Order Info: 3016-3 - TSH Order Info: 3024-7 - T4F Result Comment: AMENDED REPORT 02/07/24 1614 CA previously reported as: 9.0 mg/dL Performed By: #### L 501.9520, L506.0400, L501.5200, L100.0100, L500.4050 #### [facility] [address] [place], [address] Chloride [Moles/Vol] 108 mmol/L High 98-107 [facility] Comment on above: Order Comment: Order Date: 02/06/24 Order Info: 86-1 - CMP Order Info: 92613-1 - MG Order Info: 3016-3 - TSH Order Info: 3024-7 - T4F Result Comment: AMENDED REPORT 02/07/24 1614 CL previously reported as: 106 mmol/L Performed By: #### L 501.9520, L506.0400, L501.5200, L100.0100, L500.4050 #### [facility] [address] [place], [address] Creatinine [Mass/Vol] 1.14 mg/dL Normal 0.70-1.30 [facility] Comment on above: Order Comment: Order Date: 02/06/24 Order Info: 0786-1 - CMP Order Info: [id number] - MG Order Info: 3016-3 - TSH Order Info: 3024-7 - T4F Result Comment: The validity of the calculated GFR GFRAA in patients over 70 years has not been determined. Clinical correlation is essential. The validity of the calculated GFR GFRAA in patients over 70 years has not been determined. Clinical correlation is essential. AMENDED REPORT 02/07/241613 CREAT,SERUM previously reported as: 0.86 mg/dL The validity of the calculated GFR GFRAA in patients over 70 years has not been determined. Clinical correlation is essential. Performed By: #### L 501.9520, L506.0400, L501.5200, L100.0100, L500.4050 #### [facility] [address] [place], [address] EST GFR - AA 80 mL/min Normal >60 [facility] Comment on above: Order Comment: Order Date: 02/06/24 Order Info: 0786-1 - CMP Order Info: 75965-3 - MG Order Info: 3016-3 - TSH Order Info: 3024-7 - T4F Result Comment: Afri can Cameroonian GFR Calc Performed By: #### L 501.9520, L506.0400, L501.5200, L100.0100, L500.4050 #### [facility] [address] [place], [address] GAP 4 Low 5-15 [facility] Comment on above: Order Comment: Order Date: 02/06/24 Order Info: 0786-1 - CMP Order Info: 82799-8 - MG Order Info: 3016-3 - TSH Order Info: 3024-7 - T4F Result Comment: AMENDED REPORT 02/07/241613 GAP previously reported as: 5 Performed By: #### L 501.9520, L506.0400, L501.5200, L100.0100, L500.4050 #### [facility] [address] [place], [address] GFR/1.73 sq M.predicted among non-blacks MDRD (S/P/Bld) [Vol rate/Area] 66 mL/min/{1.73_m2} Normal >60 [facility] Comment on above: Order Comment: Order Date: 02/06/24 Order Info: 0786-1 - CMP Order Info: 47731-1 - MG Order Info: 3015-3 - TSH Order Info: 3023-7 - T4F Result Comment: Non- GFR Calc Performed By: #### L 501.9520, L506.0400, L501.5200, L100.0100, L500.4050 #### [facility] [address] [place], [address] Globulin (S) [Mass/Vol] 3.3 g/dL Normal 2.2-4.2 [facility] Comment on above: Order Comment: Order Date: 02/06/24 Order Info: 0786-1 - CMP Order Info: 33262-2 - MG Order Info: 3 - TSH Order Info: 3023-7 - T4F Result Comment: AMENDED REPORT 02/07/24 1614 GLOB previously reported as: 3.3 g/dL Performed By: #### L 501.9520, L506.0400, L501.5200, L100.0100, L500.4050 #### [facility] [address] [place], [address] Glucose [Mass/Vol] 109 mg/dL High 74-106 [facility] Comment on above: Order Comment: Order Date: 02/06/24 Order Info: 0786-1 - CMP Order Info: 97404-6 - MG Order Info: 6-3 - TSH Order Info: 302-7 - T4F Result Comment: Fast ing Glucose result from 100 to 125 mg/dL suggests IMPAIRED HOMEOSTASIS per A.D.A. criteria. AMENDED REPORT 02/07/24 1614 GLU previously reported as: 96 mg/dL Performed By: #### L 501.9520, L506.0400, L501.5200, L100.0100, L500.4050 #### [facility] [address] [place], [address] Potassium [Moles/Vol] 4.3 mmol/L Normal 3.5-5.1 [facility] Comment on above: Order Comment: Order Date: 02/06/24 Order Info: 0786-1 - CMP Order Info: 80176-8 - MG Order Info: 3016-3 - TSH Order Info: 3024-7 - T4F Result Comment: AMENDED REPORT 02/07/241613 K previously reported as: 4.4 mmol/L Performed By: #### L 501.9520, L506.0400, L501.5200, L100.0100, L500.4050 #### [facility] [address] [place], [address] Sodium [Moles/Vol] 139 mmol/L Normal 136-145 [facility] Comment on above: Order Comment: Order Date: 02/06/24 Order Info: 86-1 - CMP Order Info: 66664-9 - MG Order Info: 3016-3 - TSH Order Info: 3024-7 - T4F Result Comment: AMENDED REPORT 02/07/241613 NA previously reported as: 138 mmol/L Performed By: #### L 501.9520, L506.0400, L501.5200, L100.0100, L500.4050 #### [facility] [address] [place], [address] T PROT 7.6 g/dL Normal 6.4-8.2 [facility] Comment on above: Order Comment: Order Date: 02/06/24 Order Info: 0786-1 - CMP Order Info: 25708-0 - MG Order Info: 3016-3 - TSH Order Info: 3024-7 - T4F Result Comment: AMENDED REPORT 02/07/241613 T PROT previously reported as: 7.2 g/dL Performed By: #### L 501.9520, L506.0400, L501.5200, L100.0100, L500.4050 #### [facility] [address] [place], [address] Urea nitrogen [Mass/Vol] 13 mg/dL Normal 7-18 [facility] Comment on above: Order Comment: Order Date: 02/06/24 Order Info: 785-1 - CMP Order Info: 83706-8 - MG Order Info: 3015-3 - TSH Order Info: 7 - T4F Result Comment: AMENDED REPORT 02/07/241613 BUN previously reported as: 23 H mg/dL Performed By: #### L 501.9520, L506.0400, L501.5200, L100.0100, L500.4050 #### [facility] [address] [place], [address] Magnesiumon 02-07-2024 Magnesium [Mass/Vol] 2.3 mg/dL Normal 1.6-2.6 [facility] Comment on above: Order Comment: Order Date: 02/06/24 Order Info: 785-1 - CMP Order Info: 03808-2 - MG Order Info: 3 - TSH Order Info: 3023-11 - T4F Result Comment: AMENDED REPORT 02/07/241613 MG previously reported as: 2.2 mg/dL Performed By: #### L 501.9520, L506.0400, L501.5200, L100.0100, L500.4050 #### [facility] [address] [place], [place], [address] T4 Free Directon 02-07-2024 T4 FREE DIRECT 0.77 ng/dL Normal 0.76-1.46 [facility] Comment on above: Order Comment: Order Date: 02/06/24 Order Info: 785-1 - CMP Order Info: [id number] - MG Order Info: 3 - TSH Order Info: 7 - T4F Result Comment: AMENDED REPORT 02/07/241613 T4 FREE DIRECT previously reported as: 0.69 L ng/dL Performed By: #### L 501.9520, L506.0400, L501.5200, L100.0100, L500.4050 #### [facility] [address] [place], [address] Thyroid Stim Hormone (TSH)on 02-07-2024 TSH 1.730 uIU/mL Normal 0.358-3.740 [facility] Comment on above: Order Comment: Order Date: 02/06/24 Order Info: 0786-1 - CMP Order Info: 30508-8 - MG Order Info: 3016-3 - TSH Order Info: 3024-7 - T4F Result Comment: AMENDED REPORT 02/07/24 1614 TSH previously reported as: 1.530 uIU/mL Performed By: #### L 501.9520, L506.0400, L501.5200, L100.0100, L500.4050 #### [facility] [address] [place], [address] Pacemaker Checkon 02-04-2024 Pacemaker Check [facility] [address] [place] [address] Pacemaker Check Date of Service: 02/04/24 183 MR#: [id number] Acct: [id number] Name: CLAYTON BURGOS Rep #: [id number] : 1945 From: Melissa Mirza Age/Sex: 78/M Location: [facility] [place] Status: Signed Billing Codes PM Device Codes: 75128 PM Dev Prog Eval, Dual Assessment and Plan Assessment and Plan (1) AV block, Mobitz 1: Status: Chronic (2) Presence of permanent cardiac pacemaker: Status: Acute 02/04/24 1835 Date Meilssa Fuentes Signature: Date (if applicable) CC: Normal [facility] Absolute lymphocyte countOrd ered By: Annabella Hernandezamy on 08-31-2023 Lymphocytes Auto (Unsp spec) [#/Vol] 1.25 10*3/uL 0.83-4.51 [facility] Automated lymphocyte count a s percentage of total leukocytesOrdered By: Annabella Hernandezamy on 08-31-2023 Lymphocytes/100 WBC Auto (Unsp spec) 23.9 % 19-41 [facility] Basophil percentageOrdered B y: Annabella Mallorylacy on 08-31-2023 Basophil percentage 0 SEEN /hpf 0-5 [facility] Basophils/100 WBC (Bld) 1.0 % 0-1 [facility] Bilirubin [Mass/Vol] 0.70 mg/dL 0.20-1.00 [facility] Comment on above: For patients on eltr ombopag therapy, use of [place] TBIL is not recommended. Chloride [Moles/Vol] 105 mmol/L 98-107 [facility] Cholesterol [Mass/Vol] 136 mg/dL <200 [facility] Comment on above: <200 mg/dL Desirable 200-240 mg/dL Borderline >240 mg/dL High Risk Eosinophils/100 WBC (Bld) 3.4 % 0-5 [facility] Glucose [Mass/Vol] 101 mg/dL 74-106 [facility] Comment on above: Fasting Glucose resu lt from 100 to 125 mg/dL suggests IMPAIRED HOMEOSTASIS per A.D.A. criteria. Hemoglobin (Bld) [Mass/Vol] 14.7 g/dL 13.0-16.5 [facility] Monocytes/100 WBC (Bld) 12.4 % 0-10 [facility] Neutrophils (Bld) [#/Vol] 3.1 10*3/uL 2.0-7.7 [facility] Neutrophils/100 WBC (Bld) 58.9 % 47-70 [facility] Potassium [Moles/Vol] 4.2 mmol/L 3.5-5.1 [facility] Protein [Mass/Vol] 7.3 g/dL 6.4-8.2 [facility] Sodium [Moles/Vol] 139 mmol/L 136-145 [facility] Triglyceride [Mass/Vol] 96 mg/dL <199 [facility] Comment on above: The drugs N-Acetylcy steine and Metamizole may falsely depress this assay.Serum Triglycerides Reference Interval Normal <150 mg/dL Borderline high 150 - 199 mg/dL High 200 - 499 mg/dL Very High > or = 500 mg/dL WBC (Bld) [#/Vol] 5.2 10*3/uL 4.4-11.0 [facility] Bilirubin Test strip Ql (U)O rdered By: Annabella Willard on 08-31-2023 Bilirubin Ql (U) Negative Negative [facility] Determination of erythrocyte mean corpuscular volume (MCV)Ordered By: Annabella Willard on 08-31-2023 MCV (RBC) [Entitic vol] 97.0 fL 80-94 [facility] Erythrocyte distribution wid th ratioOrdered By: Annabella Willard on 08-31-2023 Erythrocyte distribution width (RBC) [Ratio] 13.6 % 11.6-14.6 [facility] Erythrocyte distribution wid th standard deviationOrdered By: Annabella Willard on 08-31-2023 Erythrocyte distribution width (RBC) [Entitic vol] 48.7 fL 35.1-43.9 [facility] Hematocrit Auto (Bld) [Volum e fraction]Ordered By: Annabella Willard on 08-31-2023 Hematocrit (Bld) [Volume fraction] 45.6 % 40-54 [facility] Immature granulocytes/100 WB C Auto (Bld)Ordered By: Annabella Willard on 08-31-2023 Immature granulocytes/100 WBC (Bld) 0.400 % 0.0-0.9 [facility] Comment on above: IG% - Immature Granu locytes (promyelocytes, myelocytes and metamyelocytes) > 1% indicates that a LEFT SHIFT is Present. Ketones Test strip Ql (U)Ord ered By: Annabella Willard on 08-31-2023 Ketones Ql (U) Negative Negative [facility] - Chemistry and C hemistry - challengeOrdered By: Annabella Willard on 08-31-2023 Albumin/Globulin [Mass ratio] 1.2 {ratio} 0.9-2.4 [facility] ALP [Catalytic activity/Vol] 54 U/L 45-117 [facility] ALT [Catalytic activity/Vol] 34 U/L 16-61 [facility] Cholesterol in HDL [Mass/Vol] 75 mg/dL >40 [facility] Comment on above: The drugs N-Acetylcy steine and Metamizole may falsely depress this assay. Reference Range HDL <40 mg/dL Low HDL Cholesterol HDL >or= 60 mg/dL High HDL Cholesterol Cholesterol in LDL [Mass/Vol] 42 mg/dL 0-130 [facility] CO2 [Moles/Vol] 29.0 mmol/L 21.0-32.0 [facility] Globulin (S) [Mass/Vol] 3.3 g/dL 2.2-4.2 [facility] Magnesium [Mass/Vol] 2.0 mg/dL 1.6-2.6 [facility] Urea nitrogen/Creatinine [Mass ratio] 19.1 mg/mg 10-20 [facility] - Hematology and Cell countsOrdered By: Annabella Willard on 08-31-2023 MCH (RBC) [Entitic mass] 31.3 pg 27.0-32.0 [facility] MCHC (RBC) [Mass/Vol] 32.2 g/dL 32-36 [facility] Nucleated RBC/100 WBC (Bld) [Ratio] 0 % 0-5 [facility] Platelet mean volume (Bld) [Entitic vol] 10.2 fL 6.2-12.0 [facility] Platelets (Bld) [#/Vol] 190 10*3/uL 150-450 [facility] Mucus LM Ql (Urine sed)Order ed By: Annabella Willard on 08-31-2023 Mucus Ql (Urine sed) 0 SEEN /hpf [facility] Nitrite Test strip Ql (U)Ord ered By: Annabella Willard on 08-31-2023 Nitrite Ql (U) Negative Negative [facility] No Panel InformationOrdered By: Annabella Willard on 08-31-2023 Urine RBC 0 SEEN /hpf 0-5 [facility] Estimated GFR (MDRD) Amer 114 mL/min >60 [facility] Comment on above: GFR Calc Estimated GFR (MDRD) Non-Af Amer 94 mL/min >60 [facility] Comment on above: Non- GFR Calc Vitamin D 25-Hydroxy 54.1 ng/mL [facility] Comment on above: Vitamin D 25(OH) Sta tus Range Deficiency <20 ng/mL (50nmol/L) Insufficiency 20 - 30 ng/mL (50 - 75 nmol/L) Sufficiency 30 - 100 ng/mL (75 - 250 nmol/L) Toxicity >100 ng/mL (>250 nmol/L) VLDL Cholesterol 19 mg/dL 5-40 [facility] Protein Test strip Ql (U)Ord ered By: Annabella Willard on 08-31-2023 Protein Ql (U) 30 mg/dl Negative [facility] RBC Auto (Bld) [#/Vol]Ordere d By: Annabella Willard on 08-31-2023 RBC (Bld) [#/Vol] 4.70 10*6/uL 4.6-6.2 [facility] Serum or plasma calcium amberly urement (mass/volume)Ordered By: Annabella Willard on 08-31-2023 Calcium [Mass/Vol] 9.5 mg/dL 8.5-10.1 [facility] Serum or plasma creatinine m easurement (mass/volume)Ordered By: Annabella Willard on 08-31-2023 Creatinine [Mass/Vol] 0.84 mg/dL 0.70-1.30 [facility] Comment on above: The validity of the calculated GFR & GFRAA in patients over 70 years has not been determined. Clinical correlation is essential. Serum or plasma thyroid stim ulating hormone (TSH) measurement (units/volume)Ordered By: Annabella Willard on 08-31-2023 TSH Qn 1.43 uIU/mL 0.358-3.74 [facility] Serum or plasma urea nitroge n measurement (mass/volume)Ordered By: Annabella Willard on 08-31-2023 Urea nitrogen [Mass/Vol] 16 mg/dL 7-18 [facility] Squamous epithelial cells de tection in urine sediment by light microscopyOrdered By: Annabella Willard on 08-31-2023 Epithelial cells.squamous LM Ql (Urine sed) 0 SEEN /hpf 0-5 [facility] Thin prep Papanicolaou smear with manual screeningOrdered By: Annabella Willard on 08-31-2023 Thin prep Papanicolaou smear with manual screening 4.0 g/dL 3.2-5.0 [facility] Thin prep Papanicolaou smear with manual screening 32 U/L 15-37 [facility] Thin prep Papanicolaou smear with manual screening 5 5-15 [facility] Urine blood detectionOrdered By: Annabella Willard on 08-31-2023 RBC Ql (U) Negative Negative [facility] Urine clarityOrdered By: Vadim Willard on 08-31-2023 Clarity (U) Clear Clear [facility] Urine color determinationOrd ered By: Annabella Willard on 08-31-2023 Color (U) Yellow Yellow [facility] Urine glucose detectionOrder ed By: Annabella Willard on 08-31-2023 Glucose Ql (U) Normal mg/dl Normal [facility] Urine leukocyte esterase det ection by dipstickOrdered By: Annabella Willard on 08-31-2023 Leukocyte esterase Test strip Ql (U) Negative Negative [facility] Urine pHOrdered By: Annabella house on 08-31-2023 pH (U) 7.0 [pH] 5.0 - 8.0 [facility] Urine sediment bacteria coun t by microscopy (number/high power field)Ordered By: Annabella Willard on 08-31-2023 Bacteria LM.HPF (Urine sed) [#/Area] 0 /[HPF] None Seen [facility] Urine specific gravity measu rementOrdered By: Annabella Willard on 08-31-2023 Specific gravity (U) [Rel density] 1.010 1.002-1.030 [facility] Urine urobilinogen measureme ntOrdered By: Annabella Willard on 08-31-2023 Urobilinogen Ql (U) Normal mg/dl Normal [facility] No Panel InformationOrdered By: HENRY Penaloza on 03-05-2023 Prostate Specific Antigen Total 0.09 ng/mL 0.0-4.0 [facility] Comment on above: This test was perfor med using the TPSA assay method for the[employer] chemistry system. Values obtained with differentassay methods cannot be used interchangably.When changing PSA assays in the course of monitoring apatient, additional sequential testing should be carriedout to confirm baseline values. Absolute lymphocyte countOrd ered By: Annabella Willard on 03-02-2023 Lymphocytes Auto (Unsp spec) [#/Vol] 0.91 10*3/uL 0.83-4.51 [facility] Basophil percentageOrdered B y: Annabella Willard on 03-02-2023 Basophils/100 WBC (Bld) 1.1 % 0-1 [facility] Bilirubin [Mass/Vol] 0.50 mg/dL 0.20-1.00 [facility] Comment on above: For patients on eltr ombopag therapy, use of [place] TBIL is not recommended. Chloride [Moles/Vol] 105 mmol/L 98-107 [facility] Cholesterol [Mass/Vol] 146 mg/dL <200 [facility] Comment on above: <200 mg/dL Desirable 200-240 mg/dL Borderline >240 mg/dL High Risk Eosinophils/100 WBC (Bld) 2.4 % 0-5 [facility] Glucose [Mass/Vol] 107 mg/dL 74-106 [facility] Comment on above: Fasting Glucose resu lt from 100 to 125 mg/dL suggests IMPAIRED HOMEOSTASIS per A.D.A. criteria. Neutrophils (Bld) [#/Vol] 3.6 10*3/uL 2.0-7.7 [facility] Neutrophils/100 WBC (Bld) 66.1 % 47-70 [facility] Potassium [Moles/Vol] 4.1 mmol/L 3.5-5.1 [facility] Protein [Mass/Vol] 6.9 g/dL 6.4-8.2 [facility] Sodium [Moles/Vol] 139 mmol/L 136-145 [facility] Triglyceride [Mass/Vol] 105 mg/dL <199 [facility] Comment on above: The drugs N-Acetylcy steine and Metamizole may falsely depress this assay.Serum Triglycerides Reference Interval Normal <150 mg/dL Borderline high 150 - 199 mg/dL High 200 - 499 mg/dL Very High > or = 500 mg/dL WBC (Bld) [#/Vol] 5.4 10*3/uL 4.4-11.0 [facility] Blood erythrocytes count (nu mber/volume)Ordered By: Annabella Willard on 03-02-2023 RBC (Bld) [#/Vol] 4.58 10*6/uL 4.6-6.2 [facility] Blood hemoglobin measurement (mass/volume)Ordered By: Annabella Willard on 03-02-2023 Hemoglobin (Bld) [Mass/Vol] 14.9 g/dL 13.0-16.5 [facility] Blood lymphocytes/100 leukoc ytesOrdered By: Annabella Willard on 03-02-2023 Lymphocytes/100 WBC (Bld) 16.9 % 19-41 [facility] Blood monocytes/100 leukocyt esOrdered By: Annabella Willard on 03-02-2023 Monocytes/100 WBC (Bld) 12.2 % 0-10 [facility] Blood platelet mean volumeOr dered By: Annabella Willard on 03-02-2023 Platelet mean volume (Bld) [Entitic vol] 9.8 fL 6.2-12.0 [facility] Determination of erythrocyte mean corpuscular volume (MCV)Ordered By: Annabella Willard on 03-02-2023 MCV (RBC) [Entitic vol] 100.9 fL 80-94 [facility] Hematocrit Auto (Bld) [Volum e fraction]Ordered By: Annabella Willard on 03-02-2023 Hematocrit (Bld) [Volume fraction] 46.2 % 40-54 [facility] - Chemistry and C hemistry - challengeOrdered By: Annabella Willard on 03-02-2023 ALP [Catalytic activity/Vol] 58 U/L 45-117 [facility] ALT [Catalytic activity/Vol] 47 U/L 16-61 [facility] CO2 [Moles/Vol] 29.0 mmol/L 21.0-32.0 [facility] Globulin (S) [Mass/Vol] 3.2 g/dL 2.2-4.2 [facility] Magnesium [Mass/Vol] 2.2 mg/dL 1.6-2.6 [facility] Urea nitrogen/Creatinine [Mass ratio] 22.1 mg/mg 03-02 [facility] - Hematology and Cell countsOrdered By: Annabella Willard on 03-02-2023 Erythrocyte distribution width (RBC) [Entitic vol] 50.7 fL 35.1-43.9 [facility] Erythrocyte distribution width (RBC) [Ratio] 13.6 % 11.6-14.6 [facility] Immature granulocytes/100 WBC (Bld) 1.300 % 0.0-0.9 [facility] Comment on above: IG% - Immature Granu locytes (promyelocytes, myelocytes and metamyelocytes) > 1% indicates that a LEFT SHIFT is Present. MCH (RBC) [Entitic mass] 32.5 pg 27.0-32.0 [facility] Nucleated RBC/100 WBC (Bld) [Ratio] 0 % 0-5 [facility] MCHC Auto (RBC) [Mass/Vol]Or dered By: Annabella Willard on 03-02-2023 MCHC (RBC) [Mass/Vol] 32.3 g/dL 32-36 [facility] No Panel InformationOrdered By: Annabella Willard on 03-02-2023 Estimated GFR (MDRD) Amer 126 mL/min >60 [facility] Comment on above: GFR Calc Estimated GFR (MDRD) Non-Af Amer 104 mL/min >60 [facility] Comment on above: Non- GFR Calc Vitamin D 25-Hydroxy 37.0 ng/mL [facility] Comment on above: Vitamin D 25(OH) Sta tus Range Deficiency <20 ng/mL (50nmol/L) Insufficiency 20 - 30 ng/mL (50 - 75 nmol/L) Sufficiency 30 - 100 ng/mL (75 - 250 nmol/L) Toxicity >100 ng/mL (>250 nmol/L) Platelets bldOrdered By: Vadim Willard on 03-02-2023 Platelets (Bld) [#/Vol] 174 10*3/uL 150-450 [facility] Serum or plasma albumin amberly urement (mass/volume)Ordered By: Annabella Willard on 03-02-2023 Albumin [Mass/Vol] 3.7 g/dL 3.2-5.0 [facility] Serum or plasma albumin/glob ulin mass ratioOrdered By: Annabella Willard on 03-02-2023 Albumin/Globulin [Mass ratio] 1.2 {ratio} 0.9-2.4 [facility] Serum or plasma calcium amberly urement (mass/volume)Ordered By: Annabella Willard on 03-02-2023 Calcium [Mass/Vol] 9.1 mg/dL 8.5-10.1 [facility] Serum or plasma cholesterol in HDL measurement (mass/volume)Ordered By: Annabella Willard on 03-02-2023 Cholesterol in HDL [Mass/Vol] 86 mg/dL >40 [facility] Comment on above: The drugs N-Acetylcy steine and Metamizole may falsely depress this assay. Reference Range HDL <40 mg/dL Low HDL Cholesterol HDL >or= 60 mg/dL High HDL Cholesterol Serum or plasma cholesterol in VLDL measurement (mass/volume)Ordered By: Annabella Willard on 03-02-2023 Cholesterol in VLDL [Mass/Vol] 21 mg/dL 5-40 [facility] Serum or plasma creatinine m easurement (mass/volume)Ordered By: Annabella Willard on 03-02-2023 Creatinine [Mass/Vol] 0.77 mg/dL 0.70-1.30 [facility] Comment on above: The validity of the calculated GFR & GFRAA in patients over 70 years has not been determined. Clinical correlation is essential. Serum or plasma low density lipoprotein (LDL) cholesterol measurement (mass/volume)Ordered By: Annabella Willard on 03-02-2023 Cholesterol in LDL [Mass/Vol] 39 mg/dL 0-130 [facility] Serum or plasma urea nitroge n measurement (mass/volume)Ordered By: Annabella Willard on 03-02-2023 Urea nitrogen [Mass/Vol] 17 mg/dL 7-18 [facility] Thin prep Papanicolaou smear with manual screeningOrdered By: Annabella Willard on 03-02-2023 Thin prep Papanicolaou smear with manual screening 21 U/L 15-37 [facility] Thin prep Papanicolaou smear with manual screening 5 5-15 [facility] Whole blood hemoglobin A1c/t otal hemoglobin ratio (mass fraction)Ordered By: Annabella Willard on 03-02-2023 HbA1c (Bld) [Mass fraction] 5.4 % 3.8-5.6 [facility] Comment on above: Normal < 5.7 % Predi abetic 5.7 - 6.4 % Diabetic >or= 6.5 % Please note range changes. Serum or plasma uric acid me asurement (mass/volume)Ordered By: Annabella Willard on 02-15-2023 Urate [Mass/Vol] 5.4 mg/dL 3.5-7.2 [facility] Comment on above: The drugs N-Acetylcy steine and Metamizole may falsely depress this assay. Absolute lymphocyte countOrd ered By: Annabella Willard on 10-27-2022 Lymphocytes Auto (Unsp spec) [#/Vol] 1.03 10*3/uL 0.83-4.51 [facility] Basophil percentageOrdered B y: Annabella Willard on 10-27-2022 Basophils/100 WBC (Bld) 0.6 % 0-1 [facility] Bilirubin [Mass/Vol] 0.50 mg/dL 0.20-1.00 [facility] Comment on above: For patients on eltr ombopag therapy, use of Dimension [place] TBIL is not recommended. Chloride [Moles/Vol] 108 mmol/L 98-107 [facility] Cholesterol [Mass/Vol] 123 mg/dL <200 [facility] Comment on above: <200 mg/dL Desirable 200-240 mg/dL Borderline >240 mg/dL High Risk Eosinophils/100 WBC (Bld) 2.6 % 0-5 [facility] Glucose [Mass/Vol] 95 mg/dL 74-106 [facility] Neutrophils (Bld) [#/Vol] 3.2 10*3/uL 2.0-7.7 [facility] Neutrophils/100 WBC (Bld) 63.2 % 47-70 [facility] Potassium [Moles/Vol] 4.4 mmol/L 3.5-5.1 [facility] Protein [Mass/Vol] 7.0 g/dL 6.4-8.2 [facility] Sodium [Moles/Vol] 142 mmol/L 136-145 [facility] Triglyceride [Mass/Vol] 72 mg/dL <199 [facility] Comment on above: The drugs N-Acetylcy steine and Metamizole may falsely depress this assay.Serum Triglycerides Reference Interval Normal <150 mg/dL Borderline high 150 - 199 mg/dL High 200 - 499 mg/dL Very High > or = 500 mg/dL WBC (Bld) [#/Vol] 5.0 10*3/uL 4.4-11.0 [facility] Blood erythrocytes count (nu mber/volume)Ordered By: Annabella Willard on 10-27-2022 RBC (Bld) [#/Vol] 4.53 10*6/uL 4.6-6.2 [facility] Blood hemoglobin measurement (mass/volume)Ordered By: Annabella Willard on 10-27-2022 Hemoglobin (Bld) [Mass/Vol] 14.7 g/dL 13.0-16.5 [facility] Blood lymphocytes/100 leukoc ytesOrdered By: Annabella Willard on 10-27-2022 Lymphocytes/100 WBC (Bld) 20.5 % 19-41 [facility] Blood monocytes/100 leukocyt esOrdered By: Annabella Willard on 10-27-2022 Monocytes/100 WBC (Bld) 12.7 % 0-10 [facility] Blood platelet mean volumeOr dered By: Annabella Willard on 10-27-2022 Platelet mean volume (Bld) [Entitic vol] 9.6 fL 6.2-12.0 [facility] Determination of erythrocyte mean corpuscular volume (MCV)Ordered By: Annabella Willard on 10-27-2022 MCV (RBC) [Entitic vol] 99.6 fL 80-94 [facility] Hematocrit Auto (Bld) [Volum e fraction]Ordered By: Annabella Willard on 10-27-2022 Hematocrit (Bld) [Volume fraction] 45.1 % 40-54 [facility] Laboratory - Chemistry and C hemistry - challengeOrdered By: Annabella Willard on 10-27-2022 ALP [Catalytic activity/Vol] 55 U/L 45-117 [facility] ALT [Catalytic activity/Vol] 46 U/L 16-61 [facility] CO2 [Moles/Vol] 26.0 mmol/L 21.0-32.0 [facility] Globulin (S) [Mass/Vol] 3.1 g/dL 2.2-4.2 [facility] Urea nitrogen/Creatinine [Mass ratio] 30.4 mg/mg 10-20 [facility] Laboratory - Hematology and Cell countsOrdered By: Annabella Willard on 10-27-2022 Erythrocyte distribution width (RBC) [Entitic vol] 49.1 fL 35.1-43.9 [facility] Erythrocyte distribution width (RBC) [Ratio] 13.5 % 11.6-14.6 [facility] Immature granulocytes/100 WBC (Bld) 0.400 % 0.0-0.9 [facility] Comment on above: IG% - Immature Granu locytes (promyelocytes, myelocytes and metamyelocytes) > 1% indicates that a LEFT SHIFT is Present. MCH (RBC) [Entitic mass] 32.5 pg 27.0-32.0 [facility] Nucleated RBC/100 WBC (Bld) [Ratio] 0 % 0-5 [facility] MCHC Auto (RBC) [Mass/Vol]Or dered By: Annabella Willard on 10-27-2022 MCHC (RBC) [Mass/Vol] 32.6 g/dL 32-36 [facility] No Panel InformationOrdered By: Annabella Willard on 10-27-2022 Estimated GFR (MDRD) Amer 143 mL/min >60 [facility] Comment on above: GFR Calc Estimated GFR (MDRD) Non-Af Amer 118 mL/min >60 [facility] Comment on above: Non- GFR Calc Thyroid Stimulating Hormone (TSH) 1.37 uIU/mL 0.358-3.74 [facility] Vitamin D 25-Hydroxy 52.4 ng/mL [facility] Comment on above: Vitamin D 25(OH) Sta tus Range Deficiency <20 ng/mL (50nmol/L) Insufficiency 20 - 30 ng/mL (50 - 75 nmol/L) Sufficiency 30 - 100 ng/mL (75 - 250 nmol/L) Toxicity >100 ng/mL (>250 nmol/L) Platelets bldOrdered By: Vadim Willard on 10-27-2022 Platelets (Bld) [#/Vol] 176 10*3/uL 150-450 [facility] Serum or plasma albumin amberly urement (mass/volume)Ordered By: Annabella Willard on 10-27-2022 Albumin [Mass/Vol] 3.9 g/dL 3.2-5.0 [facility] Serum or plasma albumin/glob ulin mass ratioOrdered By: Annabella Willard on 10-27-2022 Albumin/Globulin [Mass ratio] 1.3 {ratio} 0.9-2.4 [facility] Serum or plasma calcium amberly urement (mass/volume)Ordered By: Annabella Willard on 10-27-2022 Calcium [Mass/Vol] 9.0 mg/dL 8.5-10.1 [facility] Serum or plasma cholesterol in HDL measurement (mass/volume)Ordered By: Annabella Willard on 10-27-2022 Cholesterol in HDL [Mass/Vol] 84 mg/dL >40 [facility] Comment on above: The drugs N-Acetylcy steine and Metamizole may falsely depress this assay. Reference Range HDL <40 mg/dL Low HDL Cholesterol HDL >or= 60 mg/dL High HDL Cholesterol Serum or plasma cholesterol in VLDL measurement (mass/volume)Ordered By: Annabella Willard on 10-27-2022 Cholesterol in VLDL [Mass/Vol] 14 mg/dL 5-40 [facility] Serum or plasma creatinine m easurement (mass/volume)Ordered By: Annabella Willard on 10-27-2022 Creatinine [Mass/Vol] 0.69 mg/dL 0.70-1.30 [facility] Comment on above: The validity of the calculated GFR & GFRAA in patients over 70 years has not been determined. Clinical correlation is essential. Serum or plasma low density lipoprotein (LDL) cholesterol measurement (mass/volume)Ordered By: Annabella Willard on 10-27-2022 Cholesterol in LDL [Mass/Vol] 25 mg/dL 0-130 [facility] Serum or plasma urea nitroge n measurement (mass/volume)Ordered By: Annabella Willard on 10-27-2022 Urea nitrogen [Mass/Vol] 21 mg/dL 7-18 [facility] Thin prep Papanicolaou smear with manual screeningOrdered By: Annabella Willard on 10-27-2022 Thin prep Papanicolaou smear with manual screening 32 U/L 15-37 [facility] Thin prep Papanicolaou smear with manual screening 8 5-15 [facility] Basophil percentageOrdered B y: Dr. Willard on 05-31-2022 Bilirubin [Mass/Vol] 0.50 mg/dL 0.20-1.00 [facility] Comment on above: For patients on eltr ombopag therapy, use of [place] TBIL is not recommended. Chloride [Moles/Vol] 105 mmol/L 98-107 [facility] Cholesterol [Mass/Vol] 113 mg/dL <200 [facility] Comment on above: <200 mg/dL Desirable 200-240 mg/dL Borderline >240 mg/dL High Risk Glucose [Mass/Vol] 88 mg/dL 74-106 [facility] Potassium [Moles/Vol] 4.9 mmol/L 3.5-5.1 [facility] Protein [Mass/Vol] 6.9 g/dL 6.4-8.2 [facility] Sodium [Moles/Vol] 139 mmol/L 136-145 [facility] Triglyceride [Mass/Vol] 67 mg/dL <199 [facility] Comment on above: The drugs N-Acetylcy steine and Metamizole may falsely depress this assay.Serum Triglycerides Reference Interval Normal <150 mg/dL Borderline high 150 - 199 mg/dL High 200 - 499 mg/dL Very High > or = 500 mg/dL Laboratory - Chemistry and C hemistry - challengeOrdered By: Dr. Willard on 05-31-2022 ALP [Catalytic activity/Vol] 60 U/L 45-117 [facility] ALT [Catalytic activity/Vol] 35 U/L 16-61 [facility] CO2 [Moles/Vol] 30.0 mmol/L 21.0-32.0 [facility] Globulin (S) [Mass/Vol] 2.7 g/dL 2.2-4.2 [facility] Urea nitrogen/Creatinine [Mass ratio] 21.5 mg/mg 10-20 [facility] No Panel InformationOrdered By: Dr. Willard on 05-31-2022 Estimated GFR (MDRD) Amer 122 mL/min >60 [facility] Comment on above: GFR Calc Estimated GFR (MDRD) Non-Af Amer 101 mL/min >60 [facility] Comment on above: Non- GFR Calc Serum or plasma albumin amberly urement (mass/volume)Ordered By: Dr. Willard on 05-31-2022 Albumin [Mass/Vol] 4.2 g/dL 3.2-5.0 [facility] Serum or plasma albumin/glob ulin mass ratioOrdered By: Dr. Willard on 05-31-2022 Albumin/Globulin [Mass ratio] 1.6 {ratio} 0.9-2.4 [facility] Serum or plasma calcium amberly urement (mass/volume)Ordered By: Dr. Willard on 05-31-2022 Calcium [Mass/Vol] 9.3 mg/dL 8.5-10.1 [facility] Serum or plasma cholesterol in HDL measurement (mass/volume)Ordered By: Dr. Willard on 05-31-2022 Cholesterol in HDL [Mass/Vol] 75 mg/dL >40 [facility] Comment on above: The drugs N-Acetylcy steine and Metamizole may falsely depress this assay. Reference Range HDL <40 mg/dL Low HDL Cholesterol HDL >or= 60 mg/dL High HDL Cholesterol Serum or plasma cholesterol in VLDL measurement (mass/volume)Ordered By: Dr. Willard on 05-31-2022 Cholesterol in VLDL [Mass/Vol] 13 mg/dL 5-40 [facility] Serum or plasma creatinine m easurement (mass/volume)Ordered By: Dr. Willard on 05-31-2022 Creatinine [Mass/Vol] 0.79 mg/dL 0.70-1.30 [facility] Comment on above: The validity of the calculated GFR & GFRAA in patients over 70 years has not been determined. Clinical correlation is essential. Serum or plasma low density lipoprotein (LDL) cholesterol measurement (mass/volume)Ordered By: Dr. Willard on 05-31-2022 Cholesterol in LDL [Mass/Vol] 25 mg/dL 0-130 [facility] Serum or plasma urea nitroge n measurement (mass/volume)Ordered By: Dr. Willard on 05-31-2022 Urea nitrogen [Mass/Vol] 17 mg/dL 7-18 [facility] Thin prep Papanicolaou smear with manual screeningOrdered By: Dr. Willard on 05-31-2022 Thin prep Papanicolaou smear with manual screening 30 U/L 15-37 [facility] Thin prep Papanicolaou smear with manual screening 4 5-15 [facility] No Panel InformationOrdered By: Dr. Stout on 10-27-2022 Prostate Specific Antigen Total 0.08 ng/mL 0.0-4.0 [facility] Comment on above: This test was perfor med using the TPSA assay method for [employer] chemistry system. Values obtained with differentassay methods cannot be used interchangably.When changing PSA assays in the course of monitoring apatient, additional sequential testing should be carriedout to confirm baseline values. Absolute lymphocyte counton 01-26-2022 Lymphocytes Auto (Unsp spec) [#/Vol] 1.27 10*3/uL 0.83-4.51 [facility] Work Phone: Basophil percentageon 2021 Basophil percentage 0 SEEN /hpf 0-5 [facility] Work Phone: Basophils/100 WBC (Bld) 0.8 % 0-1 [facility] Work Phone: Bilirubin [Mass/Vol] 0.40 mg/dL 0.20-1.00 [facility] Work Phone: Comment on above: For patients on eltr ombopag therapy, use of [place] TBIL is not recommended. Chloride [Moles/Vol] 105 mmol/L 98-107 [facility] Work Phone: Cholesterol [Mass/Vol] 108 mg/dL <200 [facility] Work Phone: Comment on above: <200 mg/dL Desirable 200-240 mg/dL Borderline >240 mg/dL High Risk Eosinophils/100 WBC (Bld) 3.3 % 0-5 [facility] Work Phone: Glucose [Mass/Vol] 96 mg/dL 74-106 [facility] Work Phone: [phone] Neutrophils (Bld) [#/Vol] 2.9 10*3/uL 2.0-7.7 [facility] Work Phone: [phone] Neutrophils/100 WBC (Bld) 58.9 % 47-70 [facility] Work Phone: Potassium [Moles/Vol] 4.5 mmol/L 3.5-5.1 [facility] Work Phone: Protein [Mass/Vol] 7.2 g/dL 6.4-8.2 [facility] Work Phone: Sodium [Moles/Vol] 138 mmol/L 136-145 [facility] Work Phone: Triglyceride [Mass/Vol] 110 mg/dL <199 [facility] Work Phone: Comment on above: The drugs N-Acetylcy steine and Metamizole may falsely depress this assay.Serum Triglycerides Reference Interval Normal <150 mg/dL Borderline high 150 - 199 mg/dL High 200 - 499 mg/dL Very High > or = 500 mg/dL WBC (Bld) [#/Vol] 4.9 10*3/uL 4.4-11.0 [facility] Work Phone: Bilirubin Test strip Ql (U)o n 01-26-2022 Bilirubin Ql (U) Negative Negative [facility] Work Phone: Blood erythrocytes count (nu mber/volume)on 01-26-2022 RBC (Bld) [#/Vol] 4.53 10*6/uL 4.6-6.2 [facility] Work Phone: Blood hemoglobin measurement (mass/volume)on 01-26-2022 Hemoglobin (Bld) [Mass/Vol] 14.7 g/dL 13.0-16.5 [facility] Work Phone: Blood lymphocytes/100 leukoc yteson 01-26-2022 Lymphocytes/100 WBC (Bld) 25.8 % 19-41 [facility] Work Phone: Blood monocytes/100 leukocyt eson 01-26-2022 Monocytes/100 WBC (Bld) 10.8 % 0-10 [facility] Work Phone: Blood platelet mean volumeon 01-26-2022 Platelet mean volume (Bld) [Entitic vol] 9.5 fL 6.2-12.0 [facility] Work Phone: Determination of erythrocyte mean corpuscular volume (MCV)on 01-26-2022 MCV (RBC) [Entitic vol] 97.4 fL 80-94 [facility] Work Phone: Hematocrit Auto (Bld) [Volum e fraction]on 01-26-2022 Hematocrit (Bld) [Volume fraction] 44.1 % 40-54 [facility] Work Phone: Ketones Test strip Ql (U)on 01-26-2022 Ketones Ql (U) Negative Negative [facility] Work Phone: Laboratory - Chemistry and C hemistry - challengeon 01-26-2022 ALP [Catalytic activity/Vol] 74 U/L 45-117 [facility] Work Phone: ALT [Catalytic activity/Vol] 45 U/L 16-61 [facility] Work Phone: CO2 [Moles/Vol] 26.0 mmol/L 21.0-32.0 [facility] Work Phone: Globulin (S) [Mass/Vol] 3.1 g/dL 2.2-4.2 [facility] Work Phone: Urea nitrogen/Creatinine [Mass ratio] 16.3 mg/mg 10-20 [facility] Work Phone: Laboratory - Hematology and Cell countson 01-26-2022 Erythrocyte distribution width (RBC) [Entitic vol] 48.4 fL 35.1-43.9 [facility] Work Phone: Erythrocyte distribution width (RBC) [Ratio] 13.5 % 11.6-14.6 [facility] Work Phone: Immature granulocytes/100 WBC (Bld) 0.400 % 0.0-0.9 [facility] Work Phone: Comment on above: IG% - Immature Granu locytes (promyelocytes, myelocytes and metamyelocytes) > 1% indicates that a LEFT SHIFT is Present. MCH (RBC) [Entitic mass] 32.5 pg 27.0-32.0 [facility] Work Phone: Nucleated RBC/100 WBC (Bld) [Ratio] 0 % 0-5 [facility] Work Phone: MCHC Auto (RBC) [Mass/Vol]on 01-26-2022 MCHC (RBC) [Mass/Vol] 33.3 g/dL 32-36 [facility] Work Phone: Mucus LM Ql (Urine sed)on Mucus Ql (Urine sed) 0 SEEN /hpf [facility] Work Phone: Nitrite Test strip Ql (U)on 01-26-2022 Nitrite Ql (U) Negative Negative [facility] Work Phone: No Panel Informationon 01-26 Estimated GFR (MDRD) Amer 103 mL/min >60 [facility] Work Phone: Comment on above: GFR Calc Estimated GFR (MDRD) Non-Af Amer 85 mL/min >60 [facility] Work Phone: Comment on above: Non- GFR Calc Vitamin D 25-Hydroxy 43.2 ng/mL [facility] Work Phone: Comment on above: Vitamin D 25(OH) Sta tus Range Deficiency <20 ng/mL (50nmol/L) Insufficiency 20 - 30 ng/mL (50 - 75 nmol/L) Sufficiency 30 - 100 ng/mL (75 - 250 nmol/L) Toxicity >100 ng/mL (>250 nmol/L) Platelets bldon 01-26-2022 Platelets (Bld) [#/Vol] 182 10*3/uL 150-450 [facility] Work Phone: Protein Test strip Ql (U)on 01-26-2022 Protein Ql (U) Negative Negative [facility] Work Phone: Serum or plasma albumin amberly urement (mass/volume)on 01-26-2022 Albumin [Mass/Vol] 4.1 g/dL 3.2-5.0 [facility] Work Phone: Serum or plasma albumin/glob ulin mass ratioon 01-26-2022 Albumin/Globulin [Mass ratio] 1.3 {ratio} 0.9-2.4 [facility] Work Phone: Serum or plasma calcium amberly urement (mass/volume)on 01-26-2022 Calcium [Mass/Vol] 9.3 mg/dL 8.5-10.1 [facility] Work Phone: Serum or plasma cholesterol in HDL measurement (mass/volume)on 01-26-2022 Cholesterol in HDL [Mass/Vol] 68 mg/dL >40 [facility] Work Phone: Comment on above: The drugs N-Acetylcy steine and Metamizole may falsely depress this assay. Reference Range HDL <40 mg/dL Low HDL Cholesterol HDL >or= 60 mg/dL High HDL Cholesterol Serum or plasma cholesterol in VLDL measurement (mass/volume)on 01-26-2022 Cholesterol in VLDL [Mass/Vol] 22 mg/dL 5-40 [facility] Work Phone: Serum or plasma creatinine m easurement (mass/volume)on 01-26-2022 Creatinine [Mass/Vol] 0.92 mg/dL 0.70-1.30 [facility] Work Phone: Comment on above: The validity of the calculated GFR & GFRAA in patients over 70 years has not been determined. Clinical correlation is essential. Serum or plasma low density lipoprotein (LDL) cholesterol measurement (mass/volume)on 01-26-2022 Cholesterol in LDL [Mass/Vol] 18 mg/dL 0-130 [facility] Work Phone: Serum or plasma urea nitroge n measurement (mass/volume)on 01-26-2022 Urea nitrogen [Mass/Vol] 15 mg/dL 7-18 [facility] Work Phone: Squamous epithelial cells de tection in urine sediment by light microscopyon 01-26-2022 Epithelial cells.squamous LM Ql (Urine sed) 0 SEEN /hpf 0-5 [facility] Work Phone: Thin prep Papanicolaou smear with manual screeningon 01-26-2022 Thin prep Papanicolaou smear with manual screening 27 U/L 15-37 [facility] Work Phone: Thin prep Papanicolaou smear with manual screening 7 5-15 [facility] Work Phone: Urine blood detectionon 01-12 RBC Ql (U) 10 /ul Negative [facility] Work Phone: RBC Ql (U) 0 SEEN /hpf 0-5 [facility] Work Phone: Urine clarityon 01-26-2022 Clarity (U) Clear Clear [facility] Work Phone: Urine color determinationon 01-26-2022 Color (U) Yellow Yellow [facility] Work Phone: Urine glucose detectionon Glucose Ql (U) Normal mg/dl Normal [facility] Work Phone: Urine leukocyte esterase det ection by dipstickon 01-26-2022 Leukocyte esterase Test strip Ql (U) Negative Negative [facility] Work Phone: Urine pHon 01-26-2022 pH (U) 6.0 [pH] 5.0 - 8.0 [facility] Work Phone: Urine sediment bacteria coun t by microscopy (number/high power field)on 01-26-2022 Bacteria LM.HPF (Urine sed) [#/Area] 0 /[HPF] None Seen [facility] Work Phone: Urine specific gravity measu rementon 01-26-2022 Specific gravity (U) [Rel density] 1.015 1.002-1.030 [facility] Work Phone: Urobilinogen Auto test strip Ql (U)on 01-26-2022 Urobilinogen Ql (U) Normal mg/dl Normal [facility] Work Phone: Absolute lymphocyte counton 10-31-2021 Lymphocytes Auto (Unsp spec) [#/Vol] 0.95 10*3/uL 0.83-4.51 [facility] Work Phone: Basophil percentageon 2021 Basophils/100 WBC (Bld) 0.5 % 0-1 [facility] Work Phone: Bilirubin [Mass/Vol] 0.60 mg/dL 0.20-1.00 [facility] Work Phone: Comment on above: For patients on eltr ombopag therapy, use of [place] TBIL is not recommended. Chloride [Moles/Vol] 106 mmol/L 98-107 [facility] Work Phone: Eosinophils/100 WBC (Bld) 2.3 % 0-5 [facility] Work Phone: Glucose [Mass/Vol] 99 mg/dL 74-106 [facility] Work Phone: Neutrophils (Bld) [#/Vol] 3.9 10*3/uL 2.0-7.7 [facility] Work Phone: Neutrophils/100 WBC (Bld) 70.0 % 47-70 [facility] Work Phone: Potassium [Moles/Vol] 4.4 mmol/L 3.5-5.1 [facility] Work Phone: [phone] Protein [Mass/Vol] 7.2 g/dL 6.4-8.2 [facility] Work Phone: Sodium [Moles/Vol] 138 mmol/L 136-145 [facility] Work Phone: WBC (Bld) [#/Vol] 5.5 10*3/uL 4.4-11.0 [facility] Work Phone: Blood erythrocytes count (nu mber/volume)on 10-31-2021 RBC (Bld) [#/Vol] 4.61 10*6/uL 4.6-6.2 [facility] Work Phone: Blood hemoglobin measurement (mass/volume)on 10-31-2021 Hemoglobin (Bld) [Mass/Vol] 14.9 g/dL 13.0-16.5 [facility] Work Phone: Blood lymphocytes/100 leukoc yteson 10-31-2021 Lymphocytes/100 WBC (Bld) 17.1 % 19-41 [facility] Work Phone: Blood monocytes/100 leukocyt eson 10-31-2021 Monocytes/100 WBC (Bld) 9.9 % 0-10 [facility] Work Phone: Blood platelet mean volumeon 10-31-2021 Platelet mean volume (Bld) [Entitic vol] 9.7 fL 6.2-12.0 [facility] Work Phone: Determination of erythrocyte mean corpuscular volume (MCV)on 10-31-2021 MCV (RBC) [Entitic vol] 97.4 fL 80-94 [facility] Work Phone: Hematocrit Auto (Bld) [Volum e fraction]on 10-31-2021 Hematocrit (Bld) [Volume fraction] 44.9 % 40-54 [facility] Work Phone: Laboratory - Chemistry and C hemistry - challengeon 10-31-2021 ALP [Catalytic activity/Vol] 71 U/L 45-117 [facility] Work Phone: ALT [Catalytic activity/Vol] 98 U/L 16-61 [facility] Work Phone: CO2 [Moles/Vol] 26.0 mmol/L 21.0-32.0 [facility] Work Phone: Globulin (S) [Mass/Vol] 3.2 g/dL 2.2-4.2 [facility] Work Phone: Urea nitrogen/Creatinine [Mass ratio] 18.2 mg/mg 10-20 [facility] Work Phone: Laboratory - Hematology and Cell countson 10-31-2021 Erythrocyte distribution width (RBC) [Entitic vol] 44.9 fL 35.1-43.9 [facility] Work Phone: Erythrocyte distribution width (RBC) [Ratio] 12.5 % 11.6-14.6 [facility] Work Phone: Immature granulocytes/100 WBC (Bld) 0.200 % 0.0-0.9 [facility] Work Phone: Comment on above: IG% - Immature Granu locytes (promyelocytes, myelocytes and metamyelocytes) > 1% indicates that a LEFT SHIFT is Present. MCH (RBC) [Entitic mass] 32.3 pg 27.0-32.0 [facility] Work Phone: Nucleated RBC/100 WBC (Bld) [Ratio] 0 % 0-5 [facility] Work Phone: MCHC Auto (RBC) [Mass/Vol]on 10-31-2021 MCHC (RBC) [Mass/Vol] 33.2 g/dL 32-36 [facility] Work Phone: No Panel Informationon 10-31 Estimated GFR (MDRD) Amer 102 mL/min >60 [facility] Work Phone: Comment on above: GFR Calc Estimated GFR (MDRD) Non-Af Amer 84 mL/min >60 [facility] Work Phone: Comment on above: Non- GFR Calc Platelets bldon 10-31-2021 Platelets (Bld) [#/Vol] 153 10*3/uL 150-450 [facility] Work Phone: Serum or plasma albumin amberly urement (mass/volume)on 10-31-2021 Albumin [Mass/Vol] 4.0 g/dL 3.2-5.0 [facility] Work Phone: Serum or plasma albumin/glob ulin mass ratioon 10-31-2021 Albumin/Globulin [Mass ratio] 1.2 {ratio} 0.9-2.4 [facility] Work Phone: Serum or plasma calcium amberly urement (mass/volume)on 10-31-2021 Calcium [Mass/Vol] 9.3 mg/dL 8.5-10.1 [facility] Work Phone: Serum or plasma creatinine m easurement (mass/volume)on 10-31-2021 Creatinine [Mass/Vol] 0.93 mg/dL 0.70-1.30 [facility] Work Phone: Comment on above: The validity of the calculated GFR & GFRAA in patients over 70 years has not been determined. Clinical correlation is essential. Serum or plasma urea nitroge n measurement (mass/volume)on 10-31-2021 Urea nitrogen [Mass/Vol] 17 mg/dL 7-18 [facility] Work Phone: Thin prep Papanicolaou smear with manual screeningon 10-31-2021 Thin prep Papanicolaou smear with manual screening 38 U/L 15-37 [facility] Work Phone: Thin prep Papanicolaou smear with manual screening 6 5-15 [facility] Work Phone: Absolute lymphocyte counton 09-28-2021 Lymphocytes Auto (Unsp spec) [#/Vol] 1.02 10*3/uL 0.83-4.51 [facility] Work Phone: Basophil percentageon 2021 Basophil percentage 0 SEEN /hpf 0-5 [facility] Work Phone: Basophils/100 WBC (Bld) 0.7 % 0-1 [facility] Work Phone: Bilirubin [Mass/Vol] 0.40 mg/dL 0.20-1.00 [facility] Work Phone: Comment on above: For patients on eltr ombopag therapy, use of Dimension [place] TBIL is not recommended. Chloride [Moles/Vol] 102 mmol/L 98-107 [facility] Work Phone: Cholesterol [Mass/Vol] 142 mg/dL <200 [facility] Work Phone: Comment on above: <200 mg/dL Desirable 200-240 mg/dL Borderline >240 mg/dL High Risk Eosinophils/100 WBC (Bld) 1.5 % 0-5 [facility] Work Phone: Glucose [Mass/Vol] 91 mg/dL 74-106 [facility] Work Phone: Neutrophils (Bld) [#/Vol] 5.0 10*3/uL 2.0-7.7 [facility] Work Phone: Neutrophils/100 WBC (Bld) 69.9 % 47-70 [facility] Work Phone: Potassium [Moles/Vol] 4.4 mmol/L 3.5-5.1 [facility] Work Phone: Protein [Mass/Vol] 7.4 g/dL 6.4-8.2 [facility] Work Phone: Sodium [Moles/Vol] 136 mmol/L 136-145 [facility] Work Phone: Triglyceride [Mass/Vol] 109 mg/dL <199 [facility] Work Phone: Comment on above: The drugs N-Acetylcy steine and Metamizole may falsely depress this assay.Serum Triglycerides Reference Interval Normal <150 mg/dL Borderline high 150 - 199 mg/dL High 200 - 499 mg/dL Very High > or = 500 mg/dL WBC (Bld) [#/Vol] 7.2 10*3/uL 4.4-11.0 [facility] Work Phone: Bilirubin Test strip Ql (U)o n 09-28-2021 Bilirubin Ql (U) Negative Negative [facility] Work Phone: Blood erythrocytes count (nu mber/volume)on 09-28-2021 RBC (Bld) [#/Vol] 4.64 10*6/uL 4.6-6.2 [facility] Work Phone: Blood hemoglobin measurement (mass/volume)on 09-28-2021 Hemoglobin (Bld) [Mass/Vol] 15.2 g/dL 13.0-16.5 [facility] Work Phone: Blood lymphocytes/100 leukoc yteson 09-28-2021 Lymphocytes/100 WBC (Bld) 14.2 % 19-41 [facility] Work Phone: Blood monocytes/100 leukocyt eson 09-28-2021 Monocytes/100 WBC (Bld) 12.3 % 0-10 [facility] Work Phone: Blood platelet mean volumeon 09-28-2021 Platelet mean volume (Bld) [Entitic vol] 8.8 fL 6.2-12.0 [facility] Work Phone: Determination of erythrocyte mean corpuscular volume (MCV)on 09-28-2021 MCV (RBC) [Entitic vol] 99.4 fL 80-94 [facility] Work Phone: Hematocrit Auto (Bld) [Volum e fraction]on 09-28-2021 Hematocrit (Bld) [Volume fraction] 46.1 % 40-54 [facility] Work Phone: Ketones Test strip Ql (U)on 09-28-2021 Ketones Ql (U) Negative Negative [facility] Work Phone: Laboratory - Chemistry and C hemistry - challengeon 09-28-2021 ALP [Catalytic activity/Vol] 84 U/L 45-117 [facility] Work Phone: ALT [Catalytic activity/Vol] 173 U/L 16-61 [facility] Work Phone: CO2 [Moles/Vol] 29.0 mmol/L 21.0-32.0 [facility] Work Phone: Globulin (S) [Mass/Vol] 3.7 g/dL 2.2-4.2 [facility] Work Phone: Urea nitrogen/Creatinine [Mass ratio] 43.4 mg/mg 10-20 [facility] Work Phone: Laboratory - Hematology and Cell countson 09-28-2021 Erythrocyte distribution width (RBC) [Entitic vol] 48.5 fL 35.1-43.9 [facility] Work Phone: Erythrocyte distribution width (RBC) [Ratio] 13.2 % 11.6-14.6 [facility] Work Phone: Immature granulocytes/100 WBC (Bld) 1.400 % 0.0-0.9 [facility] Work Phone: Comment on above: IG% - Immature Granu locytes (promyelocytes, myelocytes and metamyelocytes) > 1% indicates that a LEFT SHIFT is Present. MCH (RBC) [Entitic mass] 32.8 pg 27.0-32.0 [facility] Work Phone: Nucleated RBC/100 WBC (Bld) [Ratio] 0 % 0-5 [facility] Work Phone: MCHC Auto (RBC) [Mass/Vol]on 09-28-2021 MCHC (RBC) [Mass/Vol] 33.0 g/dL 32-36 [facility] Work Phone: Mucus LM Ql (Urine sed)on Mucus Ql (Urine sed) 0 SEEN /hpf [facility] Work Phone: Nitrite Test strip Ql (U)on 09-28-2021 Nitrite Ql (U) Negative Negative [facility] Work Phone: No Panel Informationon 09-28 Estimated GFR (MDRD) Amer 133 mL/min >60 [facility] Work Phone: Comment on above: GFR Calc Estimated GFR (MDRD) Non-Af Amer 110 mL/min >60 [facility] Work Phone: Comment on above: Non- GFR Calc Hepatitis A Antibody Total Negative Negative [facility] Work Phone: Comment on above: Performed at: - [address] [id number] Director: Beny Ny PhD, Phone: [phone] Hepatitis A IgM Antibody Negative Negative [facility] Work Phone: Hepatitis B Core IgM Antibody Negative Negative [facility] Work Phone: Hepatitis C Antibody (EIA) <0.1 s/co ratio 0.0-0.9 [facility] Work Phone: Hepatitis C Antibody Comment Comment . [facility] Work Phone: Comment on above: NegativeNot infected with HCV, unless recent infection issuspected or other evidence exists to indicate HCVinfection. Thyroid Stimulating Hormone (TSH) 1.63 uIU/mL 0.358-3.74 [facility] Work Phone: Vitamin D 25-Hydroxy 47.7 ng/mL [facility] Work Phone: Comment on above: Vitamin D 25(OH) Sta tus Range Deficiency <20 ng/mL (50nmol/L) Insufficiency 20 - 30 ng/mL (50 - 75 nmol/L) Sufficiency 30 - 100 ng/mL (75 - 250 nmol/L) Toxicity >100 ng/mL (>250 nmol/L) Platelets bldon 09-28-2021 Platelets (Bld) [#/Vol] 239 10*3/uL 150-450 [facility] Work Phone: Protein Test strip Ql (U)on 09-28-2021 Protein Ql (U) 30 mg/dl Negative [facility] Work Phone: Serum hepatitis B virus surf my antibody IgG detectionon 09-28-2021 HBV surface IgG Ql (S) Non-Reactive [facility] Work Phone: Comment on above: Non Reactive: Incons istent with immunity less than <10 mIU/mL Reactive: Consistent with immunity greater than or equal to 10 mIU/mL Serum or plasma albumin amberly urement (mass/volume)on 09-28-2021 Albumin [Mass/Vol] 3.7 g/dL 3.2-5.0 [facility] Work Phone: Serum or plasma albumin/glob ulin mass ratioon 09-28-2021 Albumin/Globulin [Mass ratio] 1.0 {ratio} 0.9-2.4 [facility] Work Phone: Serum or plasma calcium amberly urement (mass/volume)on 09-28-2021 Calcium [Mass/Vol] 8.9 mg/dL 8.5-10.1 [facility] Work Phone: Serum or plasma cholesterol in HDL measurement (mass/volume)on 09-28-2021 Cholesterol in HDL [Mass/Vol] 69 mg/dL >40 [facility] Work Phone: Comment on above: The drugs N-Acetylcy steine and Metamizole may falsely depress this assay. Reference Range HDL <40 mg/dL Low HDL Cholesterol HDL >or= 60 mg/dL High HDL Cholesterol Serum or plasma cholesterol in VLDL measurement (mass/volume)on 09-28-2021 Cholesterol in VLDL [Mass/Vol] 22 mg/dL 5-40 [facility] Work Phone: Serum or plasma creatinine m easurement (mass/volume)on 09-28-2021 Creatinine [Mass/Vol] 0.74 mg/dL 0.70-1.30 [facility] Work Phone: Comment on above: The validity of the calculated GFR & GFRAA in patients over 70 years has not been determined. Clinical correlation is essential. Serum or plasma hepatitis B virus surface antigen detection by immunoassayon 09-28-2021 HBV surface Ag IA Ql Negative [facility]: Serum or plasma low density lipoprotein (LDL) cholesterol measurement (mass/volume)on 09-28-2021 Cholesterol in LDL [Mass/Vol] 51 mg/dL 0-130 [facility] Work Phone: Serum or plasma urea nitroge n measurement (mass/volume)on 09-28-2021 Urea nitrogen [Mass/Vol] 32 mg/dL 7-18 [facility] Work Phone: Squamous epithelial cells de tection in urine sediment by light microscopyon 09-28-2021 Epithelial cells.squamous LM Ql (Urine sed) 0 SEEN /hpf 0-5 [facility] Work Phone: Thin prep Papanicolaou smear with manual screeningon 09-28-2021 Thin prep Papanicolaou smear with manual screening 112 U/L 15-37 [facility] Work Phone: Thin prep Papanicolaou smear with manual screening 5 5-15 [facility] Work Phone: Urine blood detectionon 09-11 RBC Ql (U) 25 /ul Negative [facility] Work Phone: RBC Ql (U) 0 SEEN /hpf 0-5 [facility] Work Phone: Urine clarityon 09-28-2021 Clarity (U) Clear Clear [facility] Work Phone: Urine color determinationon 09-28-2021 Color (U) Yellow Yellow [facility] Work Phone: Urine glucose detectionon Glucose Ql (U) Normal mg/dl Normal [facility] Work Phone: Urine leukocyte esterase det ection by dipstickon 09-28-2021 Leukocyte esterase Test strip Ql (U) Negative Negative [facility] Work Phone: Urine pHon 09-28-2021 pH (U) 6.0 [pH] 5.0 - 8.0 [facility] Work Phone: Urine sediment bacteria coun t by microscopy (number/high power field)on 09-28-2021 Bacteria LM.HPF (Urine sed) [#/Area] 0 /[HPF] None Seen [facility] Work Phone: Urine specific gravity measu rementon 09-28-2021 Specific gravity (U) [Rel density] 1.025 1.002-1.030 [facility] Work Phone: Urobilinogen Auto test strip Ql (U)on 09-28-2021 Urobilinogen Ql (U) Normal mg/dl Normal [facility] Work Phone: Absolute lymphocyte counton 05-03-2021 Lymphocytes Auto (Unsp spec) [#/Vol] 1.43 10*3/uL 0.83-4.51 [facility] Work Phone: Basophil percentageon 2020 Basophil percentage 0 SEEN /hpf [facility] Work Phone: Bilirubin [Mass/Vol] 0.90 mg/dL 0.20-1.00 [facility] Work Phone: Comment on above: For patients on eltr ombopag therapy, use of Dimension [place] TBIL is not recommended. Chloride [Moles/Vol] 103 mmol/L 98-107 [facility] Work Phone: Cholesterol [Mass/Vol] 152 mg/dL <200 [facility] Work Phone: Comment on above: <200 mg/dL Desirable 200-240 mg/dL Borderline >240 mg/dL High Risk Eosinophils/100 WBC (Bld) 2.7 % 0-5 [facility] Work Phone: Glucose [Mass/Vol] 91 mg/dL 74-106 [facility] Work Phone: Comment on above: Please note revised GLUCOSE reference range effective 2017. Neutrophils (Bld) [#/Vol] 3.0 10*3/uL 2.0-7.7 [facility] Work Phone: Potassium [Moles/Vol] 3.9 mmol/L 3.5-5.1 [facility] Work Phone: Protein [Mass/Vol] 7.6 g/dL 6.4-8.2 [facility] Work Phone: Sodium [Moles/Vol] 138 mmol/L 136-145 [facility] Work Phone: Triglyceride [Mass/Vol] 105 mg/dL [facility] Work Phone: Comment on above: The drugs N-Acetylcy steine and Metamizole may falsely depress this assay.Serum Triglycerides Reference Interval Normal <150 mg/dL Borderline high 150 - 199 mg/dL High 200 - 499 mg/dL Very High > or = 500 mg/dL WBC (Bld) [#/Vol] 5.2 10*3/uL 4.4-11.0 [facility] Work Phone: Bilirubin Test strip Ql (U)o n 05-03-2021 Bilirubin Ql (U) Negative Negative [facility] Work Phone: Blood erythrocytes count (nu mber/volume)on 05-03-2021 RBC (Bld) [#/Vol] 4.63 10*6/uL 4.6-6.2 [facility] Work Phone: Blood hemoglobin measurement (mass/volume)on 05-03-2021 Hemoglobin (Bld) [Mass/Vol] 15.0 g/dL 13.0-16.5 [facility] Work Phone: Blood lymphocytes/100 leukoc yteson 05-03-2021 Lymphocytes/100 WBC (Bld) 27.3 % 19-41 [facility] Work Phone: Blood monocytes/100 leukocyt eson 05-03-2021 Monocytes/100 WBC (Bld) 11.5 % 0-10 [facility] Work Phone: Blood platelet mean volumeon 05-03-2021 Platelet mean volume (Bld) [Entitic vol] 9.4 fL 6.2-12.0 [facility] Work Phone: Determination of erythrocyte mean corpuscular volume (MCV)on 05-03-2021 MCV (RBC) [Entitic vol] 96.1 fL 80-94 [facility] Work Phone: Hematocrit Auto (Bld) [Volum e fraction]on 12-21-2021 Hematocrit (Bld) [Volume fraction] 44.5 % 40-54 [facility] Work Phone: Ketones Test strip Ql (U)on 05-03-2021 Ketones Ql (U) Negative Negative [facility] Work Phone: Laboratory - Chemistry and C hemistry - challengeon 05-03-2021 ALP [Catalytic activity/Vol] 85 U/L 45-117 [facility] Work Phone: ALT [Catalytic activity/Vol] 44 U/L 16-61 [facility] Work Phone: [phone] CO2 [Moles/Vol] 27.0 mmol/L 21.0-32.0 [facility] Work Phone: Globulin (S) [Mass/Vol] 3.5 g/dL 2.2-4.2 [facility] Work Phone: Urea nitrogen/Creatinine [Mass ratio] 22.0 mg/mg 10-20 [facility] Work Phone: Laboratory - Hematology and Cell countson 05-03-2021 Basophils/100 WBC (Unsp spec) 0.8 % 0-1 [facility] Work Phone: Erythrocyte distribution width (RBC) [Entitic vol] 48.2 fL 35.1-43.9 [facility] Work Phone: Erythrocyte distribution width (RBC) [Ratio] 13.6 % 11.6-14.6 [facility] Work Phone: [phone] Immature granulocytes/100 WBC (Bld) 0.400 % 0.0-0.9 [facility] Work Phone: [phone] Comment on above: IG% - Immature Granu locytes (promyelocytes, myelocytes and metamyelocytes) > 1% indicates that a LEFT SHIFT is Present. MCH (RBC) [Entitic mass] 32.4 pg 27.0-32.0 [facility] Work Phone: [phone] Neutrophils/100 WBC (Bld) 57.3 % 47-70 [facility] Work Phone: Nucleated RBC/100 WBC (Bld) [Ratio] 0 % 0-5 [facility] Work Phone: MCHC Auto (RBC) [Mass/Vol]on 05-03-2021 MCHC (RBC) [Mass/Vol] 33.7 g/dL 32-36 [facility] Work Phone: Mucus LM Ql (Urine sed)on Mucus Ql (Urine sed) 0 SEEN /hpf [facility] Work Phone: Nitrite Test strip Ql (U)on 05-03-2021 Nitrite Ql (U) Negative Negative [facility] Work Phone: No Panel Informationon 05-03 Estimated GFR (MDRD) Amer 126 mL/min >60 [facility] Work Phone: Comment on above: GFR Calc Estimated GFR (MDRD) Non-Af Amer 104 mL/min >60 [facility] Work Phone: Comment on above: Non- GFR Calc Platelets bldon 05-03-2021 Platelets (Bld) [#/Vol] 180 10*3/uL 150-450 [facility] Work Phone: Protein Test strip Ql (U)on 05-03-2021 Protein Ql (U) 30 mg/dl Negative [facility] Work Phone: Serum or plasma albumin amberly urement (mass/volume)on 05-03-2021 Albumin [Mass/Vol] 4.1 g/dL 3.2-5.0 [facility] Work Phone: Serum or plasma albumin/glob ulin mass ratioon 05-03-2021 Albumin/Globulin [Mass ratio] 1.2 {ratio} 0.9-2.4 [facility] Work Phone: Serum or plasma calcium amberly urement (mass/volume)on 05-03-2021 Calcium [Mass/Vol] 9.2 mg/dL 8.5-10.1 [facility] Work Phone: Serum or plasma cholesterol in HDL measurement (mass/volume)on 05-03-2021 Cholesterol in HDL [Mass/Vol] 103 mg/dL [facility] Work Phone: Comment on above: The drugs N-Acetylcy steine and Metamizole may falsely depress this assay. Reference Range HDL <40 mg/dL Low HDL Cholesterol HDL >or= 60 mg/dL High HDL Cholesterol Serum or plasma cholesterol in VLDL measurement (mass/volume)on 05-03-2021 Cholesterol in VLDL [Mass/Vol] 21 mg/dL 5-40 [facility] Work Phone: Serum or plasma creatinine m easurement (mass/volume)on 05-03-2021 Creatinine [Mass/Vol] 0.77 mg/dL 0.70-1.30 [facility] Work Phone: Comment on above: The validity of the calculated GFR & GFRAA in patients over 70 years has not been determined. Clinical correlation is essential. Serum or plasma low density lipoprotein (LDL) cholesterol measurement (mass/volume)on 05-03-2021 Cholesterol in LDL [Mass/Vol] 28 mg/dL 0-130 [facility] Work Phone: Serum or plasma urea nitroge n measurement (mass/volume)on 05-03-2021 Urea nitrogen [Mass/Vol] 17 mg/dL 7-18 [facility] Work Phone: Squamous epithelial cells de tection in urine sediment by light microscopyon 05-03-2021 Epithelial cells.squamous LM Ql (Urine sed) 0-5 SEEN /hpf [facility] Work Phone: Thin prep Papanicolaou smear with manual screeningon 05-03-2021 Thin prep Papanicolaou smear with manual screening 29 U/L 15-37 [facility] Work Phone: Thin prep Papanicolaou smear with manual screening 8 5-15 [facility] Work Phone: Urine blood detectionon 12-2 RBC Ql (U) 10 /ul Negative [facility] Work Phone: RBC Ql (U) 0-5 SEEN /hpf [facility] Work Phone: Urine clarityon 05-03-2021 Clarity (U) Clear Clear [facility] Work Phone: Urine color determinationon 05-03-2021 Color (U) Yellow Yellow [facility] Work Phone: Urine glucose detectionon Glucose Ql (U) Normal mg/dl Normal [facility] Work Phone: Urine leukocyte esterase det ection by dipstickon 05-03-2021 Leukocyte esterase Test strip Ql (U) Negative Negative [facility] Work Phone: Urine pHon 05-03-2021 pH (U) 6.5 [pH] [facility] Work Phone: Urine sediment bacteria coun t by microscopy (number/high power field)on 05-03-2021 Bacteria LM.HPF (Urine sed) [#/Area] 0 /[HPF] None Seen [facility] Work Phone: Urine specific gravity measu rementon 05-03-2021 Specific gravity (U) [Rel density] 1.010 [facility] Work Phone: Urobilinogen Auto test strip Ql (U)on 05-03-2021 Urobilinogen Ql (U) Normal mg/dl Normal [facility] Work Phone: Vital Signs Date Time Vital Sign Value Performing Clinician Faci lity 01-22-2025 07:48-0400 Body height 177.[address] Annabella Willard MD Work Phone: [facility] 01-22-2025 07:48-0400 Body mass index (BMI) [Ratio] 32.4 kg/m2 Dr. Annabella Willard MD Work Phone: [facility] 01-22-2025 07:48-0400 Body temperature 97.4 [degF] Dr. Annabella Willard MD Work Phone: [facility] 01-22-2025 07:48-0400 Body weight 102.[address] Annabella Willard MD Work Phone: 3(998)909-650786 [place] [address] 01-22-2025 07:48-0400 Diastolic blood pressure 91 mm[Hg] Dr. Annabella Willard MD Work Phone: 7(044)351-19[address] [place] [address] 01-22-2025 07:48-0400 Heart rate 78 /min Dr. Annabella Willard MD Work Phone: 8(634)563-449204 [place] [address] 01-22-2025 07:48-0400 Respiratory rate 18 /min Dr. Annabella Willard MD Work Phone: 5(047)391-317804 [place] [address] 01-22-2025 07:48-0400 SaO2% (BldA) [Mass fraction] 98 % Dr. Annabella Willard MD Work Phone: 7(940)891-354904 [place] [address] 01-22-2025 07:48-0400 Systolic blood pressure 145 mm[Hg] Dr. Annabella Willard MD Work Phone: 2(570)799-453186 [place] [address] 12-02-2024 10:21-0400 Body height 177.[address] Annabella Willard MD Work Phone: 1(138)777-158604 [place] [address] 12-02-2024 10:21-0400 Body mass index (BMI) [Ratio] 33 kg/m2 Dr. Annabella Willard MD Work Phone: 6(596)923-761204 [place] [address] 12-02-2024 10:21-0400 Body weight 104.[address] Annabella Willard MD Work Phone: 9(471)837-665986 [place] [address] 12-02-2024 10:21-0400 Diastolic blood pressure 84 mm[Hg] Dr. Annabella Willard MD Work Phone: 2(945)394-307786 [place] [address] 12-02-2024 10:21-0400 Heart rate 90 /min Dr. Annabella Willard MD Work Phone: 9(138)923-965486 [place] [address] 12-02-2024 10:21-0400 Respiratory rate 16 /min Dr. Annabella Willard MD Work Phone: 1(163)913-046586 [place] [address] 12-02-2024 10:21-0400 Systolic blood pressure 134 mm[Hg] Dr. Annabella Willard MD Work Phone: [facility] 10-10-2024 08:30-0400 Body mass index (BMI) [Ratio] 32.5 kg/m2 Dr. Annabella Willard MD Work Phone: [facility] 10-10-2024 08:30-0400 Body temperature 97.4 [degF] Dr. Annabella Willard MD Work Phone: [facility] 10-10-2024 08:30-0400 Body weight 102.[address] Annabella Willard MD Work Phone: 4(667)212-442286 [place] [address] 10-10-2024 08:30-0400 Diastolic blood pressure 75 mm[Hg] Dr. Annabella Willard MD Work Phone: 1(848)812-854186 [place] [address] 10-10-2024 08:30-0400 Heart rate 67 /min Dr. Annabella Willard MD Work Phone: [facility] 10-10-2024 08:30-0400 Respiratory rate 18 /min Dr. Annabella Willard MD Work Phone: 0(548)477-416686 [place] [address] 10-10-2024 08:30-0400 SaO2% (BldA) [Mass fraction] 96 % Dr. Annabella Willard MD Work Phone: 2(906)223-053186 [place] [address] 10-10-2024 08:30-0400 Systolic blood pressure 122 mm[Hg] Dr. Annabella Willard MD Work Phone: [facility] 09-10-2024 07:54-0400 Body mass index (BMI) [Ratio] 32.8 kg/m2 Dr. Annabella Willard MD Work Phone: 7(484)422-406186 [place] [address] 09-10-2024 07:54-0400 Body temperature 97.4 [degF] Dr. Annabella Willard MD Work Phone: [facility] 09-10-2024 07:54-0400 Body weight 103.[address] Annabella Willard MD Work Phone: [facility] 09-10-2024 07:54-0400 Diastolic blood pressure 78 mm[Hg] Dr. Annabella Willard MD Work Phone: [facility] 09-10-2024 07:54-0400 Heart rate 75 /min Dr. Annabella Willard MD Work Phone: 7(623)300-490136 [address] 09-10-2024 07:54-0400 Respiratory rate 18 /min Dr. Annabella Willard MD Work Phone: 5(966)575-490786 [place] [address] 09-10-2024 07:54-0400 SaO2% (BldA) [Mass fraction] 97 % Dr. Annabella Willard MD Work Phone: 8(581)278-736436 [address] 09-10-2024 07:54-0400 Systolic blood pressure 141 mm[Hg] Dr. Annabella Willard MD Work Phone: 1(264)815-654004 [place] [address] 07-29-2024 09:48-0400 Body height 177.[address] Annabella Willard MD Work Phone: 9(862)222-096904 [place] [address] 07-29-2024 09:48-0400 Body mass index (BMI) [Ratio] 32.5 kg/m2 Dr. Annabella Willard MD Work Phone: 8(951)314-721704 [place] [address] 07-29-2024 09:48-0400 Body weight 102.[address] Annabella Willard MD Work Phone: 8(174)645-007786 [place] [address] 07-29-2024 09:48-0400 Diastolic blood pressure 74 mm[Hg] Dr. Annabella Willard MD Work Phone: 8(857)373-970486 [place] [address] 07-29-2024 09:48-0400 Heart rate 73 /min Dr. Annabella Willard MD Work Phone: 1(577)362-514086 [place] [address] 07-29-2024 09:48-0400 Respiratory rate 16 /min Dr. Annabella Willard MD Work Phone: 2(152)621-727936 [address] 07-29-2024 09:48-0400 Systolic blood pressure 117 mm[Hg] Dr. Annabella Willard MD Work Phone: [facility] 05-29-2024 11:23-0500 Diastolic blood pressure 75 mm[Hg] Dr. Annabella Willard MD Work Phone: [facility] 05-29-2024 11:23-0500 Heart rate 86 /min Dr. Annabella Willard MD Work Phone: [facility] 05-29-2024 11:23-0500 Systolic blood pressure 125 mm[Hg] Dr. Annabella Willard MD Work Phone: [facility] 05-29-2024 10:58-0500 Body mass index (BMI) [Ratio] 32.8 kg/m2 Dr. Annabella Willard MD Work Phone: [facility] 05-29-2024 10:58-0500 Body weight 103.[address] Annabella Willard MD Work Phone: [facility] 05-29-2024 10:58-0500 Respiratory rate 16 /min Dr. Annabella Willard MD Work Phone: [facility] 07-03-2023 14:20-0500 Body height 177.[address] Annabella Willard Work Phone: [facility] 07-03-2023 14:20-0500 Body mass index (BMI) [Ratio] 32.8 kg/m2 Dr. Annabella Willard Work Phone: [facility] 07-03-2023 14:20-0500 Body weight 103.[address] Annabella Willard Work Phone: [facility] 07-03-2023 14:20-0500 Diastolic blood pressure 70 mm[Hg] Dr. Annabella Willard Work Phone: [facility] 07-03-2023 14:20-0500 Heart rate 60 /min Dr. Annabella Willard Work Phone: [facility] 07-03-2023 14:20-0500 Respiratory rate 14 /min Dr. Annabella Willard Work Phone: [facility] 07-03-2023 14:20-0500 Systolic blood pressure 120 mm[Hg] Dr. Annabella Willard Work Phone: [facility] 10-31-2022 12:34-0400 Body height 177.[address] Annabella Willard Work Phone: [facility] 10-31-2022 12:34-0400 Body mass index (BMI) [Ratio] 30.9 kg/m2 Dr. Annabella Willard Work Phone: [facility] 10-31-2022 12:34-0400 Body weight 97.[address] Annabella Willard Work Phone: [phone] [place] [address] 10-31-2022 12:34-0400 Diastolic blood pressure 66 mm[Hg] Dr. Annabella Willard Work Phone: [phone] [address] [place] [address] 10-31-2022 12:34-0400 Heart rate 82 /min Dr. Annabella Willard Work Phone: [facility] 10-31-2022 12:34-0400 Respiratory rate 16 /min Dr. Annabella Willard Work Phone: [facility] 10-31-2022 12:34-0400 Systolic blood pressure 106 mm[Hg] Dr. Annabella Willard Work Phone: [facility] 03-28-2022 12:38-0500 Body height 177.[address] Annabella Willard Work Phone: [facility] 03-28-2022 12:38-0500 Body mass index (BMI) [Ratio] 32.5 kg/m2 Dr. Annabella Willard Work Phone: [facility] 03-28-2022 12:38-0500 Body weight 102.[address] Annabella Willard Work Phone: [phone] [address] [place] [address] 03-28-2022 12:38-0500 Diastolic blood pressure 73 mm[Hg] Dr. Annabella Willard Work Phone: [facility] 03-28-2022 12:38-0500 Heart rate 74 /min Dr. Annabella Willard Work Phone: [facility] 03-28-2022 12:38-0500 Respiratory rate 16 /min Dr. Annabella Willard Work Phone: [facility] 03-28-2022 12:38-0500 SaO2% (BldA) [Mass fraction] 96 % Dr. Annabella Willard Work Phone: [facility] 03-28-2022 12:38-0500 Systolic blood pressure 130 mm[Hg] Dr. Annabella Willard Work Phone: [facility] 10-04-2021 12:33-0400 Body height 177.[address] Annabella Willard Work Phone: [facility] Work Phone: 10-04-2021 12:33-0400 Body mass index (BMI) [Ratio] 29.2 kg/m2 Dr. Annabella Willard Work Phone: [facility] Work Phone: 10-04-2021 12:33-0400 Body weight 92.[address] Annabella Willard Work Phone: [facility] Work Phone: 10-04-2021 12:33-0400 Diastolic blood pressure 72 mm[Hg] Dr. Annabella Willard Work Phone: [facility] Work Phone: 10-04-2021 12:33-0400 Heart rate 88 /min Dr. Annabella Willard Work Phone: [facility] Work Phone: 10-04-2021 12:33-0400 Respiratory rate 16 /min Dr. Annabella Willard Work Phone: [facility] Work Phone: 10-04-2021 12:33-0400 SaO2% (BldA) [Mass fraction] 98 % Dr. Annabella Willard Work Phone: [facility] Work Phone: 10-04-2021 12:33-0400 Systolic blood pressure 116 mm[Hg] Dr. Annabella Willard Work Phone: [facility] Work Phone: Encounters Encounter Date Encounter Type Care Provider Facility Start: 01-24-2025 End: 01-24-[address] Annabella Willard MD Work Phone: -[facility] Start: 01-24-2025 End: 01-24-[address] Gigi Schwab MD -[facility] Work Phone: Start: 01-22-2025 End: 01-22-2025 Patient encounter procedure Jenny LOPEZ -[facility] Work Phone: Start: 01-22-2025 End: 01-22-[address] Annabella Willard MD Work Phone: -[facility] Start: 12-02-2024 End: 12-02-[address] Gigi Schwab MD -[facility] Work Phone: Start: 12-02-2024 End: 12-02-[address] Annabella Willard MD Work Phone: [facility] Start: 10-25-2024 End: 10-25-[address] Annabella Willard MD Work Phone: -[facility] Start: 10-25-2024 End: 10-25-[address] Gigi Schwab MD -[facility] Work Phone: Start: 10-10-2024 End: 10-10-2024 Patient encounter procedure Jenny LOPEZ -[facility] Work Phone: Start: 10-10-2024 End: 10-10-[address] Annabella Willard MD Work Phone: [facility] Work Phone: Start: 10-03-2024 Non-patient / Non-visit Dr. Freya Viera MD -[facility] Start: 10-03-2024 End: 10-03-[address] Annabella Willard MD Work Phone: [facility] Work Phone: Start: 10-03-2024 End: 10-03-2024 Patient encounter procedure Jenny Clancy NP-C -Cardiovascular Services Work Phone: Start: 10-03-2024 End: 10-03-2024 ambulatory Jenny Clancy NP Facility:[facility] Start: 09-25-2024 End: 09-25-[address] Annabella Willard MD Work Phone: [facility] Work Phone: Start: 09-25-2024 End: 09-25-[address] Annabella Willard MD -Laboratory [facility] Start: 09-24-2024 Non-patient / Non-visit Dr. Daniel coronel DO -[facility] Start: 09-24-2024 End: 09-25-[address] Annabella Willard MD Work Phone: [facility] Work Phone: Start: 09-24-2024 End: 09-24-2024 Patient encounter procedure Jenny Clancy NP-C -Pulmonary Services/Neurology Work Phone: Start: 09-24-2024 End: 09-24-2024 ambulatory Jenny Clancy NP Facility:[facility] Start: 09-10-2024 End: 09-10-2024 Patient encounter procedure Jenny Clancy NP-C -[facility] Work Phone: Start: 09-10-2024 End: 09-10-2024 ambulatory Jenny Clancy NP Facility:[facility] Start: 07-31-2024 End: 07-31-2024 Subsequent hospital visit by physician Ga Galindo [facility] Comment on above: Arrived Facial infection Start: 07-31-2024 End: 07-31-2024 ambulatory [facility] Start: 07-29-2024 End: 07-29-[address] Gigi Schwab MD -[facility] Work Phone: Start: 07-29-2024 End: 07-29-2024 ambulatory Annabella Willard Facility:[facility] Start: 07-26-2024 End: 07-26-2024 ambulatory Gigi Schwab Facility:[facility] Start: 07-26-2024 End: 07-26-[address] Gigi Schwab MD -[facility] Work Phone: Start: 07-25-2024 End: 07-25-2024 Subsequent hospital visit by physician Ga Herrera [address] [place] [address] Comment on above: Facial infection Start: 07-25-2024 End: 07-25-2024 ambulatory [facility] Start: 07-23-2024 End: 07-23-[address] Annabella Willard MD Work Phone: [facility] Work Phone: Start: 07-23-2024 End: 07-23-[address] Annabella Willard MD -Laboratory, [facility] Start: 07-23-2024 End: 07-23-2024 ambulatory Annabella Willard Facility:[facility] Start: 07-01-2024 End: 07-01-[address] Annabella Willard MD -Pulmonary Services/Neurology Work Phone: Start: 07-01-2024 End: 07-01-2024 ambulatory Annabella Willard Facility:[facility] Start: 06-28-2024 End: 06-28-[address] Annabella Willard MD -Cat Scan, [facility] Work Phone: Start: 06-28-2024 End: 06-28-2024 ambulatory Annabella Willard Facility:[facility] Start: 06-16-2024 End: 06-16-[address] Annabella Willard MD -Ultrasound, [facility] Work Phone: Start: 06-16-2024 End: 06-16-2024 ambulatory Annabella Willard Facility:[facility] Start: 06-11-2024 End: 06-11-[address] Annabella Willard MD -Laboratory, [facility] Start: 06-11-2024 End: 06-11-2024 ambulatory Annabella Willard Facility:[facility] Start: 05-29-2024 End: 05-29-2024 Patient encounter procedure Annabella Krishnan CONTINUITY WRITER-C -[facility] Work Phone: Start: 05-29-2024 End: 05-29-2024 ambulatory Annabella Krishnan CONTINUITY WRITER Facility:[facility] Start: 05-29-2024 End: 05-29-2024 ambulatory Annabella Krishnan NP Facility:[facility] Start: 04-26-2024 End: 04-26-2024 ambulatory Annabella Willard Facility:[facility] Start: 04-26-2024 End: 04-26-[address] Gigi Schwab MD -[facility] Work Phone: Start: 03-11-2024 End: 03-11-2024 ambulatory Melissa Mirza Facility:[facility] Start: 02-28-2024 End: 02-29-2024 ambulatory Tone Stout Facility:[facility] Start: 02-08-2024 End: 02-08-2024 ambulatory Annabella Willard Facility:[facility] Start: 02-07-2024 End: 02-07-2024 ambulatory Annabella Willard Facility:[facility] Start: 02-04-2024 End: 02-04-2024 ambulatory Annabella Willard Facility:[facility] Start: 08-31-2023 End: 08-31-[address] Annabella Willard Work Phone: [facility] Work Phone: Start: 08-31-2023 End: 08-31-[address] Annabella Willard Work Phone: [facility] Work Phone: Start: 07-03-2023 End: 07-03-[address] Annabella Willard Work Phone: [facility] Work Phone: Start: 03-29-2023 End: 03-29-2023 ambulatory [facility] Work Phone: Start: 03-29-2023 End: 03-29-2023 Patient encounter procedure [facility] Work Phone: Start: 03-05-2023 End: 03-05-[address] Annabella Willard Work Phone: [facility] Work Phone: Start: 03-05-2023 End: 03-05-[address] Annabella Willard Work Phone: [facility] Work Phone: Start: 03-02-2023 End: 03-02-[address] Annabella Willard Work Phone: [facility] Work Phone: Start: 03-02-2023 End: 03-02-[address] Annabella Willard Work Phone: [facility] Work Phone: Start: 02-15-2023 End: 02-15-[address] Annabella Willard Work Phone: [facility] Start: 11-15-2022 Non-patient / Non-visit Dr. Mayra Willard Work Phone: [facility] Start: 11-15-2022 End: 11-15-[address] Annabella Willard Work Phone: [facility] Work Phone: Start: 11-15-2022 End: 11-15-[address] Annabella Willard Work Phone: [facility]-Cardiovascula r Services Work Phone: Start: 10-31-2022 End: 10-31-[address] Annabella Willard Work Phone: [facility] Work Phone: Start: 10-27-2022 End: 10-27-[address] Annabella Willard Work Phone: [facility] Work Phone: Start: 07-24-2022 End: 07-24-2022 ambulatory [facility] Work Phone: Start: 07-24-2022 End: 07-24-2022 [facility] Start: 05-31-2022 End: 05-31-[address] Annabella Willard Work Phone: [facility] Start: 05-26-2022 End: 05-26-[address] Annabella Willard Work Phone: [facility] Work Phone: Start: 05-26-2022 End: 05-26-[address] Annabella Willard Work Phone: [facility]-Ultrasound, [facility] Start: 03-28-2022 End: 03-28-[address] Annabella Willard Work Phone: [facility] Start: 03-20-2022 End: 03-20-2022 ambulatory [facility] Work Phone: Start: 03-20-2022 End: 03-20-2022 Patient encounter procedure [facility]-Pulmonary Services/Neurology Start: 03-09-2022 End: 03-09-2022 ambulatory [facility] Work Phone: Start: 03-09-2022 End: 03-09-2022 Patient encounter procedure [facility] Start: 02-20-2022 ambulatory BHARATI TUCKER MD Faci lity:B Start: 01-26-2022 End: 01-26-[address] Annabella Willard Work Phone: [facility] Work Phone: Start: 01-26-2022 End: 01-26-[address] Annabella Willard Work Phone: [facility] Start: 11-30-2021 End: 11-30-[address] Annabella Willard Work Phone: [facility]-Cardiovascula r Services Start: 11-23-2021 End: 11-23-[address] Annabella Willard Work Phone: [facility]-Pulmonary Services/Neurology Start: 10-31-2021 End: 10-31-[address] Annabella Willard Work Phone: [facility] Start: 10-04-2021 End: 10-04-[address] Annabella Willard Work Phone: [facility] Start: 09-30-2021 End: 09-30-2021 Patient encounter procedure [facility] Start: 09-28-2021 End: 09-28-2021 Patient encounter procedure [facility] Start: 08-12-2021 End: 08-12-[address] Annablela Willard Work Phone: [facility] Start: 05-26-2021 End: 05-26-[address] Annabella Willard Work Phone: [facility] Start: 05-18-2021 End: 05-18-[address] Annabella Willard Work Phone: [facility]-Ultrasound, [facility] Start: 05-03-[address] Annabella Willard Work Phone: [facility]-Laboratory, [place] Start: 09-28-[address] Keysha Willard Work Phone: [facility] Start: 09-28-[address] Annabella david MD Work Phone: [facility] Start: 04-23-[address] Keysha Willard Work Phone: [facility] Procedures Date Procedure Procedure Detail Performing Clinician Start: 09-25-2024 Vitamin D, 25-hydrox y measurement Dr. Annabella Willard MD Work Phone: Comment on above: Vitamin D StatusDefi ciency: <20 ng/mL (50nmol/L)Insufficiency: 20-30 ng/mL (50-75 nmol/L)Sufficiency: 30-100 ng/mL (75-250 nmol/L)Toxicity: >100 ng/mL (>250 nmol/L) Start: 07-25-2024 Ct maxillofacial w/o contrast material Brown Sharma DDMelissa Work Phone: Start: 06-28-2024 CT of chest without contrast Dr. Annabella Willard MD Work Phone: Start: 06-16-2024 US scan of thyroid Dr. Annabella Willard MD Work Phone: Start: 06-11-2024 Measurement of renal function Dr. Annabella Willard MD Work Phone: Comment on above: GFR Calc Start: 06-11-2024 Urnls dip stick/tabl et reagent auto microscopy Dr. Annabella Willard MD Work Phone: Start: 06-11-2024 Vitamin D, 25-hydrox y measurement Dr. Annabella Willard MD Work Phone: Comment on above: Vitamin D 25(OH) Sta tus Range Deficiency <20 ng/mL (50nmol/L) Insufficiency 20 - 30 ng/mL (50 - 75 nmol/L) Sufficiency 30 - 100 ng/mL (75 - 250 nmol/L) Toxicity >100 ng/mL (>250 nmol/L) Start: 05-29-2024 X-ray of chest, PA a nd lateral views Dr. Annabella Willard MD Work Phone: Start: 03-29-2023 CT of chest without contrast Start: 07-24-2022 CT of chest without contrast Start: 05-26-2022 US scan of thyroid Dr. Annabella Willard Work Phone: Start: 09-30-2021 MRI of cervical spine Start: 08-12-2021 CT of chest without contrast Dr. Annabella Willard Work Phone: Start: 05-18-[address] Annabella dang Work Phone: Plan of Treatment Date Care Activity Detail Author Start: 10-21-2033 DTaP/Tdap/Td Vaccine s (3 - Td or Tdap) DTaP/Tdap/Td Vaccines (3 - Td or Tdap) [facility] Start: 07-31-2024 End: 07-31-2024 Patient encounter procedure [facility] Start: 01-13-2024 COVID-19 Vaccine ( season) COVID-19 Vaccine () [facility] Start: 1963 Diabetes mellitus screening Diabetes Screening [facility] Start: 1963 Hepatitis C screening Hepatitis C [facility] Start: 1945 Annual wellness visit Welcome to Medicare Visit [facility] Start: 1945 Lipid panel Lipid Panel [facility] End: 07-31-2024 NM Whole body Bone 3 Phase Views [facility] Service Area Work Phone: Comment on above: Once for 1 Occurrenc es starting 07/31/2024 until 07/31/2024 Patient referral [facility] Work Phone: [facility] Immunizations Immunization Date Immunization Notes Care Provider Fa cility 10-22-2023 tetanus toxoid, redu christopher diphtheria toxoid, and acellular pertussis vaccine, adsorbed Dr. Annabella Willard MD Work Phone: [facility] 02-16-[address] Annabella Willard Work Phone: [facility] 03-28-[address] Annabella Willard Work Phone: [facility] Payers Date Payer Category Payer Medicare (Managed Care) [facility] [id number] 2024 Self-pay [id number] 2023 Medicare [id number] 2014 Medicare [id number] 1945 Unknown [id number] 2.840.1.838069.3.579. 2.627 1945 Unknown [id number] 2.16840.1.444234.3.579. 2.627 1945 Unknown [id number] 2.16840.1.747370.3.579. 2.1243 1945 Unknown [id number] 2.16840.1.904682.3.579. 2.1243 1945 Unknown [id number] 2.16.840.1.529366.3.579. 2.1243 Unknown [id number] 2.16.840.1.853201.3.579. 2.462 Unknown [id number] 2.16.840.1.332421.3.579. 2.462 Unknown [id number] 2.16.840.1.811738.3.579. 2.462 Unknown [id number] 2.16840.1.665876.3.579. 2.462 Unknown [id number] 2.16840.1.896659.3.579. 2.462 Unknown [id number] 2.16840.1.973855.3.579. 2.462 Unknown [id number] 2.16840.1.403191.3.579. 2.462 Unknown [id number] 2.840.1.814491.3.579. 2.462 Unknown [id number] 2.16840.1.993582.3.579. 2.462 Unknown [id number] 2.16840.1.341143.3.579. 2.462 Unknown [id number] 2.16840.1.285285.3.579. 2.462 Unknown [id number] 2.16840.1.048531.3.579. 2.462 Unknown [id number] 2.16840.1.070030.3.579. 2.462 Unknown [id number] 2.16840.1.228287.3.579. 2.462 Unknown [id number] 2.16.840.1.752412.3.579. 2.462 Unknown [id number] 2.16.840.1.183916.3.579. 2.462 Unknown [id number] 2.16.840.1.177887.3.579. 2.462 Unknown [id number] 2.16840.1.069025.3.579. 2.462 Unknown [id number] 2.16.840.1.038274.3.579. 2.462 Unknown [id number] 2.16.840.1.743892.3.579. 2.462 Unknown [id number] 2.16.840.1.481317.3.579. 2.462 Unknown [id number] 2.16.840.1.745213.3.579. 2.462 Unknown [id number] 2.16.840.1.317589.3.579. 2.462 Unknown [id number] 2.16.840.1.255982.3.579. 2.462 Unknown [id number] 2.16.840.1.167673.3.579. 2.462 Unknown [id number] 2.16.840.1.646977.3.579. 2.462 Unknown [id number] 2.16.840.1.494257.3.579. 2.462 Unknown [id number] 2.16.840.1.725492.3.579. 2.462 Unknown [id number] 2.16.840.1.603165.3.579. 2.462 Unknown [id number] 2.16.840.1.161890.3.579. 2.462 Unknown [id number] 2.16.840.1.205511.3.579. 2.462 Unknown [id number] 2.16.840.1.755493.3.579. 2.462 Unknown [id number] 2.16.840.1.503374.3.579. 2.462 Unknown [id number] 2.16.840.1.729649.3.579. 2.462 Social History Date Type Detail Facility Start: 05-26-2021 End: 07-03-2023 Tobacco smoking status NHIS Unknown if ever smoked [facility] Start: 07-03-2018 Spouse/ Signif icant Other [facility] Start: 04-22-2020 Cigarettes [facility] Start: 1945 Sex Assigned At Male W [facility] Start: 1945 Sex assigned at Not on file U [facility] Work Phone: Gender identity Not on file [facility] Start: 07-15-2024 End: 07-31-2024 Exposure to SARS-CoV-2 (event) Not sure [facility] Start: 05-29-2024 Tobacco smoking status NHIS Ex-smoker (finding) [facility] Start: 07-30-2024 Sex Male (finding) [facility] Medical Equipment Procedure Code Equipment Code Equipment Origin al Text Equipment Identifier Dates Appendectomy, laparoscopic CLIP,HEMOLOCK MED WECK FDA Start: 07-03-2018 Appendectomy, laparoscopic CLIP,HEMOLOCK MED WECK FDA Start: 07-03-2018 Appendectomy, laparoscopic RELOAD,BLUE 60 FDA Start: 07-03-2018 Appendectomy, laparoscopic RELOAD,GOLD 60 FDA Start: 07-03-2018 Appendectomy, laparoscopic CLIP,HEMOLOCK MED WECK FDA Start: 07-03-2018 Appendectomy, laparoscopic CLIP,HEMOLOCK MED WECK FDA Start: 07-03-2018 Appendectomy, laparoscopic RELOAD,BLUE 60 FDA Start: 07-03-2018 Appendectomy, laparoscopic RELOAD,GOLD 60 FDA Start: 07-03-2018 Appendectomy, laparoscopic CLIP,HEMOLOCK MED WECK FDA Start: 07-03-2018 Appendectomy, laparoscopic CLIP,HEMOLOCK MED WECK FDA Start: 07-03-2018 Appendectomy, laparoscopic RELOAD,BLUE 60 FDA Start: 07-03-2018 Appendectomy, laparoscopic RELOAD,GOLD 60 FDA Start: 07-03-2018 Appendectomy, laparoscopic CLIP,HEMOLOCK MED WECK FDA Start: 07-03-2018 Appendectomy, laparoscopic CLIP,HEMOLOCK MED WECK FDA Start: 07-03-2018 Appendectomy, laparoscopic RELOAD,BLUE 60 FDA Start: 07-03-2018 Appendectomy, laparoscopic RELOAD,GOLD 60 FDA Start: 07-03-2018 Appendectomy, laparoscopic CLIP,HEMOLOCK MED WECK FDA Start: 07-03-2018 Appendectomy, laparoscopic CLIP,HEMOLOCK MED WECK FDA Start: 07-03-2018 Appendectomy, laparoscopic RELOAD,BLUE 60 FDA Start: 07-03-2018 Appendectomy, laparoscopic RELOAD,GOLD 60 FDA Start: 07-03-2018 Appendectomy, laparoscopic CLIP,HEMOLOCK MED WECK FDA Start: 07-03-2018 Appendectomy, laparoscopic CLIP,HEMOLOCK MED WECK FDA Start: 07-03-2018 Appendectomy, laparoscopic RELOAD,BLUE 60 FDA Start: 07-03-2018 Appendectomy, laparoscopic RELOAD,GOLD 60 FDA Start: 07-03-2018 Appendectomy, laparoscopic CLIP,HEMOLOCK MED WECK FDA Start: 07-03-2018 Appendectomy, laparoscopic CLIP,HEMOLOCK MED WECK FDA Start: 07-03-2018 Appendectomy, laparoscopic RELOAD,BLUE 60 FDA Start: 07-03-2018 Appendectomy, laparoscopic RELOAD,GOLD 60 FDA Start: 07-03-2018 Appendectomy, laparoscopic CLIP,HEMOLOCK MED WECK FDA Start: 07-03-2018 Appendectomy, laparoscopic CLIP,HEMOLOCK MED WECK FDA Start: 07-03-2018 Appendectomy, laparoscopic RELOAD,BLUE 60 FDA Start: 07-03-2018 Appendectomy, laparoscopic RELOAD,GOLD 60 FDA Start: 07-03-2018 Appendectomy, laparoscopic CLIP,HEMOLOCK MED WECK FDA Start: 07-03-2018 Appendectomy, laparoscopic CLIP,HEMOLOCK MED WECK FDA Start: 07-03-2018 Appendectomy, laparoscopic RELOAD,BLUE 60 FDA Start: 07-03-2018 Appendectomy, laparoscopic RELOAD,GOLD 60 FDA Start: 07-03-2018 Appendectomy, laparoscopic CLIP,HEMOLOCK MED WECK FDA Start: 07-03-2018 Appendectomy, laparoscopic CLIP,HEMOLOCK MED WECK FDA Start: 07-03-2018 Appendectomy, laparoscopic RELOAD,BLUE 60 FDA Start: 07-03-2018 Appendectomy, laparoscopic RELOAD,GOLD 60 FDA Start: 07-03-2018 Appendectomy, laparoscopic CLIP,HEMOLOCK MED WECK FDA Start: 07-03-2018 Appendectomy, laparoscopic CLIP,HEMOLOCK MED WECK FDA Start: 07-03-2018 Appendectomy, laparoscopic RELOAD,BLUE 60 FDA Start: 07-03-2018 Appendectomy, laparoscopic RELOAD,GOLD 60 FDA Start: 07-03-2018 Appendectomy, laparoscopic CLIP,HEMOLOCK MED WECK FDA Start: 07-03-2018 Appendectomy, laparoscopic CLIP,HEMOLOCK MED WECK FDA Start: 07-03-2018 Appendectomy, laparoscopic RELOAD,BLUE 60 FDA Start: 07-03-2018 Appendectomy, laparoscopic RELOAD,GOLD 60 FDA Start: 07-03-2018 Appendectomy, laparoscopic CLIP,HEMOLOCK MED WECK FDA Start: 07-03-2018 Appendectomy, laparoscopic CLIP,HEMOLOCK MED WECK FDA Start: 07-03-2018 Appendectomy, laparoscopic RELOAD,BLUE 60 FDA Start: 07-03-2018 Appendectomy, laparoscopic RELOAD,GOLD 60 FDA Start: 07-03-2018 Appendectomy, laparoscopic CLIP,HEMOLOCK MED WECK FDA Start: 07-03-2018 Appendectomy, laparoscopic CLIP,HEMOLOCK MED WECK FDA Start: 07-03-2018 Appendectomy, laparoscopic RELOAD,BLUE 60 FDA Start: 07-03-2018 Appendectomy, laparoscopic RELOAD,GOLD 60 FDA Start: 07-03-2018 Appendectomy, laparoscopic CLIP,HEMOLOCK MED WECK FDA Start: 07-03-2018 Appendectomy, laparoscopic CLIP,HEMOLOCK MED WECK FDA Start: 07-03-2018 Appendectomy, laparoscopic RELOAD,BLUE 60 FDA Start: 07-03-2018 Appendectomy, laparoscopic RELOAD,GOLD 60 FDA Start: 07-03-2018 Appendectomy, laparoscopic CLIP,HEMOLOCK MED WECK FDA Start: 07-03-2018 Appendectomy, laparoscopic CLIP,HEMOLOCK MED WECK FDA Start: 07-03-2018 Appendectomy, laparoscopic RELOAD,BLUE 60 FDA Start: 07-03-2018 Appendectomy, laparoscopic RELOAD,GOLD 60 FDA Start: 07-03-2018 Appendectomy, laparoscopic CLIP,HEMOLOCK MED WECK FDA Start: 07-03-2018 Appendectomy, laparoscopic CLIP,HEMOLOCK MED WECK FDA Start: 07-03-2018 Appendectomy, laparoscopic RELOAD,BLUE 60 FDA Start: 07-03-2018 Appendectomy, laparoscopic RELOAD,GOLD 60 FDA Start: 07-03-2018 Appendectomy, laparoscopic CLIP,HEMOLOCK MED WECK FDA Start: 07-03-2018 Appendectomy, laparoscopic CLIP,HEMOLOCK MED WECK FDA Start: 07-03-2018 Appendectomy, laparoscopic RELOAD,BLUE 60 FDA Start: 07-03-2018 Appendectomy, laparoscopic RELOAD,GOLD 60 FDA Start: 07-03-2018 Appendectomy, laparoscopic CLIP,HEMOLOCK MED WECK FDA Start: 07-03-2018 Appendectomy, laparoscopic CLIP,HEMOLOCK MED WECK FDA Start: 07-03-2018 Appendectomy, laparoscopic RELOAD,BLUE 60 FDA Start: 07-03-2018 Appendectomy, laparoscopic RELOAD,GOLD 60 FDA Start: 07-03-2018 Appendectomy, laparoscopic CLIP,HEMOLOCK MED WECK FDA Start: 07-03-2018 Appendectomy, laparoscopic CLIP,HEMOLOCK MED WECK FDA Start: 07-03-2018 Appendectomy, laparoscopic RELOAD,BLUE 60 FDA Start: 07-03-2018 Appendectomy, laparoscopic RELOAD,GOLD 60 FDA Start: 07-03-2018 Appendectomy, laparoscopic CLIP,[facility] FDA Start: 07-03-2018 Appendectomy, laparoscopic CLIP,[facility] FDA Start: 07-03-2018 Appendectomy, laparoscopic RELOAD,BLUE 60 FDA Start: 07-03-2018 Appendectomy, laparoscopic RELOAD,GOLD 60 FDA Start: 07-03-2018 Appendectomy, laparoscopic CLIP,[facility] [facility] FDA Start: 07-03-2018 Appendectomy, laparoscopic CLIP,[facility] [facility] FDA Start: 07-03-2018 Appendectomy, laparoscopic RELOAD,BLUE 60 FDA Start: 07-03-2018 Appendectomy, laparoscopic RELOAD,GOLD 60 FDA Start: 07-03-2018 Appendectomy, laparoscopic CLIP,[facility] [facility] FDA Start: 07-03-2018 Appendectomy, laparoscopic CLIP,[place] [facility] FDA Start: 07-03-2018 Appendectomy, laparoscopic RELOAD,BLUE 60 FDA Start: 07-03-2018 Appendectomy, laparoscopic RELOAD,GOLD 60 FDA Start: 07-03-2018 Appendectomy, laparoscopic CLIP,[facility] [facility] FDA Start: 07-03-2018 Appendectomy, laparoscopic CLIP,[facility] [facility] FDA Start: 07-03-2018 Appendectomy, laparoscopic RELOAD,BLUE 60 FDA Start: 07-03-2018 Appendectomy, laparoscopic RELOAD,GOLD 60 FDA Start: 07-03-2018 ASYMMETRIC PATELLA FDA Start: 02-23-2020 CRUCIATE RETAINI NG FEMORAL FDA Start: 02-23-2020 TIBIAL BEARING INSERT FDA Start: 02-23-2020 TIBIAL COMPONENT FDA Start: 02-23-2020 ASYMMETRIC PATELLA FDA Start: 02-23-2020 CRUCIATE RETAINI NG FEMORAL FDA Start: 02-23-2020 TIBIAL BEARING INSERT FDA Start: 02-23-2020 TIBIAL COMPONENT FDA Start: 02-23-2020 ASYMMETRIC PATELLA FDA Start: 02-23-2020 CRUCIATE RETAINI NG FEMORAL FDA Start: 02-23-2020 TIBIAL BEARING INSERT FDA Start: 02-23-2020 TIBIAL COMPONENT FDA Start: 02-23-2020 ASYMMETRIC PATELLA FDA Start: 02-23-2020 CRUCIATE RETAINI NG FEMORAL FDA Start: 02-23-2020 TIBIAL BEARING INSERT FDA Start: 02-23-2020 TIBIAL COMPONENT FDA Start: 02-23-2020 ASYMMETRIC PATELLA FDA Start: 02-23-2020 CRUCIATE RETAINI NG FEMORAL FDA Start: 02-23-2020 TIBIAL BEARING INSERT FDA Start: 02-23-2020 TIBIAL COMPONENT FDA Start: 02-23-2020 ASYMMETRIC PATELLA FDA Start: 02-23-2020 CRUCIATE RETAINI NG FEMORAL FDA Start: 02-23-2020 TIBIAL BEARING INSERT FDA Start: 02-23-2020 TIBIAL COMPONENT FDA Start: 02-23-2020 ASYMMETRIC PATELLA FDA Start: 02-23-2020 CRUCIATE RETAINI NG FEMORAL FDA Start: 02-23-2020 TIBIAL BEARING INSERT FDA Start: 02-23-2020 TIBIAL COMPONENT FDA Start: 02-23-2020 ASYMMETRIC PATELLA FDA Start: 02-23-2020 CRUCIATE RETAINI NG FEMORAL FDA Start: 02-23-2020 TIBIAL BEARING INSERT FDA Start: 02-23-2020 TIBIAL COMPONENT FDA Start: 02-23-2020 ASYMMETRIC PATELLA FDA Start: 02-23-2020 CRUCIATE RETAINI NG FEMORAL FDA Start: 02-23-2020 TIBIAL BEARING INSERT FDA Start: 02-23-2020 TIBIAL COMPONENT FDA Start: 02-23-2020 ASYMMETRIC PATELLA FDA Start: 02-23-2020 CRUCIATE RETAINI NG FEMORAL FDA Start: 02-23-2020 TIBIAL BEARING INSERT FDA Start: 02-23-2020 TIBIAL COMPONENT FDA Start: 02-23-2020 ASYMMETRIC PATELLA FDA Start: 02-23-2020 CRUCIATE RETAINI NG FEMORAL FDA Start: 02-23-2020 TIBIAL BEARING INSERT FDA Start: 02-23-2020 TIBIAL COMPONENT FDA Start: 02-23-2020 ASYMMETRIC PATELLA FDA Start: 02-23-2020 CRUCIATE RETAINI NG FEMORAL FDA Start: 02-23-2020 TIBIAL BEARING INSERT FDA Start: 02-23-2020 TIBIAL COMPONENT FDA Start: 02-23-2020 ASYMMETRIC PATELLA FDA Start: 02-23-2020 CRUCIATE RETAINI NG FEMORAL FDA Start: 02-23-2020 TIBIAL BEARING INSERT FDA Start: 02-23-2020 TIBIAL COMPONENT FDA Start: 02-23-2020 ASYMMETRIC PATELLA FDA Start: 02-23-2020 CRUCIATE RETAINI NG FEMORAL FDA Start: 02-23-2020 TIBIAL BEARING INSERT FDA Start: 02-23-2020 TIBIAL COMPONENT FDA Start: 02-23-2020 ASYMMETRIC PATELLA FDA Start: 02-23-2020 CRUCIATE RETAINI NG FEMORAL FDA Start: 02-23-2020 TIBIAL BEARING INSERT FDA Start: 02-23-2020 TIBIAL COMPONENT FDA Start: 02-23-2020 ASYMMETRIC PATELLA FDA Start: 02-23-2020 CRUCIATE RETAINI NG FEMORAL FDA Start: 02-23-2020 TIBIAL BEARING INSERT FDA Start: 02-23-2020 TIBIAL COMPONENT FDA Start: 02-23-2020 ASYMMETRIC PATELLA FDA Start: 02-23-2020 CRUCIATE RETAINI NG FEMORAL FDA Start: 02-23-2020 TIBIAL BEARING INSERT FDA Start: 02-23-2020 TIBIAL COMPONENT FDA Start: 02-23-2020 ASYMMETRIC PATELLA FDA Start: 02-23-2020 CRUCIATE RETAINI NG FEMORAL FDA Start: 02-23-2020 TIBIAL BEARING INSERT FDA Start: 02-23-2020 TIBIAL COMPONENT FDA Start: 02-23-2020 ASYMMETRIC PATELLA FDA Start: 02-23-2020 CRUCIATE RETAINI NG FEMORAL FDA Start: 02-23-2020 TIBIAL BEARING INSERT FDA Start: 02-23-2020 TIBIAL COMPONENT FDA Start: 02-23-2020 ASYMMETRIC PATELLA FDA Start: 02-23-2020 CRUCIATE RETAINI NG FEMORAL FDA Start: 02-23-2020 TIBIAL BEARING INSERT FDA Start: 02-23-2020 TIBIAL COMPONENT FDA Start: 02-23-2020 ASYMMETRIC PATELLA FDA Start: 02-23-2020 CRUCIATE RETAINI NG FEMORAL FDA Start: 02-23-2020 TIBIAL BEARING INSERT FDA Start: 02-23-2020 TIBIAL COMPONENT FDA Start: 02-23-2020 ASYMMETRIC PATELLA FDA Start: 02-23-2020 CRUCIATE RETAINI NG FEMORAL FDA Start: 02-23-2020 TIBIAL BEARING INSERT FDA Start: 02-23-2020 TIBIAL COMPONENT FDA Start: 02-23-2020 ASYMMETRIC PATELLA FDA Start: 02-23-2020 CRUCIATE RETAINI NG FEMORAL FDA Start: 02-23-2020 TIBIAL BEARING INSERT FDA Start: 02-23-2020 TIBIAL COMPONENT FDA Start: 02-23-2020 ASYMMETRIC PATELLA FDA Start: 02-23-2020 CRUCIATE RETAINI NG FEMORAL FDA Start: 02-23-2020 TIBIAL BEARING INSERT FDA Start: 02-23-2020 TIBIAL COMPONENT FDA Start: 02-23-2020 Clinical Notes 01-27-2024 to 10-10-2024 Note Date & Type Note Facility 10-10-2024 Evaluation note Diagnosis Onset Date Resolution Shortness of breath acute September 132024 11:06am Obesity chronic October 10, 2024 11:06am Obstructive sleep apnea on CPAP chronic October 10, 2024 11:06am Presence of permanent cardiac pacemaker January 27, 2024 acute December 02, 2024 10:20am Dyspnea on exertion chronic December 02, 2024 10:20am Essential (primary) hypertension chronic December 02, 2024 10:20am Hyperlipidemia chronic December 02, 2024 10:20am Rapid palpitations chronic November 122024 10:20am [facility] Work Phone: 1(281) 438-169305-30-2025 Evaluation note* Diagnosis Onset Date Resolution Status Admit Date Obesity chronic October 10, 2024 11:06am Obstructive sleep apnea on CPAP chronic October 10, 2024 11:06am Shortness of breath chronic September 132024 11:06am Presence of permanent cardiac pacemaker January 27, 2024 acute November 10:20am Dyspnea on exertion chronic December 02, 2024 10:20am Essential (primary) hypertension chronic December 02, 2024 10:20am Hyperlipidemia chronic December 02, 2024 10:20am Rapid palpitations chronic November 122024 10:20am Obesity chronic January 9:41am Obstructive sleep apnea on CPAP chronic January 22, 2025 9:41am Shortness of breath chronic Septe mb2024 9:41am [facility] Work Phone: 1(858) 407-555504-30-2025 Evaluation note* Diagnosis Onset Date Resolution Status Admit Date Obesity chronic September 10 9:42am Obstructive sleep apnea on CPAP chronic September 10, 2024 9:42am Rapid palpitations chronic September 10, 2024 9:42am Shortness of breath noneactive September 10, 2024 9:42am Shortness of breath acute September 132024 11:06am Obesity chronic October 10, 2024 11:06am Obstructive sleep apnea on CPAP chronic October 10, 2024 1 1:06am [place] [facility] Work Phone: 1(699) 236-565509-15-2024 Evaluation note* Diagnosis Onset Date Resolution Status Admit Date Presence of permanent cardiac pacemaker January 27, 2024 acute May 142024 10:57am Dyspnea on exertion chronic 2024 10:57am Essential (primary) hypertension chronic May 29 10:57am Hyperlipidemia chronic May 292024 10:57am Rapid palpitations chronic 2024 10:57am Presence of permanent cardiac pacemaker January 27, 2024 acute July 9:44am Dyspnea on exertion chronic July 29, 2024 9:44am Essential (primary) hypertension chronic July 29, 2024 9:44am Hyperlipidemia chronic July 9:44am Rapid palpitations chronic July 29, 2024 9:44am [facility] Work Phone: 1(454) 918-627609-15-2024 Evaluation note* Diagnosis Onset Date Resolution Status Admit Date Presence of permanent cardiac pacemaker January 27, 2024 acute July 9:44am Dyspnea on exertion July 29, 2024 9:44am Essential (primary) hypertension July 29, 2024 9:44am Hyperlipidemia chronic July 9:44am Rapid palpitations chronic July 29, 2024 9:44am Obesity chronic September 10 9:42am Obstructive sleep apnea on CPAP chronic September 10, 2024 9:42am Rapid palpitations chronic September 10, 2024 9:42am Shortness of breath noneactive September 10, 2024 9:42am [facility] Work Phone: 1(154) 797-146009-15-2024 Evaluation note* Diagnosis Onset Date Resolution Status Admit Date Presence of permanent cardiac pacemaker January 27, 2024 acute July 9:44am Dyspnea on exertion chronic July 29, 2024 9:44am Essential (primary) hypertension chronic July 29, 2024 9:44am Hyperlipidemia chronic July 9:44am Rapid palpitations chronic July 29, 2024 9:44am Obesity chronic September 10 9:42am Obstructive sleep apnea on CPAP chronic September 10, 2024 9:42am Rapid palpitations chronic September 10, 2024 9:42am Shortness of breath noneactive Lilly 30th, 2025 9:42am Shortness of breath acute September 132024 11:06am Obesity chronic October 10, 2024 11:06am Obstructive sleep apnea on CPAP chronic October 10, 2024 11:06am [facility] Work Phone: Evaluation note* Diagnosis Onset Date Resolution Status Thyroid nodule acute [facility] Work Phone: Evaluation noteNo assessment information available [facility] Work Phone: Evaluation note* Diagnosis Onset Date Resolution Status AV block, Mobitz 1 chronic Bilateral carotid artery stenosis chronic Essential (primary) hypertension chronic Hyperlipidemia chronic [facility] Work Phone: Evaluation note* Diagnosis Onset Date Resolution Status AV block, Mobitz 1 chronic Essential (primary) hypertension chronic Hyperlipidemia chronic [facility] Work Phone: Evaluation note* Diagnosis Facial infection Unspecified infectious and parasitic diseases documented in this encounter [facility] Work Phone: Reaogq for referral (narrative)No reason for referral [facility] Work Phone: Rexjlh for visit Narrative* Imaging (Routine) - Authorized Specialty Diagnoses / Procedures Referred By Gabriela morataya Referred To Contact Radiology Diagnoses Facial infection Procedures CT maxillofacial bones wo IV contrast Ene Barber DDS [address] [place] [address] Phone: tel: fax: Referral ID Status Reason Start Date Expiration Date Visits Requested Visits Authorized [id number] Authorized Perform Procedure 07/11/2024 07/11/2025 1 1 [facility] Work Phone: Redzka for visit Narrative* Imaging (Routine) - Authorized Specialty Diagnoses / Procedures Referred By Gabriela morataya Referred To Contact Radiology Diagnoses Facial infection Procedures NM bone 3 phase Ene Barber DDS [address] [place] [address] Phone: tel: fax: Referral ID Status Reason Start Date Expiration Date Visits Requested Visits Authorized [id number] Authorized Perform Procedure 07/11/2024 07/11/2025 4 4 [facility] Work Phone: Reason for visit Narrative* Imaging (Routine) - Authorized Specialty Diagnoses / Procedures Referred By Gabriela morataya Referred To Contact Radiology Diagnoses Facial infection Procedures NM bone 3 phase Ene Barber, DDS [address] [place] [id number] Phone: tel: fax: Referral ID Status Reason Start Date Expiration Date Visits Requested Visits Authorized [id number] Authorized Perform Procedure 07/11/2024 07/11/2025 4 4 [facility] Work Phone: Chief Complaint and Reason for Visit Chief Complaint EORDER NONTOXIC SINGLE NODULE THYROID US 05/18 [facility] NODULE Reason for Visit Thyroid nodule Chief Complaint NODULE E ORDER Chief Complaint NODULE E ORDER Spinal stenosis, cervical region Chief Complaint NODULE E ORDER Spinal stenosis, cervical region 1 Y FU Paresthesia of skin Reason for Visit AV block, Mobitz 1 Bilateral carotid artery stenosis Essential (primary) hypertension Hyperlipidemia Chief Complaint NODULE E ORDER Spinal stenosis, cervical region 1 Y FU Paresthesia of skin stroke CVA Reason for Visit AV block, Mobitz 1 Bilateral carotid artery stenosis Essential (primary) hypertension Hyperlipidemia Chief Complaint 1 Y FU Paresthesia of skin stroke CVA EORDER Reason for Visit AV block, Mobitz 1 Bilateral carotid artery stenosis Essential (primary) hypertension Hyperlipidemia Chief Complaint Paresthesia of skin stroke CVA EORDER Chief Complaint stroke CVA EORDER Bradycardia, unspecified Chief Complaint Bradycardia, unspeci fied 6 M FU THYROID NODULE EORDER Reason for Visit AV block, Mobitz 1 Essential (primary) hypertension Hyperlipidemia Chief Complaint THYROID NODULE EORDER LUNG NODULE Chief Complaint LUNG NODULE EORDER 6 M FU CAROTID STENOSIS Reason for Visit AV block, Mobitz 1 Essential (primary) hypertension Hyperlipidemia Chief Complaint CAROTID STENOSIS EORDER LABS Chief Complaint EORDER LABS Solitary pulmonary nodule Chief Complaint 8 m fu w FL[employer]ANG[employer] per [employer]MEMBER EORDER Reason for Visit AV block, Mobitz 1 Essential (primary) hypertension Hyperlipidemia Chief Complaint Admit Date Pacer Check Remote April 26, 2024 8:22pm ANTONIO, low bp, dizziness, Pacer L.L. Adela ry 2024 10:57am MULTIPLE THYROID NODULES June 16 3:36pm LUNG NODULE, HX OF TOBACCO USE June 28, 2024 8:37am SOB ON EXERTION July 01, 2024 10:29am 1 y fu w [employer] per [employer] July 29, 2024 9: 44am Reason for Visit Admit Date Presence of permanent cardiac pacemaker May 29, 2024 10:57am Dyspnea on exertion May 29, 2024 1 0:57am Essential (primary) hypertension May 29, 2024 10:57am Hyperlipidemia May 29, 2024 1 0:57am Rapid palpitations May 29, 2024 1 0:57am Presence of permanent cardiac pacemaker July 29, 2024 9:44am Dyspnea on exertion July 29, 2024 9:4 4am Essential (primary) hypertension July 122024 9:44am Hyperlipidemia July 29, 2024 9:4 4am Rapid palpitations July 29, 2024 9:4 4am Chief Complaint Admit Date MULTIPLE THYROID NODULES June 16 025 3:36pm LUNG NODULE, HX OF TOBACCO USE June 28, 2024 8:37am SOB ON EXERTION July 01, 2024 10:29am Pacer Check Remote July 26, 2024 7:4 9pm 1 y fu w [employer] per [employer] July 29, 2024 9: 44am Shortness of breath September 10, 2024 9:4 2am R06.09 - Other forms of dyspnea September 6:39am Reason for Visit Admit Date Presence of permanent cardiac pacemaker July 29, 2024 9:44am Dyspnea on exertion July 29, 2024 9:4 4am Essential (primary) hypertension July 122024 9:44am Hyperlipidemia July 29, 2024 9:4 4am Rapid palpitations July 29, 2024 9:4 4am Obesity September 10, 2024 9:4 2am Obstructive sleep apnea on CPAP September 102024 9:42am Rapid palpitations September 10, 2024 9:4 2am Shortness of breath September 10, 2024 9:4 2am Chief Complaint Admit Date MULTIPLE THYROID NODULES June 16, 2 025 3:36pm LUNG NODULE, HX OF TOBACCO USE June 28, 2024 8:37am SOB ON EXERTION July 01, 2024 10:29am Pacer Check Remote July 26, 2024 7:4 9pm 1 y fu w [employer] per [employer] July 29, 2024 9: 44am Shortness of breath September 10, 2024 9:4 2am R06.09 - Other forms of dyspnea September 6:39am DYSPNEA, SOB October 03, 2024 10:44 am Chief Complaint Admit Date MULTIPLE THYROID NODULES June 16 3:36pm LUNG NODULE, HX OF TOBACCO USE June 28, 2024 8:37am SOB ON EXERTION July 01, 2024 10:29am Pacer Check Remote July 26, 2024 7:4 9pm 1 y fu w [employer] per [employer] July 29, 2024 9: 44am Shortness of breath September 10, 2024 9:4 2am R06.09 - Other forms of dyspnea September 6:39am DYSPNEA, SOB October 03, 2024 10:44 am 1 m fu October 10, 2024 11:06 am Chief Complaint Admit Date Pacer Check Remote July 26, 2024 7:4 9pm 1 y fu w [employer] per [employer] July 29, 2024 9: 44am Shortness of breath September 10, 2024 9:4 2am R06.09 - Other forms of dyspnea September 6:39am R06.09 - Other forms of dyspnea September 6:58am DYSPNEA, SOB October 03, 2024 10:44 am 1 m fu October 10, 2024 11:06 am Pacer Check Remote October 25, 2024 9:15 pm Reason for Visit Admit Date Presence of permanent cardiac pacemaker July 29, 2024 9:44am Dyspnea on exertion July 29, 2024 9:4 4am Essential (primary) hypertension July 122024 9:44am Hyperlipidemia July 29, 2024 9:4 4am Rapid palpitations July 29, 2024 9:4 4am Obesity September 10, 2024 9:4 2am Obstructive sleep apnea on CPAP September 102024 9:42am Rapid palpitations September 10, 2024 9:4 2am Shortness of breath September 10, 2024 9:4 2am Shortness of breath October 10, 2024 11:06 am Obesity October 10, 2024 11:06 am Obstructive sleep apnea on CPAP September 11:06am Chief Complaint Admit Date Shortness of breath September 10, 2024 9:4 2am R06.09 - Other forms of dyspnea September 6:39am R06.09 - Other forms of dyspnea September 6:58am DYSPNEA, SOB October 03, 2024 10:44 am 1 m fu October 10, 2024 11:06 am Pacer Check Remote October 25, 2024 9:15 pm 4 M FU December 02, 2024 10:2 0am Reason for Visit Admit Date Obesity September 10, 2024 9:4 2am Obstructive sleep apnea on CPAP September 102024 9:42am Rapid palpitations September 10, 2024 9:4 2am Shortness of breath September 10, 2024 9:4 2am Shortness of breath October 10, 2024 11:06 am Obesity October 10, 2024 11:06 am Obstructive sleep apnea on CPAP September 11:06am Chief Complaint Admit Date R06.09 - Other forms of dyspnea September 6:39am R06.09 - Other forms of dyspnea September 6:58am DYSPNEA, SOB October 03, 2024 10:44 am 1 m fu October 10, 2024 11:06 am Pacer Check Remote October 25, 2024 9:15 pm 4 M FU December 02, 2024 10:2 0am 3 M FU January 22, 2025 9:41am Reason for Visit Admit Date Shortness of breath October 10, 2024 11:06 am Obesity October 10, 2024 11:06 am Obstructive sleep apnea on CPAP September 11:06am Presence of permanent cardiac pacemaker December 02, 2024 10:20am Dyspnea on exertion December 02, 2024 10:2 0am Essential (primary) hypertension December 022024 10:20am Hyperlipidemia December 02, 2024 10:2 0am Rapid palpitations December 02, 2024 10:2 0am Chief Complaint Admit Date DYSPNEA, SOB October 03, 2024 10:44 am 1 m fu October 10, 2024 11:06 am Pacer Check Remote October 25, 2024 9:15 pm 4 M FU December 02, 2024 10:2 0am 3 M FU January 22, 2025 9:41am Pacer Check Remote January 24, 2025 7:41pm Reason for Visit Admit Date Obesity October 10, 2024 11:06 am Obstructive sleep apnea on CPAP September 11:06am Shortness of breath October 10, 2024 11:06 am Presence of permanent cardiac pacemaker December 02, 2024 10:20am Dyspnea on exertion December 02, 2024 10:2 0am Essential (primary) hypertension December 022024 10:20am Hyperlipidemia December 02, 2024 10:2 0am Rapid palpitations December 02, 2024 10:2 0am Obesity January 22, 2025 9:41am Obstructive sleep apnea on CPAP Septembe 2024 9:41am Shortness of breath January 22, 2025 9:41am Advance Directives No Advanced Directives Records Found Advance Directive Response Recorded Date/ Time Advance Directives Yes June 07, 2020 8:54am Living Will Yes June 07 8:54am Power of Professor Of French Yes June 07, 2020 8:54am Advance Directive Response Recorded Date/ Time Advance Directives Yes June 07, 2020 7:54am Living Will Yes June 07 7:54am Power of Professor Of French Yes June 07, 2020 7:54am Advance Directive Response Recorded Date/ Time Living Will Yes June 07 8:54am Power of Professor Of French Yes June 07, 2020 8:54am Advance Directives Yes June 07, 2020 8:54am Advance Directive Response Recorded Date/ Time Living Will Yes June 07 8:54am Do you have a Healthcare Power of Professor Of French? Yes June 07, 2020 8:54am Advance Directives Yes June 07, 2020 8:54am Advance Directive Response Recorded Date/ Time Advance Directives Yes June 07, 2020 8:54am Summary Purpose Family History No Family History Records Found Additional Source Comments Goals (unrecognized section and content) Goals may be documented in a n alternate sectionGoals may be documented in an alternate sectionGoals may be documented in an alternate sectionGoals may be documented in an alternate sectionGoals may be documented in an alternate sectionGoals may be documented in an alternate sectionGoals may be documented in an alternate sectionGoals may be documented in an alternate sectionGoals may be documented in an alternate sectionGoals may be documented in an alternate sectionGoals may be documented in an alternate sectionGoals may be documented in an alternate sectionGoals may be documented in an alternate sectionGoals may be documented in an alternate sectionGoals may be documented in an alternate sectionGoals may be documented in an alternate sectionGoals may be documented in an alternate sectionGoals may be documented in an alternate sectionGoals may be documented in an alternate sectionGoals may be documented in an alternate sectionGoals may be documented in an alternate sectionGoals may be documented in an alternate sectionGoals may be documented in an alternate sectionGoals may be documented in an alternate section (unrecognized sect ion and content) No Status Records FoundNo Status Records FoundNo Status Records FoundNo Status Records Found INFORMATION SOURCE (unrecogn ized section and content) DATE CREATED AUTHOR 02/20/2022 [facility] ([place]) DATE CREATED AUTHOR AUTHOR'S ORGANIZ ATION 07/28/2024 [facility] DATE CREATED AUTHOR AUTHOR'S ORGANIZ ATION 08/03/2024 [facility] DATE CREATED AUTHOR AUTHOR'S ORGANIZ ATION [facility] Care Teams (unrecognized sec tion and content) Team Status: Active Member Role Status Dates Dr. Annabella Willard MD Family Provider Active Dr. Annabella Willard MD Primary Care Provider Active Team Status: Inactive Member Role Status Dates Dr. Annabella Willard MD Primary Care Provider, Referr ing Provider Active Dr. Gigi Schwab MD Attending Provider Active Team Status: Inactive Member Role Status Dates Dr. Annabella Willard MD Primary Care Provider Active Dr. Dao Sloan MD Attending Provider, Referring Provider Active Team Status: Inactive Member Role Status Dates Dr. Annabella Willard MD Primary Care Provider, Referr ing Provider Active Dr. Tone Stout MD Attending Provider Active Team Status: Inactive Member Role Status Dates Dr. Annabella Willard MD Primary Care Provider Active Dr. Gigi Schwab MD Attending Provider, Referring Pro vider Active Team Status: Active Member Role Status Dates Dr. Annabella Willard MD Primary Care Pr ovider, Attending Provider, Referring Provider Active Team Status: Inactive Member Role Status Dates Dr. Annabella Willard MD Primary Care Pr ovider, Attending Provider, Referring Provider Active Team Status: Inactive Member Role Status Dates Dr. Annabella Willard MD Primary Care Provider, Attend ing Provider Active Team Status: Active Member Role Status Dates Dr. Annabella Willard MD Primary Care Provider Active Dr. Todd Wade MD Attending Provider Active Team Status: Active Member Role Status Dates Dr. Annabella Willard MD Primary Care Provider, Referr ing Provider Active Dr. Todd Wade MD Attending Provider Active Team Status: Active Member Role Status Dates Dr. Annabella Willard MD Primary Care Provider Active Archana Cannontion , CONTINUITY WRITER-C Attending Provider, Referrin g Provider Active Team Status: Inactive Member Role Status Dates Dr. Annabella Willard MD Primary Care Provider Active Archana Kassandration , CONTINUITY WRITER-C Attending Provider, Referrin g Provider Active Belt Glass Sander Relationship Specialty Start Date End Date Annabella Willard MD [address] [facility] [address] [place] [address] PCP - General Family Medicine 07/25/24 [employer] Sander Relationship Specialty Start Date End Date Annabella Wlilard MD [address] [facility] [address] [place] [address] PCP - General Family Medicine 07/25/24 [employer] Glass Sander Relationship Specialty Start Date End Date Annabella Willard MD [address] [facility] [address] [place] [address] PCP - General Family Medicine 07/25/24 Team Status: Active Member Role Status Dates Dr. Annabella Willard MD Primary Care Provider Active Team Status: Inactive Member Role Status Dates Dr. Annabella Willard MD Primary Care Provider Active Start: April 26, 2024 End: April 26, 2024 Dr. Gigi Schwab MD Attending Provider Active S tart: April 26, 2024 End: April 26, 2024 Team Status: Inactive Member Role Status Dates Dr. Annabella Willard MD Primary Care Provider Active Start: May 29, 2024 End: May 29, 2024 Dr. Annabella Willard MD Referring Provider Active Start: May 29, 2024 End: May 29, 2024 Annabella Krishnan CONTINUITY WRITER, CONTINUITY WRITER-C Attending Provider Active S tart: May 29, 2024 End: May 29, 2024 Team Status: Inactive Member Role Status Dates Dr. Annabella Willard MD Primary Care Provider Active Start: May 29, 2024 End: May 29, 2024 Annabella Krishnan CONTINUITY WRITER, CONTINUITY WRITER-C Attending Provider Active S tart: May 29, 2024 End: May 29, 2024 Annabella Krishnan CONTINUITY WRITER, CONTINUITY WRITER-C Referring Provider Active S tart: May 29, 2024 End: May 29, 2024 Team Status: Inactive Member Role Status Dates Dr. Annabella Willard MD Primary Care Provider Active Start: June 11, 2024 End: June 11, 2024 Dr. Annabella Willard MD Attending Provider Active Start: June 11, 2024 End: June 11, 2024 Dr. Annabella Willard MD Referring Provider Active Start: June 11, 2024 End: June 11, 2024 Team Status: Inactive Member Role Status Dates Dr. Annabella Willard MD Primary Care Provider Active Start: June 16, 2024 End: June 16, 2024 Dr. Annabella Willard MD Attending Provider Active Start: June 16, 2024 End: June 16, 2024 Dr. Annabella Willard MD Referring Provider Active Start: June 16, 2024 End: June 16, 2024 Team Status: Inactive Member Role Status Dates Dr. Annabella Willard MD Primary Care Provider Active Start: June 28, 2024 End: June 28, 2024 Dr. Annabella Willard MD Attending Provider Active Start: June 28, 2024 End: June 28, 2024 Dr. Annabella Willard MD Referring Provider Active Start: June 28, 2024 End: June 28, 2024 Team Status: Inactive Member Role Status Dates Dr. Annabella Willard MD Primary Care Provider Active Start: July 01, 2024 End: July 01, 2024 Dr. Annabella Willard MD Attending Provider Active Start: July 01, 2024 End: July 01, 2024 Dr. Annabella Willard MD Referring Provider Active Start: July 01, 2024 End: July 01, 2024 Team Status: Inactive Member Role Status Dates Dr. Annabella Willard MD Primary Care Provider Active Start: July 23, 2024 End: July 23, 2024 Dr. Annabella Willard MD Attending Provider Active Start: July 23, 2024 End: July 23, 2024 Dr. Annabella Willard MD Referring Provider Active Start: July 23, 2024 End: July 23, 2024 Team Status: Inactive Member Role Status Dates Dr. Annabella Willard MD Primary Care Provider Active Start: July 29, 2024 End: July 29, 2024 Dr. Annabella Willard MD Referring Provider Active Start: July 29, 2024 End: July 29, 2024 Dr. Gigi Schwab MD Attending Provider Active S tart: July 29, 2024 End: July 29, 2024 Team Status: Inactive Member Role Status Dates Dr. Annabella Willard MD Primary Care Provider Active Start: July 26, 2024 End: July 26, 2024 Dr. Gigi Schwab MD Attending Provider Active S tart: July 26, 2024 End: July 26, 2024 Team Status: Inactive Member Role Status Dates Dr. Annabella Willard MD Primary Care Provider Active Start: September 10, 2024 End: September 10, 2024 Dr. Annabella Willard MD Referring Provider Active Start: September 10, 2024 End: September 10, 2024 Jenny Clancy CONTINUITY WRITER, CONTINUITY WRITER-C Attending Provider Active Start: September 10, 2024 End: September 10, 2024 Team Status: Inactive Member Role Status Dates Dr. Annabella Willard MD Primary Care Provider Active Start: September 24, 2024 End: September 24, 2024 Jenny Clancy CONTINUITY WRITER, CONTINUITY WRITER-C Attending Provider Active Start: September 24, 2024 End: September 24, 2024 Jenny Clancy CONTINUITY WRITER, CONTINUITY WRITER-C Referring Provider Active Start: September 24, 2024 End: September 24, 2024 Team Status: Active Member Role Status Dates Dr. Annabella Willard MD Primary Care Provider Active Start: September 25, 2024 Dr. Annabella Willard MD Attending Provider Active Start: September 25, 2024 Dr. Annabella Willard MD Referring Provider Active Start: September 25, 2024 Team Status: Inactive Member Role Status Dates Dr. Annabella Willard MD Primary Care Provider Active Start: September 25, 2024 End: September 25, 2024 Dr. Annabella Willard MD Attending Provider Active Start: September 25, 2024 End: September 25, 2024 Dr. Annabella Willard MD Referring Provider Active Start: September 25, 2024 End: September 25, 2024 Team Status: Inactive Member Role Status Dates Dr. Annabella Willard MD Primary Care Provider Active Start: October 03, 2024 End: October 03, 2024 Jenny Clancy CONTINUITY WRITER, CONTINUITY WRITER-C Attending Provider Active Start: October 03, 2024 End: October 03, 2024 Jenny Clancy CONTINUITY WRITER, CONTINUITY WRITER-C Referring Provider Active Start: October 03, 2024 End: October 03, 2024 Team Status: Active Member Role Status Dates Dr. Annabella Willard MD Primary Care Provider Active Start: October 03, 2024 Dr. Dahiana Viera MD Attending Provider Activ e Start: October 03, 2024 Team Status: Inactive Member Role Status Dates Dr. Annabella Willard MD Primary Care Provider Active Start: October 10, 2024 End: October 10, 2024 Dr. Annabella Willard MD Referring Provider Active Start: October 10, 2024 End: October 10, 2024 Jenny Clancy CONTINUITY WRITER, CONTINUITY WRITER-C Attending Provider Active Start: October 10, 2024 End: October 10, 2024 Team Status: Active Member Role/Relationship Status Dates Dr. Annabella Willard MD Primary Care Provider Active Team Status: Inactive Member Role/Relationship Status Dates Dr. Annabella Willard MD Primary Care Provider Active Start: July 23, 2024 End: July 23, 2024 Dr. Annabella Willard MD Attending Provider Active Start: July 23, 2024 End: July 23, 2024 Dr. Annabella Willard MD Referring Provider Active Start: July 23, 2024 End: July 23, 2024 Team Status: Inactive Member Role/Relationship Status Dates Dr. Annabella Willard MD Primary Care Provider Active Start: July 26, 2024 End: July 26, 2024 Dr. Gigi Schwab MD Attending Provider Active S tart: July 26, 2024 End: July 26, 2024 Team Status: Inactive Member Role/Relationship Status Dates Dr. Annabella Willard MD Primary Care Provider Active Start: July 29, 2024 End: July 29, 2024 Dr. Annabella Willard MD Referring Provider Active Start: July 29, 2024 End: July 29, 2024 Dr. Gigi Schwab MD Attending Provider Active S tart: July 29, 2024 End: July 29, 2024 Team Status: Inactive Member Role/Relationship Status Dates Dr. Annabella Willard MD Primary Care Provider Active Start: September 10, 2024 End: September 10, 2024 Dr. Annabella Willard MD Referring Provider Active Start: September 10, 2024 End: September 10, 2024 Jenny Clancy CONTINUITY WRITER, CONTINUITY WRITER-C Attending Provider Active Start: September 10, 2024 End: September 10, 2024 Team Status: Inactive Member Role/Relationship Status Dates Dr. Annabella Willard MD Primary Care Provider Active Start: September 24, 2024 End: September 24, 2024 Jenny Clancy CONTINUITY WRITER, CONTINUITY WRITER-C Attending Provider Active Start: September 24, 2024 End: September 24, 2024 Jenny Clancy CONTINUITY WRITER, CONTINUITY WRITER-C Referring Provider Active Start: September 24, 2024 End: September 24, 2024 Team Status: Active Member Role/Relationship Status Dates Dr. Annabella Willard MD Primary Care Provider Active Start: September 24, 2024 Dr. Daniel Rivero DO Attending Provider Active S tart: September 24, 2024 Jenny Clancy CONTINUITY WRITER, CONTINUITY WRITER-C Referring Provider Active Start: September 24, 2024 Team Status: Inactive Member Role/Relationship Status Dates Dr. Annabella Willard MD Primary Care Provider Active Start: September 25, 2024 End: September 25, 2024 Dr. Annabella Willard MD Attending Provider Active Start: September 25, 2024 End: September 25, 2024 Dr. Annabella Willard MD Referring Provider Active Start: September 25, 2024 End: September 25, 2024 Team Status: Inactive Member Role/Relationship Status Dates Dr. Annabella Willard MD Primary Care Provider Active Start: October 03, 2024 End: October 03, 2024 Jenny Clancy CONTINUITY WRITER, CONTINUITY WRITER-C Attending Provider Active Start: October 03, 2024 End: October 03, 2024 Jenny Clancy CONTINUITY WRITER, CONTINUITY WRITER-C Referring Provider Active Start: October 03, 2024 End: October 03, 2024 Team Status: Active Member Role/Relationship Status Dates Dr. Annabella Willard MD Primary Care Provider Active Start: October 03, 2024 Dr. Dhaiana Viera MD Attending Provider Activ e Start: October 03, 2024 Team Status: Inactive Member Role/Relationship Status Dates Dr. Annabella Willard MD Primary Care Provider Active Start: October 10, 2024 End: October 10, 2024 Dr. Annabella Willard MD Referring Provider Active Start: October 10, 2024 End: October 10, 2024 Jenny Clancy NP, CONTINUITY WRITER-C Attending Provider Active Start: October 10, 2024 End: October 10, 2024 Team Status: Inactive Member Role/Relationship Status Dates Dr. Annabella Willard MD Primary Care Provider Active Start: October 25, 2024 End: October 25, 2024 Dr. Gigi Schwab MD Attending Provider Active S tart: October 25, 2024 End: October 25, 2024 Team Status: Inactive Member Role/Relationship Status Dates Dr. Annabella Willard MD Primary Care Provider Active Start: September 10, 2024 End: September 10, 2024 Dr. Annabella Willard MD Referring Provider Active Start: September 10, 2024 End: September 10, 2024 Jenny Clancy NP, CONTINUITY WRITER-C Attending Provider Active Start: September 10, 2024 End: September 10, 2024 Team Status: Inactive Member Role/Relationship Status Dates Dr. Annabella Willard MD Primary Care Provider Active Start: September 24, 2024 End: September 24, 2024 Jenny Clancy CONTINUITY WRITER, CONTINUITY WRITER-C Attending Provider Active Start: September 24, 2024 End: September 24, 2024 Jenny Clancy CONTINUITY WRITER, CONTINUITY WRITER-C Referring Provider Active Start: September 24, 2024 End: September 24, 2024 Team Status: Active Member Role/Relationship Status Dates Dr. Annabella Willard MD Primary Care Provider Active Start: September 24, 2024 Dr. Daniel Rivero DO Attending Provider Active S tart: September 24, 2024 Jenny Clancy CONTINUITY WRITER, CONTINUITY WRITER-C Referring Provider Active Start: September 24, 2024 Team Status: Inactive Member Role/Relationship Status Dates Dr. Annabella Willard MD Primary Care Provider Active Start: September 25, 2024 End: September 25, 2024 Dr. Annabella Willard MD Attending Provider Active Start: September 25, 2024 End: September 25, 2024 Dr. Annabella Willard MD Referring Provider Active Start: September 25, 2024 End: September 25, 2024 Team Status: Inactive Member Role/Relationship Status Dates Dr. Annabella Willard MD Primary Care Provider Active Start: October 03, 2024 End: October 03, 2024 Jenny Clancy CONTINUITY WRITER, CONTINUITY WRITER-C Attending Provider Active Start: October 03, 2024 End: October 03, 2024 Jenny Clancy CONTINUITY WRITER, CONTINUITY WRITER-C Referring Provider Active Start: October 03, 2024 End: October 03, 2024 Team Status: Active Member Role/Relationship Status Dates Dr. Annabella Willard MD Primary Care Provider Active Start: October 03, 2024 Dr. Dahiana Viera MD Attending Provider Activ e Start: October 03, 2024 Team Status: Inactive Member Role/Relationship Status Dates Dr. Annabella Willard MD Primary Care Provider Active Start: October 10, 2024 End: October 10, 2024 Dr. Annabella Willard MD Referring Provider Active Start: October 10, 2024 End: October 10, 2024 Jenny Clancy NP, CONTINUITY WRITER-C Attending Provider Active Start: October 10, 2024 End: October 10, 2024 Team Status: Inactive Member Role/Relationship Status Dates Dr. Annabella Willard MD Primary Care Provider Active Start: October 25, 2024 End: October 25, 2024 Dr. Gigi Schwab MD Attending Provider Active S tart: October 25, 2024 End: October 25, 2024 Team Status: Inactive Member Role/Relationship Status Dates Dr. Annabella Willard MD Primary Care Provider Active Start: December 02, 2024 End: December 02, 2024 Dr. Annabella Willard MD Referring Provider Active Start: December 02, 2024 End: December 02, 2024 Dr. Gigi Schwab MD Attending Provider Active S tart: December 02, 2024 End: December 02, 2024 Team Status: Inactive Member Role/Relationship Status Dates Dr. Annabella Willard MD Primary Care Provider Active Start: September 24, 2024 End: September 24, 2024 Jenny Clancy CONTINUITY WRITER, CONTINUITY WRITER-C Attending Provider Active Start: September 24, 2024 End: September 24, 2024 Jenny Clancy CONTINUITY WRITER, CONTINUITY WRITER-C Referring Provider Active Start: September 24, 2024 End: September 24, 2024 Team Status: Active Member Role/Relationship Status Dates Dr. Annabella Willard MD Primary Care Provider Active Start: September 24, 2024 Dr. Daniel Rivero DO Attending Provider Active S tart: September 24, 2024 Jenny Clancy CONTINUITY WRITER, CONTINUITY WRITER-C Referring Provider Active Start: September 24, 2024 Team Status: Inactive Member Role/Relationship Status Dates Dr. Annabella Willard MD Primary Care Provider Active Start: September 25, 2024 End: September 25, 2024 Dr. Annabella Willard MD Attending Provider Active Start: September 25, 2024 End: September 25, 2024 Dr. Annabella Willard MD Referring Provider Active Start: September 25, 2024 End: September 25, 2024 Team Status: Inactive Member Role/Relationship Status Dates Dr. Annabella Willard MD Primary Care Provider Active Start: October 03, 2024 End: October 03, 2024 Jenny Clancy CONTINUITY WRITER, CONTINUITY WRITER-C Attending Provider Active Start: October 03, 2024 End: October 03, 2024 Jenny Clancy CONTINUITY WRITER, CONTINUITY WRITER-C Referring Provider Active Start: October 03, 2024 End: October 03, 2024 Team Status: Active Member Role/Relationship Status Dates Dr. Annabella Willard MD Primary Care Provider Active Start: October 03, 2024 Dr. Dahiana Viera MD Attending Provider Activ e Start: October 03, 2024 Team Status: Inactive Member Role/Relationship Status Dates Dr. Annabella Willard MD Primary Care Provider Active Start: October 10, 2024 End: October 10, 2024 Dr. Annabella Willard MD Referring Provider Active Start: October 10, 2024 End: October 10, 2024 Jenny Clancy CONTINUITY WRITER, CONTINUITY WRITER-C Attending Provider Active Start: October 10, 2024 End: October 10, 2024 Team Status: Inactive Member Role/Relationship Status Dates Dr. Annabella Willard MD Primary Care Provider Active Start: October 25, 2024 End: October 25, 2024 Dr. Gigi Schwab MD Attending Provider Active S tart: October 25, 2024 End: October 25, 2024 Team Status: Inactive Member Role/Relationship Status Dates Dr. Annabella Willard MD Primary Care Provider Active Start: December 02, 2024 End: December 02, 2024 Dr. Annabella Willard MD Referring Provider Active Start: December 02, 2024 End: December 02, 2024 Dr. Gigi Schwab MD Attending Provider Active S tart: December 02, 2024 End: December 02, 2024 Team Status: Inactive Member Role/Relationship Status Dates Dr. Annabella Willard MD Primary Care Provider Active Start: January 22, 2025 End: January 22, 2025 Dr. Annabella Willard MD Referring Provider Active Start: January 22, 2025 End: January 22, 2025 Jenny Clancy CONTINUITY WRITER, CONTINUITY WRITER-C Attending Provider Active Start: January 22, 2025 End: January 22, 2025 Team Status: Active Member Role/Relationship Status Dates Dr. Annabella Willard MD Primary care physician Active Team Status: Inactive Member Role/Relationship Status Dates Dr. Annabella Willard MD Primary care physician Active Start: October 03, 2024 End: October 03, 2024 Jenny Clancy CONTINUITY WRITER, CONTINUITY WRITER-C Attending physician Active Start: October 03, 2024 End: October 03, 2024 Jenny Clancy CONTINUITY WRITER, CONTINUITY WRITER-C Referring Provider Active Start: October 03, 2024 End: October 03, 2024 Team Status: Active Member Role/Relationship Status Dates Dr. Annabella Willard MD Primary care physician Active Start: October 03, 2024 Dr. Dahiana Viera MD Attending physician Acti ve Start: October 03, 2024 Team Status: Inactive Member Role/Relationship Status Dates Dr. Annabella Willard MD Primary care physician Active Start: October 10, 2024 End: October 10, 2024 Dr. Annabella Willard MD Referring Provider Active Start: October 10, 2024 End: October 10, 2024 Jenny Clancy NP CONTINUITY WRITER-C Attending physician Active Start: October 10, 2024 End: October 10, 2024 Team Status: Inactive Member Role/Relationship Status Dates Dr. Annabella Willard MD Primary care physician Active Start: October 25, 2024 End: October 25, 2024 Dr. Gigi Schwab MD Attending physician Active Start: October 25, 2024 End: October 25, 2024 Team Status: Inactive Member Role/Relationship Status Dates Dr. Annabella Willard MD Primary care physician Active Start: December 02, 2024 End: December 02, 2024 Dr. Annabella Willard MD Referring Provider Active Start: December 02, 2024 End: December 02, 2024 Dr. Gigi Schwab MD Attending physician Active Start: December 02, 2024 End: December 02, 2024 Team Status: Inactive Member Role/Relationship Status Dates Dr. Annabella Willard MD Primary care physician Active Start: January 22, 2025 End: January 22, 2025 Dr. Annabella Willard MD Referring Provider Active Start: January 22, 2025 End: January 22, 2025 Jenny Clancy NP, NP-C Attending physician Active Start: January 22, 2025 End: January 22, 2025 Team Status: Inactive Member Role/Relationship Status Dates Dr. Annabella Willard MD Primary care physician Active Start: January 24, 2025 End: January 24, 2025 Dr. Gigi Schwab MD Attending physician Active Start: January 24, 2025 End: January 24, 2025 FOR RECORDS PERTAINING TO PATIENTS WHO ARE [...] BE BASED ON THE PRIMARY CLINICAL RECORDS. [facility] provides no warranty or guarantee of the accuracy or completeness of information in this document.
[2025-03-03 10:11] LABS: Hematocrit 43.2 % (40-54); Hemoglobin 14.5 g/dL (13.0-16.5); Immature Granulocytes Count 0.030 X10^3/uL (0.0-0.0); Mean Corp Hgb Conc 33.6 g/dL (32-36); Mean Corpuscular Volume 97.3 fL (80-94); Mean Platelet Vol. 9.6 fl (6.2-12.0); NRBC Flagged by Analyzer 0 % (0-5); Platelet Count 186 K/mm3 (150-450); RBC Distribution Width CV 12.8 % (11.6-14.6); RBC Distribution Width SD 46.4 fl (35.1-43.9); Red Blood Count 4.44 M/mm3 (4.6-6.2); White Blood Count 5.6 K/mm3 (4.4-11.0)
[2025-03-03 10:21] LABS: Color, Urine Yellow (Yellow); Glucose, Dipstick Normal (Normal); Ketone-Dipstick Negative (Negative); Leukocyte Esterase-Dipstick Negative /ul (Negative); Nitrite-Dipstick Negative (Negative); Occult Blood-Urine 10 /ul (Negative); Protein-Dipstick 100 mg/dl (Negative); Specific Gravity, Urine 1.015 (1.002-1.030); Urine Bilirubin Dipstick Negative (Negative)
[2025-03-03 10:47] LABS: Red Blood Cells-Urine 0-5 SEEN /hpf (0-5)
[2025-03-03 10:59] LABS: AST(SGOT) 32 U/L (<=37); Alanine Aminotransfer ALT/SGPT 32 U/L (<=46); Albumin, Serum 4.5 g/dL (3.4-4.8); Alkaline Phosphatase 71 U/L (40-129); Anion Gap 12 (5-15); BUN 20 mg/dL (4-19); BUN/Creat Ratio 25.4 RATIO (10-20); Calcium,Total 9.7 mg/dL (7.6-11.0); Carbon Dioxide 24.6 mmol/L (21.0-32.0); Chloride 102 mmol/L (98-108); Cholesterol 188 mg/dL (<=200); Globulin 2.6 g/dL (2.2-4.2); Glucose 105 mg/dL (70-99); Low Density Lipoprotein Calc. 69 mg/dL; PSA,Total- Diagnostic 0.06 ng/mL (0.00-4.00); Potassium 4.6 mmol/L (3.3-5.1); Triglycerides 150 mg/dL; Very Low Density Lipoprotein 30 mg/dL (5-40); cholesterol:hdl ratio screen 2.00
== END | disposition home or self-care (01) ==
LOC: MTLAB 07:03
PROVIDERS: PCP Family Medicine; Referring Provider Family Medicine; Visit Provider Family Medicine
DX: K59.00 Constipation, unspecified (principal); C61 Malignant neoplasm of prostate; R73.09 Other abnormal glucose; I10 Essential (primary) hypertension; E55.9 Vitamin D deficiency, unspecified
CPT/HCPCS: 36415; 74022; 80053; 80061; 81001; 83036; 84153; 85025

== ENCOUNTER → 2025-03-10 | Outpatient (CLI) | payer MEDICARE, SELFPAY ==
--- NOTE | 2025-03-10 10:57 | CDU_ITS ---
Reason For Study VL/Carotid Duplex Ultrasound
== END | disposition home or self-care (01) ==
LOC: CVS 10:48
PROVIDERS: PCP Family Medicine; Referring Provider Family Medicine; Visit Provider Family Medicine
DX: I65.23 Occlusion and stenosis of bilateral carotid arteries (principal)
CPT/HCPCS: 93880